=== PATIENT | male | born 1955 | race Caucasian/White ===

== ENCOUNTER → 2016-07-31 | Outpatient (CLI) | payer MEDICARE, MEDICAID ==
[~2016-07-31] VITALS: Ht 180.3 cm; Wt 117.0 kg
[~2016-07-31] MED LIST: /PANT40TA OR; /SUCR1TA OR; ACET65TA OR; ALPR0.25 PO; ASPI325T OR; ASPI81CH32 PO; ATEN50TA2 OR; ATEN50TA2 PO; ATOR1TAB18 PO; ATOR40TA PO; BYDU1INJ SC; FURO40TA2 PO; GLIP5TAB15 PO; GLUC1000 OR; INVO300T PO; LASIX OR; LIDOCAINE 2% INJ 100 MG/5 ML SDV (FOR ANES.) As Ordered ONE; LISI10TA4 OR; LISI40TAB PO; MAALSUS OR; METF1000 PO; METO10TA2 OR; NEXI20CA PO; NS 1,000 ML IV SCH; OXYC1TAB15 PO; PERC5TAB8 OR; PERC7.5T8 OR; PLAV75TA PO; PROPOFOL 200 MG/20 ML VIAL As Ordered ONE; SERT50TA2 OR; SIMV80TA OR; ZETI10TA OR; ciprofloxacin OR
--- NOTE | 2016-07-31 11:34 | ROOR ---
Patient Name: Jason Blank Procedure Date: 07/31/2016 11:17 AM Date of : 1955 Age: 61 Room: M OP Gender: Male Note Status: Finalized Procedure: Upper GI endoscopy Indications: Dysphagia, Heartburn Providers: Tony OCHOA MD Referring MD: Chacorta Mishra NP Requesting Provider: Medicines: Monitored Anesthesia Care Complications: No immediate complications. Procedure: Pre-Anesthesia Assessment: - The heart rate, respiratory rate, oxygen saturations, blood pressure, adequacy of pulmonary ventilation, and response to care were monitored throughout the procedure. The Endoscope was introduced through the mouth, and advanced to the third part of duodenum. The upper GI endoscopy was accomplished without difficulty. The patient tolerated the procedure well. Findings: Multiple, diminutive erosions without bleeding were found in the entire duodenum. Biopsies were taken with a cold forceps for histology. The exam was otherwise without abnormality. Biopsies were taken with a cold forceps in the gastric antrum for Helicobacter pylori testing. Impression: - Multiple small superficial erosions in duodenum. Biopsied. - The examination was otherwise normal. - Biopsies were taken with a cold forceps for Helicobacter pylori testing. Recommendation: - No ibuprofen, naproxen, or other non-steroidal anti-inflammatory drugs. - Use Nexium (esomeprazole) 40 mg PO daily. - (the script was sent to your pharmacy on file) Tony Ochoa MD Tony OCHOA MD 07/31/2016 11:33:37 AM This report has been signed electronically. Number of Addenda: 0 Note Initiated On: 07/31/2016 11:17 AM Estimated Blood Loss: Estimated blood loss: none.
--- NOTE | 2016-07-31 11:49 | ROOR ---
Patient Name: Jason Blank Procedure Date: 07/31/2016 11:18 AM Date of : 1955 Age: 61 Room: [facility] Gender: Male Note Status: Finalized Procedure: Colonoscopy Indications: Screening for colorectal malignant neoplasm Providers: Tony OCHOA MD Referring MD: Chacorta Mishra NP Requesting Provider: Medicines: Monitored Anesthesia Care Complications: No immediate complications. Procedure: Pre-Anesthesia Assessment: - The heart rate, respiratory rate, oxygen saturations, blood pressure, adequacy of pulmonary ventilation, and response to care were monitored throughout the procedure. The Colonoscope was introduced through the anus and advanced to the cecum, identified by appendiceal orifice and ileocecal valve. The colonoscopy was performed without difficulty. The patient tolerated the procedure well. The quality of the bowel preparation was good. Findings: The perianal and digital rectal examinations were normal. A 4 mm polyp was found at the splenic flexure. The polyp was sessile. The polyp was removed with a cold snare. Resection and retrieval were complete. Three sessile polyps were found in the high rectum. The polyps were 3 to 4 mm in size. These polyps were removed with a cold snare. Resection and retrieval were complete. Internal hemorrhoids were found during retroflexion. The hemorrhoids were medium-sized. The exam was otherwise without abnormality on direct and retroflexion views. (Exam: Complete, Prep: Good or Excellent.) Impression: - One 4 mm polyp at the splenic flexure, removed with a cold snare. Resected and retrieved. - Three 3 to 4 mm polyps in the rectum, removed with a cold snare. Resected and retrieved. - Small Internal hemorrhoids. - The examination was otherwise normal on direct and retroflexion views. - (Exam: Complete, Prep: Good or Excellent.) Recommendation: - Telephone endoscopist for pathology results in 2 weeks. - If the pathology report reveals adenomatous tissue, then repeat the colonoscopy for surveillance in 3 years. - Resume Plavix (clopidogrel) at prior dose today. Tony Ochoa MD Tony OCHOA MD 07/31/2016 11:49:16 AM This report has been signed electronically. Number of Addenda: 0 Note Initiated On: 07/31/2016 11:18 AM Estimated Blood Loss: Estimated blood loss: none.
[2016-07-31 12:19] VITALS: BP 95/54
== END ==
LOC: M OPP 09:52
PROVIDERS: ATTEND Internal Medicine Gastroenterology
DX: Z12.11 Encounter for screening for malignant neoplasm of colon (principal); D12.3 Benign neoplasm of transverse colon; D12.8 Benign neoplasm of rectum; K64.0 First degree hemorrhoids; K31.89 Other diseases of stomach and duodenum; R12 Heartburn; R13.10 Dysphagia, unspecified; I10 Essential (primary) hypertension; E11.9 Type 2 diabetes mellitus without complications; E78.5 Hyperlipidemia, unspecified; I25.10 Atherosclerotic heart disease of native coronary artery without angina pectoris; F41.9 Anxiety disorder, unspecified; M25.512 Pain in left shoulder; Z86.14 Personal history of Methicillin resistant Staphylococcus aureus infection; Z91.030 Bee allergy status; Z79.84 Long term (current) use of oral hypoglycemic drugs; Z79.82 Long term (current) use of aspirin; Z79.01 Long term (current) use of anticoagulants; Z79.891 Long term (current) use of opiate analgesic; Z79.899 Other long term (current) drug therapy; Z95.5 Presence of coronary angioplasty implant and graft; Z80.42 Family history of malignant neoplasm of prostate

== ENCOUNTER → 2016-10-12 | Outpatient (CLI) | payer MEDICARE, MEDICAID ==
[~2016-10-12] MED LIST changes: -LIDOCAINE 2% INJ 100 MG/5 ML SDV (FOR ANES.) As Ordered ONE; -NS 1,000 ML IV SCH; -PLAV75TA PO; +PLAV75TA38 PO; -PROPOFOL 200 MG/20 ML VIAL As Ordered ONE
--- NOTE | 2016-10-12 12:04 | REP ---
MRI OF RIGHT SHOULDER: TECHNIQUE: Axial T2 fat sat, gradient echo, sagittal oblique T2 fat sat, coronal oblique T1, T2 fat sat. There are moderate hypertrophic degenerative changes of the acromioclavicular joint. Ill-defined high signal in the supraspinatus tendon is compatible with tendinopathy/tendonitis. There is mild confluent signal focally in portions of the tendon consistent with partial tearing. I do not see a complete tear. Biceps tendon is within the bicipital groove with no tenosynovitis. There is no Hill-Sachs deformity. Deltoid muscle demonstrates abnormal signal. Biceps labral complex appears intact. I do not see a definite labral tear. Subchondral cystic changes are seen in the posterior bony glenoid as well as in the superolateral humeral head. There is no occult fracture. No paralabral cyst is seen. There is a normal amount of joint fluid. IMPRESSION: Supraspinatus tendinopathy/tendonitis with focal areas of partial tearing. No full thickness rotator cuff tendon tear and no evidence of a labral tear. There is chondromalacia at the glenohumeral joint. Subchondral cystic changes are seen in the posterior bony glenoid and in the superolateral humeral head. Signed by Brad Choudhury MD 10/12/2016 01:26 P
== END ==
LOC: M RAD 09:12
PROVIDERS: ATTEND Nurse Practitioner Family
DX: M25.511 Pain in right shoulder (principal)

== ENCOUNTER 2017-02-16 09:07 | Emergency (ER) | payer MEDICARE, MEDICAID ==
[~2017-02-16] VITALS: Ht 180.3 cm; Wt 116.4 kg
[~2017-02-16 09:07] MED LIST changes: -ATOR1TAB18 PO; -ATOR40TA PO; +ATOR40TA75 PO; +ATOR80TA59 PO; +GLIP1TAB49 PO; -GLIP5TAB15 PO; -METF1000 PO; +METF10004 PO; +PLAV1TAB2 PO; -PLAV75TA38 PO
[2017-02-16] MEDS ORDERED: MAGN1TAB25 PO (09:18)
[2017-02-16] MEDS ORDERED: CLINDAMYCIN 900 MG in APPROPRIATE DILUENT 1 EA IV ONE (09:30)
[2017-02-16 09:51] LABS: BASO # 0.1 K/mm3 (0.0-0.2); BASO % 0.4 % (0.0-1.0); EOS # 0.4 K/mm3 (0.0-0.50); EOS % 2.5 % (0.0-3.0); LARGE UNSTAINED CELL # 0.2 K/mm3 (0.0-0.4); LARGE UNSTAINED CELL % 1.2 % (0.0-4.0); LYMPH # 1.2 K/mm3 (1.5-4.5); LYMPH % 7.8 % (24.0-44.0); MEAN CORPUSCULAR HEMOGLOBIN 31.2 pg (27.0-33.0); MEAN CORPUSCULAR HGB CONC 35.2 g/dl (32.0-36.5); MEAN CORPUSCULAR VOLUME 88.6 fl (80.0-96.0); MONO # 0.8 K/mm3 (0.0-0.8); MONO % 4.9 % (0.0-5.0); NEUTROPHILS # 13.1 K/mm3 (1.8-7.7); NEUTROPHILS % 83.3 % (36.0-66.0); PLATELET COUNT, AUTOMATED 296 k/mm3 (150-450); RED CELL DISTRIBUTION WIDTH 12.9 % (11.5-14.5); WHITE BLOOD COUNT 15.7 K/mm3 (4.0-10.0)
[2017-02-16 10:23] LABS: ERYTHROCYTE SEDIMENTATION RATE 13 mm/hr (0-20)
[2017-02-16 10:26] LABS: ALBUMIN 3.8 GM/DL (3.2-5.2); ALBUMIN/GLOBULIN RATIO 1.09 (1.00-1.93); ALKALINE PHOSPHATASE 104 U/L (45-117); ALT/SGPT 29 U/L (12-78); ANION GAP 10 MEQ/L (8-16); AST/SGOT 12 U/L (15-37); BILIRUBIN,TOTAL 0.7 MG/DL (0.2-1.0); BLOOD UREA NITROGEN 25 MG/DL (7-18); CALCIUM LEVEL 9.2 MG/DL (8.8-10.2); CARBON DIOXIDE LEVEL 26 MEQ/L (21-32); CHLORIDE LEVEL 101 MEQ/L (98-107); CREATININE FOR GFR 1.29 MG/DL (0.70-1.30); GLOMERULAR FILTRATION RATE > 60.0 (>49); GLUCOSE, FASTING 161 MG/DL (80-110); POTASSIUM SERUM 4.2 MEQ/L (3.5-5.1); SODIUM LEVEL 137 MEQ/L (136-145); TOTAL PROTEIN 7.3 GM/DL (6.4-8.2)
[2017-02-16] MEDS ORDERED: ISOVUE-370 76% 100ML VIAL (Q9967) As Ordered ONE (10:36)
[2017-02-16] MEDS ORDERED: MORPHINE 4 MG/ML 1ML SYRINGE IV ONE (11:00)
[2017-02-16] MEDS ORDERED: ONDANSETRON 4MG/2ML VIAL (J2405) IV ONE (11:00)
--- NOTE | 2017-02-16 11:41 | REP ---
REASON FOR EXAMINATION: Right lower quadrant pain superficially at a previous injection sight. The details have not been disclosed. There is no prior for comparison. CONTRAST: 100 mL Isovue 370. The lung bases are clear. The liver is within normal limits. There is cholelithiasis. The spleen, pancreas, adrenal glands, and kidneys are within normal limits. There is mild scarring of the inferior pole of the left kidney. The abdominal aorta and para-aortic regions are within normal limits. The bowel loops and their mesenteries are within normal limits. There is no free fluid or free air in the abdomen. In the subcutaneous fat overlying the right lower quadrant, there is a 2 x 1.5 cm sized focal area of increased density with fatty infiltration surrounding it. There is a tiny dot of air in the dependent portion of this small nodule, which has higher than water Hounsfield unit readings but significantly less than the Hounsfield unit reading of muscle. The epicenter of this is approximately 2.6 cm from the skin surface. CT PELVIS: CT pelvis of today was compared to a prior pelvic CT of 04/14/2010. There is corpora amylacea. There is no free fluid or free air. The bowel loops and their mesenteries are within normal limits. There is no pelvic mass or adenopathy. The imaged osseous structures show no acute changes from the prior exam. IMPRESSION: 1. There is what is most consistent with a small organizing abscess forming in the deep subcutaneous fat of the right lower quadrant superficially as described above. 2. There is cholelithiasis. 3. Other findings as described above. Signed by Sanjeev Lya DO 02/16/2017 12:07 P
[2017-02-16] MEDS ORDERED: CLIN150C14 PO (13:56)
[2017-02-16] MEDS ORDERED: NS 1,000 ML IV ONE (14:45)
[2017-02-16 15:35] VITALS: BP 143/67
--- NOTE | 2017-02-17 02:43 | ECGEPIP ---
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
--- NOTE | 2017-02-17 14:13 | ER ---
DATE OF CONSULTATION: 02/16/2017 REASON FOR CONSULTATION: Abdominal wall abscess. HISTORY OF PRESENT ILLNESS: The patient is a pleasant 61-year-old diabetic man who presented to the emergency department at 9:07 in the morning on February 16 complaining of some swelling and tenderness in the right lower quadrant of the abdomen. The patient reports that he gives himself a weekly Bydureon shot on Saturday. He gave himself his usual shot this past Saturday the and noted some mild burning with the injection. Over the course of the ensuing several days he noticed development of an area of redness with a tender area centrally which increased in prominence over time and became more uncomfortable. He has not had any fevers or chills. In the emergency department he was found to have an area of redness in the right lower quadrant with a central firmer area. He had some laboratory studies obtained that showed an elevation of his white blood cell count to 16,000 with 83% neutrophils. A CT scan of the abdomen and pelvis was obtained by the physician's assisted living assistant in the emergency department. This was interpreted as suggesting a small organizing abscess in the deep subcutaneous fat of the right lower quadrant. I was consulted to evaluate the patient regarding the necessity of drainage. ALLERGIES: The patient's only reported significant allergy is to bee venom. He is on multiple medications as listed in the emergency department record. His medical history is significant for coronary artery disease, hypertension, hyperlipidemia, and diabetes mellitus. His surgical history is significant for a quadruple coronary bypass. He has had an inguinal hernia repair bilaterally. He has had surgery on his right thumb and left shoulder. He reports that he has had a prior methicillin-resistant staph aureus infection by his recollection. The patient is a former smoker. Review of systems reveals no history of chest pain or palpitations. He denies any shortness of breath, wheezing or difficulty breathing. He has not had any abdominal pain other than the tenderness of the anterior abdominal wall in the right lower quadrant. He has not noticed any drainage from this area. He is not having any bone or joint issues. Remainder of the review of systems is unremarkable. Physical exam reveals a pleasant, perhaps mildly obese man lying quietly on the emergency department stretcher. His most recent vital signs showed a pulse of 82, blood pressure of 128/73 and an O2 sat that was in the 90s on room air. He is alert, oriented and cooperative. Examination is limited to the abdomen. He has an area of redness approximately 15 cm wide x 6-7 cm maximally longitudinally. This extends across the lower portion of the right lower quadrant. Centrally, this is quite indurated and tender. There is no evidence for incipient drainage. I see no puncture wound. His labs are reviewed and as noted in the history of present illness. The CT scan is also reviewed and shows some inflammatory changes in the right lower quadrant which appear to correspond to the visible area of cellulitis. There does appear to be possible very small air bubble centrally with some changes that could represent an underlying abscess. IMPRESSION: Right lower quadrant abscess. RECOMMENDATIONS: I believe it would be prudent to perform an incision and drainage of this area. The patient is a diabetic and has noted progressive worsening of this area. I suppose this could be related to his injection of insulin earlier in the week. He does have a mild elevation of his white blood cell count. I recommended to the patient that we proceed with an incision and drainage. The patient was agreeable. Following this, the area was prepped with Betadine. Local anesthesia was achieved over the central portion of this area where the induration and tenderness was most pronounced. After adequate local anesthesia had been achieved with 1% Xylocaine, an 11 blade was used to make an approximately 1-1/2 to 2 cm long transverse incision. There was some blood released and a small amount of purulent appearing fluid. A Culturette was obtained for Gram stain and culture and sensitivity. The wound was wicked with some Betadine gauze and a bulky bandage was applied. The patient tolerated the procedure well. He was instructed in local wound care to include several times daily warm soaks or showers. He should remove the gauze wick after about 8 hours and shower this area to promote drainage. He will be placed on antibiotics by the emergency department personnel. He will need to follow up regarding the culture. I have invited him to return to my office in 10 days if the wound has not healed completely by that time. TAMIR
== END 2017-02-16 15:41 | disposition home or self-care (01) ==
LOC: M ED 09:07
DX: L02.211 Cutaneous abscess of abdominal wall (principal); F17.200 Nicotine dependence, unspecified, uncomplicated; K80.20 Calculus of gallbladder without cholecystitis without obstruction; Z95.1 Presence of aortocoronary bypass graft; I50.9 Heart failure, unspecified; E78.00 Pure hypercholesterolemia, unspecified; I10 Essential (primary) hypertension; G47.30 Sleep apnea, unspecified; K21.9 Gastro-esophageal reflux disease without esophagitis; E11.9 Type 2 diabetes mellitus without complications; G89.29 Other chronic pain; M54.9 Dorsalgia, unspecified; F41.9 Anxiety disorder, unspecified; Z79.82 Long term (current) use of aspirin; Z79.899 Other long term (current) drug therapy; Z79.01 Long term (current) use of anticoagulants; Z79.84 Long term (current) use of oral hypoglycemic drugs; Z91.030 Bee allergy status
CPT/HCPCS: 74177; 80053; 82550; 82553; 84484; 85025; 85652; 86140; 87040; 87070; 87077; 87186; 87205; 93005; 93041; 96361; 96365; 96375; 99285; J2405; Q9967

== ENCOUNTER 2017-05-10 11:08 | Emergency (ER) | payer MEDICAID, MEDICARE ==
[~2017-05-10] VITALS: Ht 180.3 cm; Wt 116.4 kg
[~2017-05-10 11:08] MED LIST changes: +CLIN150C14 PO; +MAGN1TAB25 PO
[2017-05-10 11:46] LABS: BASO # 0.1 10^3/uL (0.0-0.2); BASO % 0.8 % (0.0-1.0); EOS # 0.4 10^3/uL (0.0-0.50); EOS % 4.4 % (0.0-3.0); IMMATURE GRANULOCYTE % 0.2 % (0-0); LYMPH # 1.9 10^3/uL (1.5-4.5); LYMPH % 21.6 % (24.0-44.0); MEAN CORPUSCULAR HEMOGLOBIN 30.5 pg (27.0-33.0); MEAN CORPUSCULAR HGB CONC 34.8 g/dl (32.0-36.5); MEAN CORPUSCULAR VOLUME 87.6 fl (80.0-96.0); MONO # 0.7 10^3/uL (0.0-0.8); MONO % 7.6 % (0.0-5.0); NEUTROPHILS # 5.8 10^3/uL (1.8-7.7); NEUTROPHILS % 65.4 % (36.0-66.0); PLATELET COUNT, AUTOMATED 300 10^3/uL (150-450); RED CELL DISTRIBUTION WIDTH 13.2 % (11.5-14.5); WHITE BLOOD COUNT 8.8 10^3/uL (4.0-10.0)
[2017-05-10 12:24] LABS: ANION GAP 10 MEQ/L (8-16); BLOOD UREA NITROGEN 22 MG/DL (7-18); CALCIUM LEVEL 9.4 MG/DL (8.8-10.2); CARBON DIOXIDE LEVEL 26 MEQ/L (21-32); CHLORIDE LEVEL 103 MEQ/L (98-107); CREATININE FOR GFR 1.18 MG/DL (0.70-1.30); GLOMERULAR FILTRATION RATE > 60.0 (>49); GLUCOSE, FASTING 131 MG/DL (80-110); POTASSIUM SERUM 4.6 MEQ/L (3.5-5.1); SODIUM LEVEL 139 MEQ/L (136-145)
[2017-05-10 13:10] LABS: INR 0.99
[2017-05-10 13:26] LABS: FREE T4 1.33 NG/DL (0.76-1.46); MAGNESIUM LEVEL 2.3 MG/DL (1.8-2.4); PHOSPHORUS LEVEL 3.7 MG/DL (2.5-4.9)
--- NOTE | 2017-05-10 13:26 | REP ---
CHEST, TWO VIEWS: COMPARISON: 11/25/2013. There is mild cardiomegaly. There is no acute infiltrate. There is mild bibasilar fibroatelectatic change. There is mild calcification of the thoracic aorta. The mediastinal silhouette is unchanged. Multiple sternal wires and mediastinal clips are present. There are degenerative changes of the spine. IMPRESSION: Mild cardiomegaly. No acute infiltrate. Signed by Brad Choudhury MD 05/13/2017 09:51 A
[2017-05-10] MEDS ORDERED: ASPIRIN 81 MG CHEW TABLET PO ONE (13:45)
[2017-05-10 18:38] VITALS: BP 131/58
[2017-05-11] MEDS ORDERED: VITMTA PO (00:43)
[2017-05-11] MEDS ORDERED: METO1TAB7 PO (00:43)
[2017-05-11] MEDS ORDERED: METF500T4 PO (00:43)
[2017-05-11] MEDS ORDERED: NITR0.4S14 SL (00:43)
[2017-05-11] MEDS ORDERED: NEXI40CA PO (00:43)
--- NOTE | 2017-05-11 05:52 | ECGEPIP ---
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
--- NOTE | 2017-05-11 05:57 | ECGEPIP ---
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
[2017-05-11] MEDS ORDERED: CILO0.3S OS (10:25)
== END 2017-05-10 18:40 | disposition home or self-care (01) ==
LOC: M ED 11:08
DX: R07.9 Chest pain, unspecified (principal); I51.7 Cardiomegaly; I48.91 Unspecified atrial fibrillation; I25.10 Atherosclerotic heart disease of native coronary artery without angina pectoris; E11.9 Type 2 diabetes mellitus without complications; I10 Essential (primary) hypertension; E78.5 Hyperlipidemia, unspecified; K44.9 Diaphragmatic hernia without obstruction or gangrene; Z95.5 Presence of coronary angioplasty implant and graft; Z95.1 Presence of aortocoronary bypass graft; Z87.891 Personal history of nicotine dependence; Z82.49 Family history of ischemic heart disease and other diseases of the circulatory system; Z79.82 Long term (current) use of aspirin; Z79.899 Other long term (current) drug therapy; Z79.84 Long term (current) use of oral hypoglycemic drugs; Z91.030 Bee allergy status

== ENCOUNTER 2017-05-10 22:28 | Observation (INO) | payer MEDICARE ==
[~2017-05-10] VITALS: Ht 180.3 cm; Wt 116.7 kg
[2017-05-10 23:28] LABS: BASO # 0.1 10^3/uL (0.0-0.2); BASO % 0.6 % (0.0-1.0); EOS # 0.5 10^3/uL (0.0-0.50); EOS % 4.5 % (0.0-3.0); IMMATURE GRANULOCYTE % 0.2 % (0-0); LYMPH # 2.3 10^3/uL (1.5-4.5); LYMPH % 22.6 % (24.0-44.0); MEAN CORPUSCULAR HEMOGLOBIN 30.5 pg (27.0-33.0); MEAN CORPUSCULAR HGB CONC 34.9 g/dl (32.0-36.5); MEAN CORPUSCULAR VOLUME 87.4 fl (80.0-96.0); MONO # 0.9 10^3/uL (0.0-0.8); MONO % 8.7 % (0.0-5.0); NEUTROPHILS # 6.4 10^3/uL (1.8-7.7); NEUTROPHILS % 63.4 % (36.0-66.0); PLATELET COUNT, AUTOMATED 287 10^3/uL (150-450)
[2017-05-11 00:01] LABS: ANION GAP 8 MEQ/L (8-16); BLOOD UREA NITROGEN 30 MG/DL (7-18); CALCIUM LEVEL 8.5 MG/DL (8.8-10.2); CARBON DIOXIDE LEVEL 29 MEQ/L (21-32); CHLORIDE LEVEL 101 MEQ/L (98-107); CREATININE FOR GFR 1.32 MG/DL (0.70-1.30); GLOMERULAR FILTRATION RATE 58.9 (>49); GLUCOSE, FASTING 242 MG/DL (80-110); SODIUM LEVEL 138 MEQ/L (136-145)
[2017-05-11] MEDS ORDERED: VITMTA PO (00:43)
[2017-05-11] MEDS ORDERED: METO1TAB7 PO (00:43)
[2017-05-11] MEDS ORDERED: NITR0.4S14 SL (00:43)
[2017-05-11] MEDS ORDERED: METF500T4 PO (00:43)
[2017-05-11] MEDS ORDERED: NEXI40CA PO (00:43)
[2017-05-11] MEDS: ENOXAPARIN 120 MG/0.8 ML SYR (J1650) SC ONE ×2 (01:20→03:27)
[2017-05-11] MEDS ORDERED: ALPRAZolam 0.25 MG TAB PO PRN (03:30)
[2017-05-11] MEDS ORDERED: GLUCAGON FOR INJ 1 MG VIAL (J1610) SC PRN (03:30)
[2017-05-11] MEDS ORDERED: PERCOCET 5MG/325MG TAB PO PRN (03:30)
[2017-05-11] MEDS ORDERED: ACETAMINOPHEN TAB 650MG DOSE (2X325MG) PO PRN (03:30)
[2017-05-11] MEDS ORDERED: GLUCOSE 4 GM CHEW TABLET PO PRN (03:30)
[2017-05-11] MEDS ORDERED: BISACODYL 10 MG SUPP PR PRN (03:30)
[2017-05-11] MEDS ORDERED: NITROGLYCERIN 0.4 MG SUBL TABLET SL PRN (03:30)
[2017-05-11] MEDS ORDERED: DEXTROSE 50% 50 ML SYRINGE IV PRN (03:30)
[2017-05-11 04:05] LABS: MAGNESIUM LEVEL 2.1 MG/DL (1.8-2.4)
[2017-05-11 04:41] LABS: MEAN CORPUSCULAR HEMOGLOBIN 30.2 pg (27.0-33.0); MEAN CORPUSCULAR HGB CONC 34.5 g/dl (32.0-36.5); MEAN CORPUSCULAR VOLUME 87.4 fl (80.0-96.0); PLATELET COUNT, AUTOMATED 280 10^3/uL (150-450); RED CELL DISTRIBUTION WIDTH 12.9 % (11.5-14.5); WHITE BLOOD COUNT 9.7 10^3/uL (4.0-10.0)
[2017-05-11 04:54] LABS: INR 1.14
[2017-05-11 04:56] LABS: ANION GAP 8 MEQ/L (8-16); BLOOD UREA NITROGEN 30 MG/DL (7-18); CALCIUM LEVEL 8.7 MG/DL (8.8-10.2); CARBON DIOXIDE LEVEL 26 MEQ/L (21-32); CHLORIDE LEVEL 105 MEQ/L (98-107); CREATININE FOR GFR 1.22 MG/DL (0.70-1.30); GLOMERULAR FILTRATION RATE > 60.0 (>49); GLUCOSE, FASTING 160 MG/DL (80-110); SODIUM LEVEL 139 MEQ/L (136-145)
[2017-05-11 05:00] VITALS: BP 116/70
[2017-05-11] MEDS ORDERED: INFLUENZA QUADRIVALENT PF VACCINE 0.5ML SYRINGE (90686) IM SCH (06:00)
--- NOTE | 2017-05-11 06:04 | ECGEPIP ---
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
[2017-05-11] MEDS ORDERED: HumaLOG INSULIN (NovoLOG) PER UNIT SC SCH ×2 (07:30→21:00)
[2017-05-11 08:00] VITALS: BP 122/77
--- NOTE | 2017-05-11 08:37 | HPE ---
DATE OF ADMISSION: 05/10/2017 Time patient was seen was around 2 a.m. Patient's primary care provider is Chacorta Mishra. Patient's line out man is Dr. Hernandez. CHIEF COMPLAINT: Skipped beats and was called back by emergency room for arrhythmia. HISTORY OF PRESENT ILLNESS: 61-year-old male with past medical history of hypertension, anxiety, depression, coronary artery disease status post stent and coronary artery bypass graft (CABG), four vessels, type 2 diabetes, hyperlipidemia, abdominal wall abscess, atrial fibrillation with unclear duration, gastroesophageal reflux disease (GERD) with history of esophagitis, presented with skipped beats. Initially, patient was driving in the morning and felt a skipped heart beat and called Dr. Hernandez' office and was told that he should come to the emergency room and get evaluated. He had a negative workup and went home; however, after he went home he was called back into the emergency room due to he was found to have ventricular tachycardia on the event strips. However , per patient, he was actually playing with the leads when this happened. In addition, emergency room physician has discussed with Dr. Amaya, line out man instrumentation and control technician due to EKG machine read that patient does have atrial fibrillation and not on anticoagulation. When emergency room physician approached the patient, he did not know that he has atrial fibrillation. It appears that the patient has been a very poor historian and does not know his medical condition well. Otherwise, patient denies any chest pain, denies any palpitations besides the skipped heartbeat. Denies any shortness of breath. Denies any abdominal pains, nausea, vomiting, diarrhea, constipation. Denies any dizziness. Denies any fever or chills, any blood in the urine or stool, any problem with urination. Admits to mild constipation. Patient's mother from massive internal bleed after she developed a pulmonary embolus (PE) while on Xarelto, and patient also received heparin treatment for the PE. Therefore, patient was very afraid to be on any type of anticoagulation. Patient initially refused receiving Lovenox; however, after explained to patient the risk and benefit, he agreed on taking the Lovenox subcutaneously in the emergency room. ALLERGIES: Patient is ALLERGIC to BEE VENOM. HOME MEDICATIONS: Including; - alprazolam 0.25 mg by mouth every 12 hours as needed - aspirin 81 mg one tablet by mouth daily - atorvastatin 80 mg one tablet by mouth nightly - Invokana 300 mg one tablet by mouth daily - Plavix 75 mg one tablet by mouth daily - Nexium 40 mg one tablet by mouth daily - Bydureon 2 mg subcutaneously weekly - furosemide 60 mg by mouth daily - metformin 2000 mg by mouth daily - metoprolol 50 mg one tablet daily - multivitamin one tablet daily - nitroglycerin 0.4 mg sublingually every 5 minutes as needed - oxycodone/acetaminophen 7.5/325 mg one tablet by mouth every 6 hours as needed PAST MEDICAL HISTORY: 1. Chronic kidney disease, stage III. 2. Hypertension. 3. Anxiety. 4. Depression. 5. Coronary artery disease, status post stents and CABG with quadruple bypass back in 2000. 6. Type 2 diabetes, on metformin. 7. Hyperlipidemia. 8. Abdominal wall abscess. 9. GERD and esophagitis. 10. Chronic atrial fibrillation. PAST SURGICAL HISTORY: Including; 1. Hernia repair. 2. Coronary artery bypass graft. 3. Left shoulder repair. 4. Cardiac stent. SOCIAL HISTORY: Patient denies any smoking, drinking, or recreational drug use. 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 FAMILY HISTORY: Patient's brother had a heart attack, and diabetes also runs in the family. REVIEW OF SYSTEMS: GENERAL: Patient denies any weight changes, any fever or chills, sick contact, recent traveling. HEENT: Denies any changes with vision, smell, hearing, or taste. CARDIOVASCULAR: Denies any chest pain, shortness of breath. Admits to feeling skipped heartbeat. Denies any palpitation. PULMONARY: Denies any shortness of breath. Denies any sputum production. Denies any cough. GASTROINTESTINAL (GI): Denies any abdominal pains, nausea, vomiting, diarrhea, or constipation. GENITOURINARY (): Denies any problem with urination, burning on urination, or blood in the urine. MUSCULOSKELETAL: Denies any pain anywhere. ENDOCRINE: Denies any heat or cold intolerance; however, patient is a diabetic and has been treated with metformin, was previously on insulin and switched to Bydureon, currently controlled. NEUROLOGICAL: Denies any changes of sensations. Denies any weakness on one side of his body. Denies any change of speech. SKIN: Denies any rash, ulcerations, lumps, or bumps anywhere. HEMATOLOGY/ONCOLOGY: Denies any ease of bruising. Denies any bleeding anywhere. Patient's mother, however, did have a massive internal bleed back several years ago and from it, while patient was on Xarelto and developed a PE. She also was having heparin drip during the time. PSYCH: Patient does have a history of anxiety/depression. PHYSICAL EXAM: VITAL SIGNS: Temperature 97.7, pulse 104 initially, and at the time of examination pulse was 78, blood pressure initially was 185/93, at the time of examination it was 143/67, oxygen was satting at 97% on room air. GENERAL: Patient is a morbidly obese elderly male who was alert, awake, and oriented times three. Does not appear to be in distress. Laying comfortably in bed with head elevated at a 45 degree angle. HEENT: Normocephalic, atraumatic. Extraocular motors intact. Mucous moist. NECK: Supple. No neck lymphadenopathy. CARDIOVASCULAR: Irregularly, irregular. Normal S1, S2. No murmurs. LUNGS: Clear to auscultate bilaterally. No wheezes, rales, rhonchi. ABDOMEN: Positive bowel sounds. Soft, nontender, nondistended. No peritoneal signs. No ecchymosis. EXTREMITIES: No edema, clubbing, or cyanosis. SKIN: Warm and dry. NEURO: Cranial nerves II through XII intact. No focal neurologic deficits. LABS: WBC 10, hemoglobin 12.2, hematocrit 46.4, with a platelet count of 287, MCV of 87.4. Sodium 138, potassium 4, chloride 101, bicarbonate 29, ion gap 8, BUN 30, creatinine 1.32, GFR 58.9, fasting glucose 242, calcium 8.5, total CK 69, CK-MB 1, troponin less than 2. Coag studies pending. Magnesium is pending. TSH is pending. There was no imaging. EKG was done in the emergency room and showed atrial fibrillation with ventricular rate of 85, consistent with pulmonary disease and nonspecific ST-T wave abnormalities. The EKG was, however, comparable to EKG done back in 02/16/2017. Patient also had a recorded event strip earlier yesterday around 5: 51 p.m. that shows possible ventricular tachycardia, about 22 beats. ASSESSMENT/PLAN: 61-year-old male with a past medical history of coronary artery disease, status post stent and coronary artery bypass graft (CABG), chronic kidney disease stage III, hypertension, type 2 diabetes, anxiety, depression, hyperlipidemia, abdominal wall abscess, chronic atrial fibrillation, gastroesophageal reflux disease (GERD), esophagitis, presented with: 1. Skipped heartbeat. Patient was initially in the emergency room, however, once patient went home, upon reviewing strip, it was found that patient had some ventricular tachycardia about 22 beats. However, when patient came back, he stated that he was playing with leads. However, upon reviewing his medications, it was found that he was not on any anticoagulation with his atrial fibrillation. Dr. Amaya was consulted by emergency physician, recommended therapeutic Lovenox , which was given to patient. Patient was initially afraid due to patient's mother from Xarelto and anticoagulants. However, later on, was more susceptible to anticoagulant and was agreeable for the subcutaneous shot. Otherwise, patient appears to be a poor historian and was unaware of his medical conditions, including atrial fibrillation. He was also on Lasix for questionable heart failure which was not on his report and patient has no knowledge of. Otherwise, will continue patient on cardiac telemetry. Dr. Amaya was consulted and will follow his recommendations. Continue patient on home medications, aspirin, beta fred, and statin. 2. Questionable chronic atrial fibrillation, EKG does show irregularity with inconsistent R to R, however there are questionable P waves too. Continue beta fred. Unclear reason patient was not on anticoagulation. Patient has been started on therapeutic Lovenox by emergency room physician. Will continue patient on therapeutic Lovenox. Dr. Amaya will see patient in the morning and recommend further management. 3. Chronic kidney disease stage III. Patient's creatinine is slightly worse than baseline. Will continue to monitor. 4. History of hypertension. Continue home blood pressure medication with beta fred. 5. History of coronary artery disease with stent and CABG. Continue aspirin, Plavix, and beta fred, and also statin. 6. History of hyperlipidemia. Continue statin medication. 7. Type 2 diabetes. Will hold patient's metformin, Invokana, and Bydureon for now. Continue insulin sliding scale. 8. History of abdominal wall abscess. Continue to monitor. 9. History of GERD with esophagitis. Continue home proton pump inhibitor (PPI). 10. Deep venous thrombosis (DVT) prophylaxis with therapeutic Lovenox. 11. Nutrition. Will place patient on 2 grams of sodium diet due to patient does take Lasix 60 mg at home. Unclear if patient has heart failure. However, at this point, patient does not look fluid overloaded. Will continue Lasix. Will monitor for any signs of heart failure or exacerbation. DISPOSITION: Patient has questionable ventricular tachycardia due to patient stated he was playing with leads. Dr. Amaya has been consulted. Will follow his recommendation. In addition, unclear reason patient was not on anticoagulation for atrial fibrillation. Will obtain medical record from Dr. Hernandez' office. Patient, however, does appear to be a very poor historian. He does not know much of his medical history. Patient has been discussed with attending doctor, Dr. Barnes. My preceptor for this patient encounter was Dr. Barnes. The preceptor was physically present in the building during the encounter and was fully available. As needed, all aspects of the patient interview, examination, medical decision making process, and medical care plan development were reviewed and approved by the preceptor. The preceptor is aware and concurs with the plan as stated in the body of this note and will attest to such by his/her cosignature. TAMIR
[2017-05-11 08:46] VITALS: BP 122/77
[2017-05-11] MEDS ORDERED: CLOPIDOGREL 75 MG TAB PO SCH (09:00)
[2017-05-11] MEDS ORDERED: ASPIRIN 81 MG CHEW TABLET PO SCH (09:00)
[2017-05-11] MEDS ORDERED: SENOKOT S TAB PO SCH (09:00)
[2017-05-11] MEDS ORDERED: MULTIVITAMINS/MINERALS THERAP 1 TAB PO SCH (09:00)
[2017-05-11] MEDS ORDERED: PANTOPRAZOLE 40MG TAB (PROTONIX) PO SCH (09:00)
[2017-05-11] MEDS ORDERED: FUROSEMIDE 20 MG TAB PO SCH (09:00)
[2017-05-11] MEDS ORDERED: METOPROLOL SUCC (TopROL XL) 50MG **XL** TAB PO SCH (09:00)
[2017-05-11] MEDS ORDERED: CILO0.3S OS (10:25)
--- NOTE | 2017-05-11 10:57 | CR ---
DATE OF CONSULTATION: 05/11/2017 REFERRING PHYSICIAN: Dr. Toussaint but I was originally contacted from emergency room. HISTORY OF PRESENT ILLNESS: Mr. Blank is a pleasant 61-year-old male who has established coronary artery disease with a history of coronary artery bypass grafting in 2000 and a history of percutaneous intervention in 2014. He is also diabetic and has hypertension and dyslipidemia and obstructive sleep apnea (REMA) . He presented to emergency room yesterday afternoon after he had some palpitations, he described as a brief sensation of skipped heartbeats that he could feel in his throat. He called Dr. Hernandez's office and was instructed to go to the emergency room for evaluation. He had two sets of cardiac enzymes that were negative, and he was monitored for a few hours and was discharged home. But then after his discharge, somebody actually reviewed the telemetry tracings and discovered that he had a 21-beat run of what was felt to be a ventricular tachycardia. He was called back to the emergency room, and I was called by the emergency room physician around midnight last night about direction of further management. I was told that the patient was in atrial fibrillation. I instructed him to get a single dose of Lovenox as it was surprising that he was not anticoagulated even though it was felt that the so-called irregular heartbeat has been chronic. The patient reports resolution of his palpitations overnight. Unfortunately, he has been in the emergency room virtually all night and consequently had hardly any sleep. He feels tired this morning but otherwise well. He tells me that these sensations of palpitations have been going on for some time. He had a 48-hour Holter monitor through Dr. Hernandez's is office approximately 2 weeks ago and was told that everything was normal. He says that the palpitations he had yesterday were identical to the palpitations he had previously. PAST MEDICAL HISTORY: 1. Coronary artery disease as above. 2. Type 2 diabetes. 3. Anxiety/depression. 3. Arterial hypertension. 4. Dyslipidemia. 5. Gastroesophageal reflux disease (GERD). 6. REMA, reports poor tolerance of continuous positive airway pressure (CPAP). 7. Obesity but apparently with improved nutrition and increased activity, he was able to lose approximately 50 pounds this year already. SURGICAL HISTORY: Positive for bypass surgery, left shoulder repair and hernia repair. OUTPATIENT MEDICATIONS: - alprazolam as needed every 12 hours 0.25 mg - aspirin 81 mg a day - atorvastatin 80 mg a day - Invokana 300 mg a day - Plavix 75 mg a day - Nexium 40 mg a day - Bydureon 2 mg once a week subcu - furosemide 60 mg a day - metformin 2 grams a day - metoprolol 50 mg a day - multivitamin - nitroglycerin as needed SOCIAL HISTORY: The patient is and lives with his . 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 He does not drink. He does not smoke. FAMILY HISTORY: Positive for coronary artery disease in his brother. REVIEW OF SYSTEMS: He denies any history of fever. There are no recent chills, nausea, vomiting, diarrhea. No chest pain. He actually reports reasonably good exertional tolerance. He does report he has poor compliance with his CPAP because of "plugged up nose." No syncope, near syncope. No peripheral edema. No bleeding history. PHYSICAL EXAMINATION: Mr. Blank is a very pleasant, obese, 61-year-old man. He is in no distress, comfortably lying in bed without any symptoms. Blood pressure 122/77, heart rate in 70s and 80s, in sinus rhythm with premature atrial contractions (PACs). He is afebrile. Saturation is 95% on room air. His fluid balance yesterday was not documented. Weight is 117 kg. His jugular venous pressure (JVP) is not elevated. Lungs are clear to auscultation with good air movement. Heart: Exam reveals a regular rhythm with occasional ectopy. I do not appreciate any S3 or S4. No murmur. No rub. Abdomen is slightly obese but soft and nontender. No hepatosplenomegaly. Abdominal aorta is palpable and does not appear enlarged. There is no peripheral edema, and peripheral pulses are detectable on both sides. Neurologically he is intact. No skin lesions. LABORATORY: Normal CBC. Basic metabolic panel: Potassium 4.0, BUN 8, creatinine 1.2, glucose 160, hemoglobin A1c 7.1. Cardiac enzymes negative times three. Normal TSH. There are ECGs that were computer interpreted as atrial fibrillation but actually represent sinus rhythm with PACs. There is left axis deviation and poor R-wave progression, and nonspecific ST-T abnormalities. Cannot completely rule out old septal myocardial infarction. I reviewed the ECG strip from emergency room that was interpreted as ventricular tachycardia, and it unequivocally represents artifact. ASSESSMENT AND PLAN: Mr. Blank is a 61-year-old man who has established coronary artery disease with remote history of bypass surgery and percutaneous intervention 2 years ago. He presented with palpitations. I do not see any evidence for either atrial fibrillation or ventricular tachycardia. I believe that he can be discharged home and followup with Dr. Hernandez. I would continue his chronic medications. Copy To: DOUG Wylie MD [facility] SYSTEMLani
[2017-05-11] MEDS ORDERED: CIPROFLOXACIN 0.3% OPHTH SOLN 2.5ML OS SCH (12:00)
--- NOTE | 2017-05-11 14:58 | IPNPDOC ---
Subjective Date Seen The patient was seen on 05/11/17. Subjective Chief Complaint/HPI The patient is a 61-year-old male admitted with a reason for visit of Nonsustained Ventricular Tachycardia. Events since last encounter no complaints this morning, no chest pain or palpitation , no nause or vomiting or diarrhea. no cough or phlegm . Patient says thaat he had come to the ED on the advice of his pmd has he was having some skipped beats and sensation of fluttering in the neck . In the ed he was checked out and was discharged however he was called back when the telemetry strips from ED was reviewed by MD and was felt that he had some NSVT and needed to be observed. However patient says that just before he left the ED his girlfriend was tapping on the chest leads and then the monitor started alarming and he was seeing tall waves on the monitor different from before. Objective Physical Examination General Exam: Positive: Alert, Cooperative, No Acute Distress Eye Exam: Positive: PERRLA, Conjunctiva & lids normal, EOMI, Negative: Sclera icteric ENT Exam: Positive: Atraumatic, Mucous membr. moist/pink, Pharynx Normal Neck Exam: Positive: Supple, Negative: JVD, thyromegaly Chest Exam: Positive: Clear to auscultation, Normal air movement Heart Exam: Positive: Rate Normal, Irregular Rhythm, Normal S1, Normal S2, Other (sinus with multiple PACs) Telemetry: Positive: No significant arrhythmia, Sinus, PACs Abdomen Exam: Positive: Normal bowel sounds, Soft, Negative: Tenderness, Hepatospenomegaly Extremity Exam: Positive: Normal pulses, Negative: Clubbing, Cyanosis, Edema Skin Exam: Positive: Nl turgor and temperature, Negative: Rash, Breakdown Assessment /Plan Problems (1) PAC (premature atrial contraction) Status: Acute Problem Text: EKG which read as atrial fibrillation is actually sinus rhythm with multiple PACs Pacs are probably the sensation of skipped beats The telemetry strip from the ED which was read as NSVT is actually an artifact. (2) CAD (coronary artery disease) Status: Chronic (3) Hx of CABG Status: Chronic (4) Diabetes Status: Chronic (5) Dyslipidemia Status: Chronic (6) REMA on CPAP Status: Chronic Problem Text: Pateint has not been using his CPAP recently as he says his mask does not fit. urged his to discuss this with the PMD and for the process of being fitted for a new mask if needed. (7) Periodic limb movement disorder Status: Chronic (8) Hypertension Status: Chronic Plan/VTE VTE Prophylaxis Ordered?: Yes Disposition discharge home follow up with Dr Hernandez VS, I&O, 24H, [place] Vital Signs/I&O Vital Signs Date Time Temp Pulse Resp B/P (MAP) Pulse Ox O2 Delivery O2 Flow Rate FiO2 05/11/17 08:46 81 122/77 05/11/17 08:00 97.3 20 96 Room Air Laboratory Data 24H LABS Laboratory Tests 2 05/10/17 23:18: Immature Granulocyte % (Auto) 0.2H, White Blood Count 10.0, Red Blood Count 5.31 , Hemoglobin 16.2, Hematocrit 46.4, Mean Corpuscular Volume 87.4, Mean Corpuscular Hemoglobin 30.5, Mean Corpuscular Hemoglobin Concent 34.9, Red Cell Distribution Width 13.0, Platelet Count 287, Neutrophils (%) (Auto) 63.4, Lymphocytes (%) (Auto) 22.6L, Monocytes (%) (Auto) 8.7H, Eosinophils (%) (Auto) 4.5H, Basophils (%) (Auto) 0.6, Neutrophils # (Auto) 6.4, Lymphocytes # (Auto) 2.3, Monocytes # (Auto) 0.9H, Eosinophils # (Auto) 0.5, Basophils # (Auto) 0.1, Immature Granulocyte # (Auto) 0.0, Nucleated Red Blood Cells % (auto) 0.0, Anion Gap 8, Glomerular Filtration Rate 58.9, Blood Urea Nitrogen 30H, Creatinine 1.32H, Sodium Level 138, Potassium Level 4.0, Chloride Level 101, Carbon Dioxide Level 29, Calcium Level 8.5L, Total Creatine Kinase 69, Magnesium Level 2.1, Creatine Kinase MB 1.0, Creatine Kinase MB Relative Index 1.44, Troponin I < 0.02, Thyroid Stimulating Hormone (TSH) 1.270 05/11/17 04:32: Nucleated Red Blood Cells % (auto) 0.0, Anion Gap 8, Glomerular Filtration Rate > 60.0, Blood Urea Nitrogen 30H, Creatinine 1.22, Sodium Level 139, Potassium Level 4.0, Chloride Level 105, Carbon Dioxide Level 26, Calcium Level 8.7L, Prothrombin Time 14.8H, Prothromb Time International Ratio 1.14, Activated Partial Thromboplast Time 31.2, Estimated Mean Plasma Glucose 157H, Hemoglobin A1c 7.1H 05/11/17 08:09: Bedside Glucose (Misc Panel) 144H 05/11/17 09:13: Total Creatine Kinase 62, Creatine Kinase MB 1.0, Creatine Kinase MB Relative Index 1.61, Troponin I < 0.02 CBC/BMP Laboratory Tests 05/10/17 23:18 Red Blood Count 5.31, Mean Corpuscular Volume 87.4, Mean Corpuscular Hemoglobin 30.5, Mean Corpuscular Hemoglobin Concent 34.9, Red Cell Distribution Width 13.0 , Neutrophils (%) (Auto) 63.4, Lymphocytes (%) (Auto) 22.6 L, Monocytes (%) ( Auto) 8.7 H, Eosinophils (%) (Auto) 4.5 H, Basophils (%) (Auto) 0.6, Neutrophils # (Auto) 6.4, Lymphocytes # (Auto) 2.3, Monocytes # (Auto) 0.9 H, Eosinophils # (Auto) 0.5, Basophils # (Auto) 0.1, Calcium Level 8.5 L, Total Creatine Kinase 69 05/11/17 04:32 Red Blood Count 5.17, Mean Corpuscular Volume 87.4, Mean Corpuscular Hemoglobin 30.2, Mean Corpuscular Hemoglobin Concent 34.5, Red Cell Distribution Width 12.9 , Calcium Level 8.7 L IVANNA DURÁN MD May 11, 2017 14:58
[2017-05-11] MEDS ORDERED: ENOXAPARIN 120 MG/0.8 ML SYR (J1650) SC SCH (16:00)
[2017-05-11] MEDS ORDERED: ATORVASTATIN 20 MG TAB PO SCH (21:00)
== END 2017-05-11 11:04 | disposition home or self-care (01) ==
LOC: M ED 22:28 → M ED INP 22:29 → M ICU 05-11 04:06
PROVIDERS: ADMIT Internal Medicine; ATTEND Internal Medicine Nephrology
DX: I49.1 Atrial premature depolarization (principal); I25.10 Atherosclerotic heart disease of native coronary artery without angina pectoris; Z95.1 Presence of aortocoronary bypass graft; N18.3 Chronic kidney disease, stage 3 (moderate); E78.4 Other hyperlipidemia; G47.33 Obstructive sleep apnea (adult) (pediatric); I12.9 Hypertensive chronic kidney disease with stage 1 through stage 4 chronic kidney disease, or unspecified chronic kidney disease; G47.61 Periodic limb movement disorder; F32.9 Major depressive disorder, single episode, unspecified; F41.9 Anxiety disorder, unspecified; I48.2 Chronic atrial fibrillation; K21.9 Gastro-esophageal reflux disease without esophagitis; E11.9 Type 2 diabetes mellitus without complications; E78.5 Hyperlipidemia, unspecified; K44.9 Diaphragmatic hernia without obstruction or gangrene; Z98.61 Coronary angioplasty status; Z79.82 Long term (current) use of aspirin; Z79.02 Long term (current) use of antithrombotics/antiplatelets; Z82.49 Family history of ischemic heart disease and other diseases of the circulatory system; Z87.891 Personal history of nicotine dependence
CPT/HCPCS: 36415; 71020; 80048; 82550; 82553; 83036; 83735; 84100; 84439; 84443; 84484; 85025; 85027; 85610; 85730; 93005; 93041; 94760; 99285; J1650

== ENCOUNTER 2017-07-27 12:28 | Emergency (ER) | payer MEDICARE ==
[2017-07-27] MEDS: NITROGLYCERIN 0.4 MG SUBL TABLET SL (12:48)
[2017-07-27] MEDS: ASPIRIN 81 MG CHEW TABLET PO (12:48)
[2017-07-27 12:57] LABS: BASO # 0.1 10^3/uL (0.0-0.2); BASO % 1.2 % (0.0-1.0); EOS # 0.6 10^3/uL (0.0-0.50); EOS % 7.6 % (0.0-3.0); HEMATOCRIT 44.5 % (42.0-52.0); HEMOGLOBIN 15.8 g/dl (14.0-18.0); IMMATURE GRANULOCYTE % 0.4 % (0-0); LYMPH # 1.6 10^3/uL (1.5-4.5); MEAN CORPUSCULAR HEMOGLOBIN 30.8 pg (27.0-33.0); MEAN CORPUSCULAR HGB CONC 35.5 g/dl (32.0-36.5); MEAN CORPUSCULAR VOLUME 86.7 fl (80.0-96.0); MONO # 0.6 10^3/uL (0.0-0.8); MONO % 6.8 % (0.0-5.0); NEUTROPHILS # 5.5 10^3/uL (1.8-7.7); PLATELET COUNT, AUTOMATED 238 10^3/uL (150-450); RED BLOOD COUNT 5.13 10^6/uL (4.30-6.10); RED CELL DISTRIBUTION WIDTH 13.2 % (11.5-14.5); WHITE BLOOD COUNT 8.4 10^3/uL (4.0-10.0)
[2017-07-27 13:08] LABS: INR 1.04; PROTHROMBIN TIME 13.7 SECONDS (12.4-14.5)
[2017-07-27 13:09] LABS: PARTIAL THROMBOPLASTIN TIME 26.5 SECONDS (26.8-37.9)
[2017-07-27 13:16] LABS: ANION GAP 5 MEQ/L (8-16); BLOOD UREA NITROGEN 20 MG/DL (7-18); CALCIUM LEVEL 8.7 MG/DL (8.8-10.2); CARBON DIOXIDE LEVEL 29 MEQ/L (21-32); CHLORIDE LEVEL 105 MEQ/L (98-107); CPK CREATINE PHOSPHOKINASE 70 U/L (39-308); CREATININE FOR GFR 1.19 MG/DL (0.70-1.30); GLOMERULAR FILTRATION RATE > 60.0 (>49); GLUCOSE, FASTING 152 MG/DL (80-110); MB/CK RELATIVE INDEX 1.42 (< OR =4); POTASSIUM SERUM 3.9 MEQ/L (3.5-5.1); SODIUM LEVEL 139 MEQ/L (136-145); TROPONIN I < 0.02 NG/ML (< 0.10)
[2017-07-27] MEDS ORDERED: ISOVUE-370 76% 100ML VIAL (Q9967) As Ordered (13:25)
[2017-07-27 19:05] LABS: CPK CREATINE PHOSPHOKINASE 61 U/L (39-308); MB/CK RELATIVE INDEX 1.63 (< OR =4); TROPONIN I < 0.02 NG/ML (< 0.10)
== END 2017-07-27 19:34 | disposition home or self-care (01) ==
LOC: M ED 12:28
DX: R07.9 Chest pain, unspecified (principal); I45.2 Bifascicular block; I48.91 Unspecified atrial fibrillation; I25.10 Atherosclerotic heart disease of native coronary artery without angina pectoris; E11.9 Type 2 diabetes mellitus without complications; I10 Essential (primary) hypertension; E78.5 Hyperlipidemia, unspecified; K21.9 Gastro-esophageal reflux disease without esophagitis; G47.30 Sleep apnea, unspecified; Z95.1 Presence of aortocoronary bypass graft; Z95.5 Presence of coronary angioplasty implant and graft; Z82.49 Family history of ischemic heart disease and other diseases of the circulatory system; Z79.82 Long term (current) use of aspirin; Z79.899 Other long term (current) drug therapy; Z91.030 Bee allergy status
CPT/HCPCS: Q9967

== ENCOUNTER → 2018-01-30 | Outpatient (CLI) | payer MEDICARE, MEDICAID | LOC: M RAD 16:47 | DX: I65.22 Occlusion and stenosis of left carotid artery (principal); R09.89 Other specified symptoms and signs involving the circulatory and respiratory systems | CPT/HCPCS: 93880 ==

== ENCOUNTER 2018-03-06 07:43 | Emergency (ER) | payer MEDICARE ==
[2018-03-06] MEDS: ASPIRIN 81 MG CHEW TABLET PO (08:15)
[2018-03-06] MEDS: NITROGLYCERIN 0.4 MG SUBL TABLET SL (08:18)
[2018-03-06 08:51] LABS: BASO % 0.3 % (0.0-1.0); EOS # 0.3 10^3/uL (0.0-0.50); HEMATOCRIT 42.1 % (42.0-52.0); IMMATURE GRANULOCYTE % 0.4 % (0-3.0); LYMPH # 1.1 10^3/uL (1.5-4.5); LYMPH % 11.3 % (24.0-44.0); MEAN CORPUSCULAR HEMOGLOBIN 31.1 pg (27.0-33.0); MEAN CORPUSCULAR HGB CONC 35.6 g/dl (32.0-36.5); MEAN CORPUSCULAR VOLUME 87.2 fl (80.0-96.0); MONO # 0.7 10^3/uL (0.0-0.8); MONO % 6.7 % (0.0-5.0); NEUTROPHILS # 7.7 10^3/uL (1.8-7.7); NEUTROPHILS % 78.3 % (36.0-66.0); PLATELET COUNT, AUTOMATED 248 10^3/uL (150-450); RED BLOOD COUNT 4.83 10^6/uL (4.30-6.10); WHITE BLOOD COUNT 9.8 10^3/uL (4.0-10.0)
[2018-03-06 09:21] LABS: ALBUMIN 3.4 GM/DL (3.2-5.2); ALKALINE PHOSPHATASE 90 U/L (45-117); ALT/SGPT 21 U/L (12-78); ANION GAP 9 MEQ/L (8-16); AST/SGOT 8 U/L (7-37); BILIRUBIN,DIRECT 0.1 MG/DL (0.0-0.2); BILIRUBIN,TOTAL 0.5 MG/DL (0.2-1.0); BLOOD UREA NITROGEN 16 MG/DL (7-18); CALCIUM LEVEL 8.2 MG/DL (8.8-10.2); CARBON DIOXIDE LEVEL 22 MEQ/L (21-32); CHLORIDE LEVEL 112 MEQ/L (98-107); CPK CREATINE PHOSPHOKINASE 42 U/L (39-308); CREATININE FOR GFR 0.93 MG/DL (0.70-1.30); GLOMERULAR FILTRATION RATE > 60.0 (>49); GLUCOSE, FASTING 152 MG/DL (70-100); LIPASE 279 U/L (73-393); POTASSIUM SERUM 3.5 MEQ/L (3.5-5.1); SODIUM LEVEL 143 MEQ/L (136-145); TOTAL PROTEIN 6.8 GM/DL (6.4-8.2); TROPONIN I < 0.02 NG/ML (< 0.10)
[2018-03-06] MEDS: LORazepam 2 MG/ML VIAL (J2060) IV (09:26)
[2018-03-06] MEDS: MORPHINE 2 MG/ML 1ML SYRINGE (J2270) IV (09:26)
[2018-03-06 09:27] LABS: CK-MB VALUE MASS < 1.0 NG/ML (<3.6); MB/CK RELATIVE INDEX 2.38 (< OR =4); NT-PRO BNP 123 PG/ML (<125); THYROID STIMULATING HORMONE 0.356 uIU/ML (0.358-3.740)
[2018-03-06 09:31] LABS: PARTIAL THROMBOPLASTIN TIME 26.9 SECONDS (25.4-37.6); PROTHROMBIN TIME 14.3 SECONDS (12.1-14.4)
[2018-03-06 09:34] LABS: D-DIMER QUANT 459.3 ng/ml (<500)
[2018-03-06] MEDS ORDERED: ISOVUE-370 76% 100ML VIAL (Q9967) As Ordered (10:28)
[2018-03-06 13:04] LABS: CK-MB VALUE MASS < 1.0 NG/ML (<3.6); CPK CREATINE PHOSPHOKINASE 38 U/L (39-308); MB/CK RELATIVE INDEX 2.63 (< OR =4); TROPONIN I < 0.02 NG/ML (< 0.10)
== END 2018-03-06 14:19 | disposition home or self-care (01) ==
LOC: M ED 07:43
DX: R07.89 Other chest pain (principal); I25.10 Atherosclerotic heart disease of native coronary artery without angina pectoris; I48.91 Unspecified atrial fibrillation; F41.9 Anxiety disorder, unspecified; Z95.1 Presence of aortocoronary bypass graft; Z95.5 Presence of coronary angioplasty implant and graft; F17.200 Nicotine dependence, unspecified, uncomplicated; Z82.49 Family history of ischemic heart disease and other diseases of the circulatory system; Z91.030 Bee allergy status; Z79.899 Other long term (current) drug therapy; Z79.82 Long term (current) use of aspirin; Z79.02 Long term (current) use of antithrombotics/antiplatelets; Z79.84 Long term (current) use of oral hypoglycemic drugs
CPT/HCPCS: Q9967

== ENCOUNTER → 2018-06-11 | Outpatient (REF) | payer MEDICARE ==
[2018-06-11 12:53] LABS: BASO # 0.1 10^3/uL (0.0-0.2); BASO % 0.6 % (0.0-1.0); EOS # 0.4 10^3/uL (0.0-0.50); EOS % 4.4 % (0.0-3.0); HEMATOCRIT 50.5 % (42.0-52.0); HEMOGLOBIN 17.3 g/dl (13.5-17.5); IMMATURE GRANULOCYTE % 0.2 % (0-3.0); LYMPH # 1.7 10^3/uL (1.5-4.5); LYMPH % 20.7 % (24.0-44.0); MEAN CORPUSCULAR HEMOGLOBIN 31.2 pg (27.0-33.0); MEAN CORPUSCULAR HGB CONC 34.3 g/dl (32.0-36.5); MONO # 0.6 10^3/uL (0.0-0.8); MONO % 7.2 % (0.0-5.0); NEUTROPHILS # 5.4 10^3/uL (1.8-7.7); NEUTROPHILS % 66.9 % (36.0-66.0); PLATELET COUNT, AUTOMATED 282 10^3/uL (150-450); RED BLOOD COUNT 5.55 10^6/uL (4.30-6.10); RED CELL DISTRIBUTION WIDTH 13.4 % (11.5-14.5); WHITE BLOOD COUNT 8.1 10^3/uL (4.0-10.0)
[2018-06-11 12:55] LABS: ALBUMIN 3.5 GM/DL (3.2-5.2); ALBUMIN/GLOBULIN RATIO 1.06 (1.00-1.93); ALKALINE PHOSPHATASE 98 U/L (45-117); ALT/SGPT 25 U/L (12-78); ANION GAP 7 MEQ/L (8-16); AST/SGOT 17 U/L (7-37); BILIRUBIN,TOTAL 0.7 MG/DL (0.2-1.0); BLOOD UREA NITROGEN 15 MG/DL (7-18); CALCIUM LEVEL 8.6 MG/DL (8.8-10.2); CARBON DIOXIDE LEVEL 31 MEQ/L (21-32); CHLORIDE LEVEL 104 MEQ/L (98-107); CHOLESTEROL LEVEL 118 MG/DL (<200); CHOLESTEROL RISK RATIO 3.371 (<5); CREATININE FOR GFR 0.98 MG/DL (0.70-1.30); GLOMERULAR FILTRATION RATE > 60.0 (>49); GLUCOSE, FASTING 115 MG/DL (70-100); HDL CHOLESTEROL 35 MG/DL (>40); LDL CHOLESTEROL 51 MG/DL (<100); NON-HDL-C 83 MG/DL; POTASSIUM SERUM 3.9 MEQ/L (3.5-5.1); SODIUM LEVEL 142 MEQ/L (136-145); TOTAL PROTEIN 6.8 GM/DL (6.4-8.2); TRIGLYCERIDES LEVEL 158 MG/DL (<150)
== END ==
LOC: M LABDRWAD 12:22
DX: I10 Essential (primary) hypertension (principal); E78.49 Other hyperlipidemia
CPT/HCPCS: 80053

== ENCOUNTER → 2019-02-18 | Outpatient (CLI) | payer MEDICAID, MEDICARE ==
[~2019-02-18] MED LIST changes: -/PANT40TA OR; -/SUCR1TA OR; -ASPI81CH32 PO; +ASPI81CH33 PO; +CILO0.3S OS; -GLIP1TAB49 PO; +GLIP5TAB20 PO; +LISI40TA PO; -LISI40TAB PO; -MAGN1TAB25 PO; +MAGN1TAB26 PO; +METF500T4 PO; +METO1TAB7 PO; +NEXI40CA PO; +NITR0.4S14 SL; +PROT1TAB2 OR; +SUCR1TAB56 OR; +VITMTA PO
[2019-02-18 07:20] LABS: HEMOGLOBIN 16.3 g/dl (13.5-17.5); MEAN CORPUSCULAR HEMOGLOBIN 31.2 pg (27.0-33.0); MEAN CORPUSCULAR HGB CONC 34.7 g/dl (32.0-36.5); PLATELET COUNT, AUTOMATED 267 10^3/uL (150-450); RED BLOOD COUNT 5.22 10^6/uL (4.30-6.10); WHITE BLOOD COUNT 8.4 10^3/uL (4.0-10.0)
--- NOTE | 2019-02-18 07:43 | REP ---
PA and lateral chest: Comparison is 07/27/2017. The lung ray are clear. The cardiac size is normal. The steve, mediastinum, and skeletal structures are unremarkable. There are sternotomy wires and mediastinal surgical clips, unchanged. Impression: Negative PA and lateral chest. Electronically Signed by Brad Santana MD 02/18/2019 07:34 A
[2019-02-18 07:57] LABS: ALBUMIN 3.8 GM/DL (3.2-5.2); ALT/SGPT 21 U/L (12-78); BILIRUBIN,TOTAL 0.5 MG/DL (0.2-1.0); BLOOD UREA NITROGEN 24 MG/DL (7-18); CALCIUM LEVEL 9.5 MG/DL (8.8-10.2); CARBON DIOXIDE LEVEL 28 MEQ/L (21-32); CHLORIDE LEVEL 105 MEQ/L (98-107); CHOLESTEROL LEVEL 170 MG/DL (<200); CHOLESTEROL RISK RATIO 5.151 (<5); CREATININE FOR GFR 1.21 MG/DL (0.70-1.30); GLOMERULAR FILTRATION RATE > 60.0 (>49); GLUCOSE, FASTING 211 MG/DL (70-100); HDL CHOLESTEROL 33 MG/DL (>40); LDL CHOLESTEROL 84 MG/DL (<100); NON-HDL-C 137 MG/DL; POTASSIUM SERUM 4.3 MEQ/L (3.5-5.1); PROSTATIC SPECIFIC AG MONITOR 4.66 NG/ML (< 4.00); SODIUM LEVEL 141 MEQ/L (136-145); THYROID STIMULATING HORMONE 0.879 uIU/ML (0.358-3.740); TOTAL PROTEIN 7.1 GM/DL (6.4-8.2); TRIGLYCERIDES LEVEL 264 MG/DL (<150)
[2019-02-18 08:31] LABS: HEMOGLOBIN A1c 8.1 %
--- NOTE | 2019-02-18 09:36 | ECGEPIP ---
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
[2019-02-18 11:44] LABS: TESTOSTERONE 271 NG/DL (241-827)
== END ==
LOC: M LAB 06:37
PROVIDERS: ATTEND Family Medicine
DX: R53.83 Other fatigue (principal); I10 Essential (primary) hypertension; E11.9 Type 2 diabetes mellitus without complications; E29.1 Testicular hypofunction

== ENCOUNTER → 2019-04-05 | Outpatient (CLI) | payer MEDICARE ==
[~2019-04-05] MED LIST changes: +METF-791 PO; -METF500T4 PO
--- NOTE | 2019-04-05 13:46 | REP ---
Pain after trauma. PRIORS: None. Degenerative change is seen involving the acromioclavicular joint. There is no fracture, dislocation, or subluxation. IMPRESSION: Chronic changes. Electronically Signed by Sanjeev Lay DO 04/05/2019 02:22 P
== END ==
LOC: M ADAMS 12:33
PROVIDERS: ATTEND Physician Assistant
DX: M19.011 Primary osteoarthritis, right shoulder (principal)

== ENCOUNTER 2019-05-16 21:24 | Observation (INO) | payer MEDICARE ==
[~2019-05-16] VITALS: Ht 180.3 cm; Wt 104.5 kg
[~2019-05-16 21:24] MED LIST changes: +LISINOPRIL 40 MG TAB PO SCH
[2019-05-16 22:04] LABS: BASO # 0.1 10^3/uL (0.0-0.2); BASO % 0.7 % (0.0-1.0); EOS # 0.3 10^3/uL (0.0-0.5); EOS % 3.1 % (0.0-3.0); HEMATOCRIT 45.6 % (42.0-52.0); HEMOGLOBIN 16.3 g/dl (13.5-17.5); LYMPH # 2.4 10^3/uL (1.5-5.0); LYMPH % 26.3 % (24.0-44.0); MEAN CORPUSCULAR HEMOGLOBIN 31.8 pg (27.0-33.0); MEAN CORPUSCULAR HGB CONC 35.7 g/dl (32.0-36.5); MEAN CORPUSCULAR VOLUME 89.1 fl (80.0-96.0); MONO % 10.7 % (0.0-5.0); NEUTROPHILS # 5.3 10^3/uL (1.5-8.5); NEUTROPHILS % 58.9 % (36.0-66.0); PLATELET COUNT, AUTOMATED 259 10^3/uL (150-450); RED BLOOD COUNT 5.12 10^6/uL (4.30-6.10)
[2019-05-16] MEDS ORDERED: ALPR1TAB3 PO (22:10)
[2019-05-16] MEDS ORDERED: LISI40TA PO (22:10)
[2019-05-16] MEDS ORDERED: AMLO5TAB6 (22:10)
[2019-05-16 22:29] LABS: BLOOD UREA NITROGEN 23 MG/DL (7-18); CALCIUM LEVEL 8.6 MG/DL (8.8-10.2); CARBON DIOXIDE LEVEL 21 MEQ/L (21-32); CHLORIDE LEVEL 114 MEQ/L (98-107); CK-MB VALUE MASS < 1.0 NG/ML (<3.6); CPK CREATINE PHOSPHOKINASE 45 U/L (39-308); CREATININE FOR GFR 1.09 MG/DL (0.70-1.30); GLOMERULAR FILTRATION RATE > 60.0 (>49); GLUCOSE, FASTING 159 MG/DL (70-100); MB/CK RELATIVE INDEX 2.22 (< OR =4); POTASSIUM SERUM 3.9 MEQ/L (3.5-5.1); SODIUM LEVEL 143 MEQ/L (136-145); TROPONIN I < 0.02 NG/ML (< 0.10)
[2019-05-16] MEDS ORDERED: MORPHINE 4 MG/ML 1ML VIAL/SYRINGE (J2270) As Ordered ONE (22:31)
[2019-05-16] MEDS ORDERED: ISOVUE-370 76% 100ML VIAL (Q9967) As Ordered ONE (22:36)
[2019-05-16] MEDS ORDERED: NS 1,000 ML IV ONE (22:45)
[2019-05-16] MEDS ORDERED: MORPHINE 4 MG/ML 1ML VIAL/SYRINGE (J2270) IV ONE ×2 (22:45)
[2019-05-16 22:51] LABS: ALBUMIN 3.4 GM/DL (3.2-5.2); ALT/SGPT 17 U/L (12-78); BILIRUBIN,DIRECT 0.2 MG/DL (0.0-0.2); BILIRUBIN,TOTAL 0.7 MG/DL (0.2-1.0); LIPASE 455 U/L (73-393); TOTAL PROTEIN 6.8 GM/DL (6.4-8.2)
[2019-05-16] MEDS ORDERED: HYDROMORPHONE HCL 0.5 MG/ 0.5 ML SYRINGE (J1170 PER 1) IV ONE (23:15)
--- NOTE | 2019-05-17 00:30 | REPVR ---
PROCEDURE INFORMATION: Exam: CT Abdomen And Pelvis With Contrast Exam date and time: 05/16/2019 10:47 PM Clinical history: 63 years old, male; Abdominal pain; Generalized TECHNIQUE: Imaging protocol: Computed tomography of the abdomen and pelvis with intravenous contrast. Radiation optimization: All CT scans at this facility use at least one of these dose optimization techniques: automated exposure control; mA and/or kV adjustment per patient size (includes targeted exams where dose is matched to clinical indication); or iterative reconstruction. Contrast material: ISOVUE 370; Contrast volume: 100 ml; Contrast route: IV; COMPARISON: CT ABD PELVIS WITH CONTRAST 02/16/2017 10:40 AM FINDINGS: Liver: Normal. No mass. Gallbladder and bile ducts: Gallbladder is dilated with a 3 mm stone in the cystic duct. An additional small stones present in the gallbladder lumen. No pericholecystic fluid or definite wall thickening. No biliary duct dilation. Pancreas: There is a solid homogeneous ill-defined mass in the pancreatic tail measuring approximately 3.6 x 2.9 x 3.4 cm. Mild surrounding peripancreatic soft tissue stranding. Multiple septated cysts are noted between the mass and the splenic hilum, measuring approximately 3.1 x 2.2 x 4.9 cm. No other peripancreatic fluid collection is seen. The remainder of the pancreatic tail and body is mildly atrophic and partially fatty replaced. No pancreatic duct dilation. Spleen: Unremarkable. Adrenals: Normal. No mass. Kidneys and ureters: Normal. No hydronephrosis. Stomach and bowel: Unremarkable. No obstruction. No mucosal thickening. Appendix: No evidence of appendicitis. Intraperitoneal space: Unremarkable. No free air. No significant fluid collection. Vasculature: Unremarkable. No abdominal aortic aneurysm. Lymph nodes: Unremarkable. No enlarged lymph nodes. Bladder: Unremarkable as visualized. Reproductive: Unremarkable as visualized. Bones/joints: There are degenerative changes in the spine and pelvis. . No acute fracture. Soft tissues: Unremarkable. IMPRESSION: 1. Solid and cystic mass in the tail of the pancreas with mild surrounding pancreatic soft tissue edema concerning for pancreatic carcinoma. No pancreatic duct dilation or drainable peripancreatic fluid collection. 2. Mildly distended gallbladder with 3 mm stone in the gallbladder cystic duct. No secondary signs of cholecystitis or biliary duct dilation. Electronically signed by: Alpesh Martines On 05/17/2019 00:29:15 AM
[2019-05-17] MEDS ORDERED: ACUL0.5S OU (01:14)
[2019-05-17] MEDS ORDERED: PEPT525S PO (01:14)
[2019-05-17] MEDS ORDERED: ASPI81TA26 PO (01:14)
[2019-05-17] MEDS ORDERED: AK-T0.3S OU (01:14)
[2019-05-17] MEDS ORDERED: ADDE20TA PO (01:14)
[2019-05-17] MEDS ORDERED: ONDANSETRON 4MG/2ML VIAL (J2405) IV PRN (01:30)
[2019-05-17] MEDS ORDERED: LR 1,000 ML IV SCH (01:30)
[2019-05-17 02:38] VITALS: BP 145/82
[2019-05-17] MEDS: MORPHINE 4 MG/ML 1ML VIAL/SYRINGE (J2270) IV PRN ×2 (04:03→08:24)
[2019-05-17] MEDS ORDERED: metFORMIN XR 500MG TAB *GLUCOPHAGE XR PO SCH (07:30)
[2019-05-17] MEDS ORDERED: NITROGLYCERIN 0.4 MG SUBL TABLET SL PRN (08:00)
[2019-05-17] MEDS ORDERED: KETOROLAC 0.5% OPHTH SOLN OU PRN (08:00)
[2019-05-17 08:07] VITALS: BP 137/87
[2019-05-17 08:23] VITALS: BP 137/87
[2019-05-17] MEDS ORDERED: CLOPIDOGREL 75 MG TAB PO SCH (09:00)
[2019-05-17] MEDS ORDERED: FUROSEMIDE 20 MG TAB PO SCH (09:00)
[2019-05-17] MEDS ORDERED: ALPRAZolam 0.5 MG TAB PO SCH (09:00)
[2019-05-17] MEDS ORDERED: TOBRAMYCIN 0.3% OPHTH SOLN 5 ML OU SCH (09:00)
[2019-05-17] MEDS ORDERED: ASPIRIN 81 MG ENTERIC TAB PO SCH (09:00)
[2019-05-17] MEDS ORDERED: PANTOPRAZOLE 40MG TAB (PROTONIX) PO SCH (09:00)
[2019-05-17] MEDS ORDERED: ATENOLOL 50 MG TAB PO SCH (09:00)
--- NOTE | 2019-05-17 10:18 | REP ---
CHEST, SINGLE VIEW: COMPARISON: 02/18/2019 There is mild cardiomegaly. There is no acute infiltrate. Mediastinal silhouette is unremarkable. Multiple sternal wires and mediastinal clips are present. IMPRESSION: Mild cardiomegaly. No acute infiltrate. Electronically Signed by Brad Choudhury MD 05/17/2019 12:32 P
--- NOTE | 2019-05-17 12:53 | HPE ---
DATE OF ADMISSION: 05/16/2019 CHIEF COMPLAINT: Abdominal pain. HISTORY OF PRESENT ILLNESS: The patient is a 63-year-old male who has had two episodes of severe upper abdominal pain followed by nausea and vomiting. The first episode was about 2 weeks ago and the second episode started yesterday evening. He came to the emergency room. Labs were essentially normal, however CT did show that there is a stone in the neck of the gallbladder with a dilated gallbladder. The rest of his liver enzymes were all within normal limits. Due to uncontrolled pain he was admitted in the middle the night. He incidentally also had a large mass in the tail of his pancreas on the CT. He denies any fevers. No unexplained weight loss. No known history of this mass. No night sweats or chills. PAST MEDICAL HISTORY: Hypertension. Coronary disease. Diabetes. Anxiety. PAST SURGICAL HISTORY: Quadruple bypass. Bilateral inguinal hernia repair. Left shoulder repair. ALLERGIES: Bee venom. MEDICATIONS: Please see med rec. SOCIAL HISTORY: Denies drug, alcohol, tobacco abuse. FAMILY HISTORY: Noncontributory. REVIEW OF SYSTEMS: Pertinent positives and negatives as stated in the HPI. PHYSICAL EXAMINATION General: Alert and oriented times three. No acute distress. Vitals: Temperature 99.1, pulse 92, respirations 18, blood pressure 137/87, pulse ox 97% on room air. HEENT: Pupils equally round and reactive to light and accommodation. Heart: S1-S2 regular rate and rhythm. Lungs: Clear auscultation bilaterally. Abdomen: Soft, nontender, nondistended. Extremities: No clubbing, cyanosis or edema. LABORATORIES: White count 9, hemoglobin 16.3, platelets 259, potassium 3.9, creatinine 1.09, total bilirubin 0.7, AST 9, ALT 17, alkaline phosphatase 84. CA19-9 was ordered and pending. Lipase is 455. IMAGING: CT abdomen and pelvis shows solid and cystic mass tail of the pancreas with surrounding pancreatic soft tissue edema concerning for pancreatic carcinoma. No ductal dilatation or drainable fluid collections. Mildly distended gallbladder with a 3 mm stone in the cystic duct. No secondary signs of cholecystitis or biliary ductal dilatation. ASSESSMENT/PLAN: The patient is a 63-year-old male with history of coronary disease, diabetes, hypertension, currently with right upper quadrant pain secondary to a cystic duct obstruction. He also has an incidental new finding of a pancreatic mass that is likely malignant. Recommendation at this time is to postpone surgery since he is on Plavix already. There is no need to hold it for a day or two and postpone his workup for his pancreatic mass. I gave him breakfast this morning. He is tolerating that already so I will discharge him today. I will send a referral to a specialist tomorrow morning and he can plan to get his gallbladder taken care of at the same time as the pancreas. All of his questions are answered. He has our office number to call with any questions and he will be discharged home this morning.
[2019-05-17] MEDS ORDERED: ATORVASTATIN 20 MG TAB PO SCH (21:00)
--- NOTE | 2019-05-18 19:49 | ECGEPIP ---
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 : 1955 Requested By: TED PORTILLO Order Number: [id number] Reading MD: Loren Boogie Measurements Intervals [place] Rate: 72 P: 38 CT: 212 QRS: -79 QRSD: 101 T: -18 QT: 411 QTc: 451 Interpretive Statements SINUS RHYTHM WITH FIRST DEGREE AV BLOCK WITH FREQUENT SUPRAVENTRICULAR PREMATURE COMPLEX COMPLEXES POSSIBLE LEFT ATRIAL ENLARGEMENT PATTERN CONSISTENT WITH PULMONARY DISEASE SEPTAL MYOCARDIAL INFARCTION, PROBABLY OLD INFERIOR MYOCARDIAL INFARCTION, OF INDETERMINATE AGE LEFTWARD AXIS CW 02/18/[address] T WAVE CHANGES Electronically Signed on 05-18-2019 19:48:57 EDT by Loren Boogie
[2019-05-19 11:23] LABS: CA19-9 TUMOR MARKER,CARBOHYDRA 3333.1 U/ML (<35.0)
== END 2019-05-17 09:45 | disposition home or self-care (01) ==
LOC: M ED 21:24 → M ED INP 21:25 → M PED 05-17 02:27
PROVIDERS: ADMIT Surgery; ATTEND Surgery
DX: K80.20 Calculus of gallbladder without cholecystitis without obstruction (principal); K86.9 Disease of pancreas, unspecified; I10 Essential (primary) hypertension; I25.10 Atherosclerotic heart disease of native coronary artery without angina pectoris; E11.9 Type 2 diabetes mellitus without complications; F41.9 Anxiety disorder, unspecified; Z91.030 Bee allergy status; Z79.899 Other long term (current) drug therapy
CPT/HCPCS: 71045; 74177; 80048; 80076; 82550; 82553; 83690; 84484; 85025; 85730; 86301; 93005; 93041; 94760; 96361; 96374; 96375; 96376; 99285; G0378; J1170; J2270; Q9967

== ENCOUNTER → 2019-09-14 | Outpatient (CLI) | payer MEDICARE ==
[~2019-09-14] MED LIST changes: +ACUL0.5S OU; +ADDE20TA PO; +AK-T0.3S OU; +ALPR1TAB3 PO; +AMLO5TAB6; +ASPI81TA26 PO; -LISINOPRIL 40 MG TAB PO SCH; +PEPT525S PO
== END ==
LOC: M LAB 09:43
PROVIDERS: ATTEND Family Medicine
DX: Z51.81 Encounter for therapeutic drug level monitoring (principal); F98.8 Other specified behavioral and emotional disorders with onset usually occurring in childhood and adolescence; I25.10 Atherosclerotic heart disease of native coronary artery without angina pectoris; M54.30 Sciatica, unspecified side
CPT/HCPCS: 36415; 80307; G0480

== ENCOUNTER → 2019-10-12 | Outpatient (CLI) | payer MEDICARE ==
[2019-10-12 12:42] LABS: HEMATOCRIT 34.2 % (42.0-52.0); HEMOGLOBIN 11.1 g/dl (13.5-17.5); MEAN CORPUSCULAR HEMOGLOBIN 32.8 pg (27.0-33.0); MEAN CORPUSCULAR HGB CONC 32.5 g/dl (32.0-36.5); MEAN CORPUSCULAR VOLUME 101.2 fl (80.0-96.0); PLATELET COUNT, AUTOMATED 359 10^3/uL (150-450); RED BLOOD COUNT 3.38 10^6/uL (4.30-6.10); WHITE BLOOD COUNT 5.2 10^3/uL (4.0-10.0)
[2019-10-12 12:50] LABS: BLOOD UREA NITROGEN 23 MG/DL (7-18); CALCIUM LEVEL 8.8 MG/DL (8.8-10.2); CARBON DIOXIDE LEVEL 28 MEQ/L (21-32); CHLORIDE LEVEL 106 MEQ/L (98-107); CREATININE FOR GFR 1.07 MG/DL (0.70-1.30); GLOMERULAR FILTRATION RATE > 60.0 (>49); GLUCOSE, FASTING 174 MG/DL (70-100); NT-PRO BNP 758 PG/ML (<125); SODIUM LEVEL 139 MEQ/L (136-145)
== END ==
LOC: M WUC 10:09
PROVIDERS: ATTEND Physician Assistant
DX: R60.0 Localized edema (principal); R06.02 Shortness of breath

== ENCOUNTER 2019-10-24 08:26 | Inpatient (IN) | payer MEDICARE ==
[~2019-10-24] VITALS: Ht 180.3 cm; Wt 119.4 kg
[~2019-10-24 08:26] MED LIST changes: +AK-T0.3S OS; -AK-T0.3S OU
[2019-10-24 09:15] LABS: HEMATOCRIT 29.6 % (42.0-52.0); HEMOGLOBIN 9.8 g/dl (13.5-17.5); MEAN CORPUSCULAR HEMOGLOBIN 33.1 pg (27.0-33.0); MEAN CORPUSCULAR HGB CONC 33.1 g/dl (32.0-36.5); PLATELET COUNT, AUTOMATED 193 10^3/uL (150-450); RED BLOOD COUNT 2.96 10^6/uL (4.30-6.10); WHITE BLOOD COUNT 10.1 10^3/uL (4.0-10.0)
[2019-10-24] MEDS ORDERED: TORS20TA2 PO (09:24)
[2019-10-24] MEDS ORDERED: TOUJ1.2I SC (09:24)
[2019-10-24 09:28] LABS: INR 1.32; PROTHROMBIN TIME 16.1 SECONDS (11.8-14.0)
[2019-10-24 09:42] LABS: EOSINOPHILS 1 % (0-3); LYMPHOCYTES 3 % (16-44); NEUTROPHILS 96 % (28-66)
[2019-10-24 09:43] LABS: OVALOCYTES 1+; PLATELET ESTIMATE NORMAL (NORMAL); TEAR DROP CELLS 1+
[2019-10-24 09:46] LABS: ALBUMIN 2.2 GM/DL (3.2-5.2); ALT/SGPT 165 U/L (12-78); BILIRUBIN,DIRECT 0.3 MG/DL (0.0-0.2); BLOOD UREA NITROGEN 66 MG/DL (7-18); CALCIUM LEVEL 7.5 MG/DL (8.8-10.2); CARBON DIOXIDE LEVEL 23 MEQ/L (21-32); CHLORIDE LEVEL 103 MEQ/L (98-107); CK-MB VALUE MASS < 1.0 NG/ML (<3.6); CPK CREATINE PHOSPHOKINASE 629 U/L (39-308); CREATININE FOR GFR 1.97 MG/DL (0.70-1.30); GLOMERULAR FILTRATION RATE 36.7 (>49); GLUCOSE, FASTING 159 MG/DL (70-100); LDH LACTATE DEHYDROGENASE 459 U/L (87-241); MB/CK RELATIVE INDEX 0.16 (< OR =4); NT-PRO BNP 1114 PG/ML (<125); POTASSIUM SERUM 4.6 MEQ/L (3.5-5.1); SODIUM LEVEL 136 MEQ/L (136-145); TOTAL PROTEIN 5.1 GM/DL (6.4-8.2); TROPONIN I < 0.02 NG/ML (< 0.10)
[2019-10-24 09:55] LABS: D-DIMER QUANT > 4000 ng/ml (<500)
--- NOTE | 2019-10-24 10:39 | REP ---
CHEST, SINGLE VIEW: Single AP portable view of the chest is performed and compared to a prior study of 07/01/2019. Interstitial prominence bilaterally is unchanged. No new infiltrate is seen. There is mild cardiomegaly. There is no change in the mediastinal silhouette. Multiple sternal wires and mediastinal clips are present. Right central venous catheter is again noted. IMPRESSION: Stable exam with no acute pulmonary disease. Electronically Signed by Brad Choudhury MD 10/24/2019 12:36 P
[2019-10-24] MEDS ORDERED: ACET25TA12 PO (11:57)
[2019-10-24] MEDS ORDERED: MELA1TAB9 PO (11:57)
--- NOTE | 2019-10-24 13:21 | REP ---
CT CHEST WITHOUT IV CONTRAST: CT chest performed without IV contrast. There is a tiny calcified granuloma in the left upper lobe. Minor scattered fibrotic changes are seen diffusely bilaterally. No acute parenchymal densities are seen. No infiltrate or pulmonary edema is seen. Heart is upper limits of normal in size. There is no evidence of axillary or mediastinal adenopathy. Atherosclerotic calcifications are seen of the thoracic aorta without aneurysm. There are multiple sternal wires and mediastinal clips present. There is a right central venous catheter with the tip in the superior vena cava. There is no pleural or pericardial effusion. There are degenerative changes of the spine. IMPRESSION: No acute abnormalities detected. Electronically Signed by Brad Choudhury MD 10/24/2019 02:26 P
--- NOTE | 2019-10-24 13:27 | REP ---
CT ABDOMEN AND PELVIS WITHOUT CONTRAST: CT abdomen and pelvis performed without oral or IV contrast. Sagittal and coronal reconstruction images are performed. Comparison 05/16/2019. Liver, spleen, and adrenals are grossly unremarkable. There is again a cystic and solid mass seen in the pancreatic tail. This appears to have mildly decreased in size since the prior study. Kidneys appear unchanged with no hydronephrosis bilaterally. There is no abdominal aortic aneurysm. There is no evidence of lymphadenopathy in the abdomen or pelvis. There is no free air or free fluid. Subcentimeter gallstone is again seen in the dependent portion of the gallbladder as seen on prior study, with no gallbladder wall thickening. There is new diffuse thickening of the descending duodenum with streaky density in the periduodenal fat suggesting duodenitis. No other bowel thickening is seen. There is a right colonic diverticulum. The appendix is normal. No pelvic mass is seen. Urinary bladder is moderately distended and grossly unremarkable. There are degenerative changes of the spine. IMPRESSION: Decreased size of mass in the pancreatic tail. Subcentimeter gallstone again seen in the dependent portion of the gallbladder without acute gallbladder wall thickening or edema. New diffuse thickening of the descending duodenum with streaky density in the adjacent fat. Findings suggest duodenitis and possibly peptic ulcer disease. Followup is recommended. No other acute abnormality. Electronically Signed by Brad Choudhury MD 10/24/2019 02:27 P
[2019-10-24] MEDS ORDERED: KETOROLAC 0.5% OPHTH SOLN OU PRN (14:45)
--- NOTE | 2019-10-24 15:04 | HPEPDOC ---
General Date of Admission 10/24/2019 Date of Service: Oct 24, 2019 Chief Complaint The patient is a 64-year-old male admitted with a reason for visit of Shortness Of Breath. History of Present Illness 64 year old male presents with shortness of breath. States symptoms have been steadily worsening for the past 2 months, attributes it to "starting chemotherapy". Shortness of breath with exertional dyspnea, improved with rest. Associated with lower extremity edema and weight gain. Denies chest pa in/pressure, palpitations, fever/chills, cough, abdominal pain. Presents with stable vitals, low grade fever, saturating 96% on RA. Labs with normal WBC, Scr 1.97 (normal baseline), BNP 1114, CXR with no infiltrate/effusion, CT A/P with diffuse thickening of descending duodenum suggestive of duodenitis. Home Medications Scheduled Atenolol (Atenolol) 50 Mg Tab, 50 MG PO BID, (Reported) Atorvastatin Calcium (Atorvastatin Calcium) 80 Mg Tab, 80 MG PO QHS, (Reported) Canagliflozin (Invokana) 300 Mg Tab, 300 MG PO DAILY, (Reported) Clopidogrel Bisulfate (Plavix) 75 Mg Tab, 75 MG PO DAILY, (Reported) Dextroamphetamine/Amphetamine (Adderall 20 mg Tablet) 20 Mg Tablet, 20 MG PO TID, (Reported) Insulin Glargine,Hum.rec.anlog (Toumarcia Solostar) 300 Unit/1 Ml Insuln.pen, 30 UNITS SC DAILY, (Reported) Lisinopril (Lisinopril) 40 Mg Tablet, 40 MG PO DAILY, (Reported) Melatonin (Melatonin) 5 Mg Tablet, 5 MG PO QHS, (Reported) Metformin HCl (Metformin HCl ER) 500 Mg Tab, 2,000 MG PO DAILY, (Reported) Tobramycin (Tobramycin) 0.3% 5ML Drops, 2 DROP OS TID, (Reported) Torsemide (Torsemide) 20 Mg Tablet, 40 MG PO DAILY, (Reported) Scheduled PRN Acetaminophen/Diphenhydramine (Acetaminophen Pm Caplet) 1 Each Tablet, 1 TAB PO QHS PRN for SLEEP, (Reported) Alprazolam (Alprazolam) 1 Mg Tablet, 1 MG PO TID PRN for ANXIETY/AGITATION, (Reported) Ketorolac Tromethamine (Acular) 0.5% 5ML Drops, 1 DROP OU BID PRN for ALLERGY SYMPTOMS/REDNESS, (Reported) Nitroglycerin (Nitroglycerin) 0.4 Mg Sub, 0.4 MG SL NITRO PRN for CHEST PAIN, (Reported) Oxycodone HCl/Acetaminophen (Oxycodon-Acetaminophen 7.5-325) 1 Tab Tab, 1 TAB PO Q6HP PRN for PAIN, (Reported) Allergies Coded Allergies: bee venom protein (honey bee) (Verified Allergy, Intermediate, SWELLING, 05/16/19) Past Medical History Medical History PAST MEDICAL HISTORY: 1. Chronic kidney disease, stage III. 2. Hypertension. 3. Anxiety. 4. Depression. 5. Coronary artery disease, status post stents and CABG with quadruple bypass back in 2000. 6. Type 2 diabetes, on metformin. 7. Hyperlipidemia. 8. Abdominal wall abscess. 9. GERD and esophagitis. 10. Chronic atrial fibrillation. PAST SURGICAL HISTORY: Including; 1. Hernia repair. 2. Coronary artery bypass graft. 3. Left shoulder repair. 4. Cardiac stent. A-FIB/CHADSVASC A-FIB History Current/History of A-Fib/PAF?: No Review of Systems Constitutional: Reports: Fatigue, Other (weight gain); Denies: Chills, Fever, Night Sweats Eyes: Denies: Pain, Vision change ENT: Denies: Head Aches, Ear Pain, Dysphagia Skin: Denies: Rash, Lesions, Breakdown Pulmonary: Reports: Dyspnea; Denies: Cough Cardiovascular: Reports: Lt Headedness; Denies: Chest Pain, Palpitations, Orthopnea, Paroxysmal Noc. Dyspnea Gastrointestinal: Denies: Nausea, Vomiting, Abdominal Pain, Diarrhea Genitourinary: Denies: Dysuria, Frequency, Incontinence, Retention Hematologic: Denies: Bruising, Bleeding Excessively Musculoskeletal: Denies: Neck Pain, Back Pain, Joint Pain, Muscle Pain, Spasms Neurological: Denies: Weakness, Numbness, Change in speech, Confusion Psych: Reports: Mood Normal; Denies: Depression, Memory Issues Physical Examination General Exam: Positive: Alert, No Acute Distress Eye Exam: Positive: PERRLA, Conjunctiva & lids normal, EOMI; Negative: Sclera icteric ENT Exam: Positive: Atraumatic, Mucous membr. moist/pink, Pharynx Normal Neck Exam: Positive: Supple; Negative: JVD, thyromegaly Chest Exam: Positive: Clear to auscultation, Normal air movement Heart Exam: Positive: Rate Normal, Regular Rhythm, Normal S1, Normal S2; Negative: Murmurs, Rubs Telemetry: Positive: No significant arrhythmia Abdomen Exam: Positive: Normal bowel sounds, Soft; Negative: Tenderness, Hepatospenomegaly Extremity Exam: Positive: Edema, Normal pulses; Negative: Clubbing, Cyanosis Skin Exam: Positive: Nl turgor and temperature; Negative: Breakdown, Lesion Neuro Exam: Positive: Normal Gait, Normal Speech, Cranial Nerves 3-12 NL, Reflexes 2+ Psych Exam: Positive: Mental status NL, Mood NL, Oriented x 3 Vital Signs Vital Signs Date Time Temp Pulse Resp B/P (MAP) Pulse Ox O2 Delivery O2 Flow Rate FiO2 10/24/19 14:30 85 10/24/19 14:00 20 109/55 (73) 99 Room Air 10/24/19 13:30 100.4 Laboratory Data Labs 24H Laboratory Tests 2 10/24/19 08:50: Prothrombin Time 16.1H, Prothromb Time International Ratio 1.32, Activated Partial Thromboplast Time 34.0, D-Dimer, Quantitative > 4000H, Anion Gap 10, Glomerular Filtration Rate 36.7L, Calcium Level 7.5L, Total Bilirubin 1.0, Direct Bilirubin 0.3H, Aspartate Amino Transf (AST/SGOT) 142H, Alanine Aminotransferase (ALT/SGPT) 165H, Alkaline Phosphatase 119H, Lactate Dehydrogenase 459H, Total Creatine Kinase 629H, Creatine Kinase MB < 1.0, Creatine Kinase MB Relative Index 0.16, Troponin I < 0.02, C-Reactive Protein, Quantitative 12.40H, QY-Cvt-K-Type Natriuretic Peptide 1114H, Total Protein 5.1L, Albumin 2.2L, Albumin/Globulin Ratio 0.76L, Thyroid Stimulating Hormone (TSH) 0.760 10/24/19 08:51: Neutrophils (%) (Auto) , Nucleated Red Blood Cells % (auto) 0.0, Neutrophils 96H, Lymphocytes (Manual) 3L, Eosinophils (Manual) 1, Tear Drop Cells 1+, Ovalocytes 1+, Platelet Estimate NORMAL 10/24/19 09:03: Lactic Acid Level 2.3*H 10/24/19 13:41: Urine Color YELLOW, Urine Appearance CLEAR, Urine pH 5.0, Urine Specific [place] 1.009, Urine Protein NEGATIVE, Urine Glucose (UA) 3+H, Urine Ketones NEGATIVE, Urine Blood NEGATIVE, Urine Nitrite NEGATIVE, Urine Bilirubin NEGATIVE, Urine Urobilinogen 0.2, Urine Leukocyte Esterase NEGATIVE, Urine WBC (Auto) 1, Urine RBC (Auto) 0, Urine Hyaline Casts (Auto) 0, Urine Bacteria (Auto) NEGATIVE, Urine Squamous Epithelial Cells 0, Urine Sperm (Auto) 10/24/19 13:51: Lactic Acid Followup at 4 Hours 1.4 CBC/BMP Laboratory Tests 10/24/19 08:50 10/24/19 08:51 Microbiology Microbiology 10/24/19 Blood Culture, Received Pending 10/24/19 Coronavirus COVID-19 PCR ([facility]), Received Pending 10/24/19 Respiratory Panel (PCR) - Final, Complete 10/24/19 Blood Culture, Received Pending Assessment/Plan 1. exertional dyspnea/LE edema - admit to PCU. - consult to cardiology. - daily weights, ins/outs. - CXR/CT chest negative for effusions, BNP 1114. - no prior ECHO but significant cardiac history, follows with Dr. Hernandez. - ?relation to recent chemotherapy. - furosemide IV x 1 in ED. - monitor SCr. - clinically does not appear to be in failure. 2. AKD (on ?CKD) - monitor SCr. - renal US, monitor urine output. - post void residual >200, shanks placed in ED, monitor urine output. - hold lisinopril, metformin. - consult to renal. 3. diffuse duodenitis on CT - asymptomatic, start PPI, monitor. 4. pancreatic cancer - follows with oncology at [place]. - repeat CT with decrease in size of pancreatic tail mass. 5. cough - Covid-19 sent by ED MD. - contact/droplet precautions. Plan / VTE VTE Prophylaxis Ordered?: Yes ZACH MILLER MD Oct 24, 2019 15:04
[2019-10-24] MEDS ORDERED: GLUCAGON FOR INJ 1 MG VIAL (J1610) SC PRN (15:15)
[2019-10-24] MEDS ORDERED: GLUCOSE 4 GM CHEW TABLET PO PRN (15:15)
[2019-10-24] MEDS ORDERED: DEXTROSE 50% 50 ML SYRINGE IV PRN (15:15)
[2019-10-24] MEDS ORDERED: FUROSEMIDE 40 MG/4 ML VIAL (J1940) IV ONE (16:00)
[2019-10-24] MEDS ORDERED: SLF 3 ML SYR IV PRN (17:00)
[2019-10-24 17:08] VITALS: BP 94/58
[2019-10-24] MEDS: HumaLOG INSULIN (NovoLOG) PER UNIT SC SCH (17:30)
[2019-10-24] MEDS: PANTOPRAZOLE 40MG TAB (PROTONIX) PO SCH (17:36)
--- NOTE | 2019-10-24 18:32 | ECGEPIP ---
[facility] - ED Test Date: 2019-10-24 Pat Name: KATHERIN SZYMANSKI Department: Room: - Gender: Male Spinner Box: : 1955 Requested By: TONY Lambert Order Number: [id number] Reading MD: Tony Sol Measurements Intervals [place] Rate: 75 P: -28 [place]: 208 QRS: -64 QRSD: 91 T: -4 QT: 358 QTc: 402 Interpretive Statements SINUS RHYTHM WITH OCCASIONAL VENTRICULAR PREMATURE COMPLEXES SEPTAL MYOCARDIAL INFARCTION, PROBABLY OLD INFERIOR MYOCARDIAL INFARCTION, PROBABLY OLD Similar to tracing done 07-01-19 Electronically Signed on 10-24-2019 18:32:31 EDT by Tony Sol
[2019-10-24] MEDS: TOBRAMYCIN 0.3% OPHTH SOLN 5 ML OS SCH (19:19)
[2019-10-24] MEDS: ATORVASTATIN 20 MG TAB PO SCH (19:20)
[2019-10-24] MEDS: atenoloL 50 MG TAB PO SCH (19:21)
[2019-10-24] MEDS: SLF 3 ML SYR IV SCH (19:22)
[2019-10-24 20:00] VITALS: BP 100/60
[2019-10-24] MEDS ORDERED: ACETAMINOPHEN TAB 650MG DOSE (2X325MG) PO ONE (21:00)
[2019-10-24] MEDS: HEPARIN SOD (PORCINE) 5000 UNITS/ML VIAL (J1644 PER 1000UNITS) SQ SCH (23:01)
[2019-10-25] VITALS: BP 98/72
[2019-10-25 04:00] VITALS: BP 102/68
[2019-10-25] MEDS: HEPARIN SOD (PORCINE) 5000 UNITS/ML VIAL (J1644 PER 1000UNITS) SQ SCH ×3 (05:22→21:10)
[2019-10-25] MEDS: SLF 3 ML SYR IV SCH ×3 (05:23→21:11)
--- NOTE | 2019-10-25 06:57 | REP ---
RENAL ULTRASOUND: Real-time sonographic evaluation of the kidneys performed. Kidneys are normal in size and echotexture, right kidney measuring 10.9 x 5.4 x 5.8 cm and left kidney 11.2 x 5.1 x 6.4 cm. There is no hydronephrosis or renal mass. Urinary bladder is moderately distended with no gross abnormality. Prostate is enlarged measuring 5.9 x 5.8 x 5.8 cm. IMPRESSION: No hydronephrosis. Moderately distended bladder with enlarged prostate. Electronically Signed by Brad Choudhury MD 10/25/2019 10:54 A
[2019-10-25 06:58] LABS: BILIRUBIN,TOTAL 0.8 MG/DL (0.2-1.0); CALCIUM LEVEL 7.4 MG/DL (8.8-10.2); CREATININE FOR GFR 2.26 MG/DL (0.70-1.30); GLOMERULAR FILTRATION RATE 31.4 (>49); POTASSIUM SERUM 4.6 MEQ/L (3.5-5.1); TOTAL PROTEIN 4.7 GM/DL (6.4-8.2)
[2019-10-25 08:25] VITALS: BP 116/57
[2019-10-25] MEDS: HumaLOG INSULIN (NovoLOG) PER UNIT SC SCH ×3 (08:52→17:18)
[2019-10-25] MEDS: atenoloL 50 MG TAB PO SCH ×2 (08:53→21:10)
[2019-10-25] MEDS: CLOPIDOGREL 75 MG TAB PO SCH (08:53)
[2019-10-25] MEDS: PANTOPRAZOLE 40MG TAB (PROTONIX) PO SCH (08:53)
[2019-10-25] MEDS: TOBRAMYCIN 0.3% OPHTH SOLN 5 ML OS SCH ×4 (08:54→21:08)
--- NOTE | 2019-10-25 09:37 | IPNPDOC ---
Subjective Date Seen The patient was seen on 10/25/19. Subjective Chief Complaint/HPI Seen and examined at bedside, awake and alert, no specific complaints today. General: Reports: Fatigue, Normal Appetite; Denies: Chills, Night Sweats, Malaise Constitutional: Denies: Chills, Fever, Night Sweats Eyes: Denies: Pain, Vision change ENT: Denies: Head Aches, Ear Pain, Dysphagia Skin: Denies: Rash, Lesions, Breakdown Pulmonary: Reports: Dyspnea; Denies: Cough Cardiovascular: Reports: Edema; Denies: Chest Pain, Palpitations, Orthopnea, Paroxysmal Noc. Dyspnea, Lt Headedness Gastrointestinal: Denies: Nausea, Vomiting, Abdominal Pain, Diarrhea, Consti pation Genitourinary: Denies: Dysuria, Frequency, Incontinence, Retention Hematologic: Denies: Bruising, Bleeding Excessively Musculoskeletal: Denies: Neck Pain, Back Pain, Joint Pain, Muscle Pain, Spasms Neurological: Denies: Weakness, Numbness, Change in speech, Confusion Psych: Reports: Mood Normal; Denies: Depression, Memory Issues Objective Physical Examination General Exam: Positive: Alert, No Acute Distress Eye Exam: Positive: PERRLA, Conjunctiva & lids normal, EOMI; Negative: Sclera icteric ENT Exam: Positive: Atraumatic, Mucous membr. moist/pink, Pharynx Normal Neck Exam: Positive: Supple; Negative: JVD, thyromegaly Chest Exam: Positive: Clear to auscultation, Normal air movement Heart Exam: Positive: Rate Normal, Regular Rhythm, Normal S1, Normal S2; Negative: Murmurs, Rubs Telemetry: Positive: No significant arrhythmia Abdomen Exam: Positive: Normal bowel sounds, Soft; Negative: Tenderness, Hepatospenomegaly Male Exam: Positive: Normal Genital Exam Extremity Exam: Positive: Edema (pitting edema b/l LE), Normal pulses; Negative: Clubbing, Cyanosis Skin Exam: Positive: Nl turgor and temperature; Negative: Breakdown, Lesion Neuro Exam: Positive: Normal Gait, Normal Speech, Cranial Nerves 3-12 NL, Reflexes 2+ Psych Exam: Positive: Mental status NL, Mood NL, Oriented x 3 Assessment /Plan Assessment 1. exertional dyspnea - admit to PCU. - consult to cardiology. - daily weights, ins/outs. - CXR/CT chest negative for effusions, BNP 1114. - no prior ECHO but significant cardiac history, follows with Dr. Hernandez. - ?relation to recent chemotherapy. - furosemide IV x 1 in ED. - monitor SCr. - seen by cardiology, doppler US negative, ECHO pending. 2. AKD (on ?CKD) - SCr 2.26 today. - renal US with no hydronephrosis, moderately distended bladder, urine output 650cc/24 hours. - hold lisinopril. - consult to renal. 3. diffuse duodenitis on CT - asymptomatic, start PPI, monitor. 4. pancreatic cancer - follows with oncology at [place]. - repeat CT with decrease in size of pancreatic tail mass. 5. cough - Covid-19 sent by ED MD. - contact/droplet precautions. Plan/VTE VTE Prophylaxis Ordered?: Yes VS, I&O, 24H, Fishbone Vital Signs/I&O Vital Signs Date Time Temp Pulse Resp B/P (MAP) Pulse Ox O2 Delivery O2 Flow Rate FiO2 10/25/19 08:53 70 116/57 10/25/19 08:25 96.5 18 99 Room Air l I&O- Last 24 Hours up to 6 AM 10/25/19 06:00 Intake Total 1200 ml Output Total 2100 ml Balance -900 ml Laboratory Data 24H LABS Laboratory Tests 2 10/24/19 13:41: Urine Color YELLOW, Urine Appearance CLEAR, Urine pH 5.0, Urine Specific [place] 1.009, Urine Protein NEGATIVE, Urine Glucose (UA) 3+H, Urine Ketones NEGATIVE, Urine Blood NEGATIVE, Urine Nitrite NEGATIVE, Urine Bilirubin NEGATIVE, Urine Urobilinogen 0.2, Urine Leukocyte Esterase NEGATIVE, Urine WBC (Auto) 1, Urine RBC (Auto) 0, Urine Hyaline Casts (Auto) 0, Urine Bacteria (Auto) NEGATIVE, Urine Squamous Epithelial Cells 0, Urine Sperm (Auto) 10/24/19 13:51: Lactic Acid Followup at 4 Hours 1.4 10/24/19 17:33: Bedside Glucose (Misc Panel) 131H 10/24/19 19:12: Bedside Glucose (Misc Panel) 144H 10/25/19 06:03: Anion Gap 8, Glomerular Filtration Rate 31.4L, Calcium Level 7.4L, Total Bilirubin 0.8, Aspartate Amino Transf (AST/SGOT) 115H, Alanine Aminotransferase (ALT/SGPT) 133H, Alkaline Phosphatase 91, FK-Sct-M-Type Natriuretic Peptide 585H, Total Protein 4.7L, Albumin 2.0L, Albumin/Globulin Ratio 0.74L CBC/BMP Laboratory Tests 10/25/19 06:03 Microbiology Microbiology 10/24/19 Blood Culture - Preliminary, Resulted No growth after 24 hours . All specim... 10/24/19 Coronavirus COVID-19 PCR ([facility]) - Final, Complete 10/24/19 Respiratory Panel (PCR) - Final, Complete 10/24/19 Blood Culture - Preliminary, Resulted No growth after 24 hours . All specim... ZACH MILLER MD Oct 25, 2019 09:37
[2019-10-25 12:00] VITALS: BP 121/63
[2019-10-25] MEDS: PERCOCET 5MG/325MG TAB PO PRN ×2 (13:12→21:13)
--- NOTE | 2019-10-25 13:22 | REP ---
Bilateral lower extremity Duplex Doppler venous ultrasound: Real time compression and duplex Doppler interrogation of the bilateral lower extremity deep venous system is performed. Bilaterally, the common femoral, superficial femoral and popliteal veins are fully compressible with transducer pressure and demonstrate normal spontaneous and phasic flow, without evidence of deep venous thrombosis. Impression: No evidence of deep venous thrombosis of the bilateral lower extremity femoral popliteal venous system. Electronically Signed by Brad Choudhury MD 10/25/2019 01:13 P
--- NOTE | 2019-10-25 13:47 | CR ---
DATE OF CONSULTATION: 10/25/2019 REFERRING PHYSICIAN: Dr. Jovita Truong INDICATION: Dyspnea with tentative congestive heart failure. I was asked to see Mr. Blank for dyspnea. He is a very pleasant man who is known to me from a consultation I performed a couple years ago but in general he follows with [facility] on a regular basis. He does have a history of open heart surgery and subsequent coronary interventions. He was diagnosed with pancreatic carcinoma in April 2019. He follows with Oncology Department in [facility] and has been receiving chemotherapy since he believes June. He is receiving infusion every Saturday 3 weeks in a row and then has a 1 week break. He reports that his tumor markers has decreased by a factor of about 10. But in spite of favorable response, he has had a lot of side effects. He developed poorly explained rash on torso and extremities and more importantly since approximately early July 2019 he has been progressively more and more short of breath. He said that prior to the diagnosis he started working out and he lost over 100 pounds of weight going to the gym regularly but since July he is no longer able to exercise because of his fairly minimal activity he gets really short of breath. 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 Eventually it reached the point that he could not tolerate it any further and came to hospital for further evaluation. He had fairly extensive imaging already performed that did not provide convincing evidence for congestive heart failure (CHF). On a CT scan of the chest there are no pleural effusions and chest x-ray as well as CT are not suggestive of congestive heart failure. The abdominal imaging did reveal that his mass in the pancreas is actually smaller in size than the comparative study a few months ago but there was thickening of the duodenal wall raising suspicion for duodenitis or maybe even an ulcer. The patient denies any abdominal pain but in the last few days had diarrhea. He does not recall ever seeing blood in his stools. As far as the dyspnea is concerned, he is currently [place] [employer] class III. He does not have nocturnal dyspnea. He also has noticed gradually progressive swelling of lower extremities more on the right lower extremity than left lower extremity. He does report that his oral intake has been poor and since the chemotherapy was started he has zero appetite. OUTPATIENT MEDICATIONS: - atenolol 50 twice a day - atorvastatin 80 a day - Invokana 300 a day - Plavix 75 a day - Adderall 20 mg three times a day - insulin lisinopril 40 mg daily - melatonin 5 mg at bedtime - metformin 500 mg tablets 2 grams daily - torsemide 40 mg daily ALLERGIES TO BEE STINGS. PAST MEDICAL HISTORY: 1. Coronary artery disease with history of coronary artery bypass graft (CABG) in 2000 and several coronary interventions since. I do not have any details available. 2. Hypertension. 3. Type 2 diabetes. 4. Dyslipidemia. 5. Gastroesophageal reflux disease (GERD). 6. History of atrial fibrillation even though I am not convinced how reliable this information is, this is from admitting nodes. 7. Chronic renal insufficiency stage III. 8. Depression. 9. Recent diagnosis of pancreatic cancer. 10. Very small gallstone. 11. Obstructive sleep apnea that is untreated. SURGICAL HISTORY: Is positive for hernia repair and bypass surgery and left shoulder surgery. 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 There is no recent alcohol or smoking. FAMILY HISTORY: Is no longer relevant. REVIEW OF SYSTEMS: He denies any obvious fever, chills, nausea or vomiting. He has had diarrhea for a few days. There has been significant anorexia but he believes that if anything his weight has increased since chemotherapy that he believes his consequently due to edema. He denies any urinary symptoms, certainly no burning, no hesitancy, no straining on urination is necessary. No chest pain. No palpitations. No near/syncope. He denies any recent cardiac evaluation of any sorts. PHYSICAL EXAMINATION: Mr. Blank is a 64-year-old man who appears approximately his age. He does not appear chronically or acutely ill. His is alert and oriented and appropriate, in no apparent distress. Blood pressure 116/57, heart rate has been in 60s and 70s. He is afebrile. Saturation 99% on room air. Weight is recorded as 118 kg. Looking through our hospital records he was 105 kg in June which would indicate gain of about 13 kg since June in the setting of ongoing chemotherapy. 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 I do not appreciate carotid bruit. Lungs are clear. Good air movement. No crackles, wheezing or rhonchi. Heart exam reveals somewhat muffled heart sound but I do not appreciate distinct murmur, gallop or rub. Abdomen is soft without obvious tenderness or rebound tenderness. I do not appreciate hepatosplenomegaly. Extremities have about 1+ edema on the left and 3+ on the right extended above his knees. A London catheter is in place. Peripheral pulses are palpable. LABORATORY: CBC yesterday revealed WBC count 10.1, hemoglobin 9.7, hematocrit 29.6 and platelet count 193,000. Basic metabolic panel as of this morning sodium 135, potassium 4.6, BUN 76, creatinine 2.3 for GFR 31, glucose 152. Lactic acid yesterday was 2.3, is 1.4 today. His AST was 142 dropped to 115 and ALT 165 dropped to 133. Cardiac enzymes were negative and terminal proBNP was 1100 yesterday, is 590 today. TSH was 0.7 and procalcitonin 1.75. Albumin is 2.0. INR is 1.3. Urinalysis is positive for glucose but negative for protein. ECG reveals poor R-wave progression PACs but otherwise sinus rhythm and no acute ST-T abnormalities. Renal ultrasound did not reveal any hydronephrosis but there was enlarged prostate with distended bladder. His postvoiding residual was about [address] revealed decreased small of pancreatic mass. There was again a small gallstone but as a new finding there was thickening of the duodenum raising suspicion for duodenitis or possibly even ulcer. There was no ascites. The CT of the chest was interpreted as free of significant abnormalities other than degenerative spinal abnormalities. It was performed without contrast. ASSESSMENT AND PLAN: Mr. Blank is a 64-year-old man who has history of CAD with coronary artery bypass surgery and then later several coronary interventions, the detail of which are not available to me. He presents with gradually progressive dyspnea and peripheral edema over the course of approximately 3 months. His BNP was quite elevated on admission but at the same time he has significant renal dysfunction which certainly affects these measurements and by clinical exam I do not appreciate any distinct congestive heart failure. At this point I have to conclude that the etiology of his dyspnea is uncertain. I think it is appropriate to obtain an echocardiogram. If there is any evidence for pulmonary hypertension, I think he will have to be evaluated for pulmonary embolism, even though he is not particularly hypoxic, but he is a high risk individual with ongoing cancer and chemotherapy and the pancreatic cancer is particularly strongly associated with thromboembolic disease. I would normally recommend to start him on anticoagulation but because of the finding of the CT of the abdomen that raises suspicion for duodenitis or possibly even ulcer I am reluctant to do so. His symptoms have been chronic and consequently I think it is probably okay to wait an extra day and an continue deep venous thrombosis (DVT) prophylactic dose. I think it would be appropriate to scan his legs to make sure he does not have DVT. The other possibility that needs to be considered is a possibility of thrombotic process in the abdomen even though he seems less likely in absence of ascites. Congestive heart failure is certainly in differential diagnosis. We should get some additional in sights from the echocardiogram. Otherwise Dr. Hernandez will take over his cardiac care tomorrow morning. TAMIR
[2019-10-25] MEDS ORDERED: NS 250 ML IV ONE (15:45)
[2019-10-25 16:00] VITALS: BP 122/60
--- NOTE | 2019-10-25 18:35 | CR ---
DATE OF CONSULTATION: 10/25/2019 REASON FOR CONSULTATION: Is acute renal failure superimposed on chronic kidney disease. HISTORY OF PRESENT ILLNESS: Mr. Blank was admitted to [facility] last evening with shortness of breath. He is a 64-year-old gentleman with known history of longstanding diabetes, hypertension, coronary artery disease with prior coronary artery bypass graft (CABG) and angioplasties, history of dyslipidemia, atrial fibrillation, history of depression, chronic renal insufficiency stage III and history of pancreatic cancer diagnosed in April 2019. The patient has been on chemotherapy and last dose was just last week. Apparently, he has developed shortness of breath over the last few months, which has progressed to the point that he is unable to walk even short distances. He reports that prior to this he was able to work out in the gym, but has not been able to do any exercise now. He presented to the emergency room and was admitted. He did receive one dose of intravenous Lasix and diuresed. This morning his creatinine was up to 2.2 from 1.8 yesterday and a nephrology consultation was requested. The patient is seen in progressive care unit. He already has a London catheter in place and renal ultrasound did not show any evidence of hydronephrosis. He also had several other imaging studies done including CAT scan of abdomen and pelvis, chest and a chest x-ray. He just had lower extremity venous Doppler study and it was reported negative for deep venous thrombosis (DVT). The patient reports shivering and chills along with shortness of breath, but denies any fever. PAST MEDICAL AND SURGICAL HISTORY: Significant for: 1. Type 2 diabetes. 2. Hypertension. 3. Coronary artery disease with prior CABG in 2000 and several coronary angioplasties. 4. History of dyslipidemia. 5. History of atrial fibrillation. 6. History of gastroesophageal reflux disease. 7. History of chronic kidney disease (CKD) stage III. 8. Depression. 9. History of pancreatic cancer. MEDICATIONS: His home medications include: - atenolol 50 mg twice a day - atorvastatin 80 mg daily - Invokana 300 mg daily - Plavix 75 mg daily - Adderall 20 mg three times a day - insulin - lisinopril 40 mg daily - melatonin 5 mg at bedtime - metformin 500 mg two tablets twice a day - torsemide 40 mg daily. ALLERGIES: The patient has no known drug allergies. 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 He denies any alcohol or drug use. FAMILY HISTORY: Noncontributory. REVIEW OF SYSTEMS: The patient has not been feeling well for several weeks. He is now feeling very cold and has shivering and chills. EARS, NOSE AND THROAT: Unremarkable. CARDIOVASCULAR SYSTEM: Significant for dyspnea and leg edema. He denies any chest pain. RESPIRATORY SYSTEM: Significant for obstructive sleep apnea. He denies any hemoptysis or pleuritic type of chest pain. GASTROINTESTINAL (GI) SYSTEM: Significant for poor appetite, but denies any vomiting or diarrhea. Duodenitis or duodenal ulcer was suspected on his CAT scan of abdomen and pelvis done last evening. GENITOURINARY SYSTEM: Negative for dysuria or hematuria. MUSCULOSKELETAL SYSTEM: Significant for lower extremity edema. PSYCHOSOCIAL SYSTEM: Negative for anxiety, but positive for depression. NEUROLOGICAL SYSTEM: Negative for seizures or stroke. Hematological system is negative for any chronic anticoagulation. SKIN: Significant for rash on his extremities and torso for the last few weeks. PHYSICAL EXAMINATION: Temperature 97.6 degrees Fahrenheit, heart rate 72 per minute and respiratory rate 18 per minute. Blood pressure 121/63 mmHg and oxygen saturation 100% on room air. HEAD: Atraumatic. Neck supple and without jugular venous distention (JVD) or thyroid enlargement. Trachea is midline. There is no oral thrush or ulcers. HEART: Sounds are regular and somewhat distant. There is no pericardial friction rub. LUNGS: Clear to auscultation bilaterally. ABDOMEN: Soft and nontender. Bowel sounds are normal without any palpable organomegaly. EXTREMITIES: No cyanosis or clubbing. On right lower extremity, he has 2+ edema and on left lower extremity there is only trace edema. SKIN: Has rash on his torso and upper extremities. NEUROLOGICAL: He is awake, alert and without focal deficit. LABORATORY DATA: His WBC count last evening with 10.1, hemoglobin 9.8 and hematocrit 29.6. Platelets 193. BUN was 66 and creatinine 1.97 last night and this morning his BUN is up to 76 and creatinine 2.26. Sodium 135, potassium 4.6, CO2 24, glucose 152 and calcium 7.4. Initial lactic acid level was 2.3 and repeat one was 1.4. Initial pro-BNP level was 1114 and a repeat one has come down to 585. Albumin is 2.0. He has several imaging studies done including a chest x-ray and chest CT scan, abdomen and pelvis CT scan and renal ultrasound and just finished his vascular ultrasound of lower extremities. All of those studies were reviewed independently. No evidence of pleural effusion or infiltrate noticed. There was no compelling radiological evidence of congestive heart failure. There was a suspicion for duodenitis or duodenal ulcer on the CAT scan. No hydronephrosis. PROBLEMS: 1. Acute kidney injury superimposed on chronic kidney disease. The patient is known to have stage III of chronic kidney disease at baseline without much details known. He has been receiving chemotherapy and also has long history of diabetes. He has been on metformin and lisinopril. I agree with stopping lisinopril and metformin due to acute renal failure. It is likely that he has underlying chronic kidney disease due to vascular issues, as he does have history of significant coronary artery disease and likely to have renal vascular disease. I do not see any proteinuria or hematuria to suggest glomerulonephritis. He clinically does have right lower extremity edema, which is probably related to prior vein harvesting from his right leg. His lungs sound clear and oxygen saturation is 100% on room air. I feel that acute renal failure is likely prerenal, caused by diuresis. I would recommend to not give him any more diuretic at this point. 2. Shortness of breath. Etiology is uncertain, but certainly does not look like significant hypervolemia. Some of his medications have already been stopped including lisinopril and metformin, along with home diuretic. Chest CT scan did not show any evidence for infiltrate or effusion. At this point, he is not a candidate for CT angiogram in view of acute renal failure. Pulmonary embolism could be a consideration and an echocardiogram is anticipated tomorrow to assess for pulmonary hypertension. 3. Anemia. The patient has been on chemotherapy and anemia is likely related to chemotherapy. Does not seem to have any acute blood loss, even though a duodenal ulcer or duodenitis is suspected. He should be treated with H2 fred or a proton pump inhibitor (PPI). Thank you for involving me in the care of Mr. Blank. I will follow him along with you.
[2019-10-25 20:00] VITALS: BP 127/56
[2019-10-25] MEDS: ATORVASTATIN 20 MG TAB PO SCH (21:07)
[2019-10-26] VITALS (7 sets, daily range): BP systolic 101–163; BP diastolic 46–68
[2019-10-26] MEDS: SLF 3 ML SYR IV SCH ×3 (05:15→21:18)
[2019-10-26] MEDS: HEPARIN SOD (PORCINE) 5000 UNITS/ML VIAL (J1644 PER 1000UNITS) SQ SCH ×3 (05:15→21:18)
[2019-10-26] MEDS: PERCOCET 5MG/325MG TAB PO PRN ×2 (05:25→17:04)
--- NOTE | 2019-10-26 06:27 | ECHO ---
DATE OF PROCEDURE: 10/25/2019 REFERRING PHYSICIAN: Dr. Amaya INDICATION: Shortness of breath, coronary artery disease. HEIGHT: 180 cm WEIGHT: 117 kg DIMENSIONS: IVS: 1.4 LV: 4.1 LVPW: 1.4 RV: 4.1 LA: 3.4 Aorta: 3.4 IVC: 1.2 Mitral E wave velocity fluctuates on average approximately 80 E prime septal 9.1 E prime lateral: 13.7 FINDINGS: The study is of acceptable technical quality. The patient is probably in sinus rhythm with very frequent supraventricular and to a lesser degree ventricular ectopy making evaluation of diastolic function more complicated. Left ventricle is normal size. There is [id number] left ventricle hypertrophy. I do not appreciate any segmental wall motion abnormality with the exception of somewhat diminished contractility in the septum, possibly related to prior open heart surgery. Overall ejection fraction (EF) is preserved, I estimate around 65-70%. Right ventricle was relatively poorly visualized. It appears at least mildly dilated, but normally contractile. Both atria appear grossly normal. Aortic valve is minimally sclerotic, but mobility is preserved. Mitral and tricuspid valves appear normal. Pulmonic valve was not well seen. No pericardial effusion is noted. Inferior vena cava is of relatively small size and completely collapses with inspiration indicative of normal or low central venous pressure. Aortic root appears normal. Aortic arch was not visualized. Limited views of abdominal aorta appear normal. Doppler interrogation of aortic valve reveals no significant stenosis or insufficiency. Same applies for mitral and tricuspid valves. Evaluation of diastolic function is inconclusive due to very frequent ectopic beats, but tissue Doppler velocities of mitral annulus are relatively normal and consequently it is unlikely that there is advanced diastolic dysfunction. CONCLUSIONS: 1. Study is of fair technical quality. The patient is in sinus rhythm with frequent ectopy. 2. Normal LV size with mild to moderate left ventricle hypertrophy (LVH) and preserved LV systolic function. Subtle septal wall motion abnormality. 3. No significant valvular disease. 4. Likely normal central venous pressure, unable to estimate pulmonary artery pressure. 5. Probably normal or just mildly abnormal diastolic function. COMMENT: Subacute bacterial endocarditis (SBE) prophylaxis is not recommended.
[2019-10-26 06:58] LABS: HEMATOCRIT 23.9 % (42.0-52.0); MEAN CORPUSCULAR HEMOGLOBIN 33.2 pg (27.0-33.0); MEAN CORPUSCULAR HGB CONC 33.5 g/dl (32.0-36.5); MEAN CORPUSCULAR VOLUME 99.2 fl (80.0-96.0); PLATELET COUNT, AUTOMATED 117 10^3/uL (150-450); RED BLOOD COUNT 2.41 10^6/uL (4.30-6.10)
[2019-10-26 07:22] LABS: BASOPHILS 3 % (0-1); EOSINOPHILS 4 % (0-3); LYMPHOCYTES 26 % (16-44); MONOCYTES 4 % (0-5); NEUTROPHILS 63 % (28-66); PLATELET ESTIMATE NORMAL (NORMAL)
[2019-10-26 07:24] LABS: BLOOD UREA NITROGEN 93 MG/DL (7-18); CALCIUM LEVEL 7.5 MG/DL (8.8-10.2); CARBON DIOXIDE LEVEL 23 MEQ/L (21-32); CHLORIDE LEVEL 104 MEQ/L (98-107); CREATININE FOR GFR 2.33 MG/DL (0.70-1.30); GLOMERULAR FILTRATION RATE 30.3 (>49); GLUCOSE, FASTING 142 MG/DL (70-100); POTASSIUM SERUM 4.6 MEQ/L (3.5-5.1); SODIUM LEVEL 136 MEQ/L (136-145)
[2019-10-26] MEDS: HumaLOG INSULIN (NovoLOG) PER UNIT SC SCH ×3 (07:30→17:30)
[2019-10-26] MEDS: PANTOPRAZOLE 40MG TAB (PROTONIX) PO SCH (07:52)
[2019-10-26] MEDS: CLOPIDOGREL 75 MG TAB PO SCH (07:52)
[2019-10-26] MEDS: atenoloL 50 MG TAB PO SCH ×2 (07:53→21:17)
[2019-10-26] MEDS: TOBRAMYCIN 0.3% OPHTH SOLN 5 ML OS SCH ×3 (07:53→21:00)
[2019-10-26] MEDS ORDERED: VANICREAM MOISTURIZING SKIN CREAM 113GM TUBE TOP PRN (09:30)
[2019-10-26] MEDS ORDERED: ANUSOL HC CREAM 30GM TOP PRN (09:30)
[2019-10-26] MEDS: AMIODARONE 200 MG TAB (PACERONE) PO SCH ×4 (09:35→21:17)
--- NOTE | 2019-10-26 10:26 | IPNPDOC ---
Subjective Date Seen The patient was seen on 10/26/19. Subjective Chief Complaint/HPI seen and examined at bedside, states "feels about the same", denies cp/pressure, n/v/d, abdominal pain, still short of breath but has not ambulated so far other than to bathroom and back. General: Reports: Normal Appetite; Denies: Chills, Night Sweats, Fatigue, Malaise Constitutional: Denies: Chills, Fever, Night Sweats Eyes: Denies: Pain, Vision change ENT: Denies: Head Aches, Ear Pain, Dysphagia Skin: Denies: Rash, Lesions, Breakdown Pulmonary: Denies: Dyspnea, Cough Cardiovascular: Denies: Chest Pain, Palpitations, Orthopnea, Paroxysmal Noc. Dyspnea, Lt Headedness Gastrointestinal: Denies: Nausea, Vomiting, Abdominal Pain, Diarrhea, Constipation Genitourinary: Denies: Dysuria, Frequency, Incontinence, Retention Hematologic: Denies: Bruising, Bleeding Excessively Musculoskeletal: Denies: Neck Pain, Back Pain, Joint Pain, Muscle Pain, Spasms Neurological: Denies: Weakness, Numbness, Change in speech, Confusion Psych: Reports: Mood Normal; Denies: Depression, Memory Issues Objective Physical Examination General Exam: Positive: Alert, No Acute Distress Eye Exam: Positive: PERRLA, Conjunctiva & lids normal, EOMI; Negative: Sclera icteric ENT Exam: Positive: Atraumatic, Mucous membr. moist/pink, Pharynx Normal Neck Exam: Positive: Supple; Negative: JVD, thyromegaly Chest Exam: Positive: Clear to auscultation, Normal air movement Heart Exam: Positive: Rate Normal, Regular Rhythm, Normal S1, Normal S2; Negative: Murmurs, Rubs Telemetry: Positive: No significant arrhythmia Abdomen Exam: Positive: Normal bowel sounds, Soft; Negative: Tenderness, Hepatospenomegaly Male Exam: Positive: Normal Genital Exam Extremity Exam: Positive: Edema (pitting edema b/l LE), Normal pulses; Negative: Clubbing, Cyanosis Skin Exam: Positive: Nl turgor and temperature; Negative: Breakdown, Lesion Neuro Exam: Positive: Normal Gait, Normal Speech, Cranial Nerves 3-12 NL, Reflexes 2+ Psych Exam: Positive: Mental status NL, Mood NL, Oriented x 3 Assessment /Plan Assessment 1. exertional dyspnea - admit to PCU. - consult to cardiology. - daily weights, ins/outs. - CXR/CT chest negative for effusions, BNP 1114. - no prior ECHO but significant cardiac history, follows with Dr. Hernandez. - ?relation to recent chemotherapy. - furosemide IV x 1 given in ED. - monitor SCr. - seen by cardiology, doppler US negative, ECHO with EF 60-65%, no significant diastolic dysfunction noted, normal CVP, unable to assess PAP, frequent ectopy, no significant valvular disease. - episode of Vtach 17 beats, asymptomatic, amiodarone started by cardiology. 2. AKD (on ?CKD) - SCr 2.26 today. - renal US with no hydronephrosis, moderately distended bladder, urine output 650cc/24 hours. - hold lisinopril, metformin. - renal following, likely acute on chronic CKD, continue IVF, monitor SCr. 3. diffuse duodenitis on CT - asymptomatic, start PPI, monitor. 4. pancreatic cancer - follows with oncology at [place]. - repeat CT with decrease in size of pancreatic tail mass. 5. cough - Covid-19 sent by ED MD. - contact/droplet precautions. - covid 19 negative. Plan/VTE VTE Prophylaxis Ordered?: Yes VS, I&O, 24H, Fishbone Vital Signs/I&O Vital Signs Date Time Temp Pulse Resp B/P (MAP) Pulse Ox O2 Delivery O2 Flow Rate FiO2 10/26/19 08:00 97.1 66 20 101/46 (64) 98 Room Air I&O- Last 24 Hours up to 6 AM 10/26/19 06:00 Intake Total 1962 ml Output Total 850 ml Balance 1112 ml Laboratory Data 24H LABS Laboratory Tests 2 10/25/19 12:00: Bedside Glucose (Misc Panel) 164H 10/25/19 16:59: Bedside Glucose (Misc Panel) 159H 10/26/19 06:38: Neutrophils (%) (Auto) , Nucleated Red Blood Cells % (auto) 0.0, Neutrophils 63, Lymphocytes (Manual) 26, Monocytes (Manual) 4, Eosinophils (Manual) 4H, Basophils (Manual) 3H, Red Blood Cell Morphology NORMAL, Platelet Estimate NORMAL, Anion Gap 9, Glomerular Filtration Rate 30.3L, Calcium Level 7.5L 10/26/19 08:05: CBC/BMP Laboratory Tests 10/26/19 06:38 Microbiology Microbiology 10/24/19 Blood Culture - Preliminary, Resulted No Growth after 48 hours. All Specime... 10/24/19 Coronavirus COVID-19 PCR ([facility]) - Final, Complete 10/24/19 Respiratory Panel (PCR) - Final, Complete 10/24/19 Blood Culture - Preliminary, Resulted No Growth after 48 hours. All Specime... ZACH MILLER MD Oct 26, 2019 10:26
--- NOTE | 2019-10-26 12:41 | IPN ---
DATE OF VISIT: 10/26/2019 Mr. Blank is seen this morning on his bedside. He is feeling better and reports that his shivering and chills and has improved. His appetite is still poor and not eating well. He denies any vomiting or diarrhea. On physical exam, temperature 97.1 degrees Fahrenheit, heart rate 68 per minute and respiratory rate 20 per minute. Blood pressure as low as 101/46 mmHg and as high as 163/68 mmHg. Oxygen saturation is up to 100% on room air. His head is atraumatic. Neck supple and jugular venous distention (JVD) not abnormally elevated. There is no oral thrush or ulcers. Heart sounds are regular and lungs sound clear to auscultation bilaterally. Abdomen soft and nontender and bowel sounds are normal. Extremities without any cyanosis or clubbing. Lower extremity edema is about 3+ bilaterally. Neurologically, he is awake, alert and oriented times three. Today's labs show WBC count 2.0, hemoglobin 8.0 and hematocrit 23.9. Platelets 117. Sodium 136, potassium 4.6, CO2 23, BUN 93 and creatinine 2.33. Glucose 142 and calcium 7.1. PROBLEMS: 1. Acute kidney injury superimposed on chronic kidney disease. No significant change in kidney function over last 24 hours. His angiotensin-converting enzyme (BROCK) inhibitor and metformin has already been stopped. We will continue to hold off on any diuretics as his lungs sound clear clinically and oxygen saturation is 100% on room air. He does have peripheral edema, which is probably related to severe hypoalbuminemia and acute kidney injury. We will try to diurese him only after his kidney function starts to improve. 2. Protein calorie malnutrition. Most likely related to poor intake and loss of appetite caused by chemotherapy. Patient is being encouraged to increase intake of Nepro and other protein supplements. 3. Pancytopenia. Patient has developed sudden pancytopenia probably related to chemotherapy and will need close monitoring. I would suggest that primary care team discuss with oncology. 4. Congestive heart failure. His echocardiogram is reported as normal systolic and diastolic function. He does have peripheral edema but no elevated neck veins or pulmonary vascular congestion at this time. We will continue to hold off on diuretic due to acute kidney injury and wait until his kidney function improves before we try to diurese him.
[2019-10-26] MEDS: ATORVASTATIN 20 MG TAB PO SCH (21:17)
[2019-10-27] VITALS: BP 129/58
[2019-10-27] MEDS: PERCOCET 5MG/325MG TAB PO PRN ×3 (01:02→20:19)
[2019-10-27 04:00] VITALS: BP 114/58
[2019-10-27 05:12] LABS: BASO % 0.6 % (0.0-1.0); EOS # 0.1 10^3/uL (0.0-0.5); EOS % 1.8 % (0.0-3.0); HEMATOCRIT 24.4 % (42.0-52.0); HEMOGLOBIN 8.3 g/dl (13.5-17.5); LYMPH # 0.5 10^3/uL (1.5-5.0); LYMPH % 15.9 % (24.0-44.0); MEAN CORPUSCULAR HEMOGLOBIN 33.5 pg (27.0-33.0); MEAN CORPUSCULAR VOLUME 98.4 fl (80.0-96.0); MONO # 0.2 10^3/uL (0.0-0.8); MONO % 5.3 % (0.0-5.0); NEUTROPHILS # 2.5 10^3/uL (1.5-8.5); NEUTROPHILS % 72.6 % (36.0-66.0); RED BLOOD COUNT 2.48 10^6/uL (4.30-6.10); WHITE BLOOD COUNT 3.4 10^3/uL (4.0-10.0)
[2019-10-27 05:16] LABS: PLATELET COUNT, AUTOMATED 125 10^3/uL (150-450)
[2019-10-27 05:33] LABS: CALCIUM LEVEL 7.8 MG/DL (8.8-10.2); CREATININE FOR GFR 2.15 MG/DL (0.70-1.30); GLOMERULAR FILTRATION RATE 33.2 (>49); POTASSIUM SERUM 4.7 MEQ/L (3.5-5.1)
[2019-10-27] MEDS: SLF 3 ML SYR IV SCH ×3 (06:41→22:12)
[2019-10-27] MEDS: HEPARIN SOD (PORCINE) 5000 UNITS/ML VIAL (J1644 PER 1000UNITS) SQ SCH ×3 (06:41→20:18)
[2019-10-27] MEDS: ALPRAZolam 0.5 MG TAB PO PRN ×2 (06:42→20:18)
[2019-10-27] MEDS: HumaLOG INSULIN (NovoLOG) PER UNIT SC SCH ×3 (07:30→18:04)
[2019-10-27 08:00] VITALS: BP 126/61
[2019-10-27] MEDS: CLOPIDOGREL 75 MG TAB PO SCH (08:21)
[2019-10-27] MEDS: PANTOPRAZOLE 40MG TAB (PROTONIX) PO SCH (08:22)
[2019-10-27] MEDS: AMIODARONE 200 MG TAB (PACERONE) PO SCH ×4 (08:22→20:18)
[2019-10-27] MEDS: atenoloL 50 MG TAB PO SCH ×2 (08:22→20:05)
[2019-10-27] MEDS: TOBRAMYCIN 0.3% OPHTH SOLN 5 ML OS SCH ×3 (08:47→20:17)
[2019-10-27 12:00] VITALS: BP 124/56
[2019-10-27 15:30] VITALS: BP 112/56
--- NOTE | 2019-10-27 17:03 | IPNPDOC ---
Text Note Date of Service The patient was seen on 10/27/19. NOTE S: Pt examined at bedside. Continues to be fluid-overloaded and feeling weak and same amount of shortness of breath as when he came in. States his symptoms resolve when at rest. London in place and noted to have 1L in and 1L out yesterday. Few beats on nonsustained Vtach overnight on tele, but pt asymptomatic and otherwise doing well. No chest pain, cough, wheezing, or phlegm. PE: Vitals: see below General: NAD, A&Ox3, sitting up in chair comfortably HEENT: NCAT, EOMI, anicteric sclera, MMM, no appreciable JVD CV: RRR, no murmurs or clicks or rub. anasarcic throughout with 3+ pitting edema b/l LE & UE RESP: CTAB, no w/r/r/ ABD: soft, NT, ND. Benign : London in place with clear urine output EXTREMITIES: 2+ radial pulses b/l, able to move all extremities NEURO: no focal deficits. Follows commands appropriately A/P: 64-yo M with recently diagnosed pancreatic cancer of the tail in end 2018 and started weekly chemo in June, presenting for gradually worsening shortness of breath with exertion and increasing edema since last chemo session in 10/19. Dyspnea likely 2/2 fluid overload from 3rd spacing/hypoalbuminemia from active malignancy and recent chemo session continue daily wts, strict I/O, limit fluid intake Per Cardio, less likely decompensated CHF given clinical picture and imaging. Echo notes mild- moderate LVH, preserved systolic function 65-70%, probably normal diastolic function, no significant valvular disease, likely normal CVP Less likely PE given maintaining O2 sat on RA and negative b/l LE doppler Is afebrile without leukocytosis, no suspicious infectious source will consider albumin infusions if no improvement in the next few days. For now, add Ensure and monitor Nephro consulted, appreciate input. Per their recs, hold diuresis for now; resume when OBEY improves OBEY on CKD III baseline Cr appears to be ~1.1-1.2. Currently 2.15 - trending down from prior days diurese as per Nephro. Hold nephrotoxins Recurrent episodes of nonsustained Vtach pt asymptomatic cardio on board, appreciate input; started on Amiodorone 4/6 still has Vtach, but fewer amt. Continue monitoring on tele Transaminitis possibly 2/2 fluid overload vs pancreatic CA nml on prior checks pursue w/u pending recheck tomorrow CAD hx of open heart surgery, CABG 2000 continue ASA statin Plavix, BBlocker Pancreatic Cancer follows [facility], started chemo Jun 2019 was reportedly scheduled to have mass in tail of pancreas removed continue o/p f/u IDDM2 home Invokana and Metformin on hold. Home Toujeo adjusted to ISS Diffuse duodenitis Pt has no GI complaints. Was started on PPI. Monitor Depression/Anxiety stable on home meds Untreated REMA & obesity complicates care. F/U o/p for further management DVT ppx: heparin sc DISPO: pending clinical improvement. Monitor on tele. VS,Fishbone, I+O VS, Fishbone, I+O Laboratory Tests 10/27/19 04:48 Vital Signs Date Time Temp Pulse Resp B/P (MAP) Pulse Ox O2 Delivery O2 Flow Rate FiO2 10/27/19 15:30 97.1 61 20 112/56 (74) 100 Room Air I&O- Last 24 Hours up to 6 AM 10/27/19 06:00 Intake Total 1080 ml Output Total 950 ml Balance 130 ml GME ATTESTATION GME ATTESTATION My faculty preceptor for this patient encounter was physically present during the encounter and was fully available. All aspects of the patient interview, examination, medical decision making process, and medical care plan development were reviewed and approved by the faculty preceptor. The faculty preceptor is aware and concurs with the plan as stated in the body of this note and will attest to such by his/her cosignature. ATTENDING NOTE I, Tennille Miller, have independently examined this patient and performed my own physical exam, as well as reviewed the documentation and edited where necessary. I have discussed in detail with the resident / student the findings and plan of treatment as documented by the resident / student and edited their note. I agree with their findings and treatment plan and have edited their documentation. I will continue to follow the patient during this hospital stay. RONEL CASTELLANO DO Oct 27, 2019 17:02 TENNILLE MILLER MD Oct 27, 2019 17:42
--- NOTE | 2019-10-27 18:23 | IPN ---
DATE: Mr. Blank is seen this morning on his bedside. He is feeling about the same and reports dyspnea on exertion. His diuretic has been on hold since admission due to acute renal failure. The patient still has significant lower extremity edema. He denies any nausea or vomiting, but appetite has been poor. PHYSICAL EXAMINATION: Temperature 97 degrees Fahrenheit, heart rate 83 per minute, respiratory rate 18 per minute, blood pressure 124/56 mm of mercury, and oxygen saturation 100% on room air. Head is atraumatic. There is no oral thrush or ulcers. Neck is supple and jugular venous distention (JVD) is barely visible above the clavicle. Heart sounds are regular, and lungs sound clear to auscultation bilaterally. Abdomen soft and nontender, and bowel sounds are normal. Extremities have no cyanosis or clubbing. Lower extremity edema is at least 3+ bilaterally. Neurologically, he is awake, alert, and oriented times three. Today's labs show WBC count 3.4, hemoglobin 8.3, and hematocrit 24.4. Platelets are 125. Sodium 131, potassium 4.7, CO2 of 24, BUN 94, and creatinine 2.15. Glucose 146 and calcium 7.8. PROBLEMS: 1. Acute kidney injury superimposed on chronic kidney disease. Slight improvement in serum creatinine is noted today. The patient has been off diuretic, angiotensin-converting enzyme (BROCK) inhibitor, and metformin. At this point, I am going to watch for next 24 hours without any diuretic. If we see improvement in the creatinine, then I will consider starting diuretic tomorrow morning. 2. Hyponatremia related to acute renal failure and volume overload. It is likely to improve with diuretic. We will continue to watch it for now. 3. Pancytopenia. Slight improvement in the cell counts is noted. No active bleeding at this point, and we will continue to monitor closely. 4. Hypertension. Blood pressure has been very well controlled and sometimes on the low side. At this point, he is off lisinopril and diuretic. Not receiving any other antihypertensive.
[2019-10-27 20:00] VITALS: BP 130/62
[2019-10-27] MEDS: ATORVASTATIN 20 MG TAB PO SCH (20:18)
[2019-10-28] VITALS (8 sets, daily range): BP systolic 109–166; BP diastolic 55–65
[2019-10-28] MEDS: PERCOCET 5MG/325MG TAB PO PRN ×4 (02:11→20:24)
[2019-10-28] MEDS: HEPARIN SOD (PORCINE) 5000 UNITS/ML VIAL (J1644 PER 1000UNITS) SQ SCH ×3 (04:48→20:25)
[2019-10-28] MEDS: SLF 3 ML SYR IV SCH ×3 (04:50→20:26)
[2019-10-28 05:30] LABS: ALBUMIN 1.9 GM/DL (3.2-5.2); BILIRUBIN,DIRECT 0.4 MG/DL (0.0-0.2); BILIRUBIN,TOTAL 0.9 MG/DL (0.2-1.0); TOTAL PROTEIN 5.2 GM/DL (6.4-8.2)
[2019-10-28] MEDS: HumaLOG INSULIN (NovoLOG) PER UNIT SC SCH ×3 (07:30→17:44)
[2019-10-28 07:32] LABS: HEMATOCRIT 24.9 % (42.0-52.0); HEMOGLOBIN 8.5 g/dl (13.5-17.5); MEAN CORPUSCULAR HEMOGLOBIN 33.3 pg (27.0-33.0); MEAN CORPUSCULAR HGB CONC 34.1 g/dl (32.0-36.5); MEAN CORPUSCULAR VOLUME 97.6 fl (80.0-96.0); PLATELET COUNT, AUTOMATED 170 10^3/uL (150-450); RED BLOOD COUNT 2.55 10^6/uL (4.30-6.10); WHITE BLOOD COUNT 5.8 10^3/uL (4.0-10.0)
[2019-10-28 07:35] LABS: CALCIUM LEVEL 7.7 MG/DL (8.8-10.2); CREATININE FOR GFR 2.28 MG/DL (0.70-1.30); MAGNESIUM LEVEL 2.5 MG/DL (1.8-2.4); POTASSIUM SERUM 4.6 MEQ/L (3.5-5.1)
[2019-10-28 08:09] LABS: ANISOCYTOSIS 1+; BASOPHILS 1 % (0-1); EOSINOPHILS 3 % (0-3); LYMPHOCYTES 14 % (16-44); MONOCYTES 8 % (0-5); NEUTROPHILS 74 % (28-66)
[2019-10-28 08:10] LABS: PLATELET ESTIMATE NORMAL (NORMAL); TOXIC GRANULATION 1+
[2019-10-28] MEDS: atenoloL 50 MG TAB PO SCH (08:49)
[2019-10-28] MEDS: AMIODARONE 200 MG TAB (PACERONE) PO SCH ×4 (08:54→20:25)
[2019-10-28] MEDS: TOBRAMYCIN 0.3% OPHTH SOLN 5 ML OS SCH ×3 (09:00→20:15)
[2019-10-28 09:18] LABS: HEPATITIS B SURFACE ANTIGEN NEGATIVE (NEGATIVE)
[2019-10-28 09:44] LABS: HEPATITIS C VIRUS ABY INDEX 0.1 INDEX (<0.8)
[2019-10-28 09:45] LABS: HEPATITIS B CORE ANTIBODY IGM NEGATIVE (NEGATIVE)
[2019-10-28 09:47] LABS: HEPATITIS A ANTIBODY IGM NEGATIVE (NEGATIVE)
--- NOTE | 2019-10-28 11:11 | IPNPDOC ---
Text Note Date of Service The patient was seen on 10/28/19. NOTE S: Pt examined at bedside. Still feeling the same as prior days and fluid- overloaded. Again had very few beats of Vtach overnight and asymptomatic No chest pain, cough, wheezing, or phlegm. PE: Vitals: see below General: NAD, A&Ox3, laying in bed comfortably HEENT: NCAT, EOMI, anicteric sclera, MMM, no appreciable JVD CV: RRR, no murmurs or clicks or rub. anasarcic throughout with 3+ pitting edema b/l LE & UE RESP: CTAB, no w/r/r/ ABD: soft, NT, ND. Benign EXTREMITIES: 2+ radial pulses b/l, able to move all extremities NEURO: no focal deficits. Follows commands appropriately A/P: 64-yo M with recently diagnosed pancreatic cancer of the tail in end 2018 and started weekly chemo in June, presenting for gradually worsening s hortness of breath with exertion and increasing edema since last chemo session in 10/19. Dyspnea - likely 2/2 fluid overload from 3rd spacing/hypoalbuminemia from active malignancy and recent chemo session - continue daily wts, strict I/O, limit fluid intake - spoke with his oncologist in [facility], Dr. Dwight Torres [[phone]] today 10/27- reports pt is on Gemcitabine & Abraxane for the past few months and reportedly cancer is responding well and shrunk, with curative intent and plans for surgery after chemo is complete - Per Cardio, less likely decompensated CHF given clinical picture and imaging. Echo notes mild- moderate LVH, preserved systolic function 65-70%, probably normal diastolic function, no significant valvular disease, likely normal CVP - Less likely PE given maintaining O2 sat on RA and negative b/l LE doppler - Is afebrile without leukocytosis, no suspicious infectious source - Nephro consulted, appreciate input. Per their recs, hold diuresis for now; resume when OBEY improves - Will discuss with Nephro & Cardio regarding albumin infusions given minimal improvement. Continue Ensure w/ meals OBEY on CKD III - baseline Cr appears to be ~1.1-1.2. Worsening with Cr up to 2.28 today - diurese as per Nephro. Hold nephrotoxins Recurrent episodes of nonsustained Vtach - pt asymptomatic - cardio on board, appreciate input; started on Amiodarone 10/25 - still has Vtach, but fewer amt. Continue monitoring on tele Transaminitis - nml on prior checks. Continues to worsen, possibly 2/2 hepatic congestion vs pancreatic CA vs chemo side effect - hep profile & Liver US pending Diffuse duodenitis - Pt has no GI complaints. Was started on PPI. Monitor CAD hx of open heart surgery, CABG 2000 continue ASA statin Plavix, BBlocker Pancreatic Cancer follows [facility], started chemo Jun 2019 was reportedly scheduled to have mass in tail of pancreas removed continue o/p f/u IDDM2 home Invokana and Metformin on hold. Home Toujeo adjusted to ISS Depression/Anxiety stable on home meds Untreated REMA & obesity complicates care. F/U o/p for further management DVT ppx: heparin sc DISPO: pending further w/u, clinical improvement. Monitor on tele. VS,Fishbone, I+O VS, Fishbone, I+O Laboratory Tests 10/28/19 04:54 10/28/19 04:56 Vital Signs Date Time Temp Pulse Resp B/P (MAP) Pulse Ox O2 Delivery O2 Flow Rate FiO2 10/28/19 08:56 18 Room Air 10/28/19 08:49 54 126/61 10/28/19 04:00 96.1 99 I&O- Last 24 Hours up to 6 AM 10/28/19 06:00 Intake Total 1500 ml Output Total 1000 ml Balance 500 ml GME ATTESTATION GME ATTESTATION My faculty preceptor for this patient encounter was physically present during the encounter and was fully available. All aspects of the patient interview, examination, medical decision making process, and medical care plan development were reviewed and approved by the faculty preceptor. The faculty preceptor is aware and concurs with the plan as stated in the body of this note and will attest to such by his/her cosignature. ATTENDING NOTE I, Tennille Miller, have independently examined this patient and performed my own physical exam, as well as reviewed the documentation and edited where necessary. I have discussed in detail with the resident / student the findings and plan of treatment as documented by the resident / student and edited their note. I agree with their findings and treatment plan and have edited their documentation. I will continue to follow the patient during this hospital stay. RONEL CASTELLANO DO Oct 28, 2019 11:11 TENNILLE MILLER MD Oct 28, 2019 15:18
[2019-10-28] MEDS ORDERED: FUROSEMIDE 40 MG/4 ML VIAL (J1940) IV ONE (12:00)
[2019-10-28] MEDS: CLOPIDOGREL 75 MG TAB PO SCH (13:43)
[2019-10-28] MEDS: PANTOPRAZOLE 40MG TAB (PROTONIX) PO SCH (13:44)
--- NOTE | 2019-10-28 13:46 | REP ---
RIGHT UPPER QUADRANT ULTRASOUND: Real-time sonographic evaluation of the right upper quadrant performed. Gallbladder demonstrates a gallstone in the neck of the gallbladder. No gallbladder wall thickening or pericholecystic fluid. There is no intrahepatic or extrahepatic biliary dilatation, common bile duct measuring 4 mm. Liver and pancreas demonstrate no gross mass. Study is limited due to patient body habitus and bowel gas. Right kidney demonstrates no hydronephrosis with normal size 10.8 cm in length. IMPRESSION: Gallstone in the neck of the gallbladder. No gallbladder wall thickening, pericholecystic fluid or biliary dilatation. No liver abnormality is seen. Electronically Signed by Brad Choudhury MD 10/28/2019 02:23 P
[2019-10-28] MEDS ORDERED: SENOKOT S TAB PO PRN (14:45)
[2019-10-28] MEDS: VANICREAM MOISTURIZING SKIN CREAM 113GM TUBE TOP SCH ×3 (15:45→20:25)
[2019-10-28] MEDS ORDERED: TRIAMCINOLONE ACET 0.1% CREAM 80 GM TOP PRN (15:45)
[2019-10-28] MEDS ORDERED: diphenhydrAMINE 25MG CAP PO ONE (16:00)
--- NOTE | 2019-10-28 17:33 | IPN ---
DATE: 10/28/2019 Mr. Blank is seen this afternoon on his bedside. He is currently getting a liver ultrasound in radiology. I came to see him in his room but he was down in ultrasound so I came down to radiology department to see him. He feels that his shortness of breath is slightly better but leg edema is still unchanged. He denies any vomiting, fever or chills. His liver enzymes have been elevated. Due to which, he is getting a liver ultrasound. His diuretic has been on hold as well as lisinopril due to acute renal failure. PHYSICAL EXAMINATION: Temperature 97.3 degrees Fahrenheit, heart rate 60 per minute and respiratory rate 18 per minute. Blood pressure 123/59 mmHg and oxygen saturation 98% on room air. Head is atraumatic. Neck is supple and jugular venous distention (JVD) minimally elevated. There are no oral thrush or ulcers. Heart sounds are regular and without a pericardial friction rub. Lungs sound clear to auscultation. Abdomen is soft and nontender and bowel sounds are normal. Extremities without any cyanosis or clubbing. Lower extremity edema is 3+ bilaterally. Right lower extremity has mild generalized erythema but no localized evidence of infection. Neurologically, he is awake, alert and oriented times three. LABORATORY DATA: Today's laboratories show WBC count 5.8, hemoglobin 8.5 and hematocrit 24.9. Platelets 170. Sodium 131, potassium 4.6, CO2 21, BUN 101 and creatinine 2.28. Glucose 144 and calcium 7.7. His bilirubin is 0.9, AST is up to 408, ALT 298 and alkaline phosphatase 166. Total protein 5.2 and albumin 1.9. PROBLEMS: 1. Acute renal failure superimposed on chronic kidney disease. Yesterday, he had slight improvement in creatinine but today his creatinine is back to the same level where it was three days ago. He has a London catheter and there is no evidence of obstruction on his recent imaging. His urinalysis did not show any protein or blood so I do not feel that he has any evidence of glomerulonephritis. I feel that his acute kidney injury is related to nephrotoxicity caused by chemotherapy. So far, his kidney function has not improved and his metformin, lisinopril and diuretic have been on hold. There is no emergent indication for dialysis. However, if his kidney function does not improve then he might reach a point where we will have to discuss about dialysis. 2. Hyponatremia, mild and stable without any change. Today, we are going to give him a dose of diuretic and we will recheck his electrolytes again tomorrow. 3. Shortness of breath and hypervolemia. He does have significant lower extremity edema and his diuretic has been on hold since admission due to acute kidney injury. We will give him one dose of Lasix 40 mg along with some IV albumin today in view of low serum albumin level. We will see how he responds. 4. Abnormal liver enzymes. The patient does have sudden increase in his transaminases. He does have a stone in the neck of gallbladder without any evidence of significant obstruction. Bilirubin is still normal. 5. Pancytopenia. Gradual improvement in pancytopenia is noted and this is also likely result of his recent chemotherapy. No urgent indication for a transfusion.
--- NOTE | 2019-10-28 19:03 | ECGEPIP ---
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 Could not rule out prior anterior wall myocardial infarction. QS pattern leads III and aVF; could not rule out prior IWMI. Left anterior hemiblock is well recognized to create an appearance of prior infarctions as mentioned above. Clinical correlation is advised. Subtle ST/T wave abnormalities. No change from 10/24/19. Electronically Signed on 10-28-2019 19:03:08 EDT by El Hernandez
[2019-10-28] MEDS: ALPRAZolam 0.5 MG TAB PO PRN (20:24)
[2019-10-28] MEDS: DOCUSATE SODIUM 100 MG CAP PO SCH (20:25)
[2019-10-28] MEDS: CARVedilol 6.25 MG TAB PO SCH (23:35)
[2019-10-29] VITALS (11 sets, daily range): BP systolic 120–150; BP diastolic 55–76
[2019-10-29] MEDS ORDERED: diphenhydrAMINE 25MG CAP PO ONE
[2019-10-29] MEDS: CARVedilol 6.25 MG TAB PO SCH ×4 (05:07→23:07)
[2019-10-29] MEDS: SLF 3 ML SYR IV SCH ×3 (05:58→20:24)
[2019-10-29] MEDS: HEPARIN SOD (PORCINE) 5000 UNITS/ML VIAL (J1644 PER 1000UNITS) SQ SCH ×3 (06:01→20:22)
[2019-10-29] MEDS: PERCOCET 5MG/325MG TAB PO PRN ×3 (06:03→20:27)
[2019-10-29 06:57] LABS: HEMATOCRIT 23.3 % (42.0-52.0); MEAN CORPUSCULAR HEMOGLOBIN 33.3 pg (27.0-33.0); MEAN CORPUSCULAR HGB CONC 34.3 g/dl (32.0-36.5); MEAN CORPUSCULAR VOLUME 97.1 fl (80.0-96.0); PLATELET COUNT, AUTOMATED 194 10^3/uL (150-450); WHITE BLOOD COUNT 5.8 10^3/uL (4.0-10.0)
--- NOTE | 2019-10-29 07:01 | IPN ---
DATE: CARDIOLOGY PROGRESS NOTE: SUBJECTIVE: The patient claims to be feeling better than on admission with slightly greater strength and less shortness of breath but still is dyspneic with minor effort. Has been free of any chest discomfort. Unaware of his heart action. Denies any positional lightheadedness or faintness. No lateralizing neurological deficits, flank pain, or hematuria. Claims that he is sleeping better than he had been, but his sleep disruption he attributes to his chemotherapy for his pancreatic cancer. Has diffuse erythematous rash that can be burning and awakens him from sleep. OBJECTIVE: Somewhat stocky, overweight, late middle-aged male lying comfortably with the head of the bed elevated 30 degrees. Has an obvious erythematous flushing of his face and serpiginous rash that was erythematous over his extremities. Did not appear to be in any acute distress. Heart rate 60 beats per minute (BPM) and regular with occasional irregularity. Blood pressure 118/58 supine, 116/54 sitting with legs dependent (right arm). Respiratory rate 16, oxygen saturation 97% on room air. Afebrile. Weight 265 pounds, height 71 inches, body mass index (BMI) 37. No apparent pallor or icterus. No central cyanosis. Normal oral moisture, but his tongue was quite smooth, related to his chemotherapy. Trachea midline. Thyroid did not appear to be enlarged. Neck veins appeared to be at the level of the sternal angle, not currently elevated. Normal carotid upstrokes and volume. Slightly increased anteroposterior chest diameter with good air entry over both lung ray. No current abnormal pulmonary adventitious sounds. Unable to palpate his apical impulse. Heart sounds were slightly distant, difficult to detect any gallop. No apparent murmur or rub. No sacral pitting edema, but obvious pitting of his lower extremities at least three-quarters of the way up 1-2 mm. His abdomen was soft with normal bowel sounds. GAS LEAK TESTER: This shows sinus rhythm/sinus bradycardia with now only occasional isolated premature atrial contraction (PAC) (a dramatic decrease on his current amiodarone therapy). EKG: Study performed earlier today at my request showed sinus rhythm/sinus bradycardia at 56 BPM with left atrial conduction disturbance, first-degree atrioventricular (AV) block, low voltages with slow precordial R-wave progression possibly related to his body habitus, but also has a marked left axis consistent with left anterior hemiblock, which could masquerade as a prior anterior infarction. He has a QS pattern in III and aVF, suggestive of a prior inferior infarction and subtle ST-T wave abnormalities. The only change from 10/24/2019 is the reduction in atrial ectopic activity. CHEST X-RAY: Had only a portable study performed on his admission, 10/24/2019, and this was reviewed independently. The study was quite lordotic. Obvious cardiomegaly exaggerated with this portable study. Slightly unfolded thoracic aorta with sternotomy wire sutures and vascular clips related to his prior bypass surgery. Slightly prominent proximal pulmonary vessels, but no obvious interstitial edema or pleural effusion. Patient has a stable right central venous catheter for his chemotherapy. Comparing this study with 07/01/2019, there was no significant change. CHEST CT SCAN WITHOUT CONTRAST: Performed also in the emergency room 10/24/2019, showing cardiomegaly, reviewed independently. This shows some atherosclerotic change of his thoracic aorta, but the aorta was not aneurysmal. His pulmonary vasculature did not appear to be accentuated. His pulmonary trunk was upper limits of normal in size. He has obvious calcification of his coronary arteries. His left atrium did appear to be at least mildly enlarged. The left ventricle appeared to be of normal size. Right heart chamber sizes did appear to be mildly dilated. Current inferior vena cava (IVC) size was mildly increased. No pericardial effusion. As suggested on his x-ray, there were minor scattered fibrotic changes diffusely but no acute infiltrate or pulmonary edema. No pericardial effusion or pleural effusion. No apparent adenopathy. Degenerative changes of his thoracic spine. ECHOCARDIOGRAM: Also taken the day after his admission, 10/25/2019, this was reviewed independently. His underlying rhythm was sinus with frequent PACs. This showed mild concentric left ventricular hypertrophy with normal wall motion (no evidence of prior anterior or inferior infarctions as suggested from his EKG). The left atrium was at least mildly dilated with grade 1 left ventricle (LV) diastolic dysfunction, but current estimated mean left atrial pressure was upper limits of normal. Right heart chamber sizes were upper limits of normal with normal wall motion, and Doppler estimated pulmonary arterial pressure was only mildly increased. His inferior vena cava did not appear to be dilated and collapsed normally against an elevated central venous pressure. Aortic dimensions were normal. There was marginal aortic valvular sclerosis with trace insufficiency and mild mitral annular calcification with trace insufficiency. Again, no pericardial effusion. These findings were not significantly changed from study performed in our office 05/08/2019. LABORATORY DATA: His hemoglobin was 16.8 on 07/01/2019; and with his chemotherapy, this has steadily decreased and today was 8.5. His MCV is actually increased, and MCHC is normal, against iron deficiency anemia. Had a slight leukocytopenia 2 days ago, but his current white blood cell count is normal at 5.8. His platelet count was also down to 117,000 two days ago but is currently 170,000 (all likely related to his chemotherapy). His admission PT/INR was slightly increased without oral anticoagulation. His D-dimer was significantly elevated at 4000, again likely related to his malignancy. Admission electrolytes were normal, but BUN was 66, creatinine 1.97 (up from 23 and 1.07 on 10/12/2019). Random glucose was slightly increased. His proBNP level was elevated at 1114, up from 758 on 10/12/2019, but this has decreased to 585. Admission liver function studies were abnormal, including an albumin as low as 2.2. Electrolytes today were in balance except for hyponatremia of 131. His BUN has continued to increase and has reached 101 this morning. His creatinine has remained abnormal and was 2.28 this morning. Liver function studies have actually gotten worse in hospital. His serum albumin is currently 1.9. Admission TSH was normal at 0.76. Urinalysis on admission was 3+ positive for glucosuria. IMPRESSION/PLAN: 1. Shortness of breath: Despite his documented heart disease, I do not believe his effort dyspnea was related to heart failure. Chest x-ray and chest CT scan did not show interstitial edema. His echocardiogram allows us to estimate his mean left atrial pressure, and this was actually upper limits of normal, not elevated. His dependent edema I suspect is related to his marked hypoalbuminemia, not right heart failure. His echocardiogram did not show a dilated and unresponsive IVC but one that collapsed normally with respiration, and his neck veins did not appear elevated. 2. Premature atrial contractions: On admission and on telemetry, he was having very frequent isolated PACs; and with his underlying hypertensive heart disease and left atrial enlargement, would be considered at increased risk of atrial fibrillation. With his anemia, he would not be a great candidate for oral anticoagulation, so we took the liberty of starting him on amiodarone antiarrhythmic therapy to reduce his risk of developing atrial tachyarrhythmia. He appears to be tolerating this without adverse effect, and it has had a very positive impact on the frequency of his ectopic activity. 3. Abnormal EKG: Has had evidence of a left atrial conduction disturbance along with a first-degree AV block and left anterior hemiblock. These findings are not changed from our last tracing 07/29/2019. As mentioned above, his echocardiogram shows normal left ventricular wall motion. No sign of prior anterior or inferior infarction. On his current amiodarone, has not had any significant bradyarrhythmia. We have written hold parameters for his atenolol beta-fred for heart rate less than 60 or blood pressure less than 130 mmHg systolic. 4. Coronary artery disease (levelock vessel)/post coronary artery bypass graft (CABG) times 2001/post circumflex stenting March 2015: Has been free of chest discomfort since June 2019. Presented to the emergency room with chest pain and was sent for cardiac catheterization at [facility], and this documented patency of his bypass grafts. No change from 04/20/2015 other than his patent coronary stent. Serial EKGs did not show any evolutionary repolarization abnormalities. Currently remains on atenolol beta-fred therapy with hold parameters as mentioned, atorvastatin, and clopidogrel. In light of his soft blood pressure and left ventricular dysfunction as well as his diabetes mellitus, I have elected to discontinue atenolol and introduce low-dose carvedilol 6.25 mg by mouth every 6 hours with hold parameters for heart rate less than 60 and systolic blood pressure less than 135 mmHg. This agent is the drug of choice for a diabetic and is more effective in suppression of atrial arrhythmias. His lisinopril therapy was discontinued because of his acute renal insufficiency and relative hypotension. Currently receiving atorvastatin, but we will plan on withholding this at least temporarily with his acute liver dysfunction. Will continue on Plavix antiplatelet therapy. Fortunately, no sign of abnormal bleeding. 5. Heart failure (diastolic/chronic): Has had echocardiographic evidence of left ventricular hypertrophy with diastolic dysfunction and left atrial enlargement that has been treated with loop diuretic therapy furosemide dating back to 2006. This was only recently changed to torsemide 10/13/2019 on speculation that his dyspnea was due to heart failure (it was not). This may well have contributed to his acute renal dysfunction. Presently, diuretics are on hold. Obvious marked lower leg swelling is related to his marked hypoalbuminemia. Is also off lisinopril. We will continue to monitor his chemistry and renal function closely with you and nephrology service. 6. Hypertensive heart disease (benign with heart failure): His current blood pressure is controlled off diuretic therapy and his lisinopril with only intermittent doses of atenolol. Have adjusted his beta-fred, as mentioned above, and we will monitor his blood pressure closely. He is certainly a challenging individual with multiple medical problems. His malignancy apparently has responded to his aggressive chemotherapy, and there were tentative plans for him to undergo a Whipple procedure. I am cautiously optimistic that his current acute problems likely triggered by his chemotherapy are reversible. I will monitor him closely with you and appreciate the opportunity to participate in his care. TAMIR
[2019-10-29 07:22] LABS: ALBUMIN 2.2 GM/DL (3.2-5.2); CALCIUM LEVEL 7.6 MG/DL (8.8-10.2); CREATININE FOR GFR 2.08 MG/DL (0.70-1.30); GLOMERULAR FILTRATION RATE 34.5 (>49); MAGNESIUM LEVEL 2.7 MG/DL (1.8-2.4); POTASSIUM SERUM 4.8 MEQ/L (3.5-5.1); TOTAL PROTEIN 4.8 GM/DL (6.4-8.2)
[2019-10-29] MEDS ORDERED: FUROSEMIDE 40 MG/4 ML VIAL (J1940) IV ONE (07:30)
[2019-10-29] MEDS: PANTOPRAZOLE 40MG TAB (PROTONIX) PO SCH (08:05)
[2019-10-29] MEDS: AMIODARONE 200 MG TAB (PACERONE) PO SCH ×4 (08:06→20:22)
[2019-10-29] MEDS: CLOPIDOGREL 75 MG TAB PO SCH (08:06)
[2019-10-29] MEDS: DOCUSATE SODIUM 100 MG CAP PO SCH ×2 (08:06→20:22)
[2019-10-29] MEDS: HumaLOG INSULIN (NovoLOG) PER UNIT SC SCH ×3 (08:07→17:24)
[2019-10-29] MEDS: TOBRAMYCIN 0.3% OPHTH SOLN 5 ML OS SCH ×3 (08:08→20:24)
[2019-10-29] MEDS: VANICREAM MOISTURIZING SKIN CREAM 113GM TUBE TOP SCH ×4 (08:09→20:23)
[2019-10-29 08:14] LABS: EOSINOPHILS 1 % (0-3); LYMPHOCYTES 14 % (16-44); METAMYELOCYTES 6 % (0-0); MYELOCYTES 3 % (0-0); NEUTROPHILS 76 % (28-66); PLATELET ESTIMATE NORMAL (NORMAL)
[2019-10-29 08:15] LABS: ANISOCYTOSIS 1+
[2019-10-29] MEDS ORDERED: FUROSEMIDE 20 MG/2 ML VIAL (J1940) IV ONE (10:15)
--- NOTE | 2019-10-29 11:17 | IPNPDOC ---
Text Note Date of Service The patient was seen on 10/29/19. NOTE S: Pt examined at bedside. Feeling slightly less dyspnic that prior days. Tolerating albumin infusions well. Rash on b/l arms responded well to Bendaryl & topical steroids. Still very edematous, no events overnight. Denies chest pain, cough, wheezing, or phlegm. PE: Vitals: see below General: NAD, A&Ox3, laying in bed comfortably HEENT: NCAT, EOMI, anicteric sclera, MMM, no appreciable JVD, facial flushing persistent from prior days likely chemo-related CV: RRR, no murmurs or clicks or rub. anasarcic throughout with 3+ pitting edema b/l LE & UE RESP: CTAB, no w/r/r/ ABD: soft, NT, ND. Benign EXTREMITIES: 2+ radial pulses b/l, able to move all extremities, dry hypertrophic erythematous rash b/l arms likely from chemo NEURO: no focal deficits. Follows commands appropriately A/P: 64-yo M with recently diagnosed pancreatic cancer of the tail in end 2018 and started weekly chemo in June, presenting for gradually worsening shortness of breath with exertion and increasing edema since last chemo session in 10/19. Dyspnea - likely 2/2 fluid overload from 3rd spacing/hypoalbuminemia from active malignancy and recent chemo session - per pt's oncologist in [facility], Dr. Dwight Torres [[phone]] on 10/27, pt is on Gemcitabine & Abraxane for the past few months and reportedly cancer is responding well and shrunk, with curative intent and plans for surgery after chemo is complete - These chemo drugs are known to have side effects of capillary leak, proteinuria, edema, hepatotoxicity, and nephrotoxicity - Cardio following, appreciate input. Per Cardio, unlikely decompensated CHF given clinical picture and imaging - Echo notes mild- moderate LVH, preserved systolic function 65-70%, probably normal diastolic function, no significant valvular disease, likely normal CVP - Nephro consulted, appreciate input. Per their recs, give intermittent doses of IV lasix & albumin - Informed consent for albumin transfusion was obtained verbally and in writing, with staff in room 10/27. Pt tolerating infusions well - give additional albumin & Ensure w/ meals - continue daily wts, strict I/O, limit fluid intake OBEY on CKD III - likely 2/2 fluid overload & ongoing chemo - slightly improved s/p IV Lasix 40mg yesterday - Baseline Cr appears to be ~1.1-1.2 - Per nephro, give 60mg IV Lasix today & additional albumin infusions - diurese as per Nephro. Hold nephrotoxins Recurrent episodes of nonsustained Vtach, PACs - pt asymptomatic - cardio on board, appreciate input; started on Amiodarone 10/25 with positive response - switched from Atenolol to Coreg 6.25mg q6h on 10/27, but not receiving due to bradycardia - Continue monitoring on tele. EKG shows no acute changes Transaminitis - nml on prior checks. Continues to worsen, possibly 2/2 hepatic congestion vs pancreatic CA vs chemo side effect - Ct abd/pelvis 10/23 shouws unremarkable liver/spleen - hep profile neg, & Liver US shows gallstone in gallbladder neck, but no acute infection or other abnormality - bilirubin nml. Pt asymptomatic. Monitor with albumin infusions Anemia - stable ~8. No occult bleed - may be 2/2 cance & chemo - w/u ordered - transfuse as needed to maintiain hgb >8 s/p Thrombocytopenia - counts improving - no evidence of bleeding Hyponatremia - likely 2/2 hypotonic hypervolemic etiology - 2/2 fluid overload - c/w diuresis and albumin infusion Diffuse duodenitis - Pt has no GI complaints. Was started on PPI. Monitor CAD hx of open heart surgery, CABG 2000 continue ASA statin Plavix, BBlocker Pancreatic Cancer follows [facility], started chemo Jun 2019 was reportedly scheduled to have mass in tail of pancreas removed continue o/p f/u IDDM2 home Invokana and Metformin on hold. Home Toujeo adjusted to ISS Depression/Anxiety stable on home meds Untreated REMA & obesity complicates care. F/U o/p for further management DVT ppx: heparin sc DISPO: pending further w/u, clinical improvement. Monitor on tele. VS,Fishbone, I+O VS, Fishbone, I+O Laboratory Tests 10/29/19 06:40 Vital Signs Date Time Temp Pulse Resp B/P (MAP) Pulse Ox O2 Delivery O2 Flow Rate FiO2 10/29/19 08:04 18 10/29/19 07:40 97.4 64 121/56 (77) 95 Room Air I&O- Last 24 Hours up to 6 AM 10/29/19 06:00 Intake Total 1040.0 ml Output Total 1500 ml Balance -460.0 ml GME ATTESTATION GME ATTESTATION My faculty preceptor for this patient encounter was physically present during the encounter and was fully available. All aspects of the patient interview, examination, medical decision making process, and medical care plan development were reviewed and approved by the faculty preceptor. The faculty preceptor is aware and concurs with the plan as stated in the body of this note and will attest to such by his/her cosignature. ATTENDING NOTE I, Tennille Miller, have independently examined this patient and performed my own physical exam, as well as reviewed the documentation and edited where necessary. I have discussed in detail with the resident / student the findings and plan of treatment as documented by the resident / student and edited their note. I agree with their findings and treatment plan and have edited their documentation. I will continue to follow the patient during this hospital stay. RONEL CASTELLANO DO Oct 29, 2019 11:17 TENNILLE MILLER MD Oct 29, 2019 12:22
[2019-10-29] MEDS: NYSTATIN 100,000 UNITS/GM TOPICAL PWD 15 GM TOP SCH ×2 (12:06→20:24)
[2019-10-29] MEDS: diphenhydrAMINE 25MG CAP PO PRN ×2 (14:13→20:22)
[2019-10-29 14:51] LABS: ALBUMIN 2.2 GM/DL (3.2-5.2); BILIRUBIN,TOTAL 0.7 MG/DL (0.2-1.0); CALCIUM LEVEL 7.5 MG/DL (8.8-10.2); CREATININE FOR GFR 2.09 MG/DL (0.70-1.30); GLOMERULAR FILTRATION RATE 34.3 (>49); POTASSIUM SERUM 4.7 MEQ/L (3.5-5.1); TOTAL PROTEIN 4.7 GM/DL (6.4-8.2)
--- NOTE | 2019-10-29 19:44 | IPN ---
DATE: 10/29/2019 Mr. Blank is seen this afternoon on his bedside. He is feeling slightly better but still gets short of breath on exertion. He denies any fever, chills, nausea or vomiting. His appetite is still poor. He was given one dose of intravenous albumin followed by Lasix 40 mg yesterday and had a negative fluid balance of about 750. PHYSICAL EXAMINATION Temperature is 96.8 degrees Fahrenheit, heart rate 62 per minute and respiratory rate 16 per minute. Blood pressure 120/58 mmHg and oxygen saturation 100% on room air. Head is atraumatic. Neck: Supple and JVD difficult to be assessed. I do not see any obvious distended neck veins. He has no oral thrush or ulcers. Heart: Sounds are regular and lungs with slightly diminished breath sounds at bases. Abdomen: Soft and nontender. Bowel sounds are normal. Extremities: Without any cyanosis or clubbing. Lower extremity edema is essentially unchanged. Neurologically he is awake, alert and oriented times three. LABS: Today's labs show WBC count 5.8, hemoglobin 8.0 and hematocrit 23.3. Platelets up to 194. Sodium 132, potassium 4.8, CO2 24, BUN 93 and creatinine 2.08. Total protein 4.8 and albumin 2.2. PROBLEMS 1. Acute renal failure superimposed on chronic kidney disease. Slight improvement in kidney function noticed since yesterday. It is encouraging as the patient was also negative fluid balance. He does not have any uremic symptoms and we will continue to monitor his kidney function closely. There is no emergent indication for dialysis at this point. 2. Hypervolemia. The patient has significant dependent edema. He also has low albumin and we will give him another dose of intravenous albumin followed by Lasix 60 mg today and monitor his urine output. He remains on restricted fluid intake. 4. Hyponatremia. Slight improvement. Sodium level noticed with negative fluid balance. We will try and continue our efforts to diurese him while monitoring his kidney function. 5. Pancytopenia. His platelets are gradually improving and rest of his CBC is essentially unchanged. No emergent need for a transfusion at this point. 6. Hypertension. His blood pressure medications are mostly on hold and blood pressure is reasonably well-controlled.
[2019-10-29] MEDS: RAMELTEON 8 MG TAB (ROZEREM) PO SCH (20:22)
[2019-10-30] VITALS (9 sets, daily range): BP systolic 125–154; BP diastolic 58–68
[2019-10-30] MEDS: HEPARIN SOD (PORCINE) 5000 UNITS/ML VIAL (J1644 PER 1000UNITS) SQ SCH ×3 (04:46→21:57)
[2019-10-30] MEDS: CARVedilol 6.25 MG TAB PO SCH ×4 (04:46→23:47)
[2019-10-30] MEDS: diphenhydrAMINE 25MG CAP PO PRN (04:46)
[2019-10-30] MEDS: SLF 3 ML SYR IV SCH ×3 (04:47→21:58)
[2019-10-30] MEDS: PERCOCET 5MG/325MG TAB PO PRN ×2 (04:49→18:02)
[2019-10-30 05:24] LABS: HEMATOCRIT 24.1 % (42.0-52.0); MEAN CORPUSCULAR HEMOGLOBIN 32.7 pg (27.0-33.0); MEAN CORPUSCULAR HGB CONC 33.2 g/dl (32.0-36.5); MEAN CORPUSCULAR VOLUME 98.4 fl (80.0-96.0); PLATELET COUNT, AUTOMATED 245 10^3/uL (150-450); RED BLOOD COUNT 2.45 10^6/uL (4.30-6.10); WHITE BLOOD COUNT 6.2 10^3/uL (4.0-10.0)
[2019-10-30 06:06] LABS: BASOPHILS 1 % (0-1); EOSINOPHILS 2 % (0-3); LYMPHOCYTES 16 % (16-44); METAMYELOCYTES 4 % (0-0); MONOCYTES 8 % (0-5); MYELOCYTES 2 % (0-0); NEUTROPHILS 67 % (28-66)
[2019-10-30 06:08] LABS: ANISOCYTOSIS 1+; PLATELET CLUMPS SMALL AMT; PLATELET ESTIMATE NORMAL (NORMAL); POIKILOCYTOSIS 1+
[2019-10-30 07:38] LABS: ALBUMIN 2.2 GM/DL (3.2-5.2); ALT/SGPT 321 U/L (12-78); BILIRUBIN,TOTAL 0.8 MG/DL (0.2-1.0); BLOOD UREA NITROGEN 92 MG/DL (7-18); CALCIUM LEVEL 7.6 MG/DL (8.8-10.2); CARBON DIOXIDE LEVEL 23 MEQ/L (21-32); CHLORIDE LEVEL 102 MEQ/L (98-107); CREATININE FOR GFR 1.96 MG/DL (0.70-1.30); FERRITIN 4536 NG/ML (26-388); GLUCOSE, FASTING 143 MG/DL (70-100); IRON (FE) 50 UG/DL (65-175); MAGNESIUM LEVEL 2.7 MG/DL (1.8-2.4); PERCENT SATURATION 23.8 % (19.7-50.0); POTASSIUM SERUM 4.8 MEQ/L (3.5-5.1); SODIUM LEVEL 132 MEQ/L (136-145); TOTAL IRON BINDING CAPACITY 210 UG/DL (250-450); TOTAL PROTEIN 4.8 GM/DL (6.4-8.2)
[2019-10-30 08:27] LABS: VITAMIN B12 LEVEL > 2000 PG/ML (247-911)
[2019-10-30 08:28] LABS: FOLATE 9.7 NG/ML (>5.4)
[2019-10-30] MEDS: HumaLOG INSULIN (NovoLOG) PER UNIT SC SCH ×3 (09:03→17:54)
[2019-10-30] MEDS: PANTOPRAZOLE 40MG TAB (PROTONIX) PO SCH (09:07)
[2019-10-30] MEDS: AMIODARONE 200 MG TAB (PACERONE) PO SCH ×4 (09:07→21:56)
[2019-10-30] MEDS: CLOPIDOGREL 75 MG TAB PO SCH (09:07)
[2019-10-30] MEDS: DOCUSATE SODIUM 100 MG CAP PO SCH ×2 (09:08→21:56)
[2019-10-30] MEDS: TOBRAMYCIN 0.3% OPHTH SOLN 5 ML OS SCH ×3 (09:08→21:00)
[2019-10-30] MEDS: NYSTATIN 100,000 UNITS/GM TOPICAL PWD 15 GM TOP SCH ×2 (09:09→21:57)
[2019-10-30] MEDS: VANICREAM MOISTURIZING SKIN CREAM 113GM TUBE TOP SCH ×4 (09:09→21:57)
[2019-10-30] MEDS: FERROUS SULFATE 325MG TAB PO SCH (09:15)
[2019-10-30] MEDS ORDERED: FUROSEMIDE 100 MG/10 ML VIAL (J1940) IV ONE (09:15)
--- NOTE | 2019-10-30 12:09 | IPNPDOC ---
Text Note Date of Service The patient was seen on 10/30/19. NOTE S: Pt examined at bedside. Kidney and liver are improving. No events overnight. Feeling slightly less short of breath. No cp, cough, fevers, n/v/edema. PE: Vitals: see below General: NAD, A&Ox3, laying in bed comfortably HEENT: NCAT, EOMI, anicteric sclera, MMM, no appreciable JVD, facial flushing persistent from prior days likely chemo-related CV: RRR, no murmurs or clicks or rub. anasarcic throughout with 3+ pitting edema b/l LE & UE RESP: CTAB, no w/r/r/ ABD: soft, NT, ND. Benign EXTREMITIES: 2+ radial pulses b/l, able to move all extremities, dry hypertrophic erythematous rash b/l arms likely from chemo NEURO: no focal deficits. Answers appropriately A/P: 64-yo M with recently diagnosed pancreatic cancer of the tail in end 2018 and started weekly chemo in June, presenting for gradually worsening shortness of breath with exertion and increasing edema since last chemo session in 10/19. Dyspnea - mildly improved s/p 5U albumin thus far and diuresis - likely 2/2 fluid overload from 3rd spacing/hypoalbuminemia from active malignancy and recent chemo session - per pt's oncologist in [facility], Dr. Dwight Torres [[phone]] on 10/27, pt is on Gemcitabine & Abraxane for the past few months and reportedly cancer is responding well and shrunk, with curative intent and plans for surgery after chemo is complete - These chemo drugs are known to have side effects of capillary leak, proteinuria, edema, hepatotoxicity, and nephrotoxicity - Cardio following, appreciate input. Per Cardio, unlikely decompensated CHF g iven clinical picture and imaging - Echo notes mild- moderate LVH, preserved systolic function 65-70%, probably normal diastolic function, no significant valvular disease, likely normal CVP - Nephro consulted, appreciate input. Per their recs, give intermittent Lasix doses and albumin - continue daily wts, strict I/O, limit fluid intake, Ensure w/ meals OBEY on CKD III - likely 2/2 fluid overload & ongoing chemo - slightly improved s/p IV Lasix 40mg 2 days ago, 60mg yesterday - Baseline Cr appears to be ~1.1-1.2 - Per nephro, give 80mg IV Lasix today & additional albumin infusion - diurese as per Nephro. Hold nephrotoxins Recurrent episodes of nonsustained Vtach, PACs - pt asymptomatic - cardio on board, appreciate input; started on Amiodarone 10/25 with positive response - switched from Atenolol to Coreg 6.25mg q6h on 10/27 - Continue monitoring on tele Transaminitis - gradually improving with diuresis and albumin infusion - nml on prior checks. Possibly 2/2 hepatic congestion vs pancreatic CA vs chemo side effect - Ct abd/pelvis 10/23 shows unremarkable liver/spleen - hep profile neg, & Liver US shows gallstone in gallbladder neck, but no acute infection or other abnormality - bilirubin nml. Pt asymptomatic. Monitor with albumin infusions Anemia - stable ~8. No occult bleed - may be 2/2 cancer & chemo - w/u reveals iron deficiency & anemia of chronic disease - started on po iron supplement - transfuse as needed to maintiain hgb >8 s/p Thrombocytopenia - counts improving - no evidence of bleeding Hyponatremia - likely 2/2 hypotonic hypervolemic etiology - 2/2 fluid overload - c/w diuresis and albumin infusion as above Diffuse duodenitis - Pt has no GI complaints. Was started on PPI. Monitor CAD hx of open heart surgery, CABG 2000 continue ASA statin Plavix, BBlocker Pancreatic Cancer follows [facility], started chemo Jun 2019 was reportedly scheduled to have mass in tail of pancreas removed continue o/p f/u IDDM2 home Invokana and Metformin on hold. Home Toujeo adjusted to ISS Depression/Anxiety stable on home meds Untreated REMA & obesity complicates care. F/U o/p for further management DVT ppx: h - Heparin sc DISPO: pending further w/u, clinical improvement. Monitor on tele. Acute vs subacute rehab. VS,Fishbone, I+O VS, Fishbone, I+O Laboratory Tests 10/29/19 14:11 10/30/19 04:52 Vital Signs Date Time Temp Pulse Resp B/P (MAP) Pulse Ox O2 Delivery O2 Flow Rate FiO2 10/30/19 08:00 97.0 63 20 154/58 (90) 98 Room Air I&O- Last 24 Hours up to 6 AM 10/30/19 06:00 Intake Total 980.0 ml Output Total 1075 ml Balance -95.0 ml GME ATTESTATION GME ATTESTATION My faculty preceptor for this patient encounter was physically present during the encounter and was fully available. All aspects of the patient interview, examination, medical decision making process, and medical care plan development were reviewed and approved by the faculty preceptor. The faculty preceptor is aware and concurs with the plan as stated in the body of this note and will attest to such by his/her cosignature. ATTENDING NOTE I, Tennille Miller, have independently examined this patient and performed my own physical exam, as well as reviewed the documentation and edited where necessary. I have discussed in detail with the resident / student the findings and plan of treatment as documented by the resident / student and edited their note. I agree with their findings and treatment plan and have edited their documentation. I will continue to follow the patient during this hospital stay. RONEL CASTELLANO DO Oct 30, 2019 12:09 TENNILLE MILLER MD Oct 30, 2019 15:32
--- NOTE | 2019-10-30 12:32 | IPN ---
DATE OF VISIT: 10/30/2019 Mr. Blank is seen this morning on his bedside. He is feeling somewhat discouraged due to his weakness and leg edema. I have explained to him that kidney function is improving now and leg edema is also improving as he is responding to diuretic. Patient denies any nausea or vomiting. He still has dyspnea on exertion. On physical exam, temperature 96.7 degrees Fahrenheit, heart rate 60 per minute and respiratory rate 20 per minute. Blood pressure 134/60 mmHg and oxygen saturation 100% on room air. Head is atraumatic. Neck supple and jugular venous distention (JVD) not abnormally elevated. Heart sounds are regular and lungs sound clear to auscultation. Abdomen soft and nontender and bowel sounds are normal. Extremities without any cyanosis or clubbing. Lower extremity edema is improving with some wrinkling in the skin. Neurologically, he is awake, alert and oriented times three. Today's labs show WBC count 6.2, hemoglobin 8.0 and hematocrit 24.1. Sodium 132, potassium 4.8, CO2 23, BUN 92 and creatinine 1.96. Glucose 143 and calcium 7.6. His AST is down to 358, ALT 321 and alkaline phosphatase 221. Albumin is 2.2. PROBLEMS: 1. Acute renal failure superimposed on chronic kidney disease. Gradual improvement in kidney function is noticed over the last 3 days. I have explained to patient that this is very encouraging that his kidney function is improving as he is being diuresed. 2. Hypervolemia and leg edema. Volume status is improving and we will give him 80 mg Lasix today intravenously along with IV albumin. He has been in negative fluid balance for last couple of days. Depending upon his response to diuretic, we will determine dose of diuretic for tomorrow. At present, his home diuretic is on hold. 3. Hypertension. Blood pressure remains well controlled and currently lisinopril is on hold due to acute renal failure. We will continue to monitor closely and not start an angiotensin-converting enzyme (BROCK) inhibitor or angiotensin receptor fred until his kidney function improves and his volume status also improves. 4. Anemia. His anemia remains unchanged though platelets and WBC count has improved. At present, there is no emergent need for a transfusion. His iron studies are appropriate and ferritin level is very high. We will give him one dose of Aranesp 100 mcg on Saturday.
[2019-10-30] MEDS: ALPRAZolam 0.5 MG TAB PO PRN (14:24)
[2019-10-30] MEDS: POLYVINYL ALCOHOL OPHTH SOLN 15 ML(LIQUITEARS) OU SCH (21:56)
[2019-10-30] MEDS: RAMELTEON 8 MG TAB (ROZEREM) PO SCH (21:56)
[2019-10-31] VITALS (8 sets, daily range): BP systolic 129–163; BP diastolic 60–70
[2019-10-31] MEDS: HEPARIN SOD (PORCINE) 5000 UNITS/ML VIAL (J1644 PER 1000UNITS) SQ SCH ×3 (05:01→21:07)
[2019-10-31] MEDS: SLF 3 ML SYR IV SCH ×3 (05:01→21:07)
[2019-10-31] MEDS: CARVedilol 6.25 MG TAB PO SCH ×2 (05:02→21:07)
[2019-10-31 05:50] LABS: HEMATOCRIT 25.1 % (42.0-52.0); HEMOGLOBIN 8.5 g/dl (13.5-17.5); MEAN CORPUSCULAR HEMOGLOBIN 33.7 pg (27.0-33.0); MEAN CORPUSCULAR HGB CONC 33.9 g/dl (32.0-36.5); MEAN CORPUSCULAR VOLUME 99.6 fl (80.0-96.0); PLATELET COUNT, AUTOMATED 306 10^3/uL (150-450); RED BLOOD COUNT 2.52 10^6/uL (4.30-6.10); WHITE BLOOD COUNT 6.9 10^3/uL (4.0-10.0)
[2019-10-31 06:04] LABS: EOSINOPHILS 1 % (0-3); LYMPHOCYTES 15 % (16-44); METAMYELOCYTES 2 % (0-0); MONOCYTES 15 % (0-5); MYELOCYTES 4 % (0-0); NEUTROPHILS 63 % (28-66)
[2019-10-31 06:05] LABS: POLYCHROMASIA 1+
[2019-10-31 06:06] LABS: ANISOCYTOSIS 2+; POIKILOCYTOSIS 2+
[2019-10-31 06:07] LABS: PLATELET ESTIMATE NORMAL (NORMAL)
[2019-10-31 06:10] LABS: ALBUMIN 2.2 GM/DL (3.2-5.2); BILIRUBIN,TOTAL 0.7 MG/DL (0.2-1.0); CALCIUM LEVEL 7.5 MG/DL (8.8-10.2); CREATININE FOR GFR 1.74 MG/DL (0.70-1.30); GLOMERULAR FILTRATION RATE 42.4 (>49); MAGNESIUM LEVEL 2.6 MG/DL (1.8-2.4); POTASSIUM SERUM 4.8 MEQ/L (3.5-5.1); TOTAL PROTEIN 4.7 GM/DL (6.4-8.2)
[2019-10-31] MEDS: PANTOPRAZOLE 40MG TAB (PROTONIX) PO SCH (08:14)
[2019-10-31] MEDS: FERROUS SULFATE 325MG TAB PO SCH (08:14)
[2019-10-31] MEDS: DOCUSATE SODIUM 100 MG CAP PO SCH ×2 (08:14→21:06)
[2019-10-31] MEDS: PERCOCET 5MG/325MG TAB PO PRN ×2 (08:14→17:27)
[2019-10-31] MEDS: AMIODARONE 200 MG TAB (PACERONE) PO SCH ×2 (08:14→21:07)
[2019-10-31] MEDS: CLOPIDOGREL 75 MG TAB PO SCH (08:14)
[2019-10-31] MEDS: HumaLOG INSULIN (NovoLOG) PER UNIT SC SCH ×3 (08:15→17:28)
[2019-10-31] MEDS: NYSTATIN 100,000 UNITS/GM TOPICAL PWD 15 GM TOP SCH ×2 (08:18→21:00)
[2019-10-31] MEDS: VANICREAM MOISTURIZING SKIN CREAM 113GM TUBE TOP SCH ×4 (08:18→21:00)
[2019-10-31] MEDS: POLYVINYL ALCOHOL OPHTH SOLN 15 ML(LIQUITEARS) OU SCH ×3 (08:18→21:00)
[2019-10-31] MEDS: TOBRAMYCIN 0.3% OPHTH SOLN 5 ML OS SCH ×3 (08:18→21:00)
[2019-10-31] MEDS ORDERED: DARBEPOETIN 100 MCG/0.5 ML *NON-DIALYSIS* SYRINGE (J0881) SC SCH (09:00)
[2019-10-31] MEDS: GABAPENTIN 100 MG CAP PO SCH ×3 (09:48→21:07)
--- NOTE | 2019-10-31 10:09 | IPNPDOC ---
Text Note Date of Service The patient was seen on 10/31/19. NOTE S: Pt examined at bedside. Diuresed 2L yesterday with positive response in hepatic and renal fxn. Feeling slightly less short of breath, but still dyspenic with exertion. No cp, cough, fevers, n/v/edema or events overnight. PE: Vitals: see below General: NAD, A&Ox3, laying in bed comfortably HEENT: NCAT, EOMI, anicteric sclera, MMM, no appreciable JVD, facial flushing chronic likely chemo-related CV: RRR, no murmurs or clicks or rub. anasarcic throughout with 3+ pitting edema b/l LE & UE slightly improving RESP: CTAB, no w/r/r/ ABD: soft, NT, ND. Benign EXTREMITIES: 2+ radial pulses b/l, able to move all extremities, dry hypertrophic erythematous rash b/l arms chronic likely from chemo NEURO: no focal deficits. Answers appropriately A/P: 64-yo M with recently diagnosed pancreatic cancer of the tail in end 2018 and started weekly chemo in June, presenting for gradually worsening shortness of breath with exertion and increasing edema since last chemo session in 10/19. Dyspnea - likely 2/2 fluid overload from 3rd spacing/hypoalbuminemia from active malignancy and recent chemo session - mildly improved s/p 6U albumin thus far and diuresis - per pt's oncologist in [facility], Dr. Dwight Torres [[phone]] on 10/27, pt is on Gemcitabine & Abraxane for the past few months and reportedly cancer is responding well and shrunk, with curative intent and plans for surgery after chemo is complete - These chemo drugs are known to have side effects of capillary leak, proteinuria, edema, hepatotoxicity, and nephrotoxicity - Cardio following, appreciate input. Per Cardio, unlikely decompensated CHF given clinical picture and imaging - Echo notes mild- moderate LVH, preserved systolic function 65-70%, probably normal diastolic function, no significant valvular disease, likely normal CVP - Nephro consulted, appreciate input. Per their recs, give intermittent Lasix doses and albumin - d/c shanks & monitor strict I/O, daily wts, limit fluid intake, Ensure w/ meals OBEY on CKD III - likely 2/2 fluid overload & ongoing chemo - gradually improving s/p intermittent doses if IV Lasix - Baseline Cr appears to be ~1.1-1.2. Neprho consulted, appreciate input - Will discuss with Nephro additional IV Lasix & albumin infusions - Hold nephrotoxins Recurrent episodes of nonsustained Vtach, PACs - pt asymptomatic - cardio on board, appreciate input; started on Amiodarone 10/25 with positive response - switched from Atenolol to Coreg 6.25mg q6h on 10/27 - Continue monitoring on tele Transaminitis - Possibly 2/2 hepatic congestion, possibly 2/2 pancreatic CA / chemo side effect - gradually improving with diuresis and albumin infusions - nml on prior checks. - Ct abd/pelvis 10/23 shows unremarkable liver/spleen - hep profile neg, & Liver US shows gallstone in gallbladder neck, but no acute infection or other abnormality - bilirubin nml. Pt asymptomatic. Monitor with albumin infusions Anemia - may be 2/2 cancer & chemo - stable ~8. No occult bleed - w/u reveals iron deficiency & anemia of chronic disease - started on po iron supplement, and Aranesp per Nephro - transfuse as needed to maintain hgb >8 s/p Thrombocytopenia - resolved & stable - no evidence of bleeding s/p Hyponatremia - likely 2/2 hypotonic hypervolemic etiology - 2/2 fluid overload - c/w diuresis and albumin infusion as above Diffuse duodenitis - Pt has no GI complaints. Was started on PPI. Monitor CAD hx of open heart surgery, CABG 2000 continue ASA statin Plavix, BBlocker Pancreatic Cancer follows [facility], started chemo Jun 2019 was reportedly scheduled to have mass in tail of pancreas removed continue o/p f/u IDDM2 home Invokana and Metformin on hold. Home Toujeo adjusted to ISS Depression/Anxiety stable on home meds Untreated REMA & obesity complicates care. F/U o/p for further management DVT ppx: Heparin sc DISPO: pending further w/u, clinical improvement. Monitor on tele. will need to continue rehab. VS,Fishbone, I+O VS, Fishbone, I+O Laboratory Tests 10/31/19 05:03 Vital Signs Date Time Temp Pulse Resp B/P (MAP) Pulse Ox O2 Delivery O2 Flow Rate FiO2 10/31/19 08:44 16 Room Air 10/31/19 08:00 97.7 66 153/67 (40) 99 I&O- Last 24 Hours up to 6 AM 10/31/19 05:59 Intake Total 1826.0 ml Output Total 2675 ml Balance -849.0 ml GME ATTESTATION GME ATTESTATION My faculty preceptor for this patient encounter was physically present during the encounter and was fully available. All aspects of the patient interview, examination, medical decision making process, and medical care plan development were reviewed and approved by the faculty preceptor. The faculty preceptor is aware and concurs with the plan as stated in the body of this note and will attest to such by his/her cosignature. ATTENDING NOTE I, Tennille Truong, have independently examined this patient and performed my own physical exam, as well as reviewed the documentation and edited where necessary. I have discussed in detail with the resident / student the findings and plan of treatment as documented by the resident / student and edited their note. I agree with their findings and treatment plan and have edited their documentation. I will continue to follow the patient during this hospital stay. RONEL CASTELLANO DO Oct 31, 2019 10:09 TENNILLE TRUONG MD Oct 31, 2019 12:45
--- NOTE | 2019-10-31 11:49 | ECGEPIP ---
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 QS pattern III and aVF suggestive of prior IWMI (as mentioned recent echocardiogram shows normal inferior wall motion as well). slightly faster heart rate is marginally increased to IN interval compared with 10/28/19. Electronically Signed on 10-31-2019 11:49:40 EDT by El Hernandez
--- NOTE | 2019-10-31 12:36 | IPN ---
CARDIOLOGY PROGRESS NOTE DATE: 10/31/2019 SUBJECTIVE: The patient has been feeling better on a daily basis, has been up in his room without lightheadedness or fatigue. Feels his effort intolerance and dyspnea have been improving. Remains unaware of his heart action. No evidence of GI bleeding. Appears to have been tolerating his medications without adverse effect. OBJECTIVE: Obese, somewhat barrel-chested, late middle-aged male laying comfortably, virtually flat. Heart rate 66 bpm and regular, blood pressure 135/65, respiratory rate 16, O2 saturation 99% on room air. Afebrile. Weight 262 pounds, BMI 36.5. Despite his soft hemoglobin continues to not appear pale. No central cyanosis. Normal oral moisture. Trachea midline. Neck veins did not appear elevated. Increased anteroposterior chest diameter but normal respiration. Ongoing lower leg swelling, but perhaps slightly less than 2 days ago. Has been given albumin with diuretic therapy, hoping to promote reduction in third space fluid due to his hypoalbuminemia. 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 Chiefly showing sinus rhythm/sinus bradycardia with first-degree AV block. EKG: Tracing taken today shows sinus rhythm at 62 bpm. Slightly increased DE interval from 2 days ago. Stable left anterior hemiblock with pseudo anterior and inferior wall myocardial infarction pattern. Low voltages and repolarization appearance unchanged from 2 days ago. LABORATORY DATA: Hemoglobin today 8.5 following his albumin/diuretic therapy. Normal white blood cell count and platelet count. Electrolytes today are normal including serum magnesium upper limits of normal at 2.6, BUN has steadily been improving now down to 77 and creatinine improving, now 1.7, fasting glucose 141, albumin remains soft at 2.2. Liver function studies are also improving with SGOT down to 221, SGPT down to 260, alkaline phosphatase somewhat stable at 220, total bilirubin remains normal at 0.7. IMPRESSION/PLAN: 1. Shortness of breath: As previously mentioned, this is believed to be primarily a reflection of his chemotherapy induced leaky membranes, not shortness of breath related to heart failure. The symptom appears to be improving as does the dermatological improvement with resolution of his diffuse erythema. Associated liver and kidney dysfunction also appear improved removed from his last chemotherapy administration. Claims to have a followup course planned for next week. In light of his current reaction, I would say it would be prudent to consider alternative measures. He will be discussing this with his oncologist. 2. Premature atrial contractions: On his amiodarone and carvedilol therapy, ectopic activity has virtually resolved. Now currently believed to be at low risk of atrial fibrillation. His carvedilol will now be 6.25 mg b.i.d. and amiodarone dosage will be reduced to 200 mg b.i.d. Within a month, I suspect we would be able to reduce the amiodarone further. We will continue to follow this closely through our office as an outpatient. 3. Abnormal EKG/first-degree AV block/left anterior hemiblock: His DE interval has increased with the combination amiodarone and carvedilol. He has been free of any symptomatic or telemetry monitored higher grade AV block. I am cautiously optimistic that reducing his amiodarone dosage will prevent any further progression, but we will continue to monitor this closely as an outpatient. 4. CAD (tazlina vessel)/post CABG/post circumflex artery stenting: Remains free of symptomatic myocardial ischemia. His EKG does not show any serial repolarization abnormalities. Will remain on protective carvedilol, but his lisinopril therapy was discontinued in light of his acute renal insufficiency, atorvastatin was withheld because of his acute hepatic dysfunction, and Plavix was withheld because of his anemia and risk of bleeding. Whether these agents resumed will depend on his progress as an outpatient. 5. Heart failure (diastolic/chronic): As mentioned, this gentleman has had left ventricular hypertrophy with diastolic dysfunction and left atrial enlargement, related to his a longstanding weight problem and hypertension. Has been on loop therapy furosemide dating back to 2006. This has been withheld in light of his acute renal injury. Courses of parenteral diuretic have been administered with albumin in hopes of reducing his marked lower extremity edema due to his marked hypoalbuminemia and leaky membranes caused by his chemotherapy. Fortunately, his renal function appears to be improving steadily at this point. We will plan on seeing him within a week or two of his discharge to determine whether we resume his diuretic therapy. 6. Hypertensive heart disease (benign with heart failure): Current blood pressure would be considered controlled on his carvedilol therapy alone. Would encourage his continued modest salt and caloric restriction. As his strength improves, we would also encourage him to ambulate as best as he can. From our standpoint, discharge instructions tomorrow should include a modest salt and caloric intake restriction. Activity as tolerated. Medications will now include carvedilol 6.25 mg b.i.d., amiodarone 200 mg b.i.d., clopidogrel 75 mg daily. Other medications as per his primary physicians. His lisinopril and atorvastatin have not been resumed. We have not resumed his torsemide diuretic therapy, either pending followup clinical evaluation in 1 - 2 weeks time. My office will be contacting him with this appointment, but I believe he could be safely discharged tomorrow morning from our standpoint.
[2019-10-31] MEDS: FUROSEMIDE 100 MG/10 ML VIAL (J1940) IV SCH ×2 (13:10→17:22)
--- NOTE | 2019-10-31 18:37 | IPN ---
DATE: 10/31/2019 SUBJECTIVE: The patient was seen and examined at the bedside today morning. He was given a dose of Lasix with albumin yesterday. He made good amount of urine. His renal function is improving. He still reports bilateral lower extremity edema. He reports that shortness of breath is getting better. OBJECTIVE: Vital signs: Temperature is 96.5 degrees Fahrenheit, blood pressure 152/68, pulse is 61, respiratory rate of 18, saturating 98% on room air. Intake and output: Urine output recorded is 2 liters yesterday and 1.1 liters so far today since overnight. Weight in the bed scale is 118.7 kg, which is 2 kg below his weight yesterday. PHYSICAL EXAMINATION: GENERAL: The patient is awake, alert, oriented times three, lying in bed. No apparent distress. HEAD AND NECK: Extraocular muscles intact. The patient has erythematous rash on the face, especially on the right side. Neck is supple. There is no significant jugular venous distention (JVD). CARDIOVASCULAR: S1, S2, regular rate. There is 2+ edema of the bilateral lower extremities up to the thighs. RESPIRATORY: Chest is clear to auscultation bilaterally. Bilateral equal air entry. No rales or rhonchi. ABDOMEN: Soft. Positive bowel sounds. Nontender. No organomegaly. MUSCULOSKELETAL: No clubbing or cyanosis. Pulses are 2+. CENTRAL NERVOUS SYSTEM: No focal deficit. Power is 5/5 in all extremities. LABORATORY REVIEW: CBC showed WBC of 6.9, hemoglobin 8.5, platelets are 306. BMP showed sodium 138, potassium 4.8, chloride 106, bicarbonate 25, BUN 77, creatinine is 1.74; it was 1.96 yesterday. Calcium 7.5, magnesium is 2.6. AST 221, ALT 260, alkaline phosphatase is 220, and all of these liver enzymes are improving as compared with yesterday. Albumin is 2.2. CURRENT INPATIENT MEDICATIONS: The patient's medications were all reviewed by me. He was given a dose of Lasix yesterday. His amiodarone dose has been decreased to 200 mg by mouth twice a day. Coreg dose has been decreased to 6.25 mg by mouth twice a day. I have started the patient on Lasix 60 mg intravenous (IV) twice a day along with albumin 12.5 grams IV twice a day with Lasix. No other change in the medications today as compared with yesterday. ASSESSMENT AND PLAN: 1. Acute nonoliguric renal failure. The patient is responding to the IV Lasix with improvement in the volume and improvement in the renal function. Most likely acute kidney injury (OBEY) secondary to recent use of chemotherapy. Okay to continue the diuretics at this time. 2. Bilateral lower extremity edema. Most likely is chemotherapy induced. Okay to continue Lasix along with albumin as mentioned above. 3. Hypertension. The patient's blood pressure is controlled. Optimization of fluid status will also improve blood pressure. Avoid angiotensin-converting enzyme (BROCK) or angiotensin receptor fred (ARB) at this time. Coreg dose has been decreased to 6.25 mg by mouth twice a day. 4. Anemia. Iron levels are adequate. He has been started on Aranesp. No need of blood transfusion at this time. 5. Acute on chronic diastolic congestive heart failure. The patient has more pronounced lower extremity edema, which is responding to the diuretics. He is being seen by cardiology as well. 6. Elevated liver injury test. The patient's AST, ALT, and alkaline phosphatase are slowly improving.
[2019-10-31] MEDS: RAMELTEON 8 MG TAB (ROZEREM) PO SCH (21:08)
[2019-10-31] MEDS: ALPRAZolam 0.5 MG TAB PO PRN (21:09)
[2019-11-01] VITALS (11 sets, daily range): BP systolic 119–162; BP diastolic 52–82
[2019-11-01 05:57] LABS: HEMATOCRIT 26.2 % (42.0-52.0); HEMOGLOBIN 8.7 g/dl (13.5-17.5); MEAN CORPUSCULAR HEMOGLOBIN 33.6 pg (27.0-33.0); MEAN CORPUSCULAR HGB CONC 33.2 g/dl (32.0-36.5); MEAN CORPUSCULAR VOLUME 101.2 fl (80.0-96.0); PLATELET COUNT, AUTOMATED 351 10^3/uL (150-450); RED BLOOD COUNT 2.59 10^6/uL (4.30-6.10); WHITE BLOOD COUNT 7.2 10^3/uL (4.0-10.0)
[2019-11-01] MEDS: HEPARIN SOD (PORCINE) 5000 UNITS/ML VIAL (J1644 PER 1000UNITS) SQ SCH ×3 (05:59→21:07)
[2019-11-01] MEDS: SLF 3 ML SYR IV SCH ×3 (05:59→21:11)
[2019-11-01 06:19] LABS: ALBUMIN 2.4 GM/DL (3.2-5.2); BILIRUBIN,TOTAL 0.7 MG/DL (0.2-1.0); CALCIUM LEVEL 7.7 MG/DL (8.8-10.2); CREATININE FOR GFR 1.6 MG/DL (0.70-1.30); GLOMERULAR FILTRATION RATE 46.7 (>49); MAGNESIUM LEVEL 2.5 MG/DL (1.8-2.4); POTASSIUM SERUM 4.9 MEQ/L (3.5-5.1); TOTAL PROTEIN 5.2 GM/DL (6.4-8.2)
[2019-11-01 06:27] LABS: ATYPICAL LYMPH 6 % (0-5); LYMPHOCYTES 6 % (16-44); METAMYELOCYTES 8 % (0-0); MONOCYTES 23 % (0-5); MYELOCYTES 5 % (0-0); NEUTROPHILS 51 % (28-66)
[2019-11-01 06:29] LABS: POIKILOCYTOSIS 1+
[2019-11-01 06:30] LABS: HYPOCHROMASIA 1+; PLATELET ESTIMATE NORMAL (NORMAL); POLYCHROMASIA 1+
[2019-11-01] MEDS: FUROSEMIDE 100 MG/10 ML VIAL (J1940) IV SCH ×2 (08:13→17:28)
[2019-11-01] MEDS: DOCUSATE SODIUM 100 MG CAP PO SCH ×2 (08:14→20:58)
[2019-11-01] MEDS: CARVedilol 6.25 MG TAB PO SCH ×2 (08:14→21:08)
[2019-11-01] MEDS: FERROUS SULFATE 325MG TAB PO SCH (08:14)
[2019-11-01] MEDS: CLOPIDOGREL 75 MG TAB PO SCH (08:14)
[2019-11-01] MEDS: PANTOPRAZOLE 40MG TAB (PROTONIX) PO SCH (08:14)
[2019-11-01] MEDS: AMIODARONE 200 MG TAB (PACERONE) PO SCH ×2 (08:14→21:07)
[2019-11-01] MEDS: GABAPENTIN 100 MG CAP PO SCH ×3 (08:14→21:08)
[2019-11-01] MEDS: TOBRAMYCIN 0.3% OPHTH SOLN 5 ML OS SCH ×3 (08:15→21:00)
[2019-11-01] MEDS: VANICREAM MOISTURIZING SKIN CREAM 113GM TUBE TOP SCH ×4 (08:15→21:10)
[2019-11-01] MEDS: NYSTATIN 100,000 UNITS/GM TOPICAL PWD 15 GM TOP SCH ×2 (08:15→21:09)
[2019-11-01] MEDS: POLYVINYL ALCOHOL OPHTH SOLN 15 ML(LIQUITEARS) OU SCH ×3 (08:15→21:09)
[2019-11-01] MEDS: HumaLOG INSULIN (NovoLOG) PER UNIT SC SCH ×3 (08:17→17:27)
[2019-11-01] MEDS: PERCOCET 5MG/325MG TAB PO PRN ×2 (08:19→17:56)
--- NOTE | 2019-11-01 10:57 | IPNPDOC ---
Text Note Date of Service The patient was seen on 11/01/19. NOTE Subjective: Patient is a 64-yo M with recently diagnosed pancreatic cancer of the tail in end of 2018 and started weekly chemo in June, presenting for gradually worsening shortness of breath with exertion and increasing edema since last chemo session in 10/19. Patient was seen and examined at the bedside. Clinically patient reports that his breathing is doing significantly better. He denies any chest pain, shortness breath or palpitations. Denies nausea, vomiting, abdominal pain, diarrhea, or urinary discomfort. He still reports her extremities are significantly swollen. Objective: Vitals (See below) General: Lying in bed, no acute distress, comfortable, AAOx3 HEENT: NC, AT CVS: +S1S2 Lungs: Fair air entry b/l, no appreciable wheezing, rhonchi or Abdomen: Soft, ND, NT, obese Extremities: 3+ pitting edema bilaterally, - Calf tenderness Assessment and plan: Dyspnea - likely 2/2 fluid overload 2/2 anasarca / hypoalbuminemia 2/2 possible chemotherapy - Review of literature shows that Gemcitabine & Abraxane (Chemotherapy) does have potential to cause capillary leak, proteinuria, edema, hepatotoxicity, and nephrotoxicity - Clinically continues to improve - Physical with pitting edema still persistent - Remains negative fluid balanced - ECHO: moderate LVH, preserved systolic function 65-70%, probably normal diastolic function, no significant valvular disease, likely normal CVP - CXR 10/23: Stable exam with no acute pulmonary disease. - Chest CT 10/23: No acute abnormalities detected. - Will continue with strict ins/outs, daily weights, fluid restriction - Nephrology consulted for fluid management; appreciate input OBEY on CKD III - likely 2/2 fluid overload 2/2 anasarca - possibly 2/2 ongoing chemotherapy - Cr continues to improve - Baseline Cr appears to be ~1.1-1.2 - Hold nephrotoxins - c/w Diuresis / Colloid infusion with Albumin - Nephrology on consultation; appreciate their input Recurrent episodes of nonsustained Vtach, PACs - Has remained asymptomatic - c/w Amiodarone and Carvedilol - c/w telemetry monitoring - Cardiology on consultation; appreciate their input Transaminitis - possibly 2/2 hepatic congestion, possibly 2/2 pancreatic CA / chemo side effect - AST and ALT continue to improve - Hepatitis panel negative - Ct abd / pelv 10/23: Decreased size of mass in the pancreatic tail. Subcentimeter gallstone again seen in the dependent portion of the gallbladder without acute gallbladder wall thickening or edema. New diffuse thickening of the descending duodenum with streaky density in the adjacent fat. Findings suggest duodenitis and possibly peptic ulcer disease. Followup is recommended. No other acute abnormality. - Liver US 10/27: Gallstone in the neck of the gallbladder. No gallbladder wall thickening, pericholecystic fluid or biliary dilatation. No liver abnormality is seen. - s/p Statin - See above Anemia - may be 2/2 cancer & chemo - stable ~8 - No occult bleed - w/u reveals iron deficiency & anemia of chronic disease - sc/w Iron supplementation and Aranesp as per Nephro s/p Thrombocytopenia - resolved & stable - no evidence of bleeding s/p Hyponatremia - likely 2/2 hypotonic hypervolemic etiology - 2/2 fluid overload - c/w diuresis and albumin infusion as above Diffuse duodenitis on imaging - Clinically has no symptoms - c/w Omeprazole - No antibiotics at this point CAD - Has had an open heart surgery, CABG 2000 - c/w ASA, Plavix, Carvedilol - Statin on hold (re: elevated liver enzymes) Pancreatic Cancer [phone] - Has been started on chemotherapy since Jun 2019 - Patient will be evaluated as an outpatient to have Whipple's procedure for removal of pancreatic mass IDDM2 - Oral glycemic agents held - c/w ISS Depression/Anxiety - c/w Xanax prn Untreated REMA & obesity - Complaining medical care GERD - c/w Protonix DVT prophylaxis - c/w Heparin Disposition: - Anticipate likely DC home within 24-48 hours VS,Fishbone, I+O VS, Fishbone, I+O Laboratory Tests 11/01/19 05:25 Vital Signs Date Time Temp Pulse Resp B/P (MAP) Pulse Ox O2 Delivery O2 Flow Rate FiO2 11/01/19 08:49 18 Room Air 11/01/19 08:14 74 162/72 11/01/19 07:44 97.4 96 I&O- Last 24 Hours up to 6 AM 11/01/19 06:00 Intake Total 2122.7 ml Output Total 1100 ml Balance 1022.7 ml SALLY MILLER MD Nov 01, 2019 10:57
[2019-11-01] MEDS ORDERED: FUROSEMIDE 100 MG/10 ML VIAL (J1940) IV ONE (14:00)
--- NOTE | 2019-11-01 19:55 | IPN ---
DATE: 11/01/2019 SUBJECTIVE: The patient was seen and examined at the bedside today morning. He is afebrile, hemodynamically stable. He was started on Lasix 60 mg intravenous (IV) every 12 hours. His renal function is gradually improving. Creatinine is down to 1.6 today. He still reports persistent lower extremity edema. There is no significant change in the weight today as compared with yesterday. OBJECTIVE: VITAL SIGNS: Temperature is 97.4 degrees Fahrenheit, blood pressure 148/66, pulse is 65, respiratory rate of 18, saturating 96% on room air. INTAKE AND OUTPUT: Urine output recorded is 1.3 liters yesterday and 1 liter so far today since overnight. Weight in the bed scale is 119.5 kg, which is 1 kg above his weight yesterday. PHYSICAL EXAMINATION: GENERAL: The patient is awake, alert, oriented times three, laying in bed, no apparent distress. HEAD AND NECK EXAM: Extraocular muscles intact. Pupils equally round and reactive to light. Mucous membranes are moist. Neck is supple. There is no jugular venous distention (JVD). CARDIOVASCULAR: S1, S2. Regular rate. 2+ edema of the bilateral lower extremities up to thighs. RESPIRATORY: Chest is clear to auscultation bilaterally. Bilateral equal air entry. No rales or rhonchi. ABDOMEN: Soft. Positive bowel sounds. Nontender. No organomegaly. MUSCULOSKELETAL: No clubbing or cyanosis. Pulses are 2+. CENTRAL NERVOUS SYSTEM (SUPERVISOR PUTTY AND CALUKING): No focal deficit. Power is 5/5 in all extremities. LABORATORY REVIEW: Complete blood count (CBC) showed a WBC of 7.2, hemoglobin 8.7, platelets are 351. Basic metabolic panel (BMP) showed sodium 139, potassium 4.9, chloride 107, bicarbonate 25, BUN 67, creatinine is 1.6, it was on 1.7 yesterday, calcium 7.7, magnesium is 2.5. AST 137, ALT is 195, alkaline phosphatase is 206, albumin is 2.4. CURRENT INPATIENT MEDICATIONS: The patient's medications were all reviewed by me. He continues to be on IV Lasix. I have increased the dose to 60 mg IV every 12 hours. I also ordered one dose of Lasix 60 mg IV times one dose to be to be given in the afternoon. No other change in the medications today as compared with yesterday. ASSESSMENT AND PLAN: 1. Acute nonoliguric renal failure. Most likely chemotherapy induced; however, patient's renal function is improving. Okay to continue the diuretics at this time. 2. Bilateral lower extremity edema. The patient initially presented with congestive heart failure, anasarca. He is responding to the diuretics. Continue current treatment, but dose is being increased to 80 mg every 12 hours along with albumin. The patient will be switched to oral diuretics tomorrow morning. 3. Hypertension. Blood pressure is controlled with current dose of Coreg. Not a candidate for angiotensin-converting enzyme (BROCK) inhibitors or angiotensin receptor blockers at this time. 4. Anemia after recent chemotherapy. The patient is getting Aranesp at this time. Hemoglobin level is improving. 5. Elevated liver enzymes. Liver function test is improving gradually. DISPOSITION: Patient's volume status is improving. Hopefully, we should be able to discharge him home over the next 24-48 hours on oral diuretics. He will need to follow up with nephrology service as outpatient within two weeks after discharge from the hospital.
[2019-11-01] MEDS: RAMELTEON 8 MG TAB (ROZEREM) PO SCH (21:08)
[2019-11-02] VITALS: BP 125/60
[2019-11-02 02:30] VITALS: BP 124/60
[2019-11-02 02:50] VITALS: BP 134/62
[2019-11-02] MEDS: FUROSEMIDE 100 MG/10 ML VIAL (J1940) IV SCH (02:51)
[2019-11-02] MEDS: SLF 3 ML SYR IV SCH (05:26)
[2019-11-02] MEDS: HEPARIN SOD (PORCINE) 5000 UNITS/ML VIAL (J1644 PER 1000UNITS) SQ SCH (05:26)
[2019-11-02 05:59] LABS: HEMATOCRIT 26.8 % (42.0-52.0); MEAN CORPUSCULAR HEMOGLOBIN 34.2 pg (27.0-33.0); MEAN CORPUSCULAR HGB CONC 33.6 g/dl (32.0-36.5); MEAN CORPUSCULAR VOLUME 101.9 fl (80.0-96.0); PLATELET COUNT, AUTOMATED 399 10^3/uL (150-450); RED BLOOD COUNT 2.63 10^6/uL (4.30-6.10); WHITE BLOOD COUNT 8.1 10^3/uL (4.0-10.0)
[2019-11-02 06:14] LABS: ANISOCYTOSIS 2+; EOSINOPHILS 1 % (0-3); LYMPHOCYTES 8 % (16-44); METAMYELOCYTES 4 % (0-0); MONOCYTES 23 % (0-5); MYELOCYTES 2 % (0-0); NEUTROPHILS 62 % (28-66); PLATELET ESTIMATE NORMAL (NORMAL)
[2019-11-02 06:15] LABS: POLYCHROMASIA 1+
[2019-11-02 06:28] LABS: ALBUMIN 2.5 GM/DL (3.2-5.2); BILIRUBIN,TOTAL 0.7 MG/DL (0.2-1.0); CALCIUM LEVEL 7.8 MG/DL (8.8-10.2); CREATININE FOR GFR 1.5 MG/DL (0.70-1.30); GLOMERULAR FILTRATION RATE 50.3 (>49); MAGNESIUM LEVEL 2.2 MG/DL (1.8-2.4); POTASSIUM SERUM 4.9 MEQ/L (3.5-5.1); TOTAL PROTEIN 5.1 GM/DL (6.4-8.2)
[2019-11-02 08:00] VITALS: BP 131/67
[2019-11-02] MEDS: HumaLOG INSULIN (NovoLOG) PER UNIT SC SCH ×2 (08:02→12:17)
[2019-11-02] MEDS: AMIODARONE 200 MG TAB (PACERONE) PO SCH (08:03)
[2019-11-02] MEDS: GABAPENTIN 100 MG CAP PO SCH (08:03)
[2019-11-02] MEDS: DOCUSATE SODIUM 100 MG CAP PO SCH (08:03)
[2019-11-02] MEDS: PANTOPRAZOLE 40MG TAB (PROTONIX) PO SCH (08:03)
[2019-11-02] MEDS: FERROUS SULFATE 325MG TAB PO SCH (08:03)
[2019-11-02 08:04] VITALS: BP 131/67
[2019-11-02] MEDS: CARVedilol 6.25 MG TAB PO SCH (08:04)
[2019-11-02] MEDS: CLOPIDOGREL 75 MG TAB PO SCH (08:04)
[2019-11-02] MEDS: POLYVINYL ALCOHOL OPHTH SOLN 15 ML(LIQUITEARS) OU SCH (08:05)
[2019-11-02] MEDS: TOBRAMYCIN 0.3% OPHTH SOLN 5 ML OS SCH (08:05)
[2019-11-02] MEDS: NYSTATIN 100,000 UNITS/GM TOPICAL PWD 15 GM TOP SCH (08:05)
[2019-11-02] MEDS: VANICREAM MOISTURIZING SKIN CREAM 113GM TUBE TOP SCH ×2 (08:06→12:17)
[2019-11-02] MEDS: ALPRAZolam 0.5 MG TAB PO PRN (08:22)
[2019-11-02] MEDS ORDERED: TORSEMIDE 20 MG TAB PO SCH (09:00)
[2019-11-02] MEDS ORDERED: FERR325T18 PO (11:26)
[2019-11-02] MEDS ORDERED: TORS20TA2 PO (11:26)
[2019-11-02] MEDS ORDERED: AMIO200T PO (11:26)
[2019-11-02] MEDS ORDERED: CARV6.25 PO (11:26)
[2019-11-02] MEDS ORDERED: GABA-1171 PO (11:26)
--- NOTE | 2019-11-02 11:49 | IPN ---
DATE OF SERVICE: 11/02/2019 SUBJECTIVE: The patient was seen and examined at the bedside today morning. The patient was very happy, cheerful, and had tears in his eyes. He just told me that he got a call from his oncologist, and he was told that he responded very well to chemotherapy for cancer of the pancreas, and he is soon going to have the Whipple procedure done as outpatient. The patient's renal function is also improving. He is responding well to the intravenous (IV) diuretics. Edema is getting better, and creatinine is also trending down slowly. It has come down to 1.5 today. OBJECTIVE: Vital signs: Temperature is 97.6 degrees Fahrenheit, blood pressure 137/67, pulse is 85, respiratory rate of 20, saturating 97% on room air. Intake and output: Urine output recorded is 1.9 liters yesterday, 1.2 liters so far today since overnight. Weight in the bed scale is 119.4 kg, which is almost the same as yesterday. PHYSICAL EXAMINATION: General: The patient is awake, alert, oriented times three, laying in bed, in no apparent distress. Head and neck examination: Extraocular muscles intact. Pupils equally round and reactive to light. The patient has a rash on the face which is slowly getting better. Neck is supple. There is no jugular venous distention (JVD). Cardiovascular: S1, S2, regular rate. 2+ edema of the bilateral lower extremities up to thighs. Respiratory: Chest is clear to auscultation bilaterally. Bilateral equal air entry. No rales or rhonchi. Abdomen: Soft, obese. Positive bowel sounds. Nontender. No organomegaly. Musculoskeletal: No clubbing or cyanosis. 2+ edema of the extremities, as mentioned above. Central nervous system (BILINGUAL RECEPTIONIST): No focal deficit. Power is 5/5 in all extremities. Skin: The patient has erythematous rash all over the skin, especially on the face, which is improving slowly. LABORATORY REVIEW: Complete blood count (CBC) showed a WBC of 8.1, hemoglobin is 9, platelets are 399. Basic metabolic profile (BMP) showed sodium 140, potassium 4.9, chloride 106, bicarbonate 23, BUN 59, creatinine is 1.5, calcium 7.8, magnesium is 2.2, AST 97, ALT is 149, alkaline phosphatase is 209, albumin is 2.5. CURRENT INPATIENT MEDICATIONS: The patient's medications were all reviewed by me. He was getting IV Lasix. I have switched him to torsemide 40 mg by mouth twice a day starting one dose today morning. No other change in the medications today as compared with yesterday. ASSESSMENT AND PLAN: 1. Acute kidney injury. The patient is nonoliguric. He is tolerating the diuretics. Renal function is slowly improving. Okay to continue diuretics. 2. Bilateral lower extremity edema. The patient was on IV diuretics. I have switched him to oral torsemide 40 mg by mouth twice a day, which he will need to continue when he is discharged. 3. Hypertension. The patient cannot take lisinopril any more. Okay to continue the diuretics and current dose of carvedilol. 4. Anemia and recent chemotherapy. The patient got a dose of Aranesp. Hemoglobin level is improving. I am hopeful that he would not need Aranesp as outpatient. 5. Elevated liver enzymes. The patient's liver function tests are getting better. 6. Diabetes mellitus type 2. The patient was taking Invokana as outpatient and metformin. He is not a candidate for use of metformin and Invokana until his renal function improves back to baseline. DISPOSITION: The patient is optimized from nephrology standpoint to be discharged home. He will need to followup with nephrology as outpatient within 2 weeks after discharge from the hospital.
[2019-11-02 12:00] VITALS: BP 138/63
--- NOTE | 2019-11-02 16:07 | DS.PDOC ---
Discharge Summary General Date of Admission Oct 24, 2019 at 14:41 Date of Discharge 11/02/2019 Discharge Summary PROCEDURES PERFORMED DURING STAY: [None]. ADMITTING DIAGNOSES / DISCHARGE DIAGNOSES: Dyspnea - likely 2/2 fluid overload 2/2 anasarca / hypoalbuminemia 2/2 possible chemotherapy OBEY on CKD III - likely 2/2 fluid overload 2/2 anasarca - possibly 2/2 ongoing chemotherapy Recurrent episodes of nonsustained V. tach, PACs Transaminitis - possibly 2/2 hepatic congestion, possibly 2/2 pancreatic CA / chemo side effect Anemia - may be 2/2 cancer & chemo s/p Thrombocytopenia s/p Hyponatremia - likely 2/2 hypotonic hypervolemic etiology - 2/2 fluid overload Diffuse duodenitis on imaging CAD Pancreatic Cancer IDDM2 Depression/Anxiety Untreated REMA & obesity GERD DVT prophylaxis COMPLICATIONS/CHIEF COMPLAINT: Shortness of breath HISTORY OF PRESENT ILLNESS: Patient is a 64-yo M with recently diagnosed pancreatic cancer of the tail in end 2018 and started weekly chemo in June, presenting for gradually worsening shortness of breath with exertion and increasing edema since last dionisio mo session in 10/19. Patient was admitted to hospitalist service for further evaluation and treatment. HOSPITAL COURSE: Dyspnea - likely 2/2 fluid overload 2/2 anasarca / hypoalbuminemia 2/2 possible chemotherapy - Review of literature shows that Gemcitabine & Abraxane (Chemotherapy) does have potential to cause capillary leak, proteinuria, edema, hepatotoxicity, and nephrotoxicity - Clinically improved / LE reveal pitting edema - Remains negative fluid balanced - ECHO: moderate LVH, preserved systolic function 65-70%, probably normal diastolic function, no significant valvular disease, likely normal CVP - CXR 10/23: Stable exam with no acute pulmonary disease. - Chest CT 10/23: No acute abnormalities detected. - c/w strict ins/outs, daily weights, fluid restriction - c/w diuretics at adjusted dose as an outpatient - Nephrology on consult; has cleared for DC home; will have outpatient follow up within 7 days OBEY on CKD III - likely 2/2 fluid overload 2/2 anasarca - possibly 2/2 ongoing chemotherapy - Cr continues to improve and trends toward baseline - Baseline Cr appears to be ~1.1-1.2 - Hold nephrotoxins - c/w Diuresis / Colloid infusion with Albumin - Nephrology on consultation; appreciate their input Recurrent episodes of nonsustained V. tach, PACs - Has remained asymptomatic - c/w Amiodarone and Carvedilol - c/w telemetry monitoring - Cardiology on consultation; appreciate their input Transaminitis - possibly 2/2 hepatic congestion, possibly 2/2 pancreatic CA / ch emo side effect - AST / ALT have continued to trend down - Hepatitis panel negative - Ct abd / pelv 10/23: Decreased size of mass in the pancreatic tail. Subcentimeter gallstone again seen in the dependent portion of the gallbladder without acute gallbladder wall thickening or edema. New diffuse thickening of the descending duodenum with streaky density in the adjacent fat. Findings suggest duodenitis and possibly peptic ulcer disease. Followup is recommended. No other acute abnormality. - Liver US 10/27: Gallstone in the neck of the gallbladder. No gallbladder wall thickening, pericholecystic fluid or biliary dilatation. No liver abnormality is seen. - s/p Statin - See above Anemia - may be 2/2 cancer & chemo - stable ~8 - No occult bleed - w/u reveals iron deficiency & anemia of chronic disease - sc/w Iron supplementation and Aranesp as per Nephro s/p Thrombocytopenia - resolved & stable - no evidence of bleeding s/p Hyponatremia - likely 2/2 hypotonic hypervolemic etiology - 2/2 fluid overload - c/w diuresis and albumin infusion as above Diffuse duodenitis on imaging - Clinically has no symptoms - c/w Omeprazole - No antibiotics at this point CAD - Has had an open heart surgery, CABG 2000 - c/w ASA, Plavix, Carvedilol - Statin on hold (re: elevated liver enzymes) Pancreatic Cancer - [phone][facility] - Has been started on chemotherapy since Jun 2019 - Patient will be evaluated as an outpatient to have Whipple's procedure for removal of pancreatic mass IDDM2 - Oral glycemic agents held - c/w ISS Depression/Anxiety - c/w Xanax prn Untreated REMA & obesity - Complaining medical care GERD - c/w Protonix DVT prophylaxis - c/w Heparin DISCHARGE MEDICATIONS: Please see below. ALLERGIES: Please see below. PHYSICAL EXAMINATION ON DISCHARGE: Vitals (See below) General: Lying in bed, no acute distress, comfortable, AAOx3 HEENT: NC, AT CVS: +S1S2 Lungs: Fair air entry b/l, no appreciable wheezing, rhonchi or crackles Abdomen: Soft, ND, NT Extremities: 2+ pitting edema bilaterally, - Calf tenderness LABORATORY DATA: Please see below. ACTIVITY: [As tolerated]. INSTRUCTIONS; Patient has been advised to follow-up with his PCP, Dr. Hernandez and Dr. Mcbride within 7 days Remain compliant with treatment plan and medications Return to the ER if you experience any problems DISPOSITION: Home, Self-Care. DISCHARGE CONDITION: [Stable]. TIME SPENT ON DISCHARGE: 35 minutes Vital Signs/I&Os Vital Signs Date Time Temp Pulse Resp B/P (MAP) Pulse Ox O2 Delivery O2 Flow Rate FiO2 11/02/19 12:00 97.1 70 20 138/63 (88) 100 Room Air I&O- Last 24 Hours up to 6 AM 11/02/19 06:00 Intake Total 2020.0 ml Output Total 2425 ml Balance -405.0 ml Laboratory Data Labs 24H Laboratory Tests 2 11/01/19 16:57: Bedside Glucose (Misc Panel) 179H 11/01/19 20:57: Bedside Glucose (Misc Panel) 161H 11/02/19 05:17: Immature Granulocyte % (Auto) , Neutrophils (%) (Auto) , Nucleated Red Blood Cells % (auto) 0.7H, Neutrophils 62, Lymphocytes (Manual) 8L, Monocytes (Manual) 23H, Eosinophils (Manual) 1, Metamyelocytes 4H, Myelocytes 2H, Polychromasia 1+, Anisocytosis 2+, Platelet Estimate NORMAL, Anion Gap 11, Glomerular Vijay tration Rate 50.3, Calcium Level 7.8L, Magnesium Level 2.2, Total Bilirubin 0.7, Aspartate Amino Transf (AST/SGOT) 97H, Alanine Aminotransferase (ALT/SGPT) 149H, Alkaline Phosphatase 209H, Total Protein 5.1L, Albumin 2.5L, Albumin/Globulin Ratio 0.96L 11/02/19 11:29: Bedside Glucose (Misc Panel) 199H CBC/BMP Laboratory Tests 11/02/19 05:17 FSBS Laboratory Tests Test 11/01/19 16:57 11/01/19 20:57 11/02/19 11:29 Range/Units Bedside Glucose (Misc Panel) 179 161 199 80-115 MG/DL Microbiology Microbiology 10/24/19 Blood Culture - Final, Complete NO GROWTH AFTER 5 DAYS 10/24/19 Coronavirus COVID-19 PCR ([facility]) - Final, Complete 10/24/19 Respiratory Panel (PCR) - Final, Complete 10/24/19 Blood Culture - Final, Complete NO GROWTH AFTER 5 DAYS Discharge Medications Scheduled Amiodarone HCl (Amiodarone HCl) 200 Mg Tablet, 200 MG PO BID Atorvastatin Calcium (Atorvastatin Calcium) 80 Mg Tab, 80 MG PO QHS, (Reported) Carvedilol (Carvedilol) 6.25 Mg Tablet, 6.25 MG PO BID Clopidogrel Bisulfate (Plavix) 75 Mg Tab, 75 MG PO DAILY, (Reported) Dextroamphetamine/Amphetamine (Adderall 20 mg Tablet) 20 Mg Tablet, 20 MG PO TID, (Reported) Ferrous Sulfate (Ferrous Sulfate) 325 Mg Tablet, 325 MG PO DAILY Gabapentin (Gabapentin) 100 Mg Capsule, 100 MG PO TID Insulin Glargine,Hum.rec.anlog (Toujeo Solostar) 300 Unit/1 Ml Insuln.pen, 30 UNITS SC DAILY, (Reported) Melatonin (Melatonin) 5 Mg Tablet, 5 MG PO QHS, (Reported) Tobramycin (Tobramycin) 0.3% 5ML Drops, 2 DROP OS TID, (Reported) Torsemide (Torsemide) 20 Mg Tablet, 40 MG PO BID Scheduled PRN Acetaminophen/Diphenhydramine (Acetaminophen Pm Caplet) 1 Each Tablet, 1 TAB PO QHS PRN for SLEEP, (Reported) Alprazolam (Alprazolam) 1 Mg Tablet, 1 MG PO TID PRN for ANXIETY/AGITATION, (Reported) Ketorolac Tromethamine (Acular) 0.5% 5ML Drops, 1 DROP OU BID PRN for ALLERGY SYMPTOMS/REDNESS, (Reported) Nitroglycerin (Nitroglycerin) 0.4 Mg Sub, 0.4 MG SL NITRO PRN for CHEST PAIN, (Reported) Oxycodone HCl/Acetaminophen (Oxycodon-Acetaminophen 7.5-325) 1 Tab Tab, 1 TAB PO Q6HP PRN for PAIN, (Reported) Allergies Coded Allergies: bee venom protein (honey bee) (Verified Allergy, Intermediate, SWELLING, 05/16/19) SALLY MILLER MD Nov 02, 2019 16:07
== END 2019-11-02 13:36 | disposition home or self-care (01) | DRG 682 ==
LOC: M ED 08:26 → M ED INP 14:41 → EEVIPCON 14:41 → ENRESERV 15:18 → M PCU 16:54
PROVIDERS: ADMIT Internal Medicine; ATTEND Internal Medicine
PROC: 30233J1 Transfusion of Nonautologous Serum Albumin into Peripheral Vein, Percutaneous Approach (ICD-10-PCS; principal; 2019-10-28)
DX: N17.9 Acute kidney failure, unspecified (principal); D61.810 Antineoplastic chemotherapy induced pancytopenia; I50.33 Acute on chronic diastolic (congestive) heart failure; C25.9 Malignant neoplasm of pancreas, unspecified; I48.20 Chronic atrial fibrillation, unspecified; I47.2 Ventricular tachycardia; E87.1 Hypo-osmolality and hyponatremia; E46 Unspecified protein-calorie malnutrition; I13.0 Hypertensive heart and chronic kidney disease with heart failure and stage 1 through stage 4 chronic kidney disease, or unspecified chronic kidney disease; K29.80 Duodenitis without bleeding; N18.3 Chronic kidney disease, stage 3 (moderate); K21.9 Gastro-esophageal reflux disease without esophagitis; G47.33 Obstructive sleep apnea (adult) (pediatric); E66.9 Obesity, unspecified; F41.9 Anxiety disorder, unspecified; F32.9 Major depressive disorder, single episode, unspecified; I25.10 Atherosclerotic heart disease of native coronary artery without angina pectoris; E11.9 Type 2 diabetes mellitus without complications; Z79.899 Other long term (current) drug therapy; Z79.4 Long term (current) use of insulin; Z91.030 Bee allergy status; Z95.1 Presence of aortocoronary bypass graft; Z95.2 Presence of prosthetic heart valve; E78.5 Hyperlipidemia, unspecified; D64.81 Anemia due to antineoplastic chemotherapy; Z11.59 Encounter for screening for other viral diseases

== ENCOUNTER → 2019-11-13 | Outpatient (CLI) | payer MEDICARE ==
[~2019-11-13] MED LIST changes: +ACET25TA12 PO; +AMIO200T PO; +CARV6.25 PO; +FERR325T18 PO; +GABA-1171 PO; +MELA1TAB9 PO; +TORS20TA2 PO; +TOUJ1.2I SC
[2019-11-13 12:24] LABS: HEMATOCRIT 31.5 % (42.0-52.0); HEMOGLOBIN 10.2 g/dl (13.5-17.5); MEAN CORPUSCULAR HEMOGLOBIN 34.1 pg (27.0-33.0); MEAN CORPUSCULAR HGB CONC 32.4 g/dl (32.0-36.5); MEAN CORPUSCULAR VOLUME 105.4 fl (80.0-96.0); PLATELET COUNT, AUTOMATED 300 10^3/uL (150-450); RED BLOOD COUNT 2.99 10^6/uL (4.30-6.10); WHITE BLOOD COUNT 7.9 10^3/uL (4.0-10.0)
[2019-11-13 12:35] LABS: INR 1.38; PROTHROMBIN TIME 16.7 SECONDS (11.8-14.0)
[2019-11-13 13:03] LABS: ALBUMIN 2.3 GM/DL (3.2-5.2); ALT/SGPT 49 U/L (12-78); BILIRUBIN,TOTAL 0.7 MG/DL (0.2-1.0); BLOOD UREA NITROGEN 40 MG/DL (7-18); CALCIUM LEVEL 8.1 MG/DL (8.8-10.2); CARBON DIOXIDE LEVEL 23 MEQ/L (21-32); CHLORIDE LEVEL 106 MEQ/L (98-107); CREATININE FOR GFR 1.26 MG/DL (0.70-1.30); GLOMERULAR FILTRATION RATE > 60.0 (>49); GLUCOSE, FASTING 179 MG/DL (70-100); POTASSIUM SERUM 4.3 MEQ/L (3.5-5.1); SODIUM LEVEL 141 MEQ/L (136-145); THYROID STIMULATING HORMONE 0.092 uIU/ML (0.358-3.740); TOTAL PROTEIN 5.4 GM/DL (6.4-8.2)
[2019-11-13 13:23] LABS: HEMOGLOBIN A1c 7.6 %
== END ==
LOC: M WUC 10:36
PROVIDERS: ATTEND Family Medicine
DX: Z01.812 Encounter for preprocedural laboratory examination (principal); I10 Essential (primary) hypertension; R60.0 Localized edema; E78.5 Hyperlipidemia, unspecified

== ENCOUNTER → 2019-11-13 | Outpatient (CLI) | payer MEDICARE ==
[2019-11-13 13:01] LABS: ALBUMIN 2.4 GM/DL (3.2-5.2); ALT/SGPT 47 U/L (12-78); BILIRUBIN,DIRECT 0.2 MG/DL (0.0-0.2); BILIRUBIN,TOTAL 0.7 MG/DL (0.2-1.0); BLOOD UREA NITROGEN 41 MG/DL (7-18); CALCIUM LEVEL 7.9 MG/DL (8.8-10.2); CARBON DIOXIDE LEVEL 24 MEQ/L (21-32); CHLORIDE LEVEL 105 MEQ/L (98-107); CREATININE FOR GFR 1.26 MG/DL (0.70-1.30); GLOMERULAR FILTRATION RATE > 60.0 (>49); GLUCOSE, FASTING 173 MG/DL (70-100); NT-PRO BNP 435 PG/ML (<125); POTASSIUM SERUM 4.1 MEQ/L (3.5-5.1); SODIUM LEVEL 138 MEQ/L (136-145); TOTAL PROTEIN 5.5 GM/DL (6.4-8.2)
== END ==
LOC: M WUC 10:31
PROVIDERS: ATTEND Physician Assistant
DX: R60.0 Localized edema (principal); E78.5 Hyperlipidemia, unspecified

== ENCOUNTER → 2019-11-26 | Outpatient (CLI) | payer MEDICARE ==
[~2019-11-26] MED LIST changes: -METF-791 PO; +METF-838 PO
[2019-11-26 16:51] LABS: ALBUMIN 3.1 GM/DL (3.2-5.2); BILIRUBIN,TOTAL 0.8 MG/DL (0.2-1.0); CALCIUM LEVEL 8.3 MG/DL (8.8-10.2); CREATININE FOR GFR 1.56 MG/DL (0.70-1.30); GLOMERULAR FILTRATION RATE 48.1 (>49); POTASSIUM SERUM 4.1 MEQ/L (3.5-5.1); TOTAL PROTEIN 6.5 GM/DL (6.4-8.2)
== END ==
LOC: M WUC 14:54
PROVIDERS: ATTEND Physician Assistant
DX: C25.9 Malignant neoplasm of pancreas, unspecified (principal)

== ENCOUNTER → 2019-11-26 | Outpatient (CLI) | payer MEDICARE ==
[2019-11-26 16:23] LABS: BASO % 0.6 % (0.0-1.0); EOS # 0.4 10^3/uL (0.0-0.5); HEMATOCRIT 31.8 % (42.0-52.0); HEMOGLOBIN 10.6 g/dl (13.5-17.5); LYMPH # 1.6 10^3/uL (1.5-5.0); LYMPH % 23.6 % (24.0-44.0); MEAN CORPUSCULAR HEMOGLOBIN 33.4 pg (27.0-33.0); MEAN CORPUSCULAR HGB CONC 33.3 g/dl (32.0-36.5); MEAN CORPUSCULAR VOLUME 100.3 fl (80.0-96.0); MONO # 0.8 10^3/uL (0.0-0.8); MONO % 12.4 % (0.0-5.0); NEUTROPHILS # 3.9 10^3/uL (1.5-8.5); NEUTROPHILS % 57.3 % (36.0-66.0); PLATELET COUNT, AUTOMATED 180 10^3/uL (150-450); RED BLOOD COUNT 3.17 10^6/uL (4.30-6.10); WHITE BLOOD COUNT 6.8 10^3/uL (4.0-10.0)
[2019-11-26 16:42] LABS: ALBUMIN 3.1 GM/DL (3.2-5.2); ALT/SGPT 28 U/L (12-78); BILIRUBIN,TOTAL 0.9 MG/DL (0.2-1.0); BLOOD UREA NITROGEN 45 MG/DL (7-18); CALCIUM LEVEL 8.6 MG/DL (8.8-10.2); CARBON DIOXIDE LEVEL 24 MEQ/L (21-32); CHLORIDE LEVEL 105 MEQ/L (98-107); CREATININE FOR GFR 1.49 MG/DL (0.70-1.30); GLOMERULAR FILTRATION RATE 50.7 (>49); GLUCOSE, FASTING 185 MG/DL (70-100); SODIUM LEVEL 139 MEQ/L (136-145); TOTAL PROTEIN 6.6 GM/DL (6.4-8.2)
[2019-11-27 11:13] LABS: CA19-9 TUMOR MARKER,CARBOHYDRA 46.9 U/ML (<35.0)
[2019-12-02 11:20] LABS: THYROID PEROXIDASE ANTIBODY < 28.0 U/ML (<60.0)
== END ==
LOC: M WUC 15:01
PROVIDERS: ATTEND Internal Medicine Hematology & Oncology
DX: E05.90 Thyrotoxicosis, unspecified without thyrotoxic crisis or storm (principal)

== ENCOUNTER → 2019-12-02 | Outpatient (CLI) | payer MEDICARE ==
[2019-12-02 12:47] LABS: FREE T4 1.56 NG/DL (0.76-1.46); THYROID STIMULATING HORMONE 0.105 uIU/ML (0.358-3.740)
[2019-12-02 12:49] LABS: THYROID PEROXIDASE ANTIBODY 44.6 U/ML (<60.0)
[2019-12-02 12:50] LABS: TOTAL T3 115.4 NG/DL (60.0-181.0)
== END ==
LOC: M LAB 11:45
PROVIDERS: ATTEND Surgery
DX: E05.90 Thyrotoxicosis, unspecified without thyrotoxic crisis or storm (principal)

== ENCOUNTER → 2019-12-22 | Outpatient (REF) | payer MEDICARE ==
[2019-12-22 19:29] LABS: PERCENT SATURATION 15.8 % (19.7-50.0)
[2019-12-22 19:37] LABS: FOLATE 4.7 NG/ML
== END ==
LOC: M LAB REF 16:59
PROVIDERS: ATTEND Internal Medicine Nephrology
DX: D64.9 Anemia, unspecified (principal)

== ENCOUNTER 2020-01-06 12:05 | Outpatient (CLI) | payer MEDICARE ==
[~2020-01-06] VITALS: Ht 180.3 cm; Wt 93.2 kg
[2020-01-06 12:25] VITALS: BP 160/80
[2020-01-06] MEDS ORDERED: FERRIC CARBOXYMALTOSE INJ 750 MG in NS 250 ML IV ONE (12:30)
[2020-01-06] MEDS ORDERED: methylPREDNISolone INJ 125 MG/2 ML VIAL (J2930) IV PRN (12:30)
[2020-01-06] MEDS ORDERED: ALBUTEROL SULFATE 2.5 MG/0.5 ML INH NEB SOLN INH PRN (12:30)
[2020-01-06] MEDS ORDERED: diphenhydrAMINE 50MG/ML VIAL (J1200) IV PRN (12:30)
[2020-01-06] MEDS ORDERED: EPINEPHrine INJ 1 MG/ML 1ML AMP IM PRN (12:30)
[2020-01-06] MEDS ORDERED: NS 1,000 ML IV SCH (12:30)
[2020-01-06] MEDS ORDERED: MAGN400C PO (13:50)
[2020-01-06] MEDS ORDERED: ASPI81TA85 PO (13:50)
[2020-01-06] MEDS ORDERED: CEFD300C PO (17:34)
== END 2020-01-06 13:40 | disposition home or self-care (01) ==
LOC: M INFU 12:05
PROVIDERS: ATTEND Internal Medicine Nephrology
DX: R50.9 Fever, unspecified (principal); D50.9 Iron deficiency anemia, unspecified; Z53.20 Procedure and treatment not carried out because of patient's decision for unspecified reasons

== ENCOUNTER 2020-01-06 13:40 | Emergency (ER) | payer MEDICARE ==
[~2020-01-06] VITALS: Ht 180.3 cm; Wt 92.7 kg
[2020-01-06] MEDS ORDERED: MAGN400C PO (13:50)
[2020-01-06] MEDS ORDERED: ASPI81TA85 PO (13:50)
[2020-01-06 14:53] LABS: BASO # 0.1 10^3/uL (0.0-0.2); BASO % 0.5 % (0.0-1.0); EOS # 0.2 10^3/uL (0.0-0.5); EOS % 0.7 % (0.0-3.0); HEMOGLOBIN 12.5 g/dl (13.5-17.5); LYMPH # 1.1 10^3/uL (1.5-5.0); LYMPH % 5.1 % (24.0-44.0); MEAN CORPUSCULAR HEMOGLOBIN 31.3 pg (27.0-33.0); MEAN CORPUSCULAR HGB CONC 32.9 g/dl (32.0-36.5); MONO # 1.5 10^3/uL (0.0-0.8); MONO % 6.7 % (0.0-5.0); NEUTROPHILS # 19.2 10^3/uL (1.5-8.5); NEUTROPHILS % 86.5 % (36.0-66.0); PLATELET COUNT, AUTOMATED 477 10^3/uL (150-450); WHITE BLOOD COUNT 22.2 10^3/uL (4.0-10.0)
[2020-01-06 15:13] LABS: ALT/SGPT 88 U/L (12-78); BILIRUBIN,TOTAL 0.5 MG/DL (0.2-1.0); BLOOD UREA NITROGEN 35 MG/DL (7-18); CALCIUM LEVEL 9.1 MG/DL (8.8-10.2); CARBON DIOXIDE LEVEL 28 MEQ/L (21-32); CHLORIDE LEVEL 102 MEQ/L (98-107); CREATININE FOR GFR 1.04 MG/DL (0.70-1.30); GLOMERULAR FILTRATION RATE > 60.0 (>49); GLUCOSE, FASTING 180 MG/DL (70-100); POTASSIUM SERUM 3.4 MEQ/L (3.5-5.1); SODIUM LEVEL 138 MEQ/L (136-145)
[2020-01-06] MEDS ORDERED: cefTRIAXone SOD 1 GM in D5W MINI-BAG PLUS 50 ML IV ONE (16:00)
[2020-01-06] MEDS ORDERED: ACETAMINOPHEN TAB 650MG DOSE (2X325MG) PO ONE (17:00)
[2020-01-06] MEDS ORDERED: CEFD300C PO (17:34)
[2020-01-06 17:43] VITALS: BP 182/84
== END 2020-01-06 17:54 | disposition home or self-care (01) ==
LOC: M ED 13:40
DX: N39.0 Urinary tract infection, site not specified (principal); C25.9 Malignant neoplasm of pancreas, unspecified; E11.9 Type 2 diabetes mellitus without complications; K21.9 Gastro-esophageal reflux disease without esophagitis; N18.3 Chronic kidney disease, stage 3 (moderate); Z79.4 Long term (current) use of insulin; Z79.82 Long term (current) use of aspirin; Z79.899 Other long term (current) drug therapy; Z86.79 Personal history of other diseases of the circulatory system; Z91.030 Bee allergy status
CPT/HCPCS: 80053; 81001; 83605; 85025; 87040; 87088; 87186; 96365; 99284; J0696

== ENCOUNTER 2020-01-13 11:54 | Outpatient (CLI) | payer MEDICARE ==
[~2020-01-13] VITALS: Ht 180.3 cm; Wt 93.0 kg
[~2020-01-13 11:54] MED LIST changes: +ASPI81TA85 PO; +CEFD300C PO; +MAGN400C PO
[2020-01-13 12:00] VITALS: BP 144/65
[2020-01-13] MEDS ORDERED: methylPREDNISolone INJ 125 MG/2 ML VIAL (J2930) IV PRN (12:15)
[2020-01-13] MEDS ORDERED: FERRIC CARBOXYMALTOSE INJ 750 MG in NS 250 ML IV ONE (12:15)
[2020-01-13] MEDS ORDERED: NS 1,000 ML IV SCH (12:15)
[2020-01-13] MEDS ORDERED: diphenhydrAMINE 50MG/ML VIAL (J1200) IV PRN (12:15)
[2020-01-13] MEDS ORDERED: ALBUTEROL SULFATE 2.5 MG/0.5 ML INH NEB SOLN INH PRN (12:15)
[2020-01-13] MEDS ORDERED: EPINEPHrine INJ 1 MG/ML 1ML AMP IM PRN (12:15)
[2020-01-13 13:00] VITALS: BP 154/70
[2020-01-13 14:35] VITALS: BP 152/82
== END 2020-01-13 14:35 | disposition home or self-care (01) ==
LOC: M INFU 11:54
PROVIDERS: ATTEND Internal Medicine Nephrology
DX: D50.9 Iron deficiency anemia, unspecified (principal); Z91.030 Bee allergy status
CPT/HCPCS: 96365; J1439

== ENCOUNTER 2020-01-20 10:33 | Outpatient (CLI) | payer MEDICARE ==
[~2020-01-20] VITALS: Ht 185.4 cm; Wt 93.2 kg
[~2020-01-20 10:33] MED LIST changes: -AMIO200T PO; +AMIO200T3 PO; +AMLO1TAB24; -AMLO5TAB6; -ASPI81TA85 PO; +ASPI81TA86 PO
[2020-01-20 10:35] VITALS: BP 164/79
[2020-01-20] MEDS ORDERED: EPINEPHrine INJ 1 MG/ML 1ML AMP IM PRN (10:45)
[2020-01-20] MEDS ORDERED: methylPREDNISolone 125MG 2ML VIAL IV PRN (10:45)
[2020-01-20] MEDS ORDERED: diphenhydrAMINE 50MG/ML VIAL (J1200) IV PRN (10:45)
[2020-01-20] MEDS ORDERED: FERRIC CARBOXYMALTOSE INJ 750 MG in NS 250 ML IV ONE (10:45)
[2020-01-20] MEDS ORDERED: ALBUTEROL SULFATE 2.5 MG/0.5 ML INH NEB SOLN INH PRN (10:45)
[2020-01-20] MEDS ORDERED: NS 1,000 ML IV SCH (10:45)
[2020-01-20 12:15] VITALS: BP 138/63
[2020-01-20 12:45] VITALS: BP 138/65
== END 2020-01-20 12:45 | disposition home or self-care (01) ==
LOC: M INFU 10:33
PROVIDERS: ATTEND Internal Medicine Nephrology
DX: D50.9 Iron deficiency anemia, unspecified (principal)
CPT/HCPCS: 96365; J1439

== ENCOUNTER → 2020-01-25 | Outpatient (CLI) | payer MEDICARE ==
[~2020-01-25] MED LIST changes: +AMIO200T PO; -AMIO200T3 PO; -AMLO1TAB24; +AMLO5TAB6; +ASPI81TA85 PO; -ASPI81TA86 PO
[2020-01-27 05:07] LABS: PSA FREE 0.56 ng/mL
== END ==
LOC: M WUC 08:15
PROVIDERS: ATTEND Nurse Practitioner Family
DX: N39.0 Urinary tract infection, site not specified (principal); R97.20 Elevated prostate specific antigen [PSA]

== ENCOUNTER → 2020-01-25 | Outpatient (CLI) | payer MEDICARE ==
[2020-01-25 10:35] LABS: BLOOD UREA NITROGEN 57 MG/DL (7-18); CALCIUM LEVEL 8.7 MG/DL (8.8-10.2); CARBON DIOXIDE LEVEL 27 MEQ/L (21-32); CHLORIDE LEVEL 101 MEQ/L (98-107); CREATININE FOR GFR 1.23 MG/DL (0.70-1.30); GLOMERULAR FILTRATION RATE > 60.0 (>49); GLUCOSE, FASTING 305 MG/DL (70-100); POTASSIUM SERUM 4.8 MEQ/L (3.5-5.1); SODIUM LEVEL 136 MEQ/L (136-145)
== END ==
LOC: M WUC 08:12
PROVIDERS: ATTEND Physician Assistant
DX: I50.32 Chronic diastolic (congestive) heart failure (principal); I49.1 Atrial premature depolarization

== ENCOUNTER → 2020-02-09 | Outpatient (REF) | payer MEDICARE ==
[~2020-02-09] MED LIST changes: -AMIO200T PO; +AMIO200T3 PO; +AMLO1TAB24; -AMLO5TAB6; -ASPI81TA85 PO; +ASPI81TA86 PO
== END ==
LOC: M LAB REF 14:58
PROVIDERS: ATTEND Nurse Practitioner Family
DX: E11.65 Type 2 diabetes mellitus with hyperglycemia (principal)

== ENCOUNTER → 2020-05-05 | Outpatient (REF) | payer MEDICARE ==
[2020-05-05 18:10] LABS: FREE T4 1.36 NG/DL (0.76-1.46); THYROID STIMULATING HORMONE 2.87 uIU/ML (0.358-3.740)
== END ==
LOC: M LAB REF 17:00
PROVIDERS: ATTEND Internal Medicine Nephrology
DX: R53.82 Chronic fatigue, unspecified (principal)

== ENCOUNTER → 2020-07-25 | Outpatient (CLI) | payer MEDICARE ==
--- NOTE | 2020-07-25 12:23 | REP ---
INDICATION: ATRIAL PREMATURE DEPOLARIZATION. COMPARISON: Comparison radiograph October 24, 2019. TECHNIQUE: Two views.. FINDINGS: The lungs are well inflated and free of infiltrate. The pleural angles are sharp. The heart size is normal. Pulmonary vasculature is not increased. No significant bony abnormality is seen. Patient is status post median sternotomy and mediastinal clips are noted. A right-sided [id number] catheter is seen with its tip in the expected location of the superior vena cava. There are degenerative changes in the thoracic spine. IMPRESSION: No active disease seen. Prior sternotomy. [id number]-I-[id number] catheter.. <Electronically signed by Tam Rebollar > 07/25/20 [id number]
== END ==
LOC: M RAD 10:55
PROVIDERS: ATTEND Physician Assistant
DX: I49.1 Atrial premature depolarization (principal); C25.9 Malignant neoplasm of pancreas, unspecified; M51.34 Other intervertebral disc degeneration, thoracic region; Z97.8 Presence of other specified devices

== ENCOUNTER → 2020-07-25 | Outpatient (CLI) | payer MEDICARE ==
[2020-07-25 11:57] LABS: CREATININE FOR GFR 1.45 MG/DL (0.70-1.30); GLOMERULAR FILTRATION RATE 52.2 (>49)
== END ==
LOC: M LAB 10:53
PROVIDERS: ATTEND Nurse Practitioner Adult Health
DX: C25.9 Malignant neoplasm of pancreas, unspecified (principal)

== ENCOUNTER → 2020-08-15 | Outpatient (CLI) | payer MEDICARE ==
[~2020-08-15] MED LIST changes: -CLIN150C14 PO; +CLIN150C15 PO; -LISI40TA PO; +LISI40TA4 PO
[2020-08-15 11:10] LABS: BASO # 0.1 10^3/uL (0.0-0.2); BASO % 0.7 % (0.0-1.0); EOS # 0.3 10^3/uL (0.0-0.5); EOS % 2.9 % (0.0-3.0); HEMATOCRIT 45.2 % (42.0-52.0); HEMOGLOBIN 15.6 g/dl (13.5-17.5); LYMPH # 1.9 10^3/uL (1.5-5.0); LYMPH % 20.2 % (24.0-44.0); MEAN CORPUSCULAR HEMOGLOBIN 32.6 pg (27.0-33.0); MEAN CORPUSCULAR HGB CONC 34.5 g/dl (32.0-36.5); MEAN CORPUSCULAR VOLUME 94.6 fl (80.0-96.0); MONO % 10.5 % (0.0-5.0); NEUTROPHILS # 6.2 10^3/uL (1.5-8.5); NEUTROPHILS % 65.5 % (36.0-66.0); PLATELET COUNT, AUTOMATED 327 10^3/uL (150-450); RED BLOOD COUNT 4.78 10^6/uL (4.30-6.10); WHITE BLOOD COUNT 9.4 10^3/uL (4.0-10.0)
[2020-08-15 11:37] LABS: ALBUMIN 3.3 GM/DL (3.2-5.2); BILIRUBIN,TOTAL 0.5 MG/DL (0.2-1.0); CALCIUM LEVEL 9.4 MG/DL (8.8-10.2); CREATININE FOR GFR 1.6 MG/DL (0.70-1.30); GLOMERULAR FILTRATION RATE 46.6 (>49); POTASSIUM SERUM 4.7 MEQ/L (3.5-5.1)
[2020-08-15 12:12] LABS: CA19-9 TUMOR MARKER,CARBOHYDRA 33.1 U/ML (<35.0)
== END ==
LOC: M LAB 10:28
PROVIDERS: ATTEND Internal Medicine Hematology & Oncology
DX: C25.9 Malignant neoplasm of pancreas, unspecified (principal)

== ENCOUNTER → 2020-11-13 | Outpatient (CLI) | payer MEDICARE ==
[2020-11-13 10:26] LABS: BASO # 0.1 10^3/uL (0.0-0.2); BASO % 1.3 % (0.0-1.0); EOS # 0.3 10^3/uL (0.0-0.5); EOS % 4.5 % (0.0-3.0); HEMATOCRIT 42.8 % (42.0-52.0); HEMOGLOBIN 14.6 g/dl (13.5-17.5); LYMPH # 1.8 10^3/uL (1.5-5.0); LYMPH % 24.6 % (24.0-44.0); MEAN CORPUSCULAR HEMOGLOBIN 32.3 pg (27.0-33.0); MEAN CORPUSCULAR HGB CONC 34.1 g/dl (32.0-36.5); MEAN CORPUSCULAR VOLUME 94.7 fl (80.0-96.0); MONO # 0.6 10^3/uL (0.0-0.8); MONO % 8.8 % (2.0-8.0); NEUTROPHILS # 4.3 10^3/uL (1.5-8.5); NEUTROPHILS % 60.5 % (36.0-66.0); PLATELET COUNT, AUTOMATED 333 10^3/uL (150-450); RED BLOOD COUNT 4.52 10^6/uL (4.30-6.10); WHITE BLOOD COUNT 7.2 10^3/uL (4.0-10.0)
[2020-11-13 10:58] LABS: ALBUMIN 3.6 GM/DL (3.2-5.2); BILIRUBIN,TOTAL 0.4 MG/DL (0.2-1.0); CALCIUM LEVEL 8.7 MG/DL (8.8-10.2); CREATININE FOR GFR 1.94 MG/DL (0.70-1.30); GLOMERULAR FILTRATION RATE 37.3 (>49); POTASSIUM SERUM 4.5 MEQ/L (3.5-5.1); TOTAL PROTEIN 7.2 GM/DL (6.4-8.2)
[2020-11-14 07:39] LABS: CA19-9 TUMOR MARKER,CARBOHYDRA 44.3 U/ML (<35.0)
== END ==
LOC: M LAB 09:25
PROVIDERS: ATTEND Physician Assistant
DX: C25.9 Malignant neoplasm of pancreas, unspecified (principal)

== ENCOUNTER → 2020-11-18 | Outpatient (CLI) | payer MEDICARE ==
[~2020-11-18] MED LIST changes: +GASTROGRAFIN SOLUTION 30ML (Q9963) As Ordered ONE
--- NOTE | 2020-11-18 15:36 | REP ---
INDICATION: SURVEILLENCE FOR PANCREATIC CA COMPARISON: 10/24/2019 the latest prior TECHNIQUE: Limited noncontrast enhanced helical technique FINDINGS: The mediastinum and pulmonary steve are unchanged. No mass or adenopathy has developed. There are no pleural or pericardial effusions. There is no significant change in appearance of the imaged upper abdomen or imaged osseous structures. Evaluation of the lung ray shows a new 6 mm size nodule in the right middle lobe. There is mild cylindrical bronchiectasis which appears unchanged. IMPRESSION: There is a 6 mm size nodule in the right middle lobe as described above. According to the revised Fleischner society criteria this represents a category 4A lesion for which a 3 month follow-up CT is recommended. <Electronically signed by Sanjeev Lay > 11/18/20 [id number]
--- NOTE | 2020-11-18 15:45 | REP ---
INDICATION: SURVEILLENCE FOR PANCREATIC CA. COMPARISON: 10/24/2019 TECHNIQUE: Standard helical technique without the administration of intravenous contrast. A small amount of oral bowel preparatory contrast was administered prior to the exam. FINDINGS: Limited evaluation of the solid intra-abdominal organs show no gross abnormalities. Limited evaluation of the kidneys shows a duplex collecting system on the left with chronic atrophic change seen involving the inferior moiety. I cannot definitively identify where the ureters come together. There does seem to be 1 ureteral insertion on the urinary bladder on the left. Limited evaluation of the pancreas shows postoperative changes with partial pancreatic resection since the last exam. Duodenal wall thickening seen on the prior exam has abated. Limited evaluation of the bowel loops and the mesenteries show no gross abnormalities. There is no evidence of free fluid or free air. Limited evaluation of the abdominal aorta and para-aortic regions show no gross abnormalities. There is no adenopathy. No peripancreatic adenopathy has developed. Limited evaluation of the imaged osseous structures there is no significant changes compared to the prior exam. There are spinal degenerative changes status quo. IMPRESSION: Chronic changes as described above. This limited noncontrast enhanced examination shows no evidence of acute disease. <Electronically signed by Sanjeev Lay > 11/18/20 [id number]
== END ==
LOC: M RAD 13:13
PROVIDERS: ATTEND Physician Assistant
DX: C25.9 Malignant neoplasm of pancreas, unspecified (principal)
CPT/HCPCS: 71250; 74176; Q9963

== ENCOUNTER → 2020-12-30 | Outpatient (CLI) | payer MEDICARE ==
[~2020-12-30] MED LIST changes: -GASTROGRAFIN SOLUTION 30ML (Q9963) As Ordered ONE
[2020-12-30 09:42] LABS: HEMATOCRIT 44.5 % (42.0-52.0); HEMOGLOBIN 15.3 g/dl (13.5-17.5); MEAN CORPUSCULAR HEMOGLOBIN 32.3 pg (27.0-33.0); MEAN CORPUSCULAR HGB CONC 34.4 g/dl (32.0-36.5); MEAN CORPUSCULAR VOLUME 94.1 fl (80.0-96.0); PLATELET COUNT, AUTOMATED 331 10^3/uL (150-450); RED BLOOD COUNT 4.73 10^6/uL (4.30-6.10); WHITE BLOOD COUNT 8.4 10^3/uL (4.0-10.0)
[2020-12-30 10:01] LABS: ALBUMIN 3.5 GM/DL (3.2-5.2); BILIRUBIN,TOTAL 0.6 MG/DL (0.2-1.0); CHOLESTEROL RISK RATIO 3.945 (<5); CREATININE FOR GFR 1.55 MG/DL (0.70-1.30); GLOMERULAR FILTRATION RATE 48.3 (>49); PROSTATIC SPECIFIC AG MONITOR 3.03 NG/ML (< 4.00); TOTAL PROTEIN 7.2 GM/DL (6.4-8.2)
[2020-12-30 11:14] LABS: HEMOGLOBIN A1c 10.4 %
== END ==
LOC: M LAB 08:36
PROVIDERS: ATTEND Family Medicine
DX: E03.9 Hypothyroidism, unspecified (principal); I10 Essential (primary) hypertension; E11.9 Type 2 diabetes mellitus without complications

== ENCOUNTER → 2021-02-13 | Outpatient (CLI) | payer MEDICARE ==
[~2021-02-13] MED LIST changes: -OXYC1TAB15 PO; +OXYC7.5T3 PO
--- NOTE | 2021-02-13 09:44 | REP ---
INDICATION: MALIGNANT NEOPLASM OF PANCREAS, UNSPECIFIED COMPARISON: Multiple the latest 11/18/2020 TECHNIQUE: Standard helical technique without intravenous contrast. FINDINGS: Although seen in limited fashion without intravenous contrast the mediastinum and pulmonary steve appear stable. There are no pleural or pericardial effusions. There is no significant change in appearance of the imaged upper abdomen or imaged osseous structures. Evaluation of the lung ray shows an increase in the size of the right middle lobe nodule which today measures 7 mm, previously 6 mm. Additionally, irregular margins are now perceptible. No other significant lung field changes are identified. IMPRESSION: Enlarging right middle lobe nodule as described above. Lung rads category 4 X. PET-CT and or tissue sampling is recommended as per the revised Fleischner society criteria. <Electronically signed by Sanjeev Lay > 02/13/21 [id number]
== END ==
LOC: M PLAIMG 09:01
PROVIDERS: ATTEND Internal Medicine Hematology & Oncology
DX: C25.9 Malignant neoplasm of pancreas, unspecified (principal)

== ENCOUNTER → 2021-02-23 | Outpatient (REF) | payer MEDICARE | LOC: M LAB REF 12:58 | PROVIDERS: ATTEND Internal Medicine Nephrology | DX: N18.32 Chronic kidney disease, stage 3b (principal) ==

== ENCOUNTER → 2021-04-24 | Outpatient (CLI) | payer MEDICARE ==
[~2021-04-24] MED LIST changes: -CLIN150C15 PO; +CLIN150C17 PO
[2021-04-24 18:10] LABS: BASO # 0.2 10^3/uL (0.0-0.2); BASO % 1.2 % (0.0-1.0); EOS # 0.5 10^3/uL (0.0-0.5); EOS % 3.5 % (0.0-3.0); HEMATOCRIT 48.6 % (42.0-52.0); HEMOGLOBIN 16.7 g/dl (13.5-17.5); LYMPH # 2.8 10^3/uL (1.5-5.0); LYMPH % 21.1 % (24.0-44.0); MEAN CORPUSCULAR HEMOGLOBIN 32.7 pg (27.0-33.0); MEAN CORPUSCULAR HGB CONC 34.4 g/dl (32.0-36.5); MEAN CORPUSCULAR VOLUME 95.1 fl (80.0-96.0); MONO # 1.4 10^3/uL (0.0-0.8); MONO % 10.8 % (2.0-8.0); NEUTROPHILS # 8.3 10^3/uL (1.5-8.5); NEUTROPHILS % 62.8 % (36.0-66.0); PLATELET COUNT, AUTOMATED 372 10^3/uL (150-450); RED BLOOD COUNT 5.11 10^6/uL (4.30-6.10); WHITE BLOOD COUNT 13.2 10^3/uL (4.0-10.0)
[2021-04-24 19:55] LABS: ALBUMIN 3.5 GM/DL (3.2-5.2); BILIRUBIN,TOTAL 0.5 MG/DL (0.2-1.0); CA19-9 TUMOR MARKER,CARBOHYDRA 55.1 U/ML (<35.0); CALCIUM LEVEL 9.5 MG/DL (8.8-10.2); CREATININE FOR GFR 1.91 MG/DL (0.70-1.30); POTASSIUM SERUM 5.2 MEQ/L (3.5-5.1); TOTAL PROTEIN 7.7 GM/DL (6.4-8.2)
--- NOTE | 2021-04-25 08:39 | REP ---
INDICATION: PANCREATIC CA, ABNORMAL FINDING OF LUNG FIELD COMPARISON: Multiple examinations dating through 10/24/2019 TECHNIQUE: Axial noncontrast images from the thoracic inlet to the upper abdomen with coronal and sagittal reformations. This CT examination was performed using the following dose reduction techniques: Automated exposure control, adjustment of mA and/or kv according to the patient's size, and use of iterative reconstruction technique. FINDINGS: There is a 7.7 mm noncalcified nodule in the subpleural right middle lobe which is new and enlarging as compared with prior examinations. Smaller possibly partially calcified nodule also identified in the left upper lobe. No consolidation or effusion. No obvious adenopathy. Stable appearance to the mediastinum including prior sternotomy and CABG along with atherosclerotic changes of the aorta and coronary arteries. No cardiomegaly or pericardial effusion. INFUSAPORT with tip in the SVC/right atrium. IMPRESSION: 1. Prseumed metastatic lesions up to 7.7mm in the middle lobe. <Electronically signed by Braden Taveras > 04/25/21 [id number]
--- NOTE | 2021-04-25 09:37 | REP ---
INDICATION: PANCREATIC CA, ABNORMAL FINDING OF LUNG FIELD COMPARISON: 11/18/2020, 10/24/2019 TECHNIQUE: Axial noncontrast images from the lung bases to the pubic symphysis with coronal and sagittal reformations. This CT examination was performed using the following dose reduction techniques: Automated exposure control, adjustment of mA and/or kv according to the patient's size, and use of iterative reconstruction technique. FINDINGS: Lung bases demonstrate 7 mm pulmonary nodule in the periphery of the right middle lobe which is increased in size from prior examinations. Patient appears to be status post Whipple's procedure including cholecystectomy and splenectomy with appearance to the residual pancreas and surrounding mesenteric fat unchanged. No obvious acute recurrence or adenopathy identified. Kidneys and bilateral adrenal glands are relatively normal/stable. Atrophic appearance to the left kidney lower moiety again noted along with small left renal vascular calcifications. The enteric system is without obstruction or acute inflammatory process. Pelvis demonstrates normal bladder and age-appropriate prostate/seminal vesicles. No ascites. No free air. No adenopathy. No focal inflammatory stranding. Atherosclerotic changes to the aorta and vasculature without aneurysm. Musculoskeletal structures are intact and without acute osseous abnormality. IMPRESSION: 1. History of pancreatic carcinoma with postsurgical changes including Whipple's, cholecystectomy, and splenectomy. No evidence for metastatic disease or recurrence identified within the abdomen or pelvis. 2. Enlarging nodule in the right middle lobe of the lung. <Electronically signed by Braden Taveras > 04/25/21 0922
== END ==
LOC: M RAD 17:01
PROVIDERS: ATTEND Internal Medicine Hematology & Oncology
DX: C25.9 Malignant neoplasm of pancreas, unspecified (principal); R91.8 Other nonspecific abnormal finding of lung field

== ENCOUNTER → 2021-04-25 | Outpatient (REF) | payer MEDICARE | LOC: M LAB REF 12:44 | PROVIDERS: ATTEND Internal Medicine Nephrology | DX: N18.31 Chronic kidney disease, stage 3a (principal) ==

== ENCOUNTER → 2021-07-26 | Outpatient (REF) | payer MEDICARE | LOC: M LAB REF 13:17 | PROVIDERS: ATTEND Nurse Practitioner Family | DX: N18.32 Chronic kidney disease, stage 3b (principal) ==

== ENCOUNTER → 2021-08-08 | Outpatient (REF) | payer MEDICARE ==
[~2021-08-08] MED LIST changes: -AMIO200T3 PO; +AMIO200T49 PO
[2021-08-08 18:39] LABS: CREATININE, URINE 31.1 MG/DL; MAU/CREAT RATIO 945.3 MCG/MG (0.0-30.0)
== END ==
LOC: M LAB REF 17:29
PROVIDERS: ATTEND Nurse Practitioner Family
DX: E11.65 Type 2 diabetes mellitus with hyperglycemia (principal)

== ENCOUNTER → 2021-10-03 | Outpatient (CLI) | payer MEDICARE ==
[~2021-10-03] MED LIST changes: +AMIL5TAB4; +CARV12.5; +GABA-282; +NOVOINJ3; +OLME40TA; +PANT40TA29; +TRES1INJ2
== END ==
LOC: M ONCR 10:26
PROVIDERS: ATTEND General Practice
DX: C78.01 Secondary malignant neoplasm of right lung (principal); C25.9 Malignant neoplasm of pancreas, unspecified; Z79.4 Long term (current) use of insulin; Z79.899 Other long term (current) drug therapy; Z87.891 Personal history of nicotine dependence; Z91.030 Bee allergy status

== ENCOUNTER 2021-10-13 10:21 | Outpatient (RCR) | payer MEDICARE | END 2021-10-19 | LOC: M ONCR 10:21 | PROVIDERS: ATTEND General Practice | DX: C78.01 Secondary malignant neoplasm of right lung (principal) ==

== ENCOUNTER 2021-10-27 14:18 | Outpatient (RCR) | payer MEDICARE | END 2021-11-18 | LOC: M ONCR 14:18 | PROVIDERS: ATTEND General Practice | DX: C78.01 Secondary malignant neoplasm of right lung (principal) ==

== ENCOUNTER → 2022-01-18 | Outpatient (CLI) | payer MEDICARE ==
[2022-01-18 10:37] LABS: ALBUMIN 3.7 GM/DL (3.2-5.2); BILIRUBIN,TOTAL 0.7 MG/DL (0.2-1.0); CALCIUM LEVEL 9.7 MG/DL (8.8-10.2); CREATININE FOR GFR 1.39 MG/DL (0.70-1.30); GLOMERULAR FILTRATION RATE 54.6 (>49); POTASSIUM SERUM 3.8 MEQ/L (3.5-5.1); TOTAL PROTEIN 7.4 GM/DL (6.4-8.2)
== END ==
LOC: M ONCR 09:39
PROVIDERS: ATTEND General Practice
DX: C78.01 Secondary malignant neoplasm of right lung (principal)

== ENCOUNTER → 2022-01-25 | Outpatient (CLI) | payer MEDICARE ==
[~2022-01-25] MED LIST changes: +BUPR150T12 PO
[2022-01-25 13:27] LABS: CA19-9 TUMOR MARKER,CARBOHYDRA 1595.9 U/ML (<35.0)
== END ==
LOC: M ONCR 07:40
PROVIDERS: ATTEND General Practice
DX: Z08 Encounter for follow-up examination after completed treatment for malignant neoplasm (principal); Z85.118 Personal history of other malignant neoplasm of bronchus and lung; Z87.891 Personal history of nicotine dependence; Z85.07 Personal history of malignant neoplasm of pancreas; Z91.030 Bee allergy status; Z79.899 Other long term (current) drug therapy; Z92.3 Personal history of irradiation; Z79.4 Long term (current) use of insulin; Z79.82 Long term (current) use of aspirin
CPT/HCPCS: 82378; 86301; G0463

== ENCOUNTER → 2022-01-26 | Outpatient (CLI) | payer MEDICARE ==
[~2022-01-26] MED LIST changes: +GASTROGRAFIN SOLUTION 30ML (Q9963) As Ordered ONE; +ISOVUE-370 76% 100ML VIAL As Ordered ONE
== END ==
LOC: M RAD 11:06
PROVIDERS: ATTEND General Practice
DX: C78.01 Secondary malignant neoplasm of right lung (principal)
CPT/HCPCS: 71260; 74177; Q9963; Q9967

== ENCOUNTER → 2022-03-01 | Outpatient (CLI) | payer MEDICARE ==
[~2022-03-01] MED LIST changes: -GASTROGRAFIN SOLUTION 30ML (Q9963) As Ordered ONE; -ISOVUE-370 76% 100ML VIAL As Ordered ONE; +PROHANCE 279.3MG/ML 5ML VIAL As Ordered ONE
== END ==
LOC: M RAD 07:52
PROVIDERS: ATTEND General Practice
DX: C78.01 Secondary malignant neoplasm of right lung (principal)
CPT/HCPCS: 70553; A9576

== ENCOUNTER → 2022-03-30 | Outpatient (CLI) | payer MEDICARE ==
[~2022-03-30] MED LIST changes: +GASTROGRAFIN SOLUTION 30ML (Q9963) As Ordered ONE; -PROHANCE 279.3MG/ML 5ML VIAL As Ordered ONE
== END ==
LOC: M RAD 10:04
PROVIDERS: ATTEND Physician Assistant
DX: C25.9 Malignant neoplasm of pancreas, unspecified (principal); R91.8 Other nonspecific abnormal finding of lung field
CPT/HCPCS: 74176; Q9963

== ENCOUNTER → 2022-04-17 | Outpatient (CLI) | payer MEDICARE ==
[~2022-04-17] MED LIST changes: -GASTROGRAFIN SOLUTION 30ML (Q9963) As Ordered ONE
== END ==
LOC: M PLARAD 09:20
PROVIDERS: ATTEND Physician Assistant
DX: C25.9 Malignant neoplasm of pancreas, unspecified (principal)

== ENCOUNTER → 2022-04-30 | Outpatient (CLI) | payer MEDICARE | LOC: M PLARAD 09:57 | PROVIDERS: ATTEND Physician Assistant | DX: C25.7 Malignant neoplasm of other parts of pancreas (principal) | CPT/HCPCS: 78815; A9552 ==

== ENCOUNTER 2022-05-16 10:02 | Outpatient (RCR) | payer MEDICARE ==
[~2022-05-16 10:02] MED LIST changes: +CLOP75TA99 PO; -PLAV1TAB2 PO
[2022-05-30] MEDS ORDERED: OXYC7.5T3 PO (15:38)
== END 2022-05-21 23:59 | disposition home or self-care (01) ==
LOC: M ONCR 10:02
PROVIDERS: ATTEND General Practice
DX: C78.01 Secondary malignant neoplasm of right lung (principal)

== ENCOUNTER 2022-06-07 14:59 | Outpatient (RCR) | payer MEDICARE | END 2022-06-20 | LOC: M ONCR 14:59 | PROVIDERS: ATTEND General Practice | DX: C78.01 Secondary malignant neoplasm of right lung (principal) ==

== ENCOUNTER → 2022-08-28 | Outpatient (CLI) | payer MEDICARE ==
[~2022-08-28] MED LIST changes: +AMOX500T; +ASPI81CH48 PO; +AUGM500T34 PO; +CALC500C16 PO; +COLA100C5 PO; +PROHANCE 279.3MG/ML 5ML VIAL ONE; +TAMS1CAP17
== END ==
LOC: M PLAIMG 14:53
PROVIDERS: ATTEND Specialist
DX: C25.9 Malignant neoplasm of pancreas, unspecified (principal); R79.89 Other specified abnormal findings of blood chemistry
CPT/HCPCS: 74183; A9576

== ENCOUNTER → 2022-09-05 | Outpatient (CLI) | payer MEDICARE ==
[~2022-09-05] MED LIST changes: -PROHANCE 279.3MG/ML 5ML VIAL ONE
== END ==
LOC: M ONCR 13:30
PROVIDERS: ATTEND General Practice
DX: C25.9 Malignant neoplasm of pancreas, unspecified (principal); C78.01 Secondary malignant neoplasm of right lung; C78.02 Secondary malignant neoplasm of left lung; C79.51 Secondary malignant neoplasm of bone; Z79.02 Long term (current) use of antithrombotics/antiplatelets; Z79.4 Long term (current) use of insulin; Z79.899 Other long term (current) drug therapy; Z87.891 Personal history of nicotine dependence; Z91.030 Bee allergy status; Z92.3 Personal history of irradiation

== ENCOUNTER → 2022-09-21 | Outpatient (CLI) | payer MEDICARE ==
[~2022-09-21] MED LIST changes: +IPRA0.00 NEB; +LEVO1TAB39 PO; +MIRA3350 PO; +ONDA-84 PO; +PRED50TA PO; +SENN-80 PO; +VENTAER INH
== END ==
LOC: M ONCR 09:07
PROVIDERS: ATTEND General Practice
DX: J18.9 Pneumonia, unspecified organism (principal); Z92.3 Personal history of irradiation

== ENCOUNTER → 2022-09-21 | Outpatient (CLI) | payer MEDICARE | LOC: M RAD 09:36 | PROVIDERS: ATTEND General Practice | DX: C78.01 Secondary malignant neoplasm of right lung (principal) ==

== ENCOUNTER → 2022-09-28 | Outpatient (CLI) | payer MEDICARE ==
[~2022-09-28] MED LIST changes: +ALBU2.5V10 INH; -AMIL5TAB4; +AMIL5TAB4 PO; +CALC1TAB42 PO; -CARV12.5; +CARV12.5 PO; +CVS1TAB PO; +ECOT81TA5 PO; +ELIQ5TAB PO; -GABA-282; +GABA-282 PO; -NOVOINJ3; +NOVOINJ3 SC; -OLME40TA; +OLME40TA PO; -TAMS1CAP17; +TAMS1CAP17 PO; -TRES1INJ2; +TRES1INJ2 SC
== END ==
LOC: M ONCR 09:14
PROVIDERS: ATTEND General Practice
DX: R06.02 Shortness of breath (principal); Z71.2 Person consulting for explanation of examination or test findings; Z92.3 Personal history of irradiation

== ENCOUNTER 2022-09-30 10:45 | Observation (INO) | payer MEDICARE ==
[~2022-09-30] VITALS: Ht 180.3 cm; Wt 105.4 kg
[~2022-09-30 10:45] MED LIST changes: -ALBU2.5V10 INH; -CALC1TAB42 PO; -CVS1TAB PO; -ECOT81TA5 PO; -ELIQ5TAB PO
[2022-09-30] MEDS ORDERED: methylPREDNISolone 125MG 2ML VIAL IV ONE (11:10)
[2022-09-30 11:33] LABS: VENOUS BASE EXCESS -0.6 (-2.0-2.0); VENOUS HCO3 23.6 MEQ/L (23.0-27.0); VENOUS O2 SATURATION 77.2 % (60.0-80.0); VENOUS PARTIAL PRESSURE CO2 37.6 mmHg (38.0-50.0); VENOUS PARTIAL PRESSURE O2 40.6 mmHg (30.0-50.0); VENOUS PH 7.416 UNITS (7.330-7.430); VENOUS STANDARD HCO3 23.5 MEQ/L; VENOUS TOTAL CO2 24.8 MEQ/L (24.0-28.0)
[2022-09-30] MEDS: IPRATROPIUM 0.5MG/ALBUTEROL 2.5MG INH SOL UD 3ML (DUONEB) NEB SCH ×4 (11:33→19:17)
[2022-09-30 11:37] LABS: BASO % 0.4 % (0.0-1.0); EOS # 0.5 10^3/uL (0.0-0.5); HEMATOCRIT 33.7 % (42.0-52.0); HEMOGLOBIN 11.1 g/dl (13.5-17.5); LYMPH # 0.8 10^3/uL (1.5-5.0); LYMPH % 8.8 % (24.0-44.0); MEAN CORPUSCULAR HEMOGLOBIN 34.5 pg (27.0-33.0); MEAN CORPUSCULAR HGB CONC 32.9 g/dl (32.0-36.5); MEAN CORPUSCULAR VOLUME 104.7 fl (80.0-96.0); MONO # 0.3 10^3/uL (0.0-0.8); MONO % 3.5 % (2.0-8.0); NEUTROPHILS # 7.8 10^3/uL (1.5-8.5); PLATELET COUNT, AUTOMATED 660 10^3/uL (150-450); RED BLOOD COUNT 3.22 10^6/uL (4.30-6.10); WHITE BLOOD COUNT 9.5 10^3/uL (4.0-10.0)
[2022-09-30 12:11] LABS: ALBUMIN 2.7 G/DL (3.2-5.2); ALKALINE PHOSPHATASE 91 U/L (46-116); ALT/SGPT 41 U/L (7.0-40); AST/SGOT 41 U/L (<34); BILIRUBIN,DIRECT 0.2 MG/DL (<0.4); BILIRUBIN,TOTAL 0.6 MG/DL (0.3-1.2); BLOOD UREA NITROGEN 33 MG/DL (9-23); CARBON DIOXIDE LEVEL 24 MMOL/L (20-31); CHLORIDE LEVEL 106 MMOL/L (98-107); CREATININE FOR GFR 1.19 MG/DL (0.70-1.30); GLOMERULAR FILTRATION RATE > 60.0 (>49); GLUCOSE, FASTING 138 MG/DL (74-106); POTASSIUM SERUM 4.9 MMOL/L (3.5-5.1); SODIUM LEVEL 137 MMOL/L (136-145); THYROID STIMULATING HORMONE 1.149 uIU/ML (0.55-4.78); TOTAL PROTEIN 5.9 G/DL (5.7-8.2)
[2022-09-30] MEDS ORDERED: ISOVUE-370 76% 100ML VIAL As Ordered ONE (12:16)
[2022-09-30 14:02] LABS: INR 1.18; PROTHROMBIN TIME 15.2 SECONDS (12.5-14.5)
[2022-09-30 14:03] LABS: PARTIAL THROMBOPLASTIN TIME 27.2 SECONDS (24.8-34.2)
[2022-09-30] MEDS ORDERED: GLUCAGON INJ 1MG VIAL SC PRN (14:45)
[2022-09-30] MEDS ORDERED: DEXTROSE 50% 50ML SYRINGE IV PRN (14:45)
[2022-09-30] MEDS ORDERED: MOM 30ML SUSPENSION UDC PO PRN (14:45)
[2022-09-30] MEDS ORDERED: ACETAMINOPHEN TAB 650MG DOSE (2X325MG) PO PRN (14:45)
[2022-09-30] MEDS ORDERED: MAALOX 30 ML SUSP *UDC PO PRN (14:45)
[2022-09-30] MEDS ORDERED: GLUCOSE 4GM CHEW TABLET PO PRN (14:45)
[2022-09-30 15:55] VITALS: BP 174/90
[2022-09-30 16:10] LABS: CK-MB VALUE MASS < 1.0 NG/ML (<3.6)
[2022-09-30 16:11] LABS: CPK CREATINE PHOSPHOKINASE 41 U/L (46-171); MB/CK RELATIVE INDEX 2.43 (< OR =4)
[2022-09-30] MEDS: INSULIN LISPRO (NovoLOG) PER UNIT SC SCH ×2 (16:50→20:24)
[2022-09-30] MEDS: APIXABAN 5 MG TAB (ELIQUIS) PO SCH ×2 (16:51→20:25)
[2022-09-30] MEDS ORDERED: TORS20TA2 PO (17:15)
[2022-09-30] MEDS ORDERED: CALC1TAB42 PO (17:15)
[2022-09-30] MEDS ORDERED: ECOT81TA5 PO (17:15)
[2022-09-30] MEDS ORDERED: CVS1TAB PO (17:22)
[2022-09-30] MEDS ORDERED: HOME MED LIST COMPLETE! XX SCH (17:35)
[2022-09-30] MEDS ORDERED: NITROGLYCERIN 0.4MG SUBL TABLET SL PRN (17:40)
[2022-09-30] MEDS: ALPRAZolam 0.5 MG TAB PO PRN (18:47)
[2022-09-30] MEDS: oxyCODONE 5MG TAB PO PRN (18:48)
[2022-09-30 19:56] VITALS: BP 150/62
[2022-09-30] MEDS: SENNA 8.6 MG TAB (SENOKOT) PO SCH (20:24)
[2022-09-30] MEDS: GABAPENTIN 300 MG CAP PO SCH (20:24)
[2022-09-30] MEDS: ATORVASTATIN 20 MG TAB PO SCH (20:25)
[2022-09-30] MEDS: TAMSULOSIN 0.4 MG CAP PO SCH (20:25)
[2022-09-30] MEDS: CARVedilol 12.5 MG TAB PO SCH (20:25)
[2022-09-30] MEDS: DOCUSATE SODIUM 100MG CAPSULE PO SCH (20:26)
[2022-09-30] MEDS: ADDERALL 5 MG TAB PO SCH (21:05)
[2022-10-01] VITALS (7 sets, daily range): BP systolic 129–172; BP diastolic 60–83
[2022-10-01] MEDS: IPRATROPIUM 0.5MG/ALBUTEROL 2.5MG INH SOL UD 3ML (DUONEB) NEB SCH ×2 (06:04→19:59)
[2022-10-01 06:22] LABS: BASO % 0.1 % (0.0-1.0); EOS # 0.1 10^3/uL (0.0-0.5); EOS % 0.4 % (0.0-3.0); HEMATOCRIT 29.2 % (42.0-52.0); HEMOGLOBIN 9.8 g/dl (13.5-17.5); LYMPH # 0.8 10^3/uL (1.5-5.0); LYMPH % 6.1 % (24.0-44.0); MEAN CORPUSCULAR HEMOGLOBIN 34.9 pg (27.0-33.0); MEAN CORPUSCULAR HGB CONC 33.6 g/dl (32.0-36.5); MEAN CORPUSCULAR VOLUME 103.9 fl (80.0-96.0); MONO # 0.3 10^3/uL (0.0-0.8); NEUTROPHILS # 11.6 10^3/uL (1.5-8.5); NEUTROPHILS % 90.5 % (36.0-66.0); PLATELET COUNT, AUTOMATED 625 10^3/uL (150-450); RED BLOOD COUNT 2.81 10^6/uL (4.30-6.10); WHITE BLOOD COUNT 12.8 10^3/uL (4.0-10.0)
[2022-10-01 07:04] LABS: ALBUMIN 2.4 G/DL (3.2-5.2); ALKALINE PHOSPHATASE 79 U/L (46-116); ALT/SGPT 41 U/L (7.0-40); AST/SGOT 44 U/L (<34); BILIRUBIN,TOTAL 0.7 MG/DL (0.3-1.2); BLOOD UREA NITROGEN 38 MG/DL (9-23); CALCIUM LEVEL 8.2 MG/DL (8.3-10.6); CARBON DIOXIDE LEVEL 25 MMOL/L (20-31); CHLORIDE LEVEL 100 MMOL/L (98-107); CREATININE FOR GFR 1.03 MG/DL (0.70-1.30); GLOMERULAR FILTRATION RATE > 60.0 (>49); GLUCOSE, FASTING 321 MG/DL (74-106); MAGNESIUM LEVEL 1.9 MG/DL (1.8-2.4); POTASSIUM SERUM 5.5 MMOL/L (3.5-5.1); SODIUM LEVEL 132 MMOL/L (136-145); TOTAL PROTEIN 5.4 G/DL (5.7-8.2)
[2022-10-01 07:40] LABS: OSMOLALITY SERUM 304 MOSM/KG (280-301)
[2022-10-01] MEDS: INSULIN LISPRO (NovoLOG) PER UNIT SC SCH ×4 (07:57→20:48)
[2022-10-01] MEDS: OLMESARTAN MEDOXOMIL 20 MG TAB (BENICAR) PO SCH (07:58)
[2022-10-01] MEDS: VITAMIN B COMPLEX/VIT C CAP PO SCH (07:58)
[2022-10-01] MEDS: APIXABAN 5 MG TAB (ELIQUIS) PO SCH ×2 (07:59→20:46)
[2022-10-01] MEDS: SENNA 8.6 MG TAB (SENOKOT) PO SCH ×2 (07:59→20:46)
[2022-10-01] MEDS: GABAPENTIN 300 MG CAP PO SCH ×2 (07:59→20:46)
[2022-10-01] MEDS: ALPRAZolam 0.5 MG TAB PO PRN ×2 (07:59→15:49)
[2022-10-01] MEDS: DOCUSATE SODIUM 100MG CAPSULE PO SCH ×2 (07:59→20:46)
[2022-10-01] MEDS: CARVedilol 12.5 MG TAB PO SCH ×2 (08:00→18:33)
[2022-10-01] MEDS: ASPIRIN 81MG ENTERIC TABLET PO SCH (08:00)
[2022-10-01] MEDS: oxyCODONE 5MG TAB PO PRN ×2 (08:01→19:45)
[2022-10-01] MEDS ORDERED: CLOPIDOGREL 75 MG TAB PO SCH (09:00)
[2022-10-01] MEDS ORDERED: LEVEMIR (INSULIN DETEMIR) 1 UNITS/0.01ML SC SCH (09:00)
[2022-10-01] MEDS ORDERED: TORSEMIDE 20 MG TAB PO SCH (09:00)
[2022-10-01] MEDS ORDERED: aMILoride 5 MG TAB PO SCH (09:00)
[2022-10-01] MEDS ORDERED: SOD POLYSTYRENE SULFONATE SUSP 15GM 60ML UD PO ONE (09:00)
[2022-10-01] MEDS: ADDERALL 5 MG TAB PO SCH ×3 (09:22→20:46)
[2022-10-01] MEDS: aMILoride 5 MG TAB PO SCH (09:34)
[2022-10-01] MEDS: TORSEMIDE 20 MG TAB PO SCH (09:34)
[2022-10-01] MEDS ORDERED: ELIQ5TAB PO ×2 (11:25→11:31)
[2022-10-01] MEDS: ALBUTEROL SULFATE 2.5MG/0.5ML INH NEB SOLN INH PRN ×3 (12:02→23:00)
[2022-10-01] MEDS: TAMSULOSIN 0.4 MG CAP PO SCH (20:46)
[2022-10-01] MEDS: ATORVASTATIN 20 MG TAB PO SCH (20:47)
[2022-10-02] VITALS: BP_SYST 102; BP_SYST 139; BP_DIAS 51; BP_DIAS 75
[2022-10-02 04:11] VITALS: BP 120/56
[2022-10-02] MEDS: ALBUTEROL SULFATE 2.5MG/0.5ML INH NEB SOLN INH PRN (04:17)
[2022-10-02 06:08] LABS: BASO # 0.1 10^3/uL (0.0-0.2); BASO % 0.5 % (0.0-1.0); EOS # 0.2 10^3/uL (0.0-0.5); HEMATOCRIT 29.9 % (42.0-52.0); HEMOGLOBIN 10.1 g/dl (13.5-17.5); LYMPH # 1.5 10^3/uL (1.5-5.0); LYMPH % 12.6 % (24.0-44.0); MEAN CORPUSCULAR HEMOGLOBIN 34.8 pg (27.0-33.0); MEAN CORPUSCULAR HGB CONC 33.8 g/dl (32.0-36.5); MEAN CORPUSCULAR VOLUME 103.1 fl (80.0-96.0); MONO # 0.6 10^3/uL (0.0-0.8); MONO % 5.2 % (2.0-8.0); NEUTROPHILS # 9.3 10^3/uL (1.5-8.5); NEUTROPHILS % 78.5 % (36.0-66.0); PLATELET COUNT, AUTOMATED 623 10^3/uL (150-450); WHITE BLOOD COUNT 11.8 10^3/uL (4.0-10.0)
[2022-10-02 07:10] LABS: ALBUMIN 2.4 G/DL (3.2-5.2); ALKALINE PHOSPHATASE 77 U/L (46-116); ALT/SGPT 55 U/L (7.0-40); AST/SGOT 43 U/L (<34); BILIRUBIN,TOTAL 0.6 MG/DL (0.3-1.2); BLOOD UREA NITROGEN 35 MG/DL (9-23); CALCIUM LEVEL 7.9 MG/DL (8.3-10.6); CARBON DIOXIDE LEVEL 27 MMOL/L (20-31); CHLORIDE LEVEL 104 MMOL/L (98-107); CREATININE FOR GFR 1.01 MG/DL (0.70-1.30); GLOMERULAR FILTRATION RATE > 60.0 (>49); GLUCOSE, FASTING 153 MG/DL (74-106); MAGNESIUM LEVEL 1.6 MG/DL (1.8-2.4); POTASSIUM SERUM 4.6 MMOL/L (3.5-5.1); SODIUM LEVEL 138 MMOL/L (136-145); TOTAL PROTEIN 5.2 G/DL (5.7-8.2)
[2022-10-02] MEDS: IPRATROPIUM 0.5MG/ALBUTEROL 2.5MG INH SOL UD 3ML (DUONEB) NEB SCH (07:31)
[2022-10-02] MEDS ORDERED: ELIQ5TAB PO (07:54)
[2022-10-02 07:56] VITALS: BP 120/69
[2022-10-02] MEDS ORDERED: MAGN400C PO (07:57)
[2022-10-02] MEDS ORDERED: MAGNESIUM OXIDE 400MG TAB (MAG-OX) PO ONE (08:00)
[2022-10-02] MEDS: INSULIN LISPRO (NovoLOG) PER UNIT SC SCH (08:28)
[2022-10-02 08:29] VITALS: BP 120/69
[2022-10-02] MEDS: CARVedilol 12.5 MG TAB PO SCH (08:29)
[2022-10-02] MEDS: ASPIRIN 81MG ENTERIC TABLET PO SCH (08:29)
[2022-10-02] MEDS: OLMESARTAN MEDOXOMIL 20 MG TAB (BENICAR) PO SCH (08:29)
[2022-10-02] MEDS: GABAPENTIN 300 MG CAP PO SCH (08:29)
[2022-10-02] MEDS: VITAMIN B COMPLEX/VIT C CAP PO SCH (08:29)
[2022-10-02] MEDS: aMILoride 5 MG TAB PO SCH (08:29)
[2022-10-02] MEDS: SENNA 8.6 MG TAB (SENOKOT) PO SCH (08:30)
[2022-10-02] MEDS: APIXABAN 5 MG TAB (ELIQUIS) PO SCH (08:30)
[2022-10-02] MEDS: ADDERALL 5 MG TAB PO SCH (08:30)
[2022-10-02] MEDS: DOCUSATE SODIUM 100MG CAPSULE PO SCH (08:30)
[2022-10-02] MEDS: TORSEMIDE 20 MG TAB PO SCH (08:31)
[2022-10-02] MEDS ORDERED: ALBU2.5V10 INH (08:45)
[2022-10-02] MEDS ORDERED: LEVEMIR (INSULIN DETEMIR) 1 UNITS/0.01ML SC SCH (09:00)
[2022-10-02] MEDS ORDERED: IPRA0.00 NEB (09:31)
[2022-10-07] MEDS ORDERED: APIXABAN 5 MG TAB (ELIQUIS) PO SCH (21:00)
== END 2022-10-02 10:20 | disposition home or self-care (01) ==
LOC: M ED 10:45 → M ED INP 10:46 → ENRESERV 15:22 → M PCU 15:54
PROVIDERS: ADMIT Internal Medicine; ATTEND Internal Medicine
DX: I26.99 Other pulmonary embolism without acute cor pulmonale (principal); C25.9 Malignant neoplasm of pancreas, unspecified; I25.10 Atherosclerotic heart disease of native coronary artery without angina pectoris; Z95.1 Presence of aortocoronary bypass graft; E11.9 Type 2 diabetes mellitus without complications; G47.33 Obstructive sleep apnea (adult) (pediatric); D72.829 Elevated white blood cell count, unspecified; E87.5 Hyperkalemia; Z79.4 Long term (current) use of insulin; Z92.3 Personal history of irradiation; I10 Essential (primary) hypertension; Z79.01 Long term (current) use of anticoagulants; Z79.82 Long term (current) use of aspirin; Z79.899 Other long term (current) drug therapy; F90.9 Attention-deficit hyperactivity disorder, unspecified type; F41.9 Anxiety disorder, unspecified; Z91.030 Bee allergy status; R74.01 Elevation of levels of liver transaminase levels
CPT/HCPCS: 36415; 71045; 71275; 80048; 80053; 80076; 82550; 82553; 82803; 83735; 83880; 83930; 84132; 84443; 84484; 85025; 85610; 85730; 87040; 87486; 87581; 87633; 87798; 93005; 93041; 93306; 93970; 94640; 94760; 96374; 97161; 99285; G0378; J1815; Q9967

== ENCOUNTER → 2022-10-05 | Outpatient (CLI) | payer MEDICARE ==
[~2022-10-05] MED LIST changes: +ALBU2.5V10 INH; +CALC1TAB42 PO; +CVS1TAB PO; +ECOT81TA5 PO; +ELIQ5TAB PO; +PRED20TA PO
[2022-10-05 10:26] LABS: HEMATOCRIT 32.3 % (42.0-52.0); HEMOGLOBIN 10.8 g/dl (13.5-17.5); MEAN CORPUSCULAR HEMOGLOBIN 34.8 pg (27.0-33.0); MEAN CORPUSCULAR HGB CONC 33.4 g/dl (32.0-36.5); MEAN CORPUSCULAR VOLUME 104.2 fl (80.0-96.0); PLATELET COUNT, AUTOMATED 447 10^3/uL (150-450); WHITE BLOOD COUNT 13.3 10^3/uL (4.0-10.0)
[2022-10-05 10:51] LABS: BLOOD UREA NITROGEN 20 MG/DL (9-23); CALCIUM LEVEL 8.4 MG/DL (8.3-10.6); CARBON DIOXIDE LEVEL 28 MMOL/L (20-31); CHLORIDE LEVEL 103 MMOL/L (98-107); CREATININE FOR GFR 0.91 MG/DL (0.70-1.30); GLOMERULAR FILTRATION RATE > 60.0 (>49); GLUCOSE, FASTING 284 MG/DL (74-106); POTASSIUM SERUM 4.9 MMOL/L (3.5-5.1); SODIUM LEVEL 135 MMOL/L (136-145)
== END ==
LOC: M LAB 09:42
PROVIDERS: ATTEND Physician Assistant
DX: I50.32 Chronic diastolic (congestive) heart failure (principal); I25.10 Atherosclerotic heart disease of native coronary artery without angina pectoris

== ENCOUNTER → 2022-10-05 | Outpatient (CLI) | payer MEDICARE ==
[2022-10-08 14:08] LABS: MUMPS VIRUS IgG ANTIBODY 37.3 AU/mL (Immune >10.9)
== END ==
LOC: M LAB 09:39
PROVIDERS: ATTEND Family Medicine
DX: Z02.1 Encounter for pre-employment examination (principal)

== ENCOUNTER → 2022-10-25 | Outpatient (CLI) | payer MEDICARE ==
[~2022-10-25] MED LIST changes: -AK-T0.3S OS; +ALBU2.5V10 NEB; +GUAI1SOL7 PO; +SENN-186 PO; -SENN-80 PO; +TOBR0.3S30 OS
== END ==
LOC: M ONCR 10:34
PROVIDERS: ATTEND General Practice
DX: J70.0 Acute pulmonary manifestations due to radiation (principal); W88.8XXA Exposure to other ionizing radiation, initial encounter

== ENCOUNTER → 2022-11-01 | Outpatient (CLI) | payer MEDICARE ==
[~2022-11-01] MED LIST changes: +LEVO1TAB40 PO; +PRED5PAK2 PO
== END ==
LOC: M RAD 13:14
PROVIDERS: ATTEND Nurse Practitioner
DX: R05.9 Cough, unspecified (principal)

== ENCOUNTER → 2022-11-26 | Outpatient (CLI) | payer MEDICARE ==
[~2022-11-26] MED LIST changes: +GASTROGRAFIN SOLUTION 30ML As Ordered ONE; +ISOVUE-370 76% 100ML VIAL As Ordered ONE
== END ==
LOC: M RAD 14:59
PROVIDERS: ATTEND General Practice
DX: C78.01 Secondary malignant neoplasm of right lung (principal)
CPT/HCPCS: 71260; 74177; Q9963; Q9967

== ENCOUNTER 2022-12-12 05:46 | Emergency (ER) | payer MEDICARE ==
[~2022-12-12] VITALS: Ht 180.3 cm; Wt 111.9 kg
[~2022-12-12 05:46] MED LIST changes: -GASTROGRAFIN SOLUTION 30ML As Ordered ONE; -ISOVUE-370 76% 100ML VIAL As Ordered ONE
[2022-12-12] MEDS: HYDROMORPHONE HCL 0.5 MG/ 0.5 ML SYRINGE IV PRN ×2 (07:46→08:40)
[2022-12-12] MEDS ORDERED: ISOVUE-370 76% 100ML VIAL As Ordered ONE (07:56)
[2022-12-12] MEDS ORDERED: TORS20TA2 PO (08:04)
[2022-12-12 08:14] LABS: BASO # 0.1 10^3/uL (0.0-0.2); BASO % 2.3 % (0.0-1.0); EOS # 0.1 10^3/uL (0.0-0.5); EOS % 1.7 % (0.0-3.0); HEMATOCRIT 31.1 % (42.0-52.0); HEMOGLOBIN 10.6 g/dl (13.5-17.5); LYMPH # 0.8 10^3/uL (1.5-5.0); LYMPH % 16.6 % (24.0-44.0); MEAN CORPUSCULAR HEMOGLOBIN 34.6 pg (27.0-33.0); MEAN CORPUSCULAR HGB CONC 34.1 g/dl (32.0-36.5); MEAN CORPUSCULAR VOLUME 101.6 fl (80.0-96.0); MONO % 19.9 % (2.0-8.0); NEUTROPHILS # 2.6 10^3/uL (1.5-8.5); NEUTROPHILS % 54.5 % (36.0-66.0); PLATELET COUNT, AUTOMATED 661 10^3/uL (150-450); RED BLOOD COUNT 3.06 10^6/uL (4.30-6.10); WHITE BLOOD COUNT 4.8 10^3/uL (4.0-10.0)
[2022-12-12 08:29] LABS: INR 1.11; PROTHROMBIN TIME 14.5 SECONDS (12.5-14.5)
[2022-12-12 08:30] LABS: PARTIAL THROMBOPLASTIN TIME 25.6 SECONDS (24.8-34.2)
[2022-12-12 08:48] LABS: CK-MB VALUE MASS < 1.0 NG/ML (<3.6); LIPASE 28 U/L (12-53)
[2022-12-12 08:50] LABS: ALBUMIN 2.4 G/DL (3.2-5.2); ALKALINE PHOSPHATASE 85 U/L (46-116); ALT/SGPT 71 U/L (7.0-40); AST/SGOT 45 U/L (<34); BILIRUBIN,DIRECT < 0.1 MG/DL (<0.4); BILIRUBIN,TOTAL 0.2 MG/DL (0.3-1.2); BLOOD UREA NITROGEN 36 MG/DL (9-23); CALCIUM LEVEL 7.8 MG/DL (8.3-10.6); CARBON DIOXIDE LEVEL 25 MMOL/L (20-31); CHLORIDE LEVEL 103 MMOL/L (98-107); CPK CREATINE PHOSPHOKINASE 103 U/L (46-171); CREATININE FOR GFR 1.05 MG/DL (0.70-1.30); GLOMERULAR FILTRATION RATE > 60.0 (>49); GLUCOSE, FASTING 323 MG/DL (74-106); MB/CK RELATIVE INDEX 0.97 (< OR =4); POTASSIUM SERUM 5.2 MMOL/L (3.5-5.1); SODIUM LEVEL 134 MMOL/L (136-145); TOTAL PROTEIN 5.3 G/DL (5.7-8.2)
[2022-12-12 08:52] LABS: THYROID STIMULATING HORMONE 2.522 uIU/ML (0.55-4.78)
[2022-12-12 09:12] LABS: RSV AMPLIFICATION NEGATIVE (NEGATIVE)
[2022-12-12 11:15] LABS: CK-MB VALUE MASS < 1.0 NG/ML (<3.6)
[2022-12-12 11:19] LABS: CPK CREATINE PHOSPHOKINASE 96 U/L (46-171); MB/CK RELATIVE INDEX 1.04 (< OR =4)
[2022-12-12] MEDS ORDERED: GABAPENTIN 100 MG CAP PO ONE (12:55)
[2022-12-12] MEDS ORDERED: HYDROMORPHONE HCL 0.5 MG/ 0.5 ML SYRINGE IV PRN (12:55)
[2022-12-12] MEDS ORDERED: KETOROLAC 30 MG/ML 1ML VIAL IV ONE (12:55)
[2022-12-12] MEDS ORDERED: DILA2TAB6 PO (14:11)
[2022-12-12] MEDS ORDERED: KETO10TAB PO (14:11)
[2022-12-12] MEDS ORDERED: NEUR100C PO (14:11)
[2022-12-12] MEDS ORDERED: SODIUM CHLORIDE 0.9% INJ 10 ML SYR IV PRN (14:20)
[2022-12-12 14:51] VITALS: BP 186/94
[2022-12-13] MEDS ORDERED: SODIUM CHLORIDE 0.9% INJ 10 ML SYR IV SCH (09:00)
[2022-12-13] MEDS ORDERED: AMIT50TA PO (11:43)
[2022-12-13] MEDS ORDERED: ELIQ5TAB PO (11:43)
[2022-12-13] MEDS ORDERED: GUAI1SOL7 PO (11:43)
[2022-12-13] MEDS ORDERED: DICL20GE TOP (11:46)
[2022-12-18] MEDS ORDERED: HYDR2TAB2 PO (14:40)
== END 2022-12-12 14:57 | disposition home or self-care (01) ==
LOC: M ED 05:46
DX: R09.1 Pleurisy (principal); I49.1 Atrial premature depolarization; I44.0 Atrioventricular block, first degree; I45.10 Unspecified right bundle-branch block; I44.4 Left anterior fascicular block; I25.2 Old myocardial infarction; E11.9 Type 2 diabetes mellitus without complications; G47.33 Obstructive sleep apnea (adult) (pediatric); Z79.52 Long term (current) use of systemic steroids; Z79.810 Long term (current) use of selective estrogen receptor modulators (SERMs); Z79.4 Long term (current) use of insulin; Z79.899 Other long term (current) drug therapy; Z87.891 Personal history of nicotine dependence; Z91.030 Bee allergy status
CPT/HCPCS: 71045; 71275; 80047; 80048; 80076; 82550; 82553; 83690; 83880; 84443; 84484; 85025; 85610; 85730; 87040; 87631; 93005; 93041; 94760; 96374; 96375; 96376; 99285; J1170; J1885; Q9967

== ENCOUNTER → 2022-12-13 | Outpatient (CLI) | payer MEDICARE ==
[~2022-12-13] MED LIST changes: +AMIT50TA PO; +DICL20GE TOP; +DILA2TAB6 PO; +HYDR2TAB2 PO; +KETO10TAB PO; +NEUR100C PO
== END ==
LOC: M ONCR 10:48
PROVIDERS: ATTEND General Practice
DX: C78.01 Secondary malignant neoplasm of right lung (principal); C78.02 Secondary malignant neoplasm of left lung; C79.51 Secondary malignant neoplasm of bone; J70.1 Chronic and other pulmonary manifestations due to radiation; W88.8XXA Exposure to other ionizing radiation, initial encounter; R05.9 Cough, unspecified; N18.9 Chronic kidney disease, unspecified; I26.99 Other pulmonary embolism without acute cor pulmonale; Z71.2 Person consulting for explanation of examination or test findings; Z79.01 Long term (current) use of anticoagulants; Z79.891 Long term (current) use of opiate analgesic; Z79.899 Other long term (current) drug therapy; Z80.0 Family history of malignant neoplasm of digestive organs; Z90.411 Acquired partial absence of pancreas; Z92.3 Personal history of irradiation; Z92.21 Personal history of antineoplastic chemotherapy; Z87.891 Personal history of nicotine dependence; I51.7 Cardiomegaly; I25.10 Atherosclerotic heart disease of native coronary artery without angina pectoris; M25.512 Pain in left shoulder; Z91.030 Bee allergy status; Z79.82 Long term (current) use of aspirin; Z79.4 Long term (current) use of insulin

== ENCOUNTER → 2022-12-27 | Outpatient (CLI) | payer MEDICARE ==
[~2022-12-27] MED LIST changes: +LIDO5TD TOP; +METH4PACK
== END ==
LOC: M ONCR 10:29
PROVIDERS: ATTEND General Practice
DX: C78.01 Secondary malignant neoplasm of right lung (principal); C78.02 Secondary malignant neoplasm of left lung; L59.8 Other specified disorders of the skin and subcutaneous tissue related to radiation; Z71.2 Person consulting for explanation of examination or test findings; Z79.01 Long term (current) use of anticoagulants; Z79.4 Long term (current) use of insulin; Z79.82 Long term (current) use of aspirin; Z79.891 Long term (current) use of opiate analgesic; Z79.899 Other long term (current) drug therapy; Z85.07 Personal history of malignant neoplasm of pancreas; Z87.891 Personal history of nicotine dependence; Z91.030 Bee allergy status; Z92.3 Personal history of irradiation

== ENCOUNTER → 2023-01-03 | Outpatient (CLI) | payer MEDICARE ==
[~2023-01-03] VITALS: Ht 179.1 cm; Wt 113.5 kg
[~2023-01-03] MED LIST changes: -METH4PACK
[2023-01-03 09:00] VITALS: BP 99/63; TEMP 97; O2SAT 95
== END ==
LOC: M PAL 08:42
PROVIDERS: ATTEND Nurse Practitioner Adult Health
DX: C25.9 Malignant neoplasm of pancreas, unspecified (principal); C78.00 Secondary malignant neoplasm of unspecified lung; J70.0 Acute pulmonary manifestations due to radiation; E11.9 Type 2 diabetes mellitus without complications; I12.9 Hypertensive chronic kidney disease with stage 1 through stage 4 chronic kidney disease, or unspecified chronic kidney disease; N18.9 Chronic kidney disease, unspecified; G47.33 Obstructive sleep apnea (adult) (pediatric); I25.10 Atherosclerotic heart disease of native coronary artery without angina pectoris; M54.9 Dorsalgia, unspecified; R06.02 Shortness of breath; Z79.51 Long term (current) use of inhaled steroids; Z79.891 Long term (current) use of opiate analgesic; Z79.899 Other long term (current) drug therapy; Z51.5 Encounter for palliative care; Z91.030 Bee allergy status; Z79.4 Long term (current) use of insulin; Z79.82 Long term (current) use of aspirin; Z87.891 Personal history of nicotine dependence; Z92.3 Personal history of irradiation

== ENCOUNTER → 2023-01-07 | Outpatient (CLI) | payer MEDICARE | LOC: M SOG 09:11 | PROVIDERS: ATTEND Orthopaedic Surgery | DX: Z53.9 Procedure and treatment not carried out, unspecified reason (principal); M25.512 Pain in left shoulder ==

== ENCOUNTER 2023-01-23 05:09 | Emergency (ER) | payer MEDICARE ==
[~2023-01-23] VITALS: Ht 177.8 cm; Wt 107.6 kg
[~2023-01-23 05:09] MED LIST changes: +METH4PACK
[2023-01-23] MEDS ORDERED: MORPHINE 4 MG/ML 1ML VIAL IV ONE ×2 (06:25→08:35)
[2023-01-23] MEDS ORDERED: MORPHINE 4 MG/ML 1ML VIAL As Ordered ONE (06:25)
[2023-01-23] MEDS ORDERED: ONDANSETRON 4MG 2ML VIAL IV ONE (06:25)
[2023-01-23] MEDS ORDERED: SODIUM CHLORIDE 0.9% INJ 10 ML SYR IV PRN (06:30)
[2023-01-23 06:41] LABS: HEMATOCRIT 28.7 % (42.0-52.0); HEMOGLOBIN 9.9 g/dl (13.5-17.5); MEAN CORPUSCULAR HEMOGLOBIN 34.3 pg (27.0-33.0); MEAN CORPUSCULAR HGB CONC 34.5 g/dl (32.0-36.5); MEAN CORPUSCULAR VOLUME 99.3 fl (80.0-96.0); PLATELET COUNT, AUTOMATED 750 10^3/uL (150-450); RED BLOOD COUNT 2.89 10^6/uL (4.30-6.10)
[2023-01-23 06:55] LABS: INR 1.29; LIPASE 25 U/L (12-53); PROTHROMBIN TIME 16.3 SECONDS (12.5-14.5)
[2023-01-23 06:56] LABS: D-DIMER QUANT 1425.27 ng/ml (<500)
[2023-01-23 06:57] LABS: ALBUMIN 2.3 G/DL (3.2-5.2); ALKALINE PHOSPHATASE 96 U/L (46-116); ALT/SGPT 52 U/L (7.0-40); AST/SGOT 57 U/L (<34); BILIRUBIN,DIRECT 0.1 MG/DL (<0.4); BILIRUBIN,TOTAL 0.4 MG/DL (0.3-1.2); BLOOD UREA NITROGEN 30 MG/DL (9-23); CALCIUM LEVEL 9.9 MG/DL (8.3-10.6); CARBON DIOXIDE LEVEL 24 MMOL/L (20-31); CHLORIDE LEVEL 103 MMOL/L (98-107); CREATININE FOR GFR 1.17 MG/DL (0.70-1.30); GLOMERULAR FILTRATION RATE > 60.0 (>49); GLUCOSE, FASTING 157 MG/DL (74-106); POTASSIUM SERUM 5.1 MMOL/L (3.5-5.1); SODIUM LEVEL 134 MMOL/L (136-145); TOTAL PROTEIN 5.1 G/DL (5.7-8.2)
[2023-01-23 07:01] LABS: CK-MB VALUE MASS 1.5 NG/ML (<3.6)
[2023-01-23 07:03] LABS: CPK CREATINE PHOSPHOKINASE 101 U/L (46-171); MB/CK RELATIVE INDEX 1.48 (< OR =4)
[2023-01-23] MEDS ORDERED: NS 500 ML IV ONE (07:05)
[2023-01-23] MEDS ORDERED: ISOVUE-370 76% 100ML VIAL As Ordered ONE (07:18)
[2023-01-23 07:32] LABS: RSV AMPLIFICATION NEGATIVE (NEGATIVE)
[2023-01-23 07:40] LABS: ATYPICAL LYMPH 1 % (0-5); BASOPHILS 2 % (0-1); EOSINOPHILS 2 % (0-3); LYMPHOCYTES 18 % (16-44); MONOCYTES 20 % (0-5); NEUTROPHILS 57 % (28-66); PLATELET ESTIMATE INCREASED (NORMAL); POLYCHROMASIA 1+
[2023-01-23 07:41] LABS: ANISOCYTOSIS 2+; POIKILOCYTOSIS 1+; SCHISTOCYTES 2+
[2023-01-23] MEDS ORDERED: SODIUM CHLORIDE 0.9% INJ 10 ML SYR IV SCH (09:00)
[2023-01-23 09:18] LABS: CK-MB VALUE MASS < 1.0 NG/ML (<3.6)
[2023-01-23 09:24] LABS: CPK CREATINE PHOSPHOKINASE 108 U/L (46-171); MB/CK RELATIVE INDEX 0.92 (< OR =4)
[2023-01-23 09:43] VITALS: BP 184/86; TEMP 97.8; O2SAT 99
[2023-01-24] MEDS ORDERED: HYDR2TAB2 PO ×2 (08:23→08:25)
== END 2023-01-23 10:01 | disposition home or self-care (01) ==
LOC: M ED 05:09
DX: C79.51 Secondary malignant neoplasm of bone (principal); C34.90 Malignant neoplasm of unspecified part of unspecified bronchus or lung; R00.0 Tachycardia, unspecified; I44.0 Atrioventricular block, first degree; C25.9 Malignant neoplasm of pancreas, unspecified; E11.9 Type 2 diabetes mellitus without complications; I10 Essential (primary) hypertension; E78.5 Hyperlipidemia, unspecified; R91.1 Solitary pulmonary nodule; Z86.79 Personal history of other diseases of the circulatory system; Z87.891 Personal history of nicotine dependence; Z92.21 Personal history of antineoplastic chemotherapy; Z92.3 Personal history of irradiation; Z91.030 Bee allergy status; Z79.52 Long term (current) use of systemic steroids; Z79.01 Long term (current) use of anticoagulants; Z79.83 Long term (current) use of bisphosphonates; Z79.4 Long term (current) use of insulin; Z79.899 Other long term (current) drug therapy
CPT/HCPCS: 71046; 71275; 72131; 74177; 80048; 80076; 82550; 82553; 83690; 83880; 84484; 85025; 85379; 85610; 87631; 93005; 93041; 94760; 96361; 96374; 96375; 99285; J2405; Q9967

== ENCOUNTER 2023-01-28 09:41 | Emergency (ER) | payer MEDICARE ==
[~2023-01-28] VITALS: Ht 177.8 cm; Wt 106.2 kg
[2023-01-28] MEDS: HYDROMORPHONE HCL 0.5 MG/ 0.5 ML SYRINGE IV PRN ×2 (12:04→12:48)
[2023-01-28 12:18] LABS: BASO % 0.2 % (0.0-1.0); EOS # 0.1 10^3/uL (0.0-0.5); EOS % 0.6 % (0.0-3.0); HEMATOCRIT 28.4 % (42.0-52.0); HEMOGLOBIN 9.5 g/dl (13.5-17.5); LYMPH # 0.6 10^3/uL (1.5-5.0); LYMPH % 4.4 % (24.0-44.0); MEAN CORPUSCULAR HEMOGLOBIN 34.1 pg (27.0-33.0); MEAN CORPUSCULAR HGB CONC 33.5 g/dl (32.0-36.5); MEAN CORPUSCULAR VOLUME 101.8 fl (80.0-96.0); MONO # 0.1 10^3/uL (0.0-0.8); MONO % 0.8 % (2.0-8.0); NEUTROPHILS # 11.9 10^3/uL (1.5-8.5); NEUTROPHILS % 93.3 % (36.0-66.0); PLATELET COUNT, AUTOMATED 333 10^3/uL (150-450); RED BLOOD COUNT 2.79 10^6/uL (4.30-6.10); WHITE BLOOD COUNT 12.8 10^3/uL (4.0-10.0)
[2023-01-28 12:30] LABS: INR 1.17; PROTHROMBIN TIME 15.1 SECONDS (12.5-14.5)
[2023-01-28 12:31] LABS: PARTIAL THROMBOPLASTIN TIME 25.9 SECONDS (24.8-34.2)
[2023-01-28 12:43] LABS: LIPASE 26 U/L (12-53)
[2023-01-28 12:44] LABS: CK-MB VALUE MASS < 1.0 NG/ML (<3.6)
[2023-01-28 12:45] LABS: CPK CREATINE PHOSPHOKINASE 70 U/L (46-171); MB/CK RELATIVE INDEX 1.42 (< OR =4)
[2023-01-28 12:46] LABS: ALBUMIN 2.1 G/DL (3.2-5.2); ALKALINE PHOSPHATASE 94 U/L (46-116); ALT/SGPT 37 U/L (7.0-40); AST/SGOT 12 U/L (<34); BILIRUBIN,DIRECT 0.2 MG/DL (<0.4); BILIRUBIN,TOTAL 0.7 MG/DL (0.3-1.2); BLOOD UREA NITROGEN 40 MG/DL (9-23); CALCIUM LEVEL 7.6 MG/DL (8.3-10.6); CARBON DIOXIDE LEVEL 24 MMOL/L (20-31); CHLORIDE LEVEL 104 MMOL/L (98-107); CREATININE FOR GFR 1.02 MG/DL (0.70-1.30); GLOMERULAR FILTRATION RATE > 60.0 (>49); GLUCOSE, FASTING 368 MG/DL (74-106); SODIUM LEVEL 134 MMOL/L (136-145); TOTAL PROTEIN 4.7 G/DL (5.7-8.2)
[2023-01-28 12:50] LABS: RSV AMPLIFICATION NEGATIVE (NEGATIVE)
[2023-01-28] MEDS ORDERED: ISOVUE-370 76% 100ML VIAL As Ordered ONE (13:10)
[2023-01-28] MEDS ORDERED: TORS20TA2 PO (14:16)
[2023-01-28] MEDS ORDERED: MAGN400T2 PO (14:16)
[2023-01-28] MEDS ORDERED: SUCRALFATE SUSP 1GM/10ML UD PO ONE (17:05)
[2023-01-28] MEDS ORDERED: PERCOCET 5MG/325MG TAB PO ONE (17:05)
[2023-01-28] MEDS ORDERED: OMEP40CA4 PO (18:22)
[2023-01-28] MEDS ORDERED: SUCR1TA PO (18:22)
[2023-01-28 19:25] VITALS: BP 168/68; TEMP 97; O2SAT 97
== END 2023-01-28 19:27 | disposition home or self-care (01) ==
LOC: M ED 09:41
DX: K26.9 Duodenal ulcer, unspecified as acute or chronic, without hemorrhage or perforation (principal); C34.90 Malignant neoplasm of unspecified part of unspecified bronchus or lung; C78.89 Secondary malignant neoplasm of other digestive organs; I44.0 Atrioventricular block, first degree; I49.3 Ventricular premature depolarization; I45.19 Other right bundle-branch block; I25.2 Old myocardial infarction; C61 Malignant neoplasm of prostate; E78.5 Hyperlipidemia, unspecified; I10 Essential (primary) hypertension; E11.9 Type 2 diabetes mellitus without complications; Z86.79 Personal history of other diseases of the circulatory system; Z87.891 Personal history of nicotine dependence; Z91.030 Bee allergy status; Z79.52 Long term (current) use of systemic steroids; Z79.4 Long term (current) use of insulin; Z79.811 Long term (current) use of aromatase inhibitors; Z79.899 Other long term (current) drug therapy
CPT/HCPCS: 74021; 74177; 80048; 80076; 82550; 82553; 83605; 83690; 84484; 85025; 85610; 85730; 86850; 86900; 86901; 87631; 93005; 96374; 96376; 99284; J1170; Q9967

== ENCOUNTER → 2023-02-19 | Outpatient (CLI) | payer MEDICARE ==
[~2023-02-19] MED LIST changes: +MAGN400T2 PO; +OMEP40CA4 PO; +PRED1TABL PO; +SUCR1TA PO
== END ==
LOC: M RAD 08:03
PROVIDERS: ATTEND Internal Medicine Pulmonary Disease
DX: R91.8 Other nonspecific abnormal finding of lung field (principal); J47.9 Bronchiectasis, uncomplicated; J90 Pleural effusion, not elsewhere classified; I25.10 Atherosclerotic heart disease of native coronary artery without angina pectoris; J98.11 Atelectasis; K57.90 Diverticulosis of intestine, part unspecified, without perforation or abscess without bleeding

== ENCOUNTER → 2023-03-06 | Outpatient (CLI) | payer MEDICARE ==
[~2023-03-06] MED LIST changes: +MAGN400T33 PO
[2023-03-06 07:56] LABS: BASO % 0.4 % (0.0-1.0); EOS # 0.1 10^3/uL (0.0-0.5); EOS % 1.9 % (0.0-3.0); HEMATOCRIT 27.3 % (42.0-52.0); HEMOGLOBIN 8.8 g/dl (13.5-17.5); LYMPH # 0.6 10^3/uL (1.5-5.0); LYMPH % 11.3 % (24.0-44.0); MEAN CORPUSCULAR HGB CONC 32.2 g/dl (32.0-36.5); MEAN CORPUSCULAR VOLUME 102.2 fl (80.0-96.0); MONO # 0.3 10^3/uL (0.0-0.8); MONO % 6.4 % (2.0-8.0); NEUTROPHILS # 3.8 10^3/uL (1.5-8.5); NEUTROPHILS % 77.9 % (36.0-66.0); RED BLOOD COUNT 2.67 10^6/uL (4.30-6.10); WHITE BLOOD COUNT 4.9 10^3/uL (4.0-10.0)
[2023-03-06 08:21] LABS: ALBUMIN 1.8 G/DL (3.2-5.2); BILIRUBIN,TOTAL 0.4 MG/DL (0.3-1.2); CALCIUM LEVEL 7.7 MG/DL (8.3-10.6); CREATININE FOR GFR 1.33 MG/DL (0.70-1.30); GLOMERULAR FILTRATION RATE 57.3 (>49); POTASSIUM SERUM 4.6 MMOL/L (3.5-5.1); TOTAL PROTEIN 4.4 G/DL (5.7-8.2)
[2023-03-06 08:24] LABS: PLATELET COUNT, AUTOMATED 85 10^3/uL (150-450)
== END ==
LOC: M RAD 07:06
PROVIDERS: ATTEND Internal Medicine Cardiovascular Disease
DX: I50.32 Chronic diastolic (congestive) heart failure (principal); I47.1 Supraventricular tachycardia; I35.9 Nonrheumatic aortic valve disorder, unspecified; I25.10 Atherosclerotic heart disease of native coronary artery without angina pectoris; G47.33 Obstructive sleep apnea (adult) (pediatric); R06.02 Shortness of breath; I11.0 Hypertensive heart disease with heart failure

== ENCOUNTER 2023-03-08 10:57 | Inpatient (IN) | payer MEDICARE ==
[~2023-03-08] VITALS: Ht 177.8 cm; Wt 108.0 kg
[2023-03-08] VITALS (7 sets, daily range): BP systolic 158–159; BP diastolic 80–81; TEMP 98.2; O2SAT 92–98
[~2023-03-08 10:57] MED LIST changes: -MAGN400T33 PO
[2023-03-08] MEDS ORDERED: TORS20TA2 PO (11:26)
[2023-03-08] MEDS ORDERED: ALBUTEROL SULFATE 2.5MG/0.5ML INH NEB SOLN INH ONE (11:50)
[2023-03-08] MEDS ORDERED: IPRATROPIUM 0.5MG/ALBUTEROL 2.5MG INH SOL UD 3ML (DUONEB) NEB ONE (11:50)
[2023-03-08] MEDS ORDERED: methylPREDNISolone 125MG 2ML VIAL IV ONE (11:50)
[2023-03-08 12:06] LABS: ABG BASE EXCESS 0.3 (-2.0-2.0); ABG HCO3 24.1 MMOL/L (22.0-26.0); ABG O2 SATURATION 95.9 % (95.0-99.0); ABG PARTIAL PRESSURE CO2 35.5 mmHg (35.0-45.0); ABG STANDARD HCO3 24.8 MMOL/L. (22.0-26.0); ABG TOTAL CO2 25.2 MMOL/L (23.0-31.0)
[2023-03-08 12:55] LABS: INR 1.38; PROTHROMBIN TIME 16.6 SECONDS (12.5-14.5)
[2023-03-08 12:56] LABS: PARTIAL THROMBOPLASTIN TIME 30.7 SECONDS (24.8-34.2)
[2023-03-08 13:12] LABS: CK-MB VALUE MASS 1.3 NG/ML (<3.6)
[2023-03-08 13:14] LABS: MB/CK RELATIVE INDEX 2.03 (< OR =4)
[2023-03-08 13:15] LABS: THYROID STIMULATING HORMONE 3.34 uIU/ML (0.55-4.78); THYROXINE (T4) 8.7 UG/DL (4.5-10.9)
[2023-03-08 13:16] LABS: RSV AMPLIFICATION NEGATIVE (NEGATIVE)
[2023-03-08 13:21] LABS: PROCALCITONIN 0.31 ng/ml
[2023-03-08 13:23] LABS: ALBUMIN 1.9 G/DL (3.2-5.2); BASO # 0.1 10^3/uL (0.0-0.2); BASO % 0.8 % (0.0-1.0); BILIRUBIN,DIRECT 0.1 MG/DL (<0.4); BILIRUBIN,TOTAL 0.3 MG/DL (0.3-1.2); CALCIUM LEVEL 7.9 MG/DL (8.3-10.6); CREATININE FOR GFR 1.36 MG/DL (0.70-1.30); EOS # 0.3 10^3/uL (0.0-0.5); EOS % 4.3 % (0.0-3.0); GLOMERULAR FILTRATION RATE 55.8 (>49); HEMATOCRIT 25.6 % (42.0-52.0); HEMOGLOBIN 8.5 g/dl (13.5-17.5); LYMPH # 0.8 10^3/uL (1.5-5.0); LYMPH % 9.6 % (24.0-44.0); MEAN CORPUSCULAR HEMOGLOBIN 32.6 pg (27.0-33.0); MEAN CORPUSCULAR HGB CONC 33.2 g/dl (32.0-36.5); MEAN CORPUSCULAR VOLUME 98.1 fl (80.0-96.0); MONO # 1.5 10^3/uL (0.0-0.8); MONO % 18.4 % (2.0-8.0); NEUTROPHILS # 5.1 10^3/uL (1.5-8.5); NEUTROPHILS % 63.3 % (36.0-66.0); PLATELET COUNT, AUTOMATED 113 10^3/uL (150-450); RED BLOOD COUNT 2.61 10^6/uL (4.30-6.10); TOTAL PROTEIN 4.7 G/DL (5.7-8.2)
[2023-03-08] MEDS ORDERED: ISOVUE-370 76% 100ML VIAL As Ordered ONE (13:50)
[2023-03-08 14:32] LABS: CK-MB VALUE MASS < 1.0 NG/ML (<3.6)
[2023-03-08 14:33] LABS: CPK CREATINE PHOSPHOKINASE 60 U/L (46-171); MB/CK RELATIVE INDEX 1.66 (< OR =4)
[2023-03-08] MEDS ORDERED: ACETAMINOPHEN TAB 650MG DOSE (2X325MG) PO PRN (16:05)
[2023-03-08] MEDS ORDERED: MED REC IN PROGRESS XX SCH (16:25)
[2023-03-08] MEDS ORDERED: GLUCAGON INJ 1MG VIAL SC PRN (16:35)
[2023-03-08] MEDS ORDERED: GLUCOSE 4GM CHEW TABLET PO PRN (16:35)
[2023-03-08] MEDS ORDERED: DEXTROSE 50% 50ML SYRINGE IV PRN (16:35)
[2023-03-08] MEDS: FUROSEMIDE 100MG/10ML VIAL IV SCH (17:22)
[2023-03-08] MEDS: INSULIN LISPRO (NovoLOG) PER UNIT SC SCH ×2 (17:30→20:53)
[2023-03-08] MEDS ORDERED: MAGN400T33 PO (18:32)
[2023-03-09] VITALS (32 sets, daily range): BP systolic 155–179; BP diastolic 72–92; TEMP 97.1–98.9; O2SAT 84–100
[2023-03-09] MEDS: LEVALBUTEROL 1.25MG 0.5ML CONCENTRATE NEB INH PRN (01:50)
[2023-03-09] MEDS ORDERED: amLODIPine 5 MG TAB PO ONE ×2 (03:35)
[2023-03-09] MEDS ORDERED: LABETALOL 100MG/20ML VIAL IV STA (06:25)
[2023-03-09 06:27] LABS: CALCIUM LEVEL 7.8 MG/DL (8.3-10.6); CREATININE FOR GFR 1.3 MG/DL (0.70-1.30); GLOMERULAR FILTRATION RATE 58.8 (>49); MAGNESIUM LEVEL 1.8 MG/DL (1.8-2.4); POTASSIUM SERUM 5.2 MMOL/L (3.5-5.1)
[2023-03-09 06:28] LABS: HEMATOCRIT 23.7 % (42.0-52.0); MEAN CORPUSCULAR HEMOGLOBIN 33.2 pg (27.0-33.0); MEAN CORPUSCULAR HGB CONC 33.8 g/dl (32.0-36.5); MEAN CORPUSCULAR VOLUME 98.3 fl (80.0-96.0); PLATELET COUNT, AUTOMATED 139 10^3/uL (150-450); RED BLOOD COUNT 2.41 10^6/uL (4.30-6.10); WHITE BLOOD COUNT 7.3 10^3/uL (4.0-10.0)
[2023-03-09] MEDS: FUROSEMIDE 100MG/10ML VIAL IV SCH ×2 (08:10→17:01)
[2023-03-09] MEDS: INSULIN LISPRO (NovoLOG) PER UNIT SC SCH ×4 (08:11→20:12)
[2023-03-09] MEDS ORDERED: CLOPIDOGREL 75 MG TAB PO SCH (09:10)
[2023-03-09] MEDS ORDERED: IPRATROPIUM 0.5MG/ALBUTEROL 2.5MG INH SOL UD 3ML (DUONEB) NEB PRN (09:15)
[2023-03-09] MEDS ORDERED: IPRATROPIUM 0.5MG/ALBUTEROL 2.5MG INH SOL UD 3ML (DUONEB) NEB ONE (09:15)
[2023-03-09] MEDS: APIXABAN 5 MG TAB (ELIQUIS) PO SCH ×2 (10:32→20:24)
[2023-03-09] MEDS: CARVedilol 12.5 MG TAB PO SCH ×2 (10:33→20:29)
[2023-03-09] MEDS: predniSONE 20 MG TAB PO SCH (10:33)
[2023-03-09] MEDS ORDERED: DICL100G10 TOP (11:34)
[2023-03-09] MEDS ORDERED: OMEP40CA5 PO (11:34)
[2023-03-09] MEDS ORDERED: PRED10TA2 PO (11:34)
[2023-03-09] MEDS ORDERED: TORS20TA2 PO (11:34)
[2023-03-09] MEDS ORDERED: CALC1TAB26 PO (11:34)
[2023-03-09] MEDS ORDERED: VENTAER INH (11:37)
[2023-03-09] MEDS ORDERED: HOME MED LIST COMPLETE! XX SCH (11:40)
[2023-03-09] MEDS ORDERED: PATIROMER SORBITEX CALCIUM 8.4 GM POWDER PACKET (VELTASSA) PO SCH (12:00)
[2023-03-09 12:23] LABS: APPEARANCE, URINE CLEAR (CLEAR); BACTERIA, URINE AUTO NEGATIVE (NEGATIVE); BILIRUBIN, URINE AUTO NEGATIVE (NEGATIVE); BLOOD, URINE BLOOD 1+ (NEGATIVE); COLOR, URINE STRAW (YELLOW); GLUCOSE, URINE (UA) AUTO NEGATIVE (NEGATIVE); KETONE, URINE AUTO NEGATIVE (NEGATIVE); LEUKOCYTE ESTERASE, URINE AUTO NEGATIVE (NEGATIVE); NITRITE, URINE AUTO NEGATIVE (NEGATIVE); PROTEIN, URINE AUTO 1+ mg/dL (NEGATIVE); RBC, URINE AUTO 1 /HPF (0-3); SQUAMOUS EPITHELIAL CELL UR AU 0 /HPF (0-6); UROBILINOGEN, URINE AUTO 0.2 mg/dL (0.0-2.0); WBC, URINE AUTO 0 /HPF (0-3)
[2023-03-09 12:48] LABS: CREATININE,RANDOM URINE 31.2 MG/DL
[2023-03-09] MEDS: ANEXSIA, NORCO 7.5MG/325MG TABLET(HYDROCODONE/APAP) PO PRN ×2 (13:10→18:13)
[2023-03-09] MEDS: ONDANSETRON 4MG TAB PO PRN ×2 (13:10→18:14)
[2023-03-09] MEDS: GABAPENTIN 300 MG CAP PO SCH ×2 (13:42→20:24)
[2023-03-09] MEDS: MAGNESIUM OXIDE 400MG TAB (MAG-OX) PO SCH (13:42)
[2023-03-09] MEDS: aMILoride 5 MG TAB PO SCH (15:01)
[2023-03-09] MEDS: VITAMIN B COMPLEX/VIT C CAP PO SCH (15:02)
[2023-03-09] MEDS: OLMESARTAN MEDOXOMIL 20 MG TAB (BENICAR) PO SCH (15:04)
[2023-03-09] MEDS: TAMSULOSIN 0.4 MG CAP PO SCH (20:24)
[2023-03-09] MEDS: ATORVASTATIN 20 MG TAB PO SCH (20:24)
[2023-03-09] MEDS: ALPRAZolam 0.5 MG TAB PO PRN (20:25)
[2023-03-10] VITALS (32 sets, daily range): BP systolic 107–173; BP diastolic 58–81; TEMP 97.2–98.4; O2SAT 90–100
[2023-03-10 07:39] LABS: BASO % 0.2 % (0.0-1.0); EOS # 0.3 10^3/uL (0.0-0.5); EOS % 3.6 % (0.0-3.0); HEMATOCRIT 28.2 % (42.0-52.0); HEMOGLOBIN 9.1 g/dl (13.5-17.5); LYMPH % 10.5 % (24.0-44.0); MEAN CORPUSCULAR HEMOGLOBIN 32.7 pg (27.0-33.0); MEAN CORPUSCULAR HGB CONC 32.3 g/dl (32.0-36.5); MEAN CORPUSCULAR VOLUME 101.4 fl (80.0-96.0); MONO % 16.7 % (2.0-8.0); NEUTROPHILS # 6.4 10^3/uL (1.5-8.5); NEUTROPHILS % 66.8 % (36.0-66.0); PLATELET COUNT, AUTOMATED 241 10^3/uL (150-450); RED BLOOD COUNT 2.78 10^6/uL (4.30-6.10); WHITE BLOOD COUNT 9.6 10^3/uL (4.0-10.0)
[2023-03-10 08:06] LABS: MONO # 1.6 10^3/uL (0.0-0.8)
[2023-03-10] MEDS: FUROSEMIDE 100MG/10ML VIAL IV SCH (08:33)
[2023-03-10] MEDS: INSULIN LISPRO (NovoLOG) PER UNIT SC SCH ×4 (08:33→20:14)
[2023-03-10] MEDS: GABAPENTIN 300 MG CAP PO SCH ×2 (08:34→20:16)
[2023-03-10] MEDS: predniSONE 20 MG TAB PO SCH (08:34)
[2023-03-10] MEDS: CARVedilol 12.5 MG TAB PO SCH ×2 (08:34→20:15)
[2023-03-10] MEDS: VITAMIN B COMPLEX/VIT C CAP PO SCH (08:34)
[2023-03-10] MEDS: aMILoride 5 MG TAB PO SCH (08:34)
[2023-03-10] MEDS: APIXABAN 5 MG TAB (ELIQUIS) PO SCH ×2 (08:38→20:16)
[2023-03-10] MEDS: MAGNESIUM OXIDE 400MG TAB (MAG-OX) PO SCH (08:38)
[2023-03-10] MEDS: OLMESARTAN MEDOXOMIL 20 MG TAB (BENICAR) PO SCH (08:56)
[2023-03-10 10:24] LABS: CREATININE FOR GFR 1.61 MG/DL (0.70-1.30); GLOMERULAR FILTRATION RATE 45.9 (>49); MAGNESIUM LEVEL 1.9 MG/DL (1.8-2.4)
[2023-03-10] MEDS: VITAMIN D 1,000 INTERNATIONAL UNITS TABLET PO SCH (11:53)
[2023-03-10] MEDS: ANEXSIA, NORCO 7.5MG/325MG TABLET(HYDROCODONE/APAP) PO PRN (17:07)
[2023-03-10] MEDS: LEVALBUTEROL 1.25MG 0.5ML CONCENTRATE NEB INH PRN (18:54)
[2023-03-10] MEDS: TAMSULOSIN 0.4 MG CAP PO SCH (20:14)
[2023-03-10] MEDS: ATORVASTATIN 20 MG TAB PO SCH (20:16)
[2023-03-11] VITALS (16 sets, daily range): BP systolic 160–190; BP diastolic 72–90; TEMP 96.6–97.4; O2SAT 95–100
[2023-03-11] MEDS: ANEXSIA, NORCO 7.5MG/325MG TABLET(HYDROCODONE/APAP) PO PRN ×2 (04:40→10:48)
[2023-03-11 05:18] LABS: BASO % 0.3 % (0.0-1.0); EOS # 0.6 10^3/uL (0.0-0.5); EOS % 6.4 % (0.0-3.0); HEMOGLOBIN 8.7 g/dl (13.5-17.5); LYMPH # 0.6 10^3/uL (1.5-5.0); LYMPH % 6.9 % (24.0-44.0); MEAN CORPUSCULAR HEMOGLOBIN 32.7 pg (27.0-33.0); MEAN CORPUSCULAR HGB CONC 31.1 g/dl (32.0-36.5); MEAN CORPUSCULAR VOLUME 105.3 fl (80.0-96.0); MONO % 24.2 % (2.0-8.0); NEUTROPHILS # 5.4 10^3/uL (1.5-8.5); NEUTROPHILS % 61.2 % (36.0-66.0); PLATELET COUNT, AUTOMATED 260 10^3/uL (150-450); RED BLOOD COUNT 2.66 10^6/uL (4.30-6.10); WHITE BLOOD COUNT 8.9 10^3/uL (4.0-10.0)
[2023-03-11 05:38] LABS: MONO # 2.1 10^3/uL (0.0-0.8)
[2023-03-11] MEDS: ALPRAZolam 0.5 MG TAB PO PRN ×2 (05:47→20:53)
[2023-03-11 05:54] LABS: BLOOD UREA NITROGEN 65 MG/DL (9-23); CALCIUM LEVEL 7.7 MG/DL (8.3-10.6); CARBON DIOXIDE LEVEL 28 MMOL/L (20-31); CHLORIDE LEVEL 105 MMOL/L (98-107); CREATININE FOR GFR 1.37 MG/DL (0.70-1.30); GLOMERULAR FILTRATION RATE 55.3 (>49); GLUCOSE, FASTING 330 MG/DL (74-106); POTASSIUM SERUM 4.9 MMOL/L (3.5-5.1); SODIUM LEVEL 138 MMOL/L (136-145)
[2023-03-11 08:02] LABS: CHOLESTEROL LEVEL 118 MG/DL (<200); CK-MB VALUE MASS < 1.0 NG/ML (<3.6); CPK CREATINE PHOSPHOKINASE 44 U/L (46-171); MB/CK RELATIVE INDEX 2.27 (< OR =4); TRIGLYCERIDES LEVEL 104 MG/DL (<150)
[2023-03-11 08:15] LABS: CHOLESTEROL RISK RATIO 2.81 (<5); HDL CHOLESTEROL 41.9 MG/DL (>40); LDL CHOLESTEROL 55.3 MG/DL (<100); NON-HDL-C 76.1 MG/DL
[2023-03-11 08:22] LABS: PROCALCITONIN 0.23 ng/ml
[2023-03-11] MEDS: INSULIN LISPRO (NovoLOG) PER UNIT SC SCH ×4 (09:36→20:59)
[2023-03-11] MEDS: GABAPENTIN 300 MG CAP PO SCH ×2 (09:37→20:55)
[2023-03-11] MEDS: CARVedilol 12.5 MG TAB PO SCH ×2 (09:37→20:58)
[2023-03-11] MEDS: MAGNESIUM OXIDE 400MG TAB (MAG-OX) PO SCH (09:37)
[2023-03-11] MEDS: predniSONE 20 MG TAB PO SCH (09:38)
[2023-03-11] MEDS: VITAMIN D 1,000 INTERNATIONAL UNITS TABLET PO SCH (09:38)
[2023-03-11] MEDS: APIXABAN 5 MG TAB (ELIQUIS) PO SCH ×2 (09:38→20:52)
[2023-03-11] MEDS ORDERED: PILL CUTTER 1 EACH XX PRN (10:25)
[2023-03-11] MEDS: FUROSEMIDE 100MG/10ML VIAL IV SCH ×2 (10:44→17:44)
[2023-03-11] MEDS: OLMESARTAN MEDOXOMIL 20 MG TAB (BENICAR) PO SCH (10:46)
[2023-03-11] MEDS: VITAMIN B COMPLEX/VIT C CAP PO SCH (10:46)
[2023-03-11] MEDS ORDERED: metOLazone 2.5 MG TAB PO ONE (11:00)
[2023-03-11] MEDS: ALBUTEROL 90 MCG/ACT 8GM HFA INHALER INH PRN (19:14)
[2023-03-11] MEDS: LEVALBUTEROL 1.25MG 0.5ML CONCENTRATE NEB INH PRN (19:18)
[2023-03-11] MEDS: TAMSULOSIN 0.4 MG CAP PO SCH (20:52)
[2023-03-11] MEDS: ATORVASTATIN 20 MG TAB PO SCH (20:54)
[2023-03-12] VITALS (13 sets, daily range): BP systolic 130–161; BP diastolic 60–72; TEMP 96.9–98.4; O2SAT 91–100
[2023-03-12] MEDS: ANEXSIA, NORCO 7.5MG/325MG TABLET(HYDROCODONE/APAP) PO PRN ×3 (02:37→20:08)
[2023-03-12 04:40] LABS: BASO # 0.1 10^3/uL (0.0-0.2); BASO % 0.7 % (0.0-1.0); EOS # 0.5 10^3/uL (0.0-0.5); HEMATOCRIT 27.7 % (42.0-52.0); HEMOGLOBIN 8.5 g/dl (13.5-17.5); LYMPH # 0.8 10^3/uL (1.5-5.0); LYMPH % 8.9 % (24.0-44.0); MEAN CORPUSCULAR HEMOGLOBIN 32.8 pg (27.0-33.0); MEAN CORPUSCULAR HGB CONC 30.7 g/dl (32.0-36.5); MEAN CORPUSCULAR VOLUME 106.9 fl (80.0-96.0); MONO % 26.9 % (2.0-8.0); NEUTROPHILS # 4.9 10^3/uL (1.5-8.5); NEUTROPHILS % 56.5 % (36.0-66.0); PLATELET COUNT, AUTOMATED 340 10^3/uL (150-450); RED BLOOD COUNT 2.59 10^6/uL (4.30-6.10); WHITE BLOOD COUNT 8.7 10^3/uL (4.0-10.0)
[2023-03-12 05:06] LABS: CALCIUM LEVEL 7.6 MG/DL (8.3-10.6); CREATININE FOR GFR 1.36 MG/DL (0.70-1.30); GLOMERULAR FILTRATION RATE 55.8 (>49); POTASSIUM SERUM 4.8 MMOL/L (3.5-5.1)
[2023-03-12 05:25] LABS: MONO # 2.3 10^3/uL (0.0-0.8)
[2023-03-12] MEDS: INSULIN LISPRO (NovoLOG) PER UNIT SC SCH ×4 (08:59→20:09)
[2023-03-12] MEDS: FUROSEMIDE 100MG/10ML VIAL IV SCH ×2 (09:00→17:36)
[2023-03-12] MEDS: OLMESARTAN MEDOXOMIL 20 MG TAB (BENICAR) PO SCH (09:00)
[2023-03-12] MEDS: VITAMIN B COMPLEX/VIT C CAP PO SCH (09:00)
[2023-03-12] MEDS: VITAMIN D 1,000 INTERNATIONAL UNITS TABLET PO SCH (09:00)
[2023-03-12] MEDS: APIXABAN 5 MG TAB (ELIQUIS) PO SCH ×2 (09:00→20:08)
[2023-03-12] MEDS: MAGNESIUM OXIDE 400MG TAB (MAG-OX) PO SCH (09:01)
[2023-03-12] MEDS: GABAPENTIN 300 MG CAP PO SCH ×2 (09:01→20:08)
[2023-03-12] MEDS: CARVedilol 12.5 MG TAB PO SCH ×2 (09:01→20:08)
[2023-03-12] MEDS: predniSONE 20 MG TAB PO SCH (09:01)
[2023-03-12] MEDS ORDERED: metOLazone 2.5 MG TAB PO ONE (09:40)
[2023-03-12] MEDS: LEVALBUTEROL 1.25MG 0.5ML CONCENTRATE NEB INH PRN (14:24)
[2023-03-12] MEDS: ONDANSETRON 4MG TAB PO PRN (17:35)
[2023-03-12] MEDS: ALPRAZolam 0.5 MG TAB PO PRN (17:39)
[2023-03-12] MEDS: TAMSULOSIN 0.4 MG CAP PO SCH (20:08)
[2023-03-12] MEDS: ATORVASTATIN 20 MG TAB PO SCH (22:53)
[2023-03-13] VITALS (17 sets, daily range): BP systolic 149–164; BP diastolic 72–90; TEMP 97.1–97.8; O2SAT 85–99
[2023-03-13] MEDS: LEVALBUTEROL 1.25MG 0.5ML CONCENTRATE NEB INH PRN (00:22)
[2023-03-13] MEDS: ANEXSIA, NORCO 7.5MG/325MG TABLET(HYDROCODONE/APAP) PO PRN ×2 (02:30→08:29)
[2023-03-13] MEDS: ONDANSETRON 4MG TAB PO PRN ×2 (02:32→08:26)
[2023-03-13 05:14] LABS: BASO # 0.1 10^3/uL (0.0-0.2); BASO % 0.5 % (0.0-1.0); EOS # 0.5 10^3/uL (0.0-0.5); EOS % 5.5 % (0.0-3.0); HEMATOCRIT 30.9 % (42.0-52.0); HEMOGLOBIN 9.5 g/dl (13.5-17.5); LYMPH # 0.9 10^3/uL (1.5-5.0); LYMPH % 9.3 % (24.0-44.0); MEAN CORPUSCULAR HEMOGLOBIN 33.2 pg (27.0-33.0); MEAN CORPUSCULAR HGB CONC 30.7 g/dl (32.0-36.5); MONO % 26.2 % (2.0-8.0); NEUTROPHILS # 5.5 10^3/uL (1.5-8.5); NEUTROPHILS % 57.8 % (36.0-66.0); PLATELET COUNT, AUTOMATED 444 10^3/uL (150-450); RED BLOOD COUNT 2.86 10^6/uL (4.30-6.10); WHITE BLOOD COUNT 9.6 10^3/uL (4.0-10.0)
[2023-03-13 05:37] LABS: CALCIUM LEVEL 7.9 MG/DL (8.3-10.6); CREATININE FOR GFR 1.39 MG/DL (0.70-1.30); GLOMERULAR FILTRATION RATE 54.4 (>49)
[2023-03-13 06:10] LABS: MONO # 2.5 10^3/uL (0.0-0.8)
[2023-03-13] MEDS: INSULIN LISPRO (NovoLOG) PER UNIT SC SCH ×2 (08:24→11:59)
[2023-03-13] MEDS: MAGNESIUM OXIDE 400MG TAB (MAG-OX) PO SCH (08:25)
[2023-03-13] MEDS: OLMESARTAN MEDOXOMIL 20 MG TAB (BENICAR) PO SCH (08:25)
[2023-03-13] MEDS: GABAPENTIN 300 MG CAP PO SCH (08:25)
[2023-03-13] MEDS: VITAMIN B COMPLEX/VIT C CAP PO SCH (08:25)
[2023-03-13] MEDS: APIXABAN 5 MG TAB (ELIQUIS) PO SCH (08:26)
[2023-03-13] MEDS: predniSONE 20 MG TAB PO SCH (08:26)
[2023-03-13] MEDS: VITAMIN D 1,000 INTERNATIONAL UNITS TABLET PO SCH (08:26)
[2023-03-13] MEDS: CARVedilol 12.5 MG TAB PO SCH (08:27)
[2023-03-13] MEDS: FUROSEMIDE 100MG/10ML VIAL IV SCH (08:29)
[2023-03-13] MEDS ORDERED: metOLazone 2.5 MG TAB PO SCH (09:00)
[2023-03-13] MEDS ORDERED: TORS100T PO (11:39)
[2023-03-13] MEDS ORDERED: METO25TA PO (11:42)
[2023-03-13] MEDS: ALBUTEROL 90 MCG/ACT 8GM HFA INHALER INH PRN (14:27)
[2023-03-14] MEDS ORDERED: TORSEMIDE 100 MG TAB PO SCH (09:00)
[2023-03-14] MEDS ORDERED: ADDE20TA PO (16:23)
[2023-03-14] MEDS ORDERED: ALPR1TAB3 PO (16:23)
[2023-03-14] MEDS ORDERED: OXYC7.5T3 PO (16:23)
== END 2023-03-13 15:05 | disposition home health service (06) | DRG 640 ==
LOC: M ED 10:57 → M ED INP 16:04 → ENRESERV 16:21 → M PCU 17:07
PROVIDERS: ADMIT Family Medicine; ATTEND General Practice
DX: E87.70 Fluid overload, unspecified (principal); J96.21 Acute and chronic respiratory failure with hypoxia; I50.30 Unspecified diastolic (congestive) heart failure; N17.9 Acute kidney failure, unspecified; C25.9 Malignant neoplasm of pancreas, unspecified; J96.11 Chronic respiratory failure with hypoxia; C78.00 Secondary malignant neoplasm of unspecified lung; I13.0 Hypertensive heart and chronic kidney disease with heart failure and stage 1 through stage 4 chronic kidney disease, or unspecified chronic kidney disease; J70.1 Chronic and other pulmonary manifestations due to radiation; I25.10 Atherosclerotic heart disease of native coronary artery without angina pectoris; E87.5 Hyperkalemia; I27.20 Pulmonary hypertension, unspecified; N18.30 Chronic kidney disease, stage 3 unspecified; E78.5 Hyperlipidemia, unspecified; D64.9 Anemia, unspecified; Z92.3 Personal history of irradiation; G47.33 Obstructive sleep apnea (adult) (pediatric); E66.9 Obesity, unspecified; Z68.34 Body mass index [BMI] 34.0-34.9, adult; Z95.2 Presence of prosthetic heart valve; Z92.21 Personal history of antineoplastic chemotherapy; E11.9 Type 2 diabetes mellitus without complications; Z99.81 Dependence on supplemental oxygen; Z86.711 Personal history of pulmonary embolism; Z79.899 Other long term (current) drug therapy; Z79.4 Long term (current) use of insulin; Z91.030 Bee allergy status; N40.0 Benign prostatic hyperplasia without lower urinary tract symptoms; E87.1 Hypo-osmolality and hyponatremia

== ENCOUNTER → 2023-03-14 | Outpatient (CLI) | payer MEDICARE ==
[~2023-03-14] MED LIST changes: +CALC1TAB26 PO; +DICL100G10 TOP; +MAGN400T33 PO; +METO25TA PO; +OMEP40CA5 PO; +PRED10TA2 PO; +TORS100T PO
== END ==
LOC: M ONCR 16:12
PROVIDERS: ATTEND General Practice
DX: C78.01 Secondary malignant neoplasm of right lung (principal); R60.0 Localized edema; J70.0 Acute pulmonary manifestations due to radiation; C25.9 Malignant neoplasm of pancreas, unspecified; Z71.2 Person consulting for explanation of examination or test findings; Z79.01 Long term (current) use of anticoagulants; Z79.4 Long term (current) use of insulin; Z79.899 Other long term (current) drug therapy; Z87.891 Personal history of nicotine dependence; Z90.410 Acquired total absence of pancreas; Z91.030 Bee allergy status; Z92.21 Personal history of antineoplastic chemotherapy; Z92.3 Personal history of irradiation

== ENCOUNTER 2023-03-21 08:50 | Observation (INO) | payer MEDICARE ==
[~2023-03-21] VITALS: Ht 180.3 cm; Wt 106.1 kg
[2023-03-21 09:38] LABS: ABG BASE EXCESS 1.6 (-2.0-2.0); ABG HCO3 24.6 MMOL/L (22.0-26.0); ABG O2 SATURATION 96.6 % (95.0-99.0); ABG PARTIAL PRESSURE O2 78.9 mmHg (75.0-100.0); ABG STANDARD HCO3 25.9 MMOL/L. (22.0-26.0); ABG TOTAL CO2 25.6 MMOL/L (23.0-31.0)
[2023-03-21 09:45] LABS: HEMOGLOBIN 10.4 g/dl (13.5-17.5); MEAN CORPUSCULAR HEMOGLOBIN 33.5 pg (27.0-33.0); MEAN CORPUSCULAR HGB CONC 32.5 g/dl (32.0-36.5); MEAN CORPUSCULAR VOLUME 103.2 fl (80.0-96.0); PLATELET COUNT, AUTOMATED 505 10^3/uL (150-450)
[2023-03-21] MEDS ORDERED: NS 1,000 ML IV ONE ×2 (09:45→11:50)
[2023-03-21 09:55] LABS: INR 1.69; PROTHROMBIN TIME 19.5 SECONDS (12.5-14.5)
[2023-03-21 10:13] LABS: EOSINOPHILS 1 % (0-3); LYMPHOCYTES 6 % (16-44); METAMYELOCYTES 3 % (0-0); MONOCYTES 20 % (0-5); MYELOCYTES 5 % (0-0); NEUTROPHILS 63 % (28-66); PLASMA CELL 1 % (0-0); PROMYELOCYTES 1 % (0-0)
[2023-03-21 10:14] LABS: SCHISTOCYTES 2+
[2023-03-21 10:15] LABS: CK-MB VALUE MASS 1.2 NG/ML (<3.6); MB/CK RELATIVE INDEX 1.62 (< OR =4)
[2023-03-21 10:16] LABS: ANISOCYTOSIS 4+; BURR CELLS 2+
[2023-03-21 10:19] LABS: HYPERSEGMENTED POLYS 2+
[2023-03-21] MEDS: MORPHINE 2 MG/ML 1ML VIAL IV PRN ×2 (10:19→16:11)
[2023-03-21 10:20] LABS: SPHEROCYTES 2+
[2023-03-21 10:21] LABS: PLATELET ESTIMATE INCREASED (NORMAL)
[2023-03-21 10:31] LABS: HEMOGLOBIN A1c 11.4 % (4.0-6.0)
[2023-03-21] MEDS ORDERED: MED REC IN PROGRESS XX SCH (10:40)
[2023-03-21] MEDS ORDERED: MED REC CURRENTLY UNOBTAINABLE XX SCH (10:55)
[2023-03-21 11:09] LABS: MAGNESIUM LEVEL 1.9 MG/DL (1.8-2.4)
[2023-03-21 11:13] LABS: THYROID STIMULATING HORMONE 4.227 uIU/ML (0.55-4.78)
[2023-03-21 11:15] LABS: ALBUMIN 2.3 G/DL (3.2-5.2); BILIRUBIN,DIRECT 0.1 MG/DL (<0.4); BILIRUBIN,TOTAL 0.4 MG/DL (0.3-1.2); CALCIUM LEVEL 8.1 MG/DL (8.3-10.6); CREATININE FOR GFR 1.49 MG/DL (0.70-1.30); GLOMERULAR FILTRATION RATE 50.2 (>49); TOTAL PROTEIN 5.5 G/DL (5.7-8.2)
[2023-03-21 11:16] LABS: POTASSIUM SERUM 6.5 MMOL/L (3.5-5.1)
[2023-03-21 11:18] LABS: PROCALCITONIN 0.17 ng/ml
[2023-03-21] MEDS ORDERED: POTA1TAB21 PO (11:51)
[2023-03-21 12:00] LABS: POTASSIUM SERUM 5.2 MMOL/L (3.5-5.1)
[2023-03-21] MEDS ORDERED: HOME MED LIST COMPLETE! XX SCH (12:00)
[2023-03-21 12:08] LABS: CK-MB VALUE MASS 1.2 NG/ML (<3.6)
[2023-03-21 12:09] LABS: MB/CK RELATIVE INDEX 2.3 (< OR =4)
[2023-03-21] MEDS ORDERED: INSULIN LISPRO (NovoLOG) PER UNIT SC STA ×2 (12:12→14:49)
[2023-03-21] MEDS ORDERED: ISOVUE-370 76% 100ML VIAL As Ordered ONE (12:24)
[2023-03-21] MEDS ORDERED: LABETALOL 100MG/20ML VIAL IV STA (14:52)
[2023-03-21] MEDS ORDERED: GLUCAGON INJ 1MG VIAL SC PRN (15:35)
[2023-03-21] MEDS ORDERED: NITROGLYCERIN 0.4MG SUBL TABLET SL PRN (15:35)
[2023-03-21] MEDS ORDERED: ALBUTEROL 90 MCG/ACT 8GM HFA INHALER INH PRN (15:35)
[2023-03-21] MEDS ORDERED: GLUCOSE 4GM CHEW TABLET PO PRN (15:35)
[2023-03-21] MEDS ORDERED: DEXTROSE 50% 50ML SYRINGE IV PRN (15:35)
[2023-03-21] MEDS ORDERED: ALPRAZolam 0.5 MG TAB PO PRN (15:35)
[2023-03-21] MEDS ORDERED: hydrALAZINE 20MG/ML 1ML VIAL IV PRN (16:00)
[2023-03-21 16:16] LABS: CALCIUM LEVEL 8.1 MG/DL (8.3-10.6); CREATININE FOR GFR 1.5 MG/DL (0.70-1.30); GLOMERULAR FILTRATION RATE 49.8 (>49); MAGNESIUM LEVEL 1.9 MG/DL (1.8-2.4)
[2023-03-21] MEDS ORDERED: PILL CUTTER 1 EACH XX PRN (16:40)
[2023-03-21] MEDS ORDERED: INSULIN LISPRO (NovoLOG) PER UNIT SC ONE (17:00)
[2023-03-21 17:33] LABS: HEMATOCRIT 31.6 % (42.0-52.0); HEMOGLOBIN 10.2 g/dl (13.5-17.5); MEAN CORPUSCULAR HEMOGLOBIN 33.2 pg (27.0-33.0); MEAN CORPUSCULAR HGB CONC 32.3 g/dl (32.0-36.5); MEAN CORPUSCULAR VOLUME 102.9 fl (80.0-96.0); PLATELET COUNT, AUTOMATED 469 10^3/uL (150-450); RED BLOOD COUNT 3.07 10^6/uL (4.30-6.10); WHITE BLOOD COUNT 10.1 10^3/uL (4.0-10.0)
[2023-03-21] MEDS: INSULIN LISPRO (NovoLOG) PER UNIT SC SCH ×2 (17:53→21:00)
[2023-03-21 18:25] LABS: ATYPICAL LYMPH 14 % (0-5); LYMPHOCYTES 2 % (16-44); METAMYELOCYTES 1 % (0-0); MONOCYTES 16 % (0-5); NEUTROPHILS 65 % (28-66); PLATELET ESTIMATE INCREASED (NORMAL)
[2023-03-21 18:26] LABS: POLYCHROMASIA 2+; SCHISTOCYTES 1+
[2023-03-21 18:28] LABS: TEAR DROP CELLS 1+
[2023-03-21] MEDS: NS 1,000 ML IV SCH (19:05)
[2023-03-21 19:15] VITALS: BP 140/70; TEMP 98.3; O2SAT 94
[2023-03-21 19:47] VITALS: BP 134/62; TEMP 97.8; O2SAT 96
[2023-03-21] MEDS: LEVEMIR (INSULIN DETEMIR) 1 UNITS/0.01ML SC SCH (21:00)
[2023-03-21] MEDS: PERCOCET 5MG/325MG TAB PO PRN (21:29)
[2023-03-21] MEDS: ATORVASTATIN 20 MG TAB PO SCH (21:29)
[2023-03-21] MEDS: TAMSULOSIN 0.4 MG CAP PO SCH (21:30)
[2023-03-21] MEDS: predniSONE 5 MG TAB PO SCH (21:30)
[2023-03-21] MEDS: PANTOPRAZOLE 40MG TAB (PROTONIX) PO SCH (21:30)
[2023-03-21] MEDS: CARVedilol 12.5 MG TAB PO SCH (21:30)
[2023-03-21] MEDS: APIXABAN 5 MG TAB (ELIQUIS) PO SCH (21:30)
[2023-03-21] MEDS: GABAPENTIN 300 MG CAP PO SCH (21:30)
[2023-03-21] MEDS: ADDERALL 5 MG TAB PO SCH (21:30)
[2023-03-21 23:28] VITALS: BP 127/58; TEMP 98.2; O2SAT 97
[2023-03-22] MEDS ORDERED: ACETAMINOPHEN TAB 650MG DOSE (2X325MG) PO ONE (01:10)
[2023-03-22] MEDS: LEVEMIR (INSULIN DETEMIR) 1 UNITS/0.01ML SC SCH ×4 (01:12→22:15)
[2023-03-22] MEDS: ALBUTEROL SULFATE 2.5MG/0.5ML INH NEB SOLN NEB PRN ×2 (02:20→14:48)
[2023-03-22 04:08] VITALS: BP 139/67; TEMP 97.4; O2SAT 98
[2023-03-22 06:32] LABS: HEMATOCRIT 30.7 % (42.0-52.0); HEMOGLOBIN 9.8 g/dl (13.5-17.5); MEAN CORPUSCULAR HEMOGLOBIN 32.9 pg (27.0-33.0); MEAN CORPUSCULAR HGB CONC 31.9 g/dl (32.0-36.5); PLATELET COUNT, AUTOMATED 439 10^3/uL (150-450); RED BLOOD COUNT 2.98 10^6/uL (4.30-6.10)
[2023-03-22 07:01] LABS: BILIRUBIN,TOTAL 0.4 MG/DL (0.3-1.2); CALCIUM LEVEL 7.6 MG/DL (8.3-10.6); CREATININE FOR GFR 1.52 MG/DL (0.70-1.30); GLOMERULAR FILTRATION RATE 49.1 (>49); MAGNESIUM LEVEL 1.8 MG/DL (1.8-2.4); POTASSIUM SERUM 5.6 MMOL/L (3.5-5.1); TOTAL PROTEIN 4.9 G/DL (5.7-8.2)
[2023-03-22 07:40] VITALS: BP 135/71; TEMP 96.8; O2SAT 98
[2023-03-22] MEDS: INSULIN LISPRO (NovoLOG) PER UNIT SC SCH ×4 (08:25→21:00)
[2023-03-22] MEDS: PANTOPRAZOLE 40MG TAB (PROTONIX) PO SCH ×2 (08:26→21:09)
[2023-03-22] MEDS: ADDERALL 5 MG TAB PO SCH ×2 (08:26→21:18)
[2023-03-22] MEDS: GABAPENTIN 300 MG CAP PO SCH ×2 (08:26→21:09)
[2023-03-22] MEDS: predniSONE 5 MG TAB PO SCH ×2 (08:27→21:09)
[2023-03-22] MEDS: CARVedilol 12.5 MG TAB PO SCH ×2 (08:27→21:09)
[2023-03-22] MEDS: MAGNESIUM OXIDE 400MG TAB (MAG-OX) PO SCH (08:27)
[2023-03-22] MEDS: APIXABAN 5 MG TAB (ELIQUIS) PO SCH ×2 (08:27→21:09)
[2023-03-22] MEDS ORDERED: metOLazone 2.5 MG TAB PO SCH (09:00)
[2023-03-22] MEDS ORDERED: FUROSEMIDE 40MG/4ML VIAL IV ONE (09:25)
[2023-03-22] MEDS ORDERED: PATIROMER SORBITEX CALCIUM 8.4 GM POWDER PACKET (VELTASSA) PO ONE (11:00)
[2023-03-22 11:32] VITALS: BP 134/67; TEMP 97.2; O2SAT 98
[2023-03-22] MEDS: NS 1,000 ML IV SCH (12:38)
[2023-03-22 15:13] LABS: CALCIUM LEVEL 7.8 MG/DL (8.3-10.6); CREATININE FOR GFR 1.48 MG/DL (0.70-1.30); GLOMERULAR FILTRATION RATE 50.6 (>49); POTASSIUM SERUM 4.8 MMOL/L (3.5-5.1)
[2023-03-22 15:20] VITALS: BP 149/69; TEMP 97.1; O2SAT 100
[2023-03-22] MEDS: PERCOCET 5MG/325MG TAB PO PRN (18:49)
[2023-03-22 20:09] VITALS: BP 168/74; TEMP 98; O2SAT 97
[2023-03-22] MEDS: TAMSULOSIN 0.4 MG CAP PO SCH (21:09)
[2023-03-22] MEDS: ATORVASTATIN 20 MG TAB PO SCH (21:10)
[2023-03-22] MEDS ORDERED: LEVEMIR (INSULIN DETEMIR) 1 UNITS/0.01ML SC ONE (22:00)
[2023-03-23 00:06] VITALS: BP 104/50; TEMP 96.4; O2SAT 99
[2023-03-23] MEDS: NS 1,000 ML IV SCH (05:16)
[2023-03-23 05:18] VITALS: BP 123/58; O2SAT 99
[2023-03-23 07:50] LABS: BASO % 0.2 % (0.0-1.0); EOS % 0.2 % (0.0-3.0); HEMATOCRIT 33.7 % (42.0-52.0); HEMOGLOBIN 10.8 g/dl (13.5-17.5); LYMPH # 0.3 10^3/uL (1.5-5.0); LYMPH % 2.5 % (24.0-44.0); MEAN CORPUSCULAR HEMOGLOBIN 33.4 pg (27.0-33.0); MEAN CORPUSCULAR VOLUME 104.3 fl (80.0-96.0); MONO % 12.4 % (2.0-8.0); NEUTROPHILS # 10.9 10^3/uL (1.5-8.5); NEUTROPHILS % 82.1 % (36.0-66.0); PLATELET COUNT, AUTOMATED 380 10^3/uL (150-450); RED BLOOD COUNT 3.23 10^6/uL (4.30-6.10); WHITE BLOOD COUNT 13.2 10^3/uL (4.0-10.0)
[2023-03-23 08:16] VITALS: BP 162/70; TEMP 96.7; O2SAT 100
[2023-03-23 08:22] LABS: BILIRUBIN,TOTAL 0.5 MG/DL (0.3-1.2); CALCIUM LEVEL 8.1 MG/DL (8.3-10.6); CREATININE FOR GFR 1.43 MG/DL (0.70-1.30); GLOMERULAR FILTRATION RATE 52.7 (>49); POTASSIUM SERUM 4.5 MMOL/L (3.5-5.1); TOTAL PROTEIN 4.9 G/DL (5.7-8.2)
[2023-03-23 08:34] LABS: MONO # 1.6 10^3/uL (0.0-0.8)
[2023-03-23 09:26] VITALS: BP 162/70
[2023-03-23] MEDS: PANTOPRAZOLE 40MG TAB (PROTONIX) PO SCH (09:26)
[2023-03-23] MEDS: CARVedilol 12.5 MG TAB PO SCH (09:26)
[2023-03-23] MEDS: predniSONE 5 MG TAB PO SCH (09:27)
[2023-03-23] MEDS: MAGNESIUM OXIDE 400MG TAB (MAG-OX) PO SCH (09:27)
[2023-03-23] MEDS: GABAPENTIN 300 MG CAP PO SCH (09:27)
[2023-03-23] MEDS: APIXABAN 5 MG TAB (ELIQUIS) PO SCH (09:27)
[2023-03-23] MEDS: ADDERALL 5 MG TAB PO SCH (09:27)
[2023-03-23] MEDS: INSULIN LISPRO (NovoLOG) PER UNIT SC SCH ×2 (09:38→11:51)
[2023-03-23] MEDS: PERCOCET 5MG/325MG TAB PO PRN (09:38)
[2023-03-23] MEDS ORDERED: TRES1INJ2 SC (11:04)
[2023-03-23] MEDS: ALBUTEROL SULFATE 2.5MG/0.5ML INH NEB SOLN NEB PRN (11:49)
[2023-03-23] MEDS ORDERED: METO25TA PO (12:05)
[2023-03-23] MEDS ORDERED: LEVEMIR (INSULIN DETEMIR) 1 UNITS/0.01ML SC ONE (13:00)
== END 2023-03-23 13:06 | disposition home or self-care (01) ==
LOC: M ED 08:50 → M ED INP 08:51 → M PCU 18:47
PROVIDERS: ADMIT Internal Medicine; ATTEND Internal Medicine
DX: N17.9 Acute kidney failure, unspecified (principal); I16.0 Hypertensive urgency; J96.11 Chronic respiratory failure with hypoxia; Z99.81 Dependence on supplemental oxygen; R60.0 Localized edema; C25.9 Malignant neoplasm of pancreas, unspecified; C79.51 Secondary malignant neoplasm of bone; C78.00 Secondary malignant neoplasm of unspecified lung; R94.4 Abnormal results of kidney function studies; R74.01 Elevation of levels of liver transaminase levels; Z92.3 Personal history of irradiation; Z92.21 Personal history of antineoplastic chemotherapy; I27.0 Primary pulmonary hypertension; Z95.1 Presence of aortocoronary bypass graft; E66.9 Obesity, unspecified; Z79.01 Long term (current) use of anticoagulants; E11.65 Type 2 diabetes mellitus with hyperglycemia; G47.33 Obstructive sleep apnea (adult) (pediatric); I25.10 Atherosclerotic heart disease of native coronary artery without angina pectoris; Z79.4 Long term (current) use of insulin; Z98.61 Coronary angioplasty status; E78.5 Hyperlipidemia, unspecified; Z79.899 Other long term (current) drug therapy; Z79.82 Long term (current) use of aspirin; Z91.030 Bee allergy status
CPT/HCPCS: 36415; 36600; 71045; 71275; 80047; 80048; 80053; 80076; 80503; 81001; 82010; 82550; 82553; 82803; 83036; 83605; 83735; 83880; 83930; 84145; 84443; 84484; 85025; 85027; 85610; 87040; 87486; 87581; 87633; 87798; 93005; 93041; 94640; 94760; 96361; 96374; 96375; 96376; 97161; 99285; G0378; J1815; J1920; J1940; J7512; Q9967

== ENCOUNTER 2023-04-09 14:45 | Inpatient (IN) | payer MEDICARE ==
[~2023-04-09] VITALS: Ht 172.7 cm; Wt 113.7 kg
[~2023-04-09 14:45] MED LIST changes: +POTA1TAB21 PO
[2023-04-09 15:23] LABS: VENOUS BASE EXCESS 7.7 (-2.0-2.0); VENOUS HCO3 32.7 MMOL/L (23.0-27.0); VENOUS O2 SATURATION 61.1 % (60.0-80.0); VENOUS PARTIAL PRESSURE O2 33.1 mmHg (30.0-50.0); VENOUS PH 7.451 UNITS (7.330-7.430); VENOUS STANDARD HCO3 30.7 MMOL/L; VENOUS TOTAL CO2 34.2 MMOL/L (24.0-28.0)
[2023-04-09] MEDS: IPRATROPIUM 0.5MG/ALBUTEROL 2.5MG INH SOL UD 3ML (DUONEB) NEB SCH ×5 (15:36→23:12)
[2023-04-09 15:39] LABS: BASO % 0.3 % (0.0-1.0); EOS # 0.1 10^3/uL (0.0-0.5); EOS % 0.9 % (0.0-3.0); HEMATOCRIT 31.3 % (42.0-52.0); LYMPH # 0.1 10^3/uL (1.5-5.0); LYMPH % 1.2 % (24.0-44.0); MEAN CORPUSCULAR HEMOGLOBIN 32.7 pg (27.0-33.0); MEAN CORPUSCULAR HGB CONC 31.9 g/dl (32.0-36.5); MEAN CORPUSCULAR VOLUME 102.3 fl (80.0-96.0); MONO # 1.5 10^3/uL (0.0-0.8); MONO % 16.5 % (2.0-8.0); NEUTROPHILS # 7.4 10^3/uL (1.5-8.5); NEUTROPHILS % 80.6 % (36.0-66.0); PLATELET COUNT, AUTOMATED 259 10^3/uL (150-450); RED BLOOD COUNT 3.06 10^6/uL (4.30-6.10); WHITE BLOOD COUNT 9.2 10^3/uL (4.0-10.0)
[2023-04-09 15:47] LABS: INR 2.04; PROTHROMBIN TIME 22.5 SECONDS (12.5-14.5)
[2023-04-09 15:53] LABS: THYROID STIMULATING HORMONE 3.742 uIU/ML (0.55-4.78); THYROXINE (T4) 9.8 UG/DL (4.5-10.9)
[2023-04-09 15:54] LABS: ALKALINE PHOSPHATASE 152 U/L (46-116); ALT/SGPT 72 U/L (7.0-40); AST/SGOT 102 U/L (<34); BILIRUBIN,DIRECT 0.2 MG/DL (<0.4); BILIRUBIN,TOTAL 0.5 MG/DL (0.3-1.2); BLOOD UREA NITROGEN 134 MG/DL (9-23); CALCIUM LEVEL 8.1 MG/DL (8.3-10.6); CARBON DIOXIDE LEVEL 34 MMOL/L (20-31); CHLORIDE LEVEL 98 MMOL/L (98-107); CREATININE FOR GFR 2.15 MG/DL (0.70-1.30); GLOMERULAR FILTRATION RATE 32.9 (>49); GLUCOSE, FASTING 128 MG/DL (74-106); POTASSIUM SERUM 3.1 MMOL/L (3.5-5.1); SODIUM LEVEL 142 MMOL/L (136-145); TOTAL PROTEIN 5.1 G/DL (5.7-8.2)
[2023-04-09] MEDS ORDERED: methylPREDNISolone 125MG 2ML VIAL IV ONE (16:10)
[2023-04-09] MEDS ORDERED: PERCOCET 5MG/325MG TAB PO ONE (16:40)
[2023-04-09] MEDS ORDERED: MOM 30ML SUSPENSION UDC PO PRN (18:05)
[2023-04-09] MEDS ORDERED: ACETAMINOPHEN TAB 650MG DOSE (2X325MG) PO PRN (18:05)
[2023-04-09] MEDS ORDERED: GLUCOSE 4GM CHEW TABLET PO PRN (18:30)
[2023-04-09] MEDS ORDERED: GLUCAGON INJ 1MG VIAL SC PRN (18:30)
[2023-04-09] MEDS ORDERED: DEXTROSE 50% 50ML SYRINGE IV PRN (18:30)
[2023-04-09 18:45] LABS: URIC ACID 14.8 MG/DL (3.7-9.2)
[2023-04-09] MEDS ORDERED: MED REC IN PROGRESS XX SCH (18:45)
[2023-04-09 18:48] LABS: LDH LACTATE DEHYDROGENASE 560 U/L (120-246); PHOSPHORUS LEVEL 3.7 MG/DL (2.4-5.1)
[2023-04-09 19:01] LABS: PROCALCITONIN 1.68 ng/ml
[2023-04-09 19:13] LABS: ABG BASE EXCESS 10.7 (-2.0-2.0); ABG HCO3 34.6 MMOL/L (22.0-26.0); ABG O2 SATURATION 95.6 % (95.0-99.0); ABG PARTIAL PRESSURE CO2 43.4 mmHg (35.0-45.0); ABG PARTIAL PRESSURE O2 76.9 mmHg (75.0-100.0); ABG STANDARD HCO3 34.4 MMOL/L. (22.0-26.0)
[2023-04-09 19:21] LABS: HIV 1&2 SCREEN NEGATIVE (NEGATIVE)
[2023-04-09 19:29] LABS: HEPATITIS C VIRUS ABY INDEX 0.14 INDEX (<0.8)
[2023-04-09 19:30] LABS: HEPATITIS B CORE ANTIBODY IGM NEGATIVE (NEGATIVE)
[2023-04-09] MEDS ORDERED: POTA1TAB21 PO (20:25)
[2023-04-09] MEDS ORDERED: ALBU2.5V10 INH (20:25)
[2023-04-09] MEDS ORDERED: OMEP-173 PO (20:25)
[2023-04-09] MEDS ORDERED: OLME40TA PO ×2 (20:25→20:49)
[2023-04-09] MEDS ORDERED: HYDR50CA2 PO (20:25)
[2023-04-09] MEDS ORDERED: ADDE20CA3 PO (20:27)
[2023-04-09] MEDS ORDERED: TORS100T PO (20:28)
[2023-04-09] MEDS ORDERED: ALPR1TAB3 PO (20:31)
[2023-04-09] MEDS ORDERED: ELIQ5TAB PO (20:33)
[2023-04-09] MEDS ORDERED: TRES1INJ2 SC (20:35)
[2023-04-09] MEDS ORDERED: METO25TA PO (20:38)
[2023-04-09] MEDS ORDERED: PERC7.5T11 PO (20:40)
[2023-04-09 20:51] VITALS: BP 165/67; TEMP 98.5; O2SAT 92
[2023-04-09] MEDS: INSULIN LISPRO (NovoLOG) PER UNIT SC SCH (21:00)
[2023-04-09] MEDS ORDERED: HOME MED LIST COMPLETE! XX SCH (21:05)
[2023-04-09] MEDS: DOCUSATE SODIUM 100MG CAPSULE PO SCH (21:42)
[2023-04-09] MEDS: LEVEMIR (INSULIN DETEMIR) 1 UNITS/0.01ML SC SCH (21:42)
[2023-04-09] MEDS ORDERED: NITROGLYCERIN 0.4MG SUBL TABLET SL PRN (21:45)
[2023-04-09] MEDS ORDERED: ALBUTEROL SULFATE 2.5MG/0.5ML INH NEB SOLN INH PRN (21:45)
[2023-04-09] MEDS ORDERED: ALBUTEROL 90 MCG/ACT 8GM HFA INHALER INH PRN (21:45)
[2023-04-09 22:00] VITALS: O2SAT 99
[2023-04-09] MEDS: TAMSULOSIN 0.4 MG CAP PO SCH (22:12)
[2023-04-09] MEDS: CARVedilol 12.5 MG TAB PO SCH (22:12)
[2023-04-09] MEDS: GABAPENTIN 300 MG CAP PO SCH (22:12)
[2023-04-09 23:00] VITALS: O2SAT 97
[2023-04-09 23:37] VITALS: BP 116/57; TEMP 97.7; O2SAT 97
[2023-04-09 23:39] VITALS: O2SAT 96
[2023-04-10] VITALS (39 sets, daily range): BP systolic 146–180; BP diastolic 60–82; TEMP 96.9–98.5; O2SAT 85–99
[2023-04-10] MEDS: methylPREDNISolone 125MG 2ML VIAL IV SCH ×3 (01:58→18:39)
[2023-04-10] MEDS: PERCOCET 5MG/325MG TAB PO PRN ×3 (02:43→21:19)
[2023-04-10] MEDS: IPRATROPIUM 0.5MG/ALBUTEROL 2.5MG INH SOL UD 3ML (DUONEB) NEB SCH ×6 (03:17→23:00)
[2023-04-10] MEDS: ALPRAZolam 0.5 MG TAB PO PRN ×2 (04:47→21:19)
[2023-04-10 06:23] LABS: ALBUMIN 1.8 G/DL (3.2-5.2); BILIRUBIN,DIRECT 0.3 MG/DL (<0.4); BILIRUBIN,TOTAL 0.5 MG/DL (0.3-1.2); CALCIUM LEVEL 7.5 MG/DL (8.3-10.6); CREATININE FOR GFR 2.11 MG/DL (0.70-1.30); GLOMERULAR FILTRATION RATE 33.6 (>49); MAGNESIUM LEVEL 1.8 MG/DL (1.8-2.4); PHOSPHORUS LEVEL 5.2 MG/DL (2.4-5.1); POTASSIUM SERUM 3.4 MMOL/L (3.5-5.1); TOTAL PROTEIN 4.7 G/DL (5.7-8.2)
[2023-04-10] MEDS: PANTOPRAZOLE 40MG VIAL IV SCH (08:43)
[2023-04-10] MEDS: OMEPRAZOLE 20MG CAP PO SCH ×2 (08:44→21:10)
[2023-04-10] MEDS: GABAPENTIN 300 MG CAP PO SCH ×2 (08:44→21:10)
[2023-04-10] MEDS: INSULIN LISPRO (NovoLOG) PER UNIT SC SCH ×4 (08:44→21:11)
[2023-04-10] MEDS: DOCUSATE SODIUM 100MG CAPSULE PO SCH ×2 (08:44→21:10)
[2023-04-10] MEDS: APIXABAN 5 MG TAB (ELIQUIS) PO SCH ×2 (08:45→21:10)
[2023-04-10] MEDS: CARVedilol 12.5 MG TAB PO SCH ×2 (08:45→21:10)
[2023-04-10] MEDS: hydrOXYzine 50 MG TAB PO SCH (08:45)
[2023-04-10] MEDS: MAGNESIUM OXIDE 400MG TAB (MAG-OX) PO SCH (08:45)
[2023-04-10] MEDS ORDERED: TORSEMIDE 100 MG TAB PO SCH (09:00)
[2023-04-10] MEDS ORDERED: TORSEMIDE 100 MG TAB PO ONE (16:15)
[2023-04-10] MEDS ORDERED: INSULIN LISPRO (NovoLOG) PER UNIT SC ONE (18:30)
[2023-04-10] MEDS: TAMSULOSIN 0.4 MG CAP PO SCH (21:10)
[2023-04-10] MEDS: ATORVASTATIN 20 MG TAB PO SCH (21:10)
[2023-04-10] MEDS: LEVEMIR (INSULIN DETEMIR) 1 UNITS/0.01ML SC SCH (21:11)
[2023-04-11] VITALS (23 sets, daily range): BP systolic 140–180; BP diastolic 68–95; TEMP 97.5–98.5; O2SAT 90–99
[2023-04-11] MEDS: methylPREDNISolone 125MG 2ML VIAL IV SCH ×3 (01:02→16:28)
[2023-04-11] MEDS: IPRATROPIUM 0.5MG/ALBUTEROL 2.5MG INH SOL UD 3ML (DUONEB) NEB SCH ×6 (02:55→22:53)
[2023-04-11 07:09] LABS: ALBUMIN 2.1 G/DL (3.2-5.2); CALCIUM LEVEL 7.7 MG/DL (8.3-10.6); CREATININE FOR GFR 2.26 MG/DL (0.70-1.30); GLOMERULAR FILTRATION RATE 31.1 (>49); PHOSPHORUS LEVEL 4.5 MG/DL (2.4-5.1); POTASSIUM SERUM 3.4 MMOL/L (3.5-5.1)
[2023-04-11] MEDS ORDERED: PERC7.5T11 PO (07:11)
[2023-04-11] MEDS ORDERED: ADDE20CA3 PO (07:11)
[2023-04-11] MEDS ORDERED: ALPR1TAB3 PO (07:11)
[2023-04-11 07:22] LABS: ALBUMIN 1.9 G/DL (3.2-5.2); BILIRUBIN,DIRECT 0.2 MG/DL (<0.4); BILIRUBIN,TOTAL 0.4 MG/DL (0.3-1.2); MAGNESIUM LEVEL 2.2 MG/DL (1.8-2.4)
[2023-04-11 08:04] LABS: BASO % 0.1 % (0.0-1.0); HEMATOCRIT 28.8 % (42.0-52.0); HEMOGLOBIN 9.5 g/dl (13.5-17.5); MEAN CORPUSCULAR HEMOGLOBIN 33.3 pg (27.0-33.0); MEAN CORPUSCULAR VOLUME 101.1 fl (80.0-96.0); MONO # 0.2 10^3/uL (0.0-0.8); MONO % 1.4 % (2.0-8.0); NEUTROPHILS # 15.6 10^3/uL (1.5-8.5); NEUTROPHILS % 97.6 % (36.0-66.0); PLATELET COUNT, AUTOMATED 325 10^3/uL (150-450); RED BLOOD COUNT 2.85 10^6/uL (4.30-6.10)
[2023-04-11] MEDS: INSULIN LISPRO (NovoLOG) PER UNIT SC SCH ×7 (08:40→19:44)
[2023-04-11] MEDS ORDERED: TORSEMIDE 100 MG TAB PO SCH (09:00)
[2023-04-11] MEDS ORDERED: LEVEMIR (INSULIN DETEMIR) 1 UNITS/0.01ML SC SCH (09:00)
[2023-04-11] MEDS: ALPRAZolam 0.5 MG TAB PO PRN ×2 (09:34→20:03)
[2023-04-11] MEDS: hydrOXYzine 50 MG TAB PO SCH (10:18)
[2023-04-11] MEDS: CARVedilol 12.5 MG TAB PO SCH ×2 (10:20→20:10)
[2023-04-11] MEDS: MAGNESIUM OXIDE 400MG TAB (MAG-OX) PO SCH (10:21)
[2023-04-11] MEDS: PANTOPRAZOLE 40MG VIAL IV SCH (10:23)
[2023-04-11] MEDS: PERCOCET 5MG/325MG TAB PO PRN ×2 (10:23→20:04)
[2023-04-11] MEDS: GABAPENTIN 300 MG CAP PO SCH ×2 (10:24→20:09)
[2023-04-11] MEDS: APIXABAN 5 MG TAB (ELIQUIS) PO SCH ×2 (10:25→20:10)
[2023-04-11] MEDS: DOCUSATE SODIUM 100MG CAPSULE PO SCH ×2 (10:25→20:09)
[2023-04-11] MEDS: OMEPRAZOLE 20MG CAP PO SCH ×2 (10:27→20:11)
[2023-04-11 13:19] LABS: APPEARANCE, BODY FLUID TURBID (CLEAR); PLEURAL FL COLOR AMBER (COLORLESS); SOURCE, BODY FLUID PLEURAL
[2023-04-11 13:25] LABS: PH BODY FLUID 7.608 UNITS (NOT ESTABLISHED); SOURCE, BODY FLUID pH PLEURAL
[2023-04-11 13:41] LABS: SOURCE, BODY FLUID ALBUMIN PLEURAL
[2023-04-11 13:46] LABS: SOURCE, BODY FLUID GLUCOSE PLEURAL; SOURCE, BODY FLUID TRIG PLEURAL; TRIGLYCERIDE, BODY FLUID 30 MG/DL (NOT ESTABLISHED)
[2023-04-11 13:48] LABS: AMYLASE, BODY FLUID 37 U/L (NOT ESTABLISHED); LDH, BODY FLUID 474 U/L (NOT ESTABLISHED); SOURCE, BODY FLUID AMYLASE PLEURAL; SOURCE, BODY FLUID LDH PLEURAL
[2023-04-11 13:49] LABS: CHOLESTEROL, BODY FLUID 49 MG/DL (NOT ESTABLISHED); SOURCE, BODY FLUID CHOL PLEURAL; SOURCE, BODY FLUID TOT PROTEIN PLEURAL; TOTAL PROTEIN, BODY FLUID < 2.0 G/DL (NOT ESTABLISHED)
[2023-04-11] MEDS ORDERED: INSULIN LISPRO (NovoLOG) PER UNIT SC ONE ×2 (15:45→18:05)
[2023-04-11] MEDS: **hydrALAZINE** 50 MG TAB PO SCH ×2 (18:35→20:08)
[2023-04-11] MEDS: ATORVASTATIN 20 MG TAB PO SCH (20:09)
[2023-04-11] MEDS: TAMSULOSIN 0.4 MG CAP PO SCH (20:11)
[2023-04-11] MEDS: LEVEMIR (INSULIN DETEMIR) 1 UNITS/0.01ML SC SCH (20:12)
[2023-04-12] VITALS (23 sets, daily range): BP systolic 151–168; BP diastolic 69–88; TEMP 96.7–98.4; O2SAT 90–99
[2023-04-12] MEDS: methylPREDNISolone 125MG 2ML VIAL IV SCH ×3 (00:08→21:19)
[2023-04-12] MEDS: IPRATROPIUM 0.5MG/ALBUTEROL 2.5MG INH SOL UD 3ML (DUONEB) NEB SCH ×6 (03:59→23:34)
[2023-04-12 06:24] LABS: BASO % 0.1 % (0.0-1.0); HEMATOCRIT 26.6 % (42.0-52.0); HEMOGLOBIN 8.7 g/dl (13.5-17.5); LYMPH # 0.1 10^3/uL (1.5-5.0); LYMPH % 0.7 % (24.0-44.0); MEAN CORPUSCULAR HEMOGLOBIN 33.2 pg (27.0-33.0); MEAN CORPUSCULAR HGB CONC 32.7 g/dl (32.0-36.5); MEAN CORPUSCULAR VOLUME 101.5 fl (80.0-96.0); MONO # 0.4 10^3/uL (0.0-0.8); MONO % 2.1 % (2.0-8.0); NEUTROPHILS % 96.3 % (36.0-66.0); PLATELET COUNT, AUTOMATED 370 10^3/uL (150-450); RED BLOOD COUNT 2.62 10^6/uL (4.30-6.10); WHITE BLOOD COUNT 19.7 10^3/uL (4.0-10.0)
[2023-04-12 06:58] LABS: ALBUMIN 1.8 G/DL (3.2-5.2); BILIRUBIN,DIRECT 0.2 MG/DL (<0.4); BILIRUBIN,TOTAL 0.4 MG/DL (0.3-1.2); CALCIUM LEVEL 7.6 MG/DL (8.3-10.6); CREATININE FOR GFR 2.32 MG/DL (0.70-1.30); GLOMERULAR FILTRATION RATE 30.1 (>49); MAGNESIUM LEVEL 2.1 MG/DL (1.8-2.4); PHOSPHORUS LEVEL 3.6 MG/DL (2.4-5.1); POTASSIUM SERUM 3.7 MMOL/L (3.5-5.1); TOTAL PROTEIN 4.7 G/DL (5.7-8.2)
[2023-04-12 07:12] LABS: ANISOCYTOSIS 3+; PLATELET ESTIMATE NORMAL (NORMAL); POIKILOCYTOSIS 2+; SCHISTOCYTES 2+
[2023-04-12 07:14] LABS: BURR CELLS 2+; MICROCYTOSIS 1+
[2023-04-12 07:15] LABS: POLYCHROMASIA 1+; SPHEROCYTES 1+
[2023-04-12] MEDS: PANTOPRAZOLE 40MG VIAL IV SCH (09:31)
[2023-04-12] MEDS: GABAPENTIN 300 MG CAP PO SCH ×2 (09:32→21:21)
[2023-04-12] MEDS: INSULIN LISPRO (NovoLOG) PER UNIT SC SCH ×4 (09:32→21:20)
[2023-04-12] MEDS: hydrOXYzine 50 MG TAB PO SCH (09:33)
[2023-04-12] MEDS: CARVedilol 12.5 MG TAB PO SCH ×2 (09:33→21:21)
[2023-04-12] MEDS: MAGNESIUM OXIDE 400MG TAB (MAG-OX) PO SCH (09:33)
[2023-04-12] MEDS: APIXABAN 5 MG TAB (ELIQUIS) PO SCH ×2 (09:33→21:21)
[2023-04-12] MEDS: DOCUSATE SODIUM 100MG CAPSULE PO SCH ×2 (09:33→21:20)
[2023-04-12] MEDS: OMEPRAZOLE 20MG CAP PO SCH ×2 (09:34→21:20)
[2023-04-12] MEDS: **hydrALAZINE** 50 MG TAB PO SCH ×3 (09:34→21:21)
[2023-04-12] MEDS: PERCOCET 5MG/325MG TAB PO PRN ×2 (11:27→21:25)
[2023-04-12] MEDS: ALPRAZolam 0.5 MG TAB PO PRN ×2 (11:28→21:20)
[2023-04-12] MEDS: ATORVASTATIN 20 MG TAB PO SCH (21:19)
[2023-04-12] MEDS: TAMSULOSIN 0.4 MG CAP PO SCH (21:20)
[2023-04-13] VITALS (13 sets, daily range): BP systolic 156–209; BP diastolic 80–102; TEMP 95.7–98.1; O2SAT 92–96
[2023-04-13] MEDS: IPRATROPIUM 0.5MG/ALBUTEROL 2.5MG INH SOL UD 3ML (DUONEB) NEB SCH ×6 (03:03→23:35)
[2023-04-13] MEDS: PERCOCET 5MG/325MG TAB PO PRN ×2 (03:46→20:45)
[2023-04-13] MEDS ORDERED: **hydrALAZINE HCL** 25 MG TAB PO ONE (04:00)
[2023-04-13 05:41] LABS: BASO % 0.1 % (0.0-1.0); HEMATOCRIT 27.6 % (42.0-52.0); HEMOGLOBIN 9.2 g/dl (13.5-17.5); LYMPH # 0.1 10^3/uL (1.5-5.0); LYMPH % 0.3 % (24.0-44.0); MEAN CORPUSCULAR HEMOGLOBIN 33.9 pg (27.0-33.0); MEAN CORPUSCULAR HGB CONC 33.3 g/dl (32.0-36.5); MEAN CORPUSCULAR VOLUME 101.8 fl (80.0-96.0); MONO # 0.4 10^3/uL (0.0-0.8); MONO % 2.7 % (2.0-8.0); NEUTROPHILS # 15.5 10^3/uL (1.5-8.5); NEUTROPHILS % 96.5 % (36.0-66.0); PLATELET COUNT, AUTOMATED 418 10^3/uL (150-450); RED BLOOD COUNT 2.71 10^6/uL (4.30-6.10)
[2023-04-13 06:15] LABS: ALBUMIN 1.8 G/DL (3.2-5.2); BILIRUBIN,DIRECT 0.2 MG/DL (<0.4); BILIRUBIN,TOTAL 0.5 MG/DL (0.3-1.2); CALCIUM LEVEL 7.5 MG/DL (8.3-10.6); CREATININE FOR GFR 2.26 MG/DL (0.70-1.30); GLOMERULAR FILTRATION RATE 31.1 (>49); MAGNESIUM LEVEL 2.2 MG/DL (1.8-2.4); PHOSPHORUS LEVEL 4.2 MG/DL (2.4-5.1); POTASSIUM SERUM 4.2 MMOL/L (3.5-5.1); TOTAL PROTEIN 4.8 G/DL (5.7-8.2)
[2023-04-13 06:45] LABS: ANISOCYTOSIS 2+; MICROCYTOSIS 1+
[2023-04-13 06:46] LABS: BURR CELLS 1+; HYPOCHROMASIA 1+; POIKILOCYTOSIS 2+
[2023-04-13 06:48] LABS: TARGET CELLS 1+
[2023-04-13 06:49] LABS: PLATELET ESTIMATE NORMAL (NORMAL)
[2023-04-13] MEDS: INSULIN LISPRO (NovoLOG) PER UNIT SC SCH ×7 (08:19→20:46)
[2023-04-13] MEDS: LEVEMIR (INSULIN DETEMIR) 1 UNITS/0.01ML SC SCH ×2 (08:19→20:46)
[2023-04-13] MEDS: MAGNESIUM OXIDE 400MG TAB (MAG-OX) PO SCH (08:20)
[2023-04-13] MEDS: PANTOPRAZOLE 40MG VIAL IV SCH (08:20)
[2023-04-13] MEDS: hydrOXYzine 50 MG TAB PO SCH (08:20)
[2023-04-13] MEDS: CARVedilol 12.5 MG TAB PO SCH ×2 (08:20→20:31)
[2023-04-13] MEDS: DOCUSATE SODIUM 100MG CAPSULE PO SCH ×2 (08:21→20:32)
[2023-04-13] MEDS: **hydrALAZINE** 50 MG TAB PO SCH ×3 (08:21→20:30)
[2023-04-13] MEDS: GABAPENTIN 300 MG CAP PO SCH ×2 (08:21→20:31)
[2023-04-13] MEDS: APIXABAN 5 MG TAB (ELIQUIS) PO SCH ×2 (08:21→20:31)
[2023-04-13] MEDS: ALPRAZolam 0.5 MG TAB PO PRN ×2 (08:22→20:30)
[2023-04-13] MEDS: OMEPRAZOLE 20MG CAP PO SCH ×2 (08:22→20:31)
[2023-04-13] MEDS ORDERED: predniSONE 20 MG TAB PO SCH (09:00)
[2023-04-13] MEDS: ADDERALL 5 MG TAB PO SCH (14:38)
[2023-04-13] MEDS: methylPREDNISolone 40MG 1ML VIAL IV SCH (17:47)
[2023-04-13] MEDS ORDERED: hydrALAZINE 20MG/ML 1ML VIAL IV STA (19:52)
[2023-04-13 20:21] LABS: ABG BASE EXCESS 4.1 (-2.0-2.0); ABG HCO3 28.5 MMOL/L (22.0-26.0); ABG O2 SATURATION 96.6 % (95.0-99.0); ABG PARTIAL PRESSURE CO2 41.9 mmHg (35.0-45.0); ABG PARTIAL PRESSURE O2 85.3 mmHg (75.0-100.0); ABG STANDARD HCO3 28.1 MMOL/L. (22.0-26.0); ABG TOTAL CO2 29.8 MMOL/L (23.0-31.0)
[2023-04-13] MEDS: ATORVASTATIN 20 MG TAB PO SCH (20:31)
[2023-04-13] MEDS: TAMSULOSIN 0.4 MG CAP PO SCH (20:31)
[2023-04-13] MEDS ORDERED: LABETALOL 100MG/20ML VIAL IV ONE (22:00)
[2023-04-14] MEDS: methylPREDNISolone 40MG 1ML VIAL IV SCH ×2 (01:22→08:38)
[2023-04-14] MEDS: IPRATROPIUM 0.5MG/ALBUTEROL 2.5MG INH SOL UD 3ML (DUONEB) NEB SCH ×2 (03:00→07:35)
[2023-04-14 03:30] VITALS: BP 172/87; TEMP 97.6; O2SAT 96
[2023-04-14] MEDS: PERCOCET 5MG/325MG TAB PO PRN ×3 (03:37→21:00)
[2023-04-14 05:16] LABS: BASO % 0.1 % (0.0-1.0); HEMATOCRIT 29.3 % (42.0-52.0); HEMOGLOBIN 9.8 g/dl (13.5-17.5); LYMPH # 0.1 10^3/uL (1.5-5.0); LYMPH % 0.5 % (24.0-44.0); MEAN CORPUSCULAR HEMOGLOBIN 33.9 pg (27.0-33.0); MEAN CORPUSCULAR HGB CONC 33.4 g/dl (32.0-36.5); MEAN CORPUSCULAR VOLUME 101.4 fl (80.0-96.0); MONO # 0.5 10^3/uL (0.0-0.8); MONO % 3.3 % (2.0-8.0); NEUTROPHILS # 15.8 10^3/uL (1.5-8.5); NEUTROPHILS % 95.4 % (36.0-66.0); PLATELET COUNT, AUTOMATED 427 10^3/uL (150-450); RED BLOOD COUNT 2.89 10^6/uL (4.30-6.10); WHITE BLOOD COUNT 16.5 10^3/uL (4.0-10.0)
[2023-04-14 05:55] LABS: BILIRUBIN,DIRECT 0.3 MG/DL (<0.4); BILIRUBIN,TOTAL 0.5 MG/DL (0.3-1.2); CALCIUM LEVEL 7.9 MG/DL (8.3-10.6); CREATININE FOR GFR 2.16 MG/DL (0.70-1.30); GLOMERULAR FILTRATION RATE 32.7 (>49); MAGNESIUM LEVEL 2.2 MG/DL (1.8-2.4); PHOSPHORUS LEVEL 3.8 MG/DL (2.4-5.1); POTASSIUM SERUM 4.3 MMOL/L (3.5-5.1)
[2023-04-14 06:10] LABS: BURR CELLS 1+; POIKILOCYTOSIS 3+
[2023-04-14 06:11] LABS: TARGET CELLS 1+
[2023-04-14 06:13] LABS: PLATELET ESTIMATE NORMAL (NORMAL)
[2023-04-14] MEDS: INSULIN LISPRO (NovoLOG) PER UNIT SC SCH ×5 (07:30→21:00)
[2023-04-14 07:40] VITALS: BP 154/74; TEMP 97.6; O2SAT 95
[2023-04-14] MEDS: LEVEMIR (INSULIN DETEMIR) 1 UNITS/0.01ML SC SCH (07:56)
[2023-04-14] MEDS: GABAPENTIN 300 MG CAP PO SCH ×2 (08:36→21:01)
[2023-04-14] MEDS: CARVedilol 12.5 MG TAB PO SCH ×2 (08:36→21:01)
[2023-04-14] MEDS: MAGNESIUM OXIDE 400MG TAB (MAG-OX) PO SCH (08:37)
[2023-04-14] MEDS: OMEPRAZOLE 20MG CAP PO SCH ×2 (08:37→21:01)
[2023-04-14] MEDS: hydrOXYzine 50 MG TAB PO SCH (08:37)
[2023-04-14] MEDS: DOCUSATE SODIUM 100MG CAPSULE PO SCH ×2 (08:37→21:01)
[2023-04-14] MEDS: **hydrALAZINE** 50 MG TAB PO SCH ×3 (08:37→21:02)
[2023-04-14] MEDS: APIXABAN 5 MG TAB (ELIQUIS) PO SCH ×2 (08:37→21:02)
[2023-04-14] MEDS: ADDERALL 5 MG TAB PO SCH ×2 (08:38→14:24)
[2023-04-14] MEDS: PANTOPRAZOLE 40MG VIAL IV SCH (08:39)
[2023-04-14] MEDS ORDERED: LORazepam 1 MG TAB PO PRN (10:25)
[2023-04-14] MEDS: LevoFLOXacin 750 MG TABLET PO SCH (11:25)
[2023-04-14] MEDS: predniSONE 20 MG TAB PO SCH (11:25)
[2023-04-14] MEDS ORDERED: FUROSEMIDE 100MG/10ML VIAL IV ONE (11:25)
[2023-04-14] MEDS ORDERED: acetaZOLAMIDE 250MG TAB PO ONE (11:25)
[2023-04-14] MEDS ORDERED: LEVEMIR (INSULIN DETEMIR) 1 UNITS/0.01ML SC ONE (11:35)
[2023-04-14 13:31] VITALS: BP 164/75; TEMP 97.4; O2SAT 92
[2023-04-14] MEDS: acetaZOLAMIDE 250MG TAB PO SCH ×2 (14:24→21:01)
[2023-04-14 19:35] VITALS: BP 188/92; TEMP 97; O2SAT 90
[2023-04-14] MEDS: ATORVASTATIN 20 MG TAB PO SCH (21:02)
[2023-04-14] MEDS: TAMSULOSIN 0.4 MG CAP PO SCH (21:02)
[2023-04-14 23:16] VITALS: BP 174/91; TEMP 97; O2SAT 96
[2023-04-14] MEDS: LORazepam 1 MG TAB PO PRN (23:34)
[2023-04-15] VITALS (25 sets, daily range): BP systolic 150–210; BP diastolic 74–110; TEMP 96.4–97.3; O2SAT 86–100
[2023-04-15] MEDS: PERCOCET 5MG/325MG TAB PO PRN ×3 (03:48→20:57)
[2023-04-15 06:54] LABS: BASO % 0.1 % (0.0-1.0); EOS % 0.1 % (0.0-3.0); HEMATOCRIT 31.6 % (42.0-52.0); HEMOGLOBIN 10.2 g/dl (13.5-17.5); LYMPH # 0.3 10^3/uL (1.5-5.0); LYMPH % 1.9 % (24.0-44.0); MEAN CORPUSCULAR HEMOGLOBIN 33.3 pg (27.0-33.0); MEAN CORPUSCULAR HGB CONC 32.3 g/dl (32.0-36.5); MEAN CORPUSCULAR VOLUME 103.3 fl (80.0-96.0); MONO % 12.2 % (2.0-8.0); NEUTROPHILS # 13.6 10^3/uL (1.5-8.5); NEUTROPHILS % 85.3 % (36.0-66.0); PLATELET COUNT, AUTOMATED 509 10^3/uL (150-450); RED BLOOD COUNT 3.06 10^6/uL (4.30-6.10); WHITE BLOOD COUNT 15.9 10^3/uL (4.0-10.0)
[2023-04-15 07:19] LABS: BILIRUBIN,DIRECT 0.2 MG/DL (<0.4); BILIRUBIN,TOTAL 0.5 MG/DL (0.3-1.2); MAGNESIUM LEVEL 2.3 MG/DL (1.8-2.4)
[2023-04-15 07:28] LABS: ANISOCYTOSIS 3+; CREATININE FOR GFR 2.3 MG/DL (0.70-1.30); GLOMERULAR FILTRATION RATE 30.4 (>49); PHOSPHORUS LEVEL 5.4 MG/DL (2.4-5.1); POIKILOCYTOSIS 3+; POLYCHROMASIA 1+; POTASSIUM SERUM 4.2 MMOL/L (3.5-5.1); SCHISTOCYTES 2+
[2023-04-15 07:29] LABS: BURR CELLS 1+; MICROCYTOSIS 2+; PLATELET ESTIMATE INCREASED (NORMAL)
[2023-04-15] MEDS: INSULIN LISPRO (NovoLOG) PER UNIT SC SCH ×4 (09:10→20:47)
[2023-04-15] MEDS: hydrOXYzine 50 MG TAB PO SCH (09:11)
[2023-04-15] MEDS: LEVEMIR (INSULIN DETEMIR) 1 UNITS/0.01ML SC SCH (09:11)
[2023-04-15] MEDS: acetaZOLAMIDE 250MG TAB PO SCH ×2 (09:11→20:58)
[2023-04-15] MEDS: GABAPENTIN 300 MG CAP PO SCH ×2 (09:12→20:58)
[2023-04-15] MEDS: predniSONE 20 MG TAB PO SCH (09:12)
[2023-04-15] MEDS: DOCUSATE SODIUM 100MG CAPSULE PO SCH ×2 (09:12→20:58)
[2023-04-15] MEDS: CARVedilol 12.5 MG TAB PO SCH ×2 (09:13→20:56)
[2023-04-15] MEDS: OMEPRAZOLE 20MG CAP PO SCH ×2 (09:13→20:58)
[2023-04-15] MEDS: MAGNESIUM OXIDE 400MG TAB (MAG-OX) PO SCH (09:13)
[2023-04-15] MEDS: **hydrALAZINE** 50 MG TAB PO SCH ×3 (09:13→20:58)
[2023-04-15] MEDS: APIXABAN 5 MG TAB (ELIQUIS) PO SCH ×2 (09:13→20:58)
[2023-04-15] MEDS: ADDERALL 5 MG TAB PO SCH ×2 (09:14→14:08)
[2023-04-15] MEDS ORDERED: FUROSEMIDE 100MG/10ML VIAL IV ONE (11:00)
[2023-04-15] MEDS: LORazepam 1 MG TAB PO PRN (13:02)
[2023-04-15] MEDS: ATORVASTATIN 20 MG TAB PO SCH (20:52)
[2023-04-15] MEDS: TAMSULOSIN 0.4 MG CAP PO SCH (20:52)
[2023-04-15] MEDS ORDERED: LABETALOL 100MG/20ML VIAL IV STA (23:08)
[2023-04-15] MEDS ORDERED: LABETALOL 100MG/20ML VIAL IV PRN (23:25)
[2023-04-16] VITALS (17 sets, daily range): BP systolic 130–190; BP diastolic 68–88; TEMP 97.4–97.9; O2SAT 82–99
[2023-04-16] MEDS: LORazepam 1 MG TAB PO PRN ×2 (04:35→18:31)
[2023-04-16] MEDS: PERCOCET 5MG/325MG TAB PO PRN ×3 (04:36→18:32)
[2023-04-16 06:16] LABS: BASO % 0.1 % (0.0-1.0); EOS % 0.2 % (0.0-3.0); HEMATOCRIT 30.5 % (42.0-52.0); HEMOGLOBIN 9.8 g/dl (13.5-17.5); LYMPH # 0.4 10^3/uL (1.5-5.0); LYMPH % 3.2 % (24.0-44.0); MEAN CORPUSCULAR HEMOGLOBIN 33.4 pg (27.0-33.0); MEAN CORPUSCULAR HGB CONC 32.1 g/dl (32.0-36.5); MEAN CORPUSCULAR VOLUME 104.1 fl (80.0-96.0); MONO % 15.8 % (2.0-8.0); NEUTROPHILS # 10.4 10^3/uL (1.5-8.5); NEUTROPHILS % 80.2 % (36.0-66.0); PLATELET COUNT, AUTOMATED 501 10^3/uL (150-450); RED BLOOD COUNT 2.93 10^6/uL (4.30-6.10); WHITE BLOOD COUNT 12.9 10^3/uL (4.0-10.0)
[2023-04-16] MEDS: LevoFLOXacin 750 MG TABLET PO SCH (06:16)
[2023-04-16] MEDS: INSULIN LISPRO (NovoLOG) PER UNIT SC SCH ×4 (07:30→20:46)
[2023-04-16 07:31] LABS: ANISOCYTOSIS 4+
[2023-04-16 07:32] LABS: PLATELET ESTIMATE INCREASED (NORMAL); SCHISTOCYTES 3+
[2023-04-16 07:33] LABS: GIANT PLATELETS 1+
[2023-04-16 07:43] LABS: CALCIUM LEVEL 7.8 MG/DL (8.3-10.6); CREATININE FOR GFR 2.33 MG/DL (0.70-1.30); POTASSIUM SERUM 3.9 MMOL/L (3.5-5.1)
[2023-04-16] MEDS: hydrOXYzine 50 MG TAB PO SCH (08:24)
[2023-04-16] MEDS: acetaZOLAMIDE 250MG TAB PO SCH ×2 (08:25→20:46)
[2023-04-16] MEDS: predniSONE 20 MG TAB PO SCH (08:25)
[2023-04-16] MEDS: CARVedilol 12.5 MG TAB PO SCH ×2 (08:27→20:45)
[2023-04-16] MEDS: ADDERALL 5 MG TAB PO SCH ×2 (08:27→13:28)
[2023-04-16] MEDS: APIXABAN 5 MG TAB (ELIQUIS) PO SCH ×2 (08:27→20:45)
[2023-04-16] MEDS: OMEPRAZOLE 20MG CAP PO SCH ×2 (08:28→20:45)
[2023-04-16] MEDS: DOCUSATE SODIUM 100MG CAPSULE PO SCH ×2 (08:28→20:46)
[2023-04-16] MEDS: MAGNESIUM OXIDE 400MG TAB (MAG-OX) PO SCH (08:28)
[2023-04-16] MEDS: **hydrALAZINE** 50 MG TAB PO SCH ×3 (08:28→20:46)
[2023-04-16] MEDS: LEVEMIR (INSULIN DETEMIR) 1 UNITS/0.01ML SC SCH (08:29)
[2023-04-16] MEDS: GABAPENTIN 300 MG CAP PO SCH ×2 (08:31→20:46)
[2023-04-16] MEDS ORDERED: FUROSEMIDE 100MG/10ML VIAL IV ONE (14:00)
[2023-04-16] MEDS: TAMSULOSIN 0.4 MG CAP PO SCH (20:45)
[2023-04-16] MEDS: ATORVASTATIN 20 MG TAB PO SCH (20:45)
[2023-04-17] MEDS: PERCOCET 5MG/325MG TAB PO PRN ×2 (03:27→14:02)
[2023-04-17] MEDS: LORazepam 1 MG TAB PO PRN (03:27)
[2023-04-17 07:59] VITALS: BP 166/67; TEMP 96.6; O2SAT 98
[2023-04-17] MEDS: INSULIN LISPRO (NovoLOG) PER UNIT SC SCH ×4 (08:26→20:58)
[2023-04-17] MEDS: acetaZOLAMIDE 250MG TAB PO SCH (08:26)
[2023-04-17] MEDS: ADDERALL 5 MG TAB PO SCH ×2 (08:27→14:03)
[2023-04-17] MEDS: hydrOXYzine 50 MG TAB PO SCH (08:27)
[2023-04-17] MEDS: GABAPENTIN 300 MG CAP PO SCH ×2 (08:27→20:57)
[2023-04-17] MEDS: predniSONE 20 MG TAB PO SCH (08:27)
[2023-04-17] MEDS: APIXABAN 5 MG TAB (ELIQUIS) PO SCH ×2 (08:27→20:57)
[2023-04-17] MEDS: OMEPRAZOLE 20MG CAP PO SCH ×2 (08:27→20:58)
[2023-04-17] MEDS: **hydrALAZINE** 50 MG TAB PO SCH ×3 (08:27→20:57)
[2023-04-17] MEDS: MAGNESIUM OXIDE 400MG TAB (MAG-OX) PO SCH (08:28)
[2023-04-17] MEDS: CARVedilol 12.5 MG TAB PO SCH ×2 (08:28→20:58)
[2023-04-17] MEDS: DOCUSATE SODIUM 100MG CAPSULE PO SCH ×2 (08:28→20:57)
[2023-04-17] MEDS: LEVEMIR (INSULIN DETEMIR) 1 UNITS/0.01ML SC SCH (08:28)
[2023-04-17 08:40] LABS: HEMATOCRIT 31.5 % (42.0-52.0); MEAN CORPUSCULAR HEMOGLOBIN 33.4 pg (27.0-33.0); MEAN CORPUSCULAR HGB CONC 31.7 g/dl (32.0-36.5); MEAN CORPUSCULAR VOLUME 105.4 fl (80.0-96.0); PLATELET COUNT, AUTOMATED 469 10^3/uL (150-450); RED BLOOD COUNT 2.99 10^6/uL (4.30-6.10); WHITE BLOOD COUNT 12.9 10^3/uL (4.0-10.0)
[2023-04-17 09:11] LABS: ALBUMIN 1.9 G/DL (3.2-5.2); CALCIUM LEVEL 7.9 MG/DL (8.3-10.6); CREATININE FOR GFR 2.58 MG/DL (0.70-1.30); GLOMERULAR FILTRATION RATE 26.7 (>49); PHOSPHORUS LEVEL 5.9 MG/DL (2.4-5.1)
[2023-04-17] MEDS: ATORVASTATIN 20 MG TAB PO SCH (20:57)
[2023-04-17] MEDS: TAMSULOSIN 0.4 MG CAP PO SCH (20:57)
[2023-04-18] MEDS: PERCOCET 5MG/325MG TAB PO PRN ×2 (00:03→19:43)
[2023-04-18] MEDS: LORazepam 1 MG TAB PO PRN ×2 (00:03→19:43)
[2023-04-18 00:30] VITALS: BP 172/76
[2023-04-18] MEDS ORDERED: guaiFENesin ER TABLET 600 MG TAB PO ONE (00:30)
[2023-04-18] MEDS: LevoFLOXacin 750 MG TABLET PO SCH (05:02)
[2023-04-18 05:41] LABS: ALBUMIN 1.9 G/DL (3.2-5.2); CALCIUM LEVEL 7.7 MG/DL (8.3-10.6); CREATININE FOR GFR 2.51 MG/DL (0.70-1.30); GLOMERULAR FILTRATION RATE 27.5 (>49); PHOSPHORUS LEVEL 5.4 MG/DL (2.4-5.1); POTASSIUM SERUM 3.8 MMOL/L (3.5-5.1)
[2023-04-18 08:13] VITALS: BP 136/72; TEMP 96.8; O2SAT 96
[2023-04-18] MEDS: GABAPENTIN 300 MG CAP PO SCH ×2 (09:24→21:05)
[2023-04-18] MEDS: CARVedilol 12.5 MG TAB PO SCH ×2 (09:25→21:05)
[2023-04-18] MEDS: predniSONE 20 MG TAB PO SCH (09:25)
[2023-04-18] MEDS: **hydrALAZINE** 50 MG TAB PO SCH ×3 (09:26→21:06)
[2023-04-18] MEDS: MAGNESIUM OXIDE 400MG TAB (MAG-OX) PO SCH (09:26)
[2023-04-18] MEDS: DOCUSATE SODIUM 100MG CAPSULE PO SCH ×2 (09:26→21:05)
[2023-04-18] MEDS: hydrOXYzine 50 MG TAB PO SCH (09:26)
[2023-04-18] MEDS: APIXABAN 5 MG TAB (ELIQUIS) PO SCH ×2 (09:26→21:06)
[2023-04-18] MEDS: OMEPRAZOLE 20MG CAP PO SCH ×2 (09:26→21:05)
[2023-04-18] MEDS: ADDERALL 5 MG TAB PO SCH ×2 (09:27→15:55)
[2023-04-18] MEDS: LEVEMIR (INSULIN DETEMIR) 1 UNITS/0.01ML SC SCH (09:28)
[2023-04-18] MEDS: INSULIN LISPRO (NovoLOG) PER UNIT SC SCH ×4 (09:29→21:00)
[2023-04-18 20:40] VITALS: BP 203/118; TEMP 97.7; O2SAT 93
[2023-04-18 20:47] VITALS: BP 220/115
[2023-04-18] MEDS: TAMSULOSIN 0.4 MG CAP PO SCH (21:05)
[2023-04-18] MEDS: ATORVASTATIN 20 MG TAB PO SCH (21:05)
[2023-04-18] MEDS ORDERED: amLODIPine 5 MG TAB PO ONE (23:15)
[2023-04-19 00:57] VITALS: BP 150/85
[2023-04-19] MEDS: PERCOCET 5MG/325MG TAB PO PRN ×3 (03:23→21:03)
[2023-04-19] MEDS: LORazepam 1 MG TAB PO PRN ×3 (03:23→21:00)
[2023-04-19 06:53] VITALS: BP 134/68; TEMP 97.5; O2SAT 97
[2023-04-19] MEDS: ADDERALL 5 MG TAB PO SCH ×2 (08:22→15:43)
[2023-04-19] MEDS: **hydrALAZINE** 50 MG TAB PO SCH ×3 (08:23→21:02)
[2023-04-19] MEDS: hydrOXYzine 50 MG TAB PO SCH (08:23)
[2023-04-19] MEDS: MAGNESIUM OXIDE 400MG TAB (MAG-OX) PO SCH (08:23)
[2023-04-19] MEDS: APIXABAN 5 MG TAB (ELIQUIS) PO SCH ×2 (08:24→21:01)
[2023-04-19] MEDS: DOCUSATE SODIUM 100MG CAPSULE PO SCH ×2 (08:24→21:02)
[2023-04-19] MEDS: GABAPENTIN 300 MG CAP PO SCH ×2 (08:24→21:02)
[2023-04-19] MEDS: OMEPRAZOLE 20MG CAP PO SCH ×2 (08:25→21:01)
[2023-04-19] MEDS: predniSONE 20 MG TAB PO SCH (08:25)
[2023-04-19] MEDS: CARVedilol 12.5 MG TAB PO SCH ×2 (08:28→21:02)
[2023-04-19] MEDS: LEVEMIR (INSULIN DETEMIR) 1 UNITS/0.01ML SC SCH (08:29)
[2023-04-19] MEDS: INSULIN LISPRO (NovoLOG) PER UNIT SC SCH ×4 (08:30→20:28)
[2023-04-19 14:00] VITALS: BP 142/68; TEMP 98.1; O2SAT 98
[2023-04-19] MEDS: guaiFENesin ER TABLET 600 MG TAB PO PRN (15:42)
[2023-04-19] MEDS: TAMSULOSIN 0.4 MG CAP PO SCH (21:00)
[2023-04-19] MEDS: ATORVASTATIN 20 MG TAB PO SCH (21:01)
[2023-04-19 22:00] VITALS: BP 170/94; TEMP 97.9; O2SAT 90
[2023-04-20 06:00] VITALS: BP 137/70; TEMP 97.5; O2SAT 95
[2023-04-20] MEDS: LevoFLOXacin 750 MG TABLET PO SCH (06:23)
[2023-04-20] MEDS: APIXABAN 5 MG TAB (ELIQUIS) PO SCH ×2 (08:08→20:28)
[2023-04-20] MEDS: DOCUSATE SODIUM 100MG CAPSULE PO SCH ×2 (08:08→20:28)
[2023-04-20] MEDS: MAGNESIUM OXIDE 400MG TAB (MAG-OX) PO SCH (08:09)
[2023-04-20] MEDS: GABAPENTIN 300 MG CAP PO SCH ×2 (08:11→20:28)
[2023-04-20] MEDS: OMEPRAZOLE 20MG CAP PO SCH ×2 (08:11→20:28)
[2023-04-20] MEDS: predniSONE 20 MG TAB PO SCH (08:12)
[2023-04-20] MEDS: hydrOXYzine 50 MG TAB PO SCH (08:12)
[2023-04-20] MEDS: ADDERALL 5 MG TAB PO SCH ×2 (08:12→13:13)
[2023-04-20] MEDS: CARVedilol 12.5 MG TAB PO SCH ×2 (08:12→20:27)
[2023-04-20] MEDS: **hydrALAZINE** 50 MG TAB PO SCH ×3 (08:12→20:28)
[2023-04-20] MEDS: LEVEMIR (INSULIN DETEMIR) 1 UNITS/0.01ML SC SCH (08:13)
[2023-04-20] MEDS: INSULIN LISPRO (NovoLOG) PER UNIT SC SCH ×4 (08:13→20:29)
[2023-04-20] MEDS: LORazepam 1 MG TAB PO PRN ×2 (10:35→20:34)
[2023-04-20] MEDS: PERCOCET 5MG/325MG TAB PO PRN ×2 (10:36→20:35)
[2023-04-20] MEDS: guaiFENesin ER TABLET 600 MG TAB PO PRN (10:39)
[2023-04-20 18:47] VITALS: BP 192/92
[2023-04-20] MEDS ORDERED: amLODIPine 5 MG TAB PO ONE (19:30)
[2023-04-20] MEDS: ATORVASTATIN 20 MG TAB PO SCH (20:27)
[2023-04-20] MEDS: TAMSULOSIN 0.4 MG CAP PO SCH (20:27)
[2023-04-20 21:00] VITALS: BP 170/98
[2023-04-21 06:00] VITALS: BP 169/91; TEMP 97.9; O2SAT 92
[2023-04-21] MEDS: INSULIN LISPRO (NovoLOG) PER UNIT SC SCH ×4 (07:30→20:58)
[2023-04-21 07:43] LABS: VENOUS HCO3 30.4 MMOL/L (23.0-27.0); VENOUS O2 SATURATION 99.1 % (60.0-80.0); VENOUS PARTIAL PRESSURE CO2 48.2 mmHg (38.0-50.0); VENOUS PARTIAL PRESSURE O2 232.9 mmHg (30.0-50.0); VENOUS PH 7.417 UNITS (7.330-7.430); VENOUS TOTAL CO2 31.8 MMOL/L (24.0-28.0)
[2023-04-21 08:06] LABS: BASO % 0.1 % (0.0-1.0); EOS # 0.1 10^3/uL (0.0-0.5); EOS % 0.7 % (0.0-3.0); HEMATOCRIT 30.9 % (42.0-52.0); LYMPH # 0.6 10^3/uL (1.5-5.0); LYMPH % 4.5 % (24.0-44.0); MEAN CORPUSCULAR HEMOGLOBIN 33.3 pg (27.0-33.0); MEAN CORPUSCULAR HGB CONC 32.4 g/dl (32.0-36.5); NEUTROPHILS # 9.7 10^3/uL (1.5-8.5); NEUTROPHILS % 78.1 % (36.0-66.0); PLATELET COUNT, AUTOMATED 347 10^3/uL (150-450); WHITE BLOOD COUNT 12.4 10^3/uL (4.0-10.0)
[2023-04-21 08:13] LABS: CALCIUM LEVEL 7.9 MG/DL (8.3-10.6); CREATININE FOR GFR 2.65 MG/DL (0.70-1.30); GLOMERULAR FILTRATION RATE 25.8 (>49); POTASSIUM SERUM 3.6 MMOL/L (3.5-5.1)
[2023-04-21 08:47] LABS: ANISOCYTOSIS 4+; PLATELET CLUMPS SMALL AMT; PLATELET ESTIMATE NORMAL (NORMAL); POIKILOCYTOSIS 2+; SCHISTOCYTES 2+
[2023-04-21 08:48] LABS: BURR CELLS 1+
[2023-04-21 08:56] LABS: HOWELL-JOLLY BODIES 1+
[2023-04-21] MEDS ORDERED: predniSONE 20 MG TAB PO SCH (09:00)
[2023-04-21 09:05] LABS: TEAR DROP CELLS 1+
[2023-04-21] MEDS: hydrOXYzine 50 MG TAB PO SCH (09:27)
[2023-04-21] MEDS: ADDERALL 5 MG TAB PO SCH ×2 (09:27→13:52)
[2023-04-21] MEDS: **hydrALAZINE** 50 MG TAB PO SCH ×3 (09:27→20:58)
[2023-04-21] MEDS: DOCUSATE SODIUM 100MG CAPSULE PO SCH ×2 (09:28→20:56)
[2023-04-21] MEDS: CARVedilol 12.5 MG TAB PO SCH ×2 (09:28→20:58)
[2023-04-21] MEDS: APIXABAN 5 MG TAB (ELIQUIS) PO SCH ×2 (09:29→20:57)
[2023-04-21] MEDS: MAGNESIUM OXIDE 400MG TAB (MAG-OX) PO SCH (09:29)
[2023-04-21] MEDS: GABAPENTIN 300 MG CAP PO SCH ×2 (09:29→20:58)
[2023-04-21] MEDS: LEVEMIR (INSULIN DETEMIR) 1 UNITS/0.01ML SC SCH (09:30)
[2023-04-21] MEDS: OMEPRAZOLE 20MG CAP PO SCH ×2 (09:30→20:57)
[2023-04-21] MEDS: guaiFENesin ER TABLET 600 MG TAB PO PRN (17:03)
[2023-04-21] MEDS: PERCOCET 5MG/325MG TAB PO PRN (17:42)
[2023-04-21] MEDS: SYMBICORT 160/4.5MCG INHALER 6GM INH SCH (19:48)
[2023-04-21] MEDS: TAMSULOSIN 0.4 MG CAP PO SCH (20:56)
[2023-04-21] MEDS: amLODIPine 5 MG TAB PO SCH (20:57)
[2023-04-21] MEDS: ATORVASTATIN 20 MG TAB PO SCH (20:58)
[2023-04-22] MEDS: LORazepam 1 MG TAB PO PRN ×2 (00:36→19:41)
[2023-04-22] MEDS: PERCOCET 5MG/325MG TAB PO PRN ×2 (00:36→19:42)
[2023-04-22 06:00] VITALS: BP 176/86; TEMP 97; O2SAT 96
[2023-04-22 06:14] LABS: BASO % 0.1 % (0.0-1.0); EOS % 0.2 % (0.0-3.0); LYMPH # 0.4 10^3/uL (1.5-5.0); LYMPH % 2.8 % (24.0-44.0); MONO % 11.5 % (2.0-8.0); NEUTROPHILS # 13.5 10^3/uL (1.5-8.5); NEUTROPHILS % 84.6 % (36.0-66.0)
[2023-04-22 06:17] VITALS: BP 180/90
[2023-04-22 06:30] LABS: CALCIUM LEVEL 7.7 MG/DL (8.3-10.6); CREATININE FOR GFR 2.63 MG/DL (0.70-1.30); GLOMERULAR FILTRATION RATE 26.1 (>49); POTASSIUM SERUM 3.8 MMOL/L (3.5-5.1)
[2023-04-22 06:31] LABS: HEMATOCRIT 32.2 % (42.0-52.0); HEMOGLOBIN 10.3 g/dl (13.5-17.5); MEAN CORPUSCULAR HEMOGLOBIN 32.6 pg (27.0-33.0); MEAN CORPUSCULAR VOLUME 98.7 fl (80.0-96.0); MONO # 1.8 10^3/uL (0.0-0.8); RED BLOOD COUNT 3.16 10^6/uL (4.30-6.10); WHITE BLOOD COUNT 14.9 10^3/uL (4.0-10.0)
[2023-04-22 06:32] LABS: PLATELET COUNT, AUTOMATED 362 10^3/uL (150-450)
[2023-04-22] MEDS: **hydrALAZINE** 50 MG TAB PO SCH ×3 (06:43→22:05)
[2023-04-22 06:54] LABS: ANISOCYTOSIS 3+; BURR CELLS 1+; POIKILOCYTOSIS 2+; POLYCHROMASIA 2+; SCHISTOCYTES 2+
[2023-04-22 06:56] LABS: HOWELL-JOLLY BODIES 2+; PLATELET ESTIMATE INCREASED (NORMAL)
[2023-04-22] MEDS: predniSONE 10MG TAB PO SCH (08:42)
[2023-04-22] MEDS: GABAPENTIN 300 MG CAP PO SCH ×2 (08:42→22:07)
[2023-04-22] MEDS: MAGNESIUM OXIDE 400MG TAB (MAG-OX) PO SCH (08:42)
[2023-04-22] MEDS: APIXABAN 5 MG TAB (ELIQUIS) PO SCH ×2 (08:42→22:06)
[2023-04-22] MEDS: OMEPRAZOLE 20MG CAP PO SCH ×2 (08:42→22:07)
[2023-04-22 08:45] VITALS: BP 168/81; TEMP 98.4
[2023-04-22] MEDS: CARVedilol 12.5 MG TAB PO SCH ×2 (08:45→22:05)
[2023-04-22] MEDS: ADDERALL 5 MG TAB PO SCH ×2 (08:46→12:47)
[2023-04-22] MEDS: DOCUSATE SODIUM 100MG CAPSULE PO SCH ×2 (08:46→22:07)
[2023-04-22] MEDS: hydrOXYzine 50 MG TAB PO SCH (08:46)
[2023-04-22] MEDS: INSULIN LISPRO (NovoLOG) PER UNIT SC SCH ×4 (08:47→21:00)
[2023-04-22] MEDS: LEVEMIR (INSULIN DETEMIR) 1 UNITS/0.01ML SC SCH (08:47)
[2023-04-22 10:00] VITALS: BP 149/74
[2023-04-22] MEDS ORDERED: FUROSEMIDE 100MG/10ML VIAL IV ONE (11:55)
[2023-04-22] MEDS ORDERED: LEVALBUTEROL 1.25MG 0.5ML CONCENTRATE NEB INH ONE (11:55)
[2023-04-22] MEDS ORDERED: TORSEMIDE 20 MG TAB PO ONE (12:40)
[2023-04-22] MEDS: SYMBICORT 160/4.5MCG INHALER 6GM INH SCH (19:17)
[2023-04-22] MEDS ORDERED: LEVALBUTEROL 1.25MG 0.5ML CONCENTRATE NEB INH PRN (20:50)
[2023-04-22 22:05] VITALS: BP 184/106
[2023-04-22 22:06] VITALS: BP 184/106
[2023-04-22] MEDS: amLODIPine 5 MG TAB PO SCH (22:06)
[2023-04-22] MEDS: TAMSULOSIN 0.4 MG CAP PO SCH (22:06)
[2023-04-22] MEDS: ATORVASTATIN 20 MG TAB PO SCH (22:07)
[2023-04-23 00:20] VITALS: BP 149/73
[2023-04-23 05:58] VITALS: BP 178/93; TEMP 97.5; O2SAT 94
[2023-04-23 07:14] LABS: BASO % 0.1 % (0.0-1.0); EOS # 0.1 10^3/uL (0.0-0.5); EOS % 0.7 % (0.0-3.0); HEMATOCRIT 32.2 % (42.0-52.0); HEMOGLOBIN 10.7 g/dl (13.5-17.5); LYMPH # 0.6 10^3/uL (1.5-5.0); LYMPH % 3.7 % (24.0-44.0); MEAN CORPUSCULAR HEMOGLOBIN 33.6 pg (27.0-33.0); MEAN CORPUSCULAR HGB CONC 33.2 g/dl (32.0-36.5); MEAN CORPUSCULAR VOLUME 101.3 fl (80.0-96.0); MONO % 12.1 % (2.0-8.0); NEUTROPHILS # 12.3 10^3/uL (1.5-8.5); NEUTROPHILS % 82.9 % (36.0-66.0); PLATELET COUNT, AUTOMATED 273 10^3/uL (150-450); RED BLOOD COUNT 3.18 10^6/uL (4.30-6.10); WHITE BLOOD COUNT 14.8 10^3/uL (4.0-10.0)
[2023-04-23 07:32] LABS: CALCIUM LEVEL 7.9 MG/DL (8.3-10.6); CREATININE FOR GFR 2.68 MG/DL (0.70-1.30); GLOMERULAR FILTRATION RATE 25.5 (>49); POTASSIUM SERUM 4.4 MMOL/L (3.5-5.1)
[2023-04-23 07:34] LABS: URIC ACID 11.8 MG/DL (3.7-9.2)
[2023-04-23 07:41] LABS: MONO # 1.8 10^3/uL (0.0-0.8)
[2023-04-23 07:42] LABS: ANISOCYTOSIS 4+
[2023-04-23 07:43] LABS: BURR CELLS 1+
[2023-04-23 07:44] LABS: HYPOCHROMASIA 1+; MICROCYTOSIS 3+
[2023-04-23 07:45] LABS: SPHEROCYTES 1+
[2023-04-23 07:46] LABS: POIKILOCYTOSIS 4+; TEAR DROP CELLS 1+
[2023-04-23 07:47] LABS: HELMET CELLS 1+; PLATELET ESTIMATE NORMAL (NORMAL)
[2023-04-23] MEDS: LEVEMIR (INSULIN DETEMIR) 1 UNITS/0.01ML SC SCH (08:14)
[2023-04-23] MEDS: INSULIN LISPRO (NovoLOG) PER UNIT SC SCH ×4 (08:14→20:49)
[2023-04-23] MEDS: ADDERALL 5 MG TAB PO SCH ×2 (08:15→13:06)
[2023-04-23] MEDS: DOCUSATE SODIUM 100MG CAPSULE PO SCH ×2 (08:15→20:00)
[2023-04-23] MEDS: hydrOXYzine 50 MG TAB PO SCH (08:15)
[2023-04-23] MEDS: GABAPENTIN 300 MG CAP PO SCH ×2 (08:15→20:01)
[2023-04-23] MEDS: APIXABAN 5 MG TAB (ELIQUIS) PO SCH ×2 (08:15→20:00)
[2023-04-23] MEDS: MAGNESIUM OXIDE 400MG TAB (MAG-OX) PO SCH (08:16)
[2023-04-23] MEDS: predniSONE 10MG TAB PO SCH (08:17)
[2023-04-23] MEDS: **hydrALAZINE** 50 MG TAB PO SCH ×3 (08:17→20:00)
[2023-04-23] MEDS: OMEPRAZOLE 20MG CAP PO SCH ×2 (08:18→20:01)
[2023-04-23] MEDS: CARVedilol 12.5 MG TAB PO SCH ×2 (08:18→20:00)
[2023-04-23] MEDS: LORazepam 1 MG TAB PO PRN ×2 (10:14→20:01)
[2023-04-23] MEDS: PERCOCET 5MG/325MG TAB PO PRN ×2 (10:14→21:09)
[2023-04-23] MEDS ORDERED: FUROSEMIDE 20 MG TAB PO ONE (13:00)
[2023-04-23] MEDS: SYMBICORT 160/4.5MCG INHALER 6GM INH SCH (19:18)
[2023-04-23] MEDS: ATORVASTATIN 20 MG TAB PO SCH (20:00)
[2023-04-23] MEDS: TAMSULOSIN 0.4 MG CAP PO SCH (20:00)
[2023-04-23] MEDS: amLODIPine 5 MG TAB PO SCH (20:01)
[2023-04-24 05:30] VITALS: BP 167/81; TEMP 97.5; O2SAT 96
[2023-04-24 06:12] LABS: BASO % 0.1 % (0.0-1.0); EOS # 0.1 10^3/uL (0.0-0.5); EOS % 0.7 % (0.0-3.0); HEMATOCRIT 32.2 % (42.0-52.0); HEMOGLOBIN 10.6 g/dl (13.5-17.5); LYMPH # 0.5 10^3/uL (1.5-5.0); LYMPH % 3.2 % (24.0-44.0); MEAN CORPUSCULAR HEMOGLOBIN 33.4 pg (27.0-33.0); MEAN CORPUSCULAR HGB CONC 32.9 g/dl (32.0-36.5); MEAN CORPUSCULAR VOLUME 101.6 fl (80.0-96.0); MONO % 11.3 % (2.0-8.0); NEUTROPHILS # 13.9 10^3/uL (1.5-8.5); NEUTROPHILS % 84.2 % (36.0-66.0); PLATELET COUNT, AUTOMATED 256 10^3/uL (150-450); RED BLOOD COUNT 3.17 10^6/uL (4.30-6.10); WHITE BLOOD COUNT 16.5 10^3/uL (4.0-10.0)
[2023-04-24 06:15] LABS: MONO # 1.9 10^3/uL (0.0-0.8)
[2023-04-24 06:37] LABS: CALCIUM LEVEL 7.8 MG/DL (8.3-10.6); CREATININE FOR GFR 2.71 MG/DL (0.70-1.30); GLOMERULAR FILTRATION RATE 25.2 (>49); POTASSIUM SERUM 4.1 MMOL/L (3.5-5.1)
[2023-04-24 07:18] LABS: ANISOCYTOSIS 4+; HYPOCHROMASIA 1+; MICROCYTOSIS 1+; SPHEROCYTES 1+
[2023-04-24 07:19] LABS: BURR CELLS 1+; PLATELET ESTIMATE NORMAL (NORMAL); POIKILOCYTOSIS 4+
[2023-04-24 07:20] LABS: HELMET CELLS 1+; SCHISTOCYTES 1+; TEAR DROP CELLS 1+
[2023-04-24] MEDS: predniSONE 10MG TAB PO SCH (08:22)
[2023-04-24] MEDS: GABAPENTIN 300 MG CAP PO SCH ×2 (08:22→21:50)
[2023-04-24] MEDS: ADDERALL 5 MG TAB PO SCH ×3 (08:22→13:02)
[2023-04-24] MEDS: INSULIN LISPRO (NovoLOG) PER UNIT SC SCH ×4 (08:22→21:00)
[2023-04-24] MEDS: LEVEMIR (INSULIN DETEMIR) 1 UNITS/0.01ML SC SCH (08:22)
[2023-04-24] MEDS: OMEPRAZOLE 20MG CAP PO SCH ×2 (08:22→21:51)
[2023-04-24] MEDS: DOCUSATE SODIUM 100MG CAPSULE PO SCH ×2 (08:22→21:50)
[2023-04-24] MEDS: CARVedilol 12.5 MG TAB PO SCH ×2 (08:23→21:50)
[2023-04-24] MEDS: LORazepam 1 MG TAB PO PRN (08:23)
[2023-04-24] MEDS: APIXABAN 5 MG TAB (ELIQUIS) PO SCH ×2 (08:24→21:50)
[2023-04-24] MEDS: **hydrALAZINE** 50 MG TAB PO SCH ×3 (08:24→21:51)
[2023-04-24] MEDS: hydrOXYzine 50 MG TAB PO SCH (08:24)
[2023-04-24] MEDS: PERCOCET 5MG/325MG TAB PO PRN (08:24)
[2023-04-24] MEDS: MAGNESIUM OXIDE 400MG TAB (MAG-OX) PO SCH (08:24)
[2023-04-24] MEDS ORDERED: BUMETANIDE 1 MG TAB PO ONE (12:00)
[2023-04-24 14:45] VITALS: BP 154/77; TEMP 97.7; O2SAT 95
[2023-04-24] MEDS: SYMBICORT 160/4.5MCG INHALER 6GM INH SCH (19:08)
[2023-04-24] MEDS: TAMSULOSIN 0.4 MG CAP PO SCH (21:50)
[2023-04-24] MEDS: ATORVASTATIN 20 MG TAB PO SCH (21:50)
[2023-04-24] MEDS: amLODIPine 5 MG TAB PO SCH (21:51)
[2023-04-25] MEDS: PERCOCET 5MG/325MG TAB PO PRN ×2 (05:14→20:20)
[2023-04-25] MEDS: LORazepam 1 MG TAB PO PRN ×2 (05:14→20:19)
[2023-04-25 07:09] LABS: BASO % 0.1 % (0.0-1.0); EOS # 0.1 10^3/uL (0.0-0.5); EOS % 0.7 % (0.0-3.0); HEMATOCRIT 32.9 % (42.0-52.0); HEMOGLOBIN 10.6 g/dl (13.5-17.5); LYMPH # 0.6 10^3/uL (1.5-5.0); LYMPH % 2.9 % (24.0-44.0); MEAN CORPUSCULAR HEMOGLOBIN 32.9 pg (27.0-33.0); MEAN CORPUSCULAR HGB CONC 32.2 g/dl (32.0-36.5); MEAN CORPUSCULAR VOLUME 102.2 fl (80.0-96.0); MONO % 8.9 % (2.0-8.0); NEUTROPHILS # 16.7 10^3/uL (1.5-8.5); NEUTROPHILS % 86.9 % (36.0-66.0); PLATELET COUNT, AUTOMATED 226 10^3/uL (150-450); RED BLOOD COUNT 3.22 10^6/uL (4.30-6.10); WHITE BLOOD COUNT 19.3 10^3/uL (4.0-10.0)
[2023-04-25 07:29] LABS: CALCIUM LEVEL 8.1 MG/DL (8.3-10.6); CREATININE FOR GFR 2.75 MG/DL (0.70-1.30); GLOMERULAR FILTRATION RATE 24.8 (>49); POTASSIUM SERUM 4.4 MMOL/L (3.5-5.1)
[2023-04-25 07:39] LABS: MONO # 1.7 10^3/uL (0.0-0.8)
[2023-04-25 07:42] LABS: ANISOCYTOSIS 4+; BURR CELLS 1+; HYPOCHROMASIA 2+; OVALOCYTES 1+; POIKILOCYTOSIS 4+; SCHISTOCYTES 1+
[2023-04-25 07:43] LABS: MICROCYTOSIS 4+
[2023-04-25 07:44] LABS: PLATELET ESTIMATE NORMAL (NORMAL)
[2023-04-25] MEDS: LEVEMIR (INSULIN DETEMIR) 1 UNITS/0.01ML SC SCH (08:24)
[2023-04-25] MEDS: INSULIN LISPRO (NovoLOG) PER UNIT SC SCH ×4 (08:25→20:26)
[2023-04-25] MEDS: ADDERALL 5 MG TAB PO SCH ×2 (08:25→14:00)
[2023-04-25] MEDS: MAGNESIUM OXIDE 400MG TAB (MAG-OX) PO SCH (08:26)
[2023-04-25] MEDS: DOCUSATE SODIUM 100MG CAPSULE PO SCH ×2 (08:26→20:18)
[2023-04-25] MEDS: OMEPRAZOLE 20MG CAP PO SCH ×2 (08:26→20:17)
[2023-04-25] MEDS: **hydrALAZINE** 50 MG TAB PO SCH ×3 (08:26→20:19)
[2023-04-25] MEDS: GABAPENTIN 300 MG CAP PO SCH ×2 (08:26→20:18)
[2023-04-25] MEDS: APIXABAN 5 MG TAB (ELIQUIS) PO SCH ×2 (08:26→20:17)
[2023-04-25] MEDS: hydrOXYzine 50 MG TAB PO SCH (08:26)
[2023-04-25] MEDS: CARVedilol 12.5 MG TAB PO SCH ×2 (08:27→20:18)
[2023-04-25] MEDS: predniSONE 10MG TAB PO SCH (08:27)
[2023-04-25] MEDS: BUMETANIDE 1 MG TAB PO SCH (17:44)
[2023-04-25] MEDS: ATORVASTATIN 20 MG TAB PO SCH (20:17)
[2023-04-25] MEDS: amLODIPine 5 MG TAB PO SCH (20:18)
[2023-04-25] MEDS: TAMSULOSIN 0.4 MG CAP PO SCH (20:19)
[2023-04-25 21:52] VITALS: BP 168/85
[2023-04-25] MEDS: SYMBICORT 160/4.5MCG INHALER 6GM INH SCH (22:04)
[2023-04-26] MEDS: LORazepam 1 MG TAB PO PRN ×3 (03:01→21:01)
[2023-04-26] MEDS: PERCOCET 5MG/325MG TAB PO PRN ×4 (03:02→21:00)
[2023-04-26 06:07] VITALS: BP 167/86; TEMP 97.9; O2SAT 93
[2023-04-26] MEDS: INSULIN LISPRO (NovoLOG) PER UNIT SC SCH ×4 (07:30→21:00)
[2023-04-26] MEDS: ADDERALL 5 MG TAB PO SCH ×2 (08:31→14:38)
[2023-04-26] MEDS: LEVEMIR (INSULIN DETEMIR) 1 UNITS/0.01ML SC SCH (08:32)
[2023-04-26] MEDS: CARVedilol 12.5 MG TAB PO SCH ×2 (08:32→21:00)
[2023-04-26] MEDS: **hydrALAZINE** 50 MG TAB PO SCH ×3 (08:33→21:00)
[2023-04-26] MEDS: hydrOXYzine 50 MG TAB PO SCH (08:34)
[2023-04-26] MEDS: BUMETANIDE 1 MG TAB PO SCH ×2 (08:34→17:45)
[2023-04-26] MEDS: predniSONE 10MG TAB PO SCH (08:34)
[2023-04-26] MEDS: GABAPENTIN 300 MG CAP PO SCH ×2 (08:35→20:59)
[2023-04-26] MEDS: MAGNESIUM OXIDE 400MG TAB (MAG-OX) PO SCH (08:35)
[2023-04-26] MEDS: DOCUSATE SODIUM 100MG CAPSULE PO SCH ×2 (08:35→20:59)
[2023-04-26] MEDS: APIXABAN 5 MG TAB (ELIQUIS) PO SCH ×2 (08:36→20:59)
[2023-04-26] MEDS: OMEPRAZOLE 20MG CAP PO SCH ×2 (08:36→20:59)
[2023-04-26] MEDS: SYMBICORT 160/4.5MCG INHALER 6GM INH SCH (20:00)
[2023-04-26] MEDS: ATORVASTATIN 20 MG TAB PO SCH (20:59)
[2023-04-26] MEDS: TAMSULOSIN 0.4 MG CAP PO SCH (20:59)
[2023-04-26] MEDS: amLODIPine 5 MG TAB PO SCH (21:00)
[2023-04-27 06:00] VITALS: BP 157/80; TEMP 97.7; O2SAT 94
[2023-04-27] MEDS: LORazepam 1 MG TAB PO PRN ×2 (06:14→20:07)
[2023-04-27] MEDS: PERCOCET 5MG/325MG TAB PO PRN ×2 (06:14→20:06)
[2023-04-27] MEDS: INSULIN LISPRO (NovoLOG) PER UNIT SC SCH ×4 (07:30→20:08)
[2023-04-27] MEDS: GABAPENTIN 300 MG CAP PO SCH ×2 (10:06→20:06)
[2023-04-27] MEDS: CARVedilol 12.5 MG TAB PO SCH ×2 (10:06→20:07)
[2023-04-27] MEDS: LEVEMIR (INSULIN DETEMIR) 1 UNITS/0.01ML SC SCH (10:06)
[2023-04-27] MEDS: **hydrALAZINE** 50 MG TAB PO SCH ×3 (10:06→20:07)
[2023-04-27] MEDS: ADDERALL 5 MG TAB PO SCH ×2 (10:07→14:00)
[2023-04-27] MEDS: predniSONE 10MG TAB PO SCH (10:07)
[2023-04-27] MEDS: APIXABAN 5 MG TAB (ELIQUIS) PO SCH ×2 (10:07→20:06)
[2023-04-27] MEDS: BUMETANIDE 1 MG TAB PO SCH ×2 (10:07→17:31)
[2023-04-27] MEDS: hydrOXYzine 50 MG TAB PO SCH (10:07)
[2023-04-27] MEDS: DOCUSATE SODIUM 100MG CAPSULE PO SCH ×2 (10:07→20:06)
[2023-04-27] MEDS: OMEPRAZOLE 20MG CAP PO SCH ×2 (10:08→20:06)
[2023-04-27] MEDS: MAGNESIUM OXIDE 400MG TAB (MAG-OX) PO SCH (10:08)
[2023-04-27] MEDS: SYMBICORT 160/4.5MCG INHALER 6GM INH SCH (19:50)
[2023-04-27] MEDS: amLODIPine 5 MG TAB PO SCH (20:06)
[2023-04-27] MEDS: TAMSULOSIN 0.4 MG CAP PO SCH (20:06)
[2023-04-27] MEDS: ATORVASTATIN 20 MG TAB PO SCH (20:06)
[2023-04-28] MEDS: LORazepam 1 MG TAB PO PRN ×2 (02:49→21:11)
[2023-04-28] MEDS: PERCOCET 5MG/325MG TAB PO PRN (02:49)
[2023-04-28 06:00] VITALS: BP 155/80; TEMP 96.4; O2SAT 92
[2023-04-28] MEDS ORDERED: PERCOCET 5MG/325MG TAB PO ONE (06:00)
[2023-04-28] MEDS: INSULIN LISPRO (NovoLOG) PER UNIT SC SCH (07:30)
[2023-04-28 07:55] LABS: CREATININE FOR GFR 2.74 MG/DL (0.70-1.30); GLOMERULAR FILTRATION RATE 24.9 (>49); POTASSIUM SERUM 4.4 MMOL/L (3.5-5.1)
[2023-04-28 08:14] LABS: BASO % 0.1 % (0.0-1.0); EOS # 0.2 10^3/uL (0.0-0.5); HEMATOCRIT 32.6 % (42.0-52.0); HEMOGLOBIN 10.7 g/dl (13.5-17.5); LYMPH # 0.3 10^3/uL (1.5-5.0); MEAN CORPUSCULAR HEMOGLOBIN 32.9 pg (27.0-33.0); MEAN CORPUSCULAR HGB CONC 32.8 g/dl (32.0-36.5); MEAN CORPUSCULAR VOLUME 100.3 fl (80.0-96.0); MONO # 1.2 10^3/uL (0.0-0.8); MONO % 7.9 % (2.0-8.0); NEUTROPHILS # 13.3 10^3/uL (1.5-8.5); NEUTROPHILS % 88.2 % (36.0-66.0); PLATELET COUNT, AUTOMATED 223 10^3/uL (150-450); RED BLOOD COUNT 3.25 10^6/uL (4.30-6.10); WHITE BLOOD COUNT 15.1 10^3/uL (4.0-10.0)
[2023-04-28] MEDS: LEVEMIR (INSULIN DETEMIR) 1 UNITS/0.01ML SC SCH (08:38)
[2023-04-28] MEDS: BUMETANIDE 1 MG TAB PO SCH ×2 (08:39→16:36)
[2023-04-28] MEDS: MAGNESIUM OXIDE 400MG TAB (MAG-OX) PO SCH (08:39)
[2023-04-28] MEDS: ADDERALL 5 MG TAB PO SCH (08:39)
[2023-04-28 08:40] VITALS: BP 155/80
[2023-04-28] MEDS: predniSONE 10MG TAB PO SCH (08:40)
[2023-04-28] MEDS: APIXABAN 5 MG TAB (ELIQUIS) PO SCH (08:40)
[2023-04-28] MEDS: **hydrALAZINE** 50 MG TAB PO SCH (08:40)
[2023-04-28] MEDS: CARVedilol 12.5 MG TAB PO SCH (08:40)
[2023-04-28] MEDS: OMEPRAZOLE 20MG CAP PO SCH ×2 (08:40→21:02)
[2023-04-28] MEDS: GABAPENTIN 300 MG CAP PO SCH (08:40)
[2023-04-28] MEDS: hydrOXYzine 50 MG TAB PO SCH (08:40)
[2023-04-28] MEDS: DOCUSATE SODIUM 100MG CAPSULE PO SCH (08:40)
[2023-04-28] MEDS ORDERED: LORazepam 1 MG TAB PO PRN (10:05)
[2023-04-28] MEDS ORDERED: MORPHINE 10MG/0.5ML ORAL CONCENTRATE SOLUTION U/D SL PRN (10:05)
[2023-04-28] MEDS ORDERED: ONDANSETRON 4MG ORAL DISINTEGRATING TAB PO PRN (12:15)
[2023-04-28] MEDS ORDERED: SCOPOLAMINE 1MG TRANSDERMAL PATCH TOP PRN (12:15)
[2023-04-28] MEDS: MORPHINE 10MG/0.5ML ORAL CONCENTRATE SOLUTION U/D SL PRN ×3 (14:05→21:11)
[2023-04-28] MEDS: SYMBICORT 160/4.5MCG INHALER 6GM INH SCH (20:05)
[2023-04-28] MEDS: TAMSULOSIN 0.4 MG CAP PO SCH (21:03)
[2023-04-29] MEDS: LORazepam 1 MG TAB PO PRN ×7 (03:45→19:24)
[2023-04-29] MEDS: MORPHINE 10MG/0.5ML ORAL CONCENTRATE SOLUTION U/D SL PRN ×8 (03:46→19:25)
[2023-04-29] MEDS ORDERED: predniSONE 10MG TAB PO SCH (09:00)
[2023-04-29] MEDS: OMEPRAZOLE 20MG CAP PO SCH ×2 (09:00→19:38)
[2023-04-29] MEDS: SYMBICORT 160/4.5MCG INHALER 6GM INH SCH (20:00)
== END 2023-04-29 22:05 | disposition expired | DRG 205 ==
LOC: M ED 14:45 → EDBD 14:45 → M ED INP 18:01 → M PCU 20:50 → M MS5PR 04-18 18:55
PROVIDERS: ADMIT Student in an Organized Health Care Education/Training Program; ATTEND Internal Medicine Nephrology
PROC: 0W993ZZ Drainage of Right Pleural Cavity, Percutaneous Approach (ICD-10-PCS; principal; 2023-04-11 13:00)
DX: J70.0 Acute pulmonary manifestations due to radiation (principal); I50.33 Acute on chronic diastolic (congestive) heart failure; J96.21 Acute and chronic respiratory failure with hypoxia; I13.0 Hypertensive heart and chronic kidney disease with heart failure and stage 1 through stage 4 chronic kidney disease, or unspecified chronic kidney disease; C78.00 Secondary malignant neoplasm of unspecified lung; N17.9 Acute kidney failure, unspecified; C25.9 Malignant neoplasm of pancreas, unspecified; J44.1 Chronic obstructive pulmonary disease with (acute) exacerbation; C79.51 Secondary malignant neoplasm of bone; E87.3 Alkalosis; J84.10 Pulmonary fibrosis, unspecified; F90.9 Attention-deficit hyperactivity disorder, unspecified type; K21.9 Gastro-esophageal reflux disease without esophagitis; I25.10 Atherosclerotic heart disease of native coronary artery without angina pectoris; N40.0 Benign prostatic hyperplasia without lower urinary tract symptoms; I27.20 Pulmonary hypertension, unspecified; E79.0 Hyperuricemia without signs of inflammatory arthritis and tophaceous disease; E78.5 Hyperlipidemia, unspecified; E11.22 Type 2 diabetes mellitus with diabetic chronic kidney disease; N18.30 Chronic kidney disease, stage 3 unspecified; R74.01 Elevation of levels of liver transaminase levels; G47.33 Obstructive sleep apnea (adult) (pediatric); G89.3 Neoplasm related pain (acute) (chronic); E88.09 Other disorders of plasma-protein metabolism, not elsewhere classified; J15.9 Unspecified bacterial pneumonia; Z79.4 Long term (current) use of insulin; Z79.899 Other long term (current) drug therapy; Z91.030 Bee allergy status; Z99.81 Dependence on supplemental oxygen; Z95.2 Presence of prosthetic heart valve; Z92.3 Personal history of irradiation; Z79.01 Long term (current) use of anticoagulants; F41.9 Anxiety disorder, unspecified; Z66 Do not resuscitate